=== PATIENT | female | born 1955 | race Caucasian/White ===

== ENCOUNTER 2017-11-28 11:00 | Outpatient (RCR) | payer OTHER, SELFPAY ==
[2017-11-07 09:18] VITALS: BP 133/117; PULSE 81; RESP 18; TEMP 36.4
--- NOTE | 2017-11-07 19:25 | HP.PCM_ITS ---
(1) Pressure ulcer of coccygeal region, stage 3 Status: Acute Current Visit: Yes Code(s): L89.153 - Pressure ulcer of sacral region, stage 3 (2) Pressure ulcer of left buttock, stage 2 Status: Acute Current Visit: Yes Code(s): L89.322 - Pressure ulcer of left buttock, stage 2 (3) Paraparesis of both lower limbs Status: Acute Current Visit: Yes Code(s): G82.20 - Paraplegia, unspecified (4) Multiple sclerosis Status: Chronic Current Visit: No Code(s): G35 - Multiple sclerosis History of Present Illness Date of Service: 11/07/17 Chief Complaint: Decubitus Ulcers History of Wound: Ms. Bryan is a 62-year-old with a complex past medical history who was referred to the wound center due to a chronic nonhealing decubitus ulcers. Initial presentation/Onset was said to be over a year ago and she has been managed by her home health without any significant improvement in her ulcers. She is said to be in bed pretty much 24 hours due to her paraparesis and is turned about 3 times daily. She denies chills, fever, or otherwise feeling of unwell. She was recently managed for a MRSA UTI. She has an indwelling Marcus's. Past Medical History Past Medical History: Chronic Problems Macrocytic anemia (Chronic) due to folate deficiency + fatty liver.....? hemolysis, haptoglobin is pending Hypothyroidism (Chronic) Anxiety (Chronic) Morbid obesity with BMI of 40.0-44.9, adult (Chronic) COPD (chronic obstructive pulmonary disease) (Chronic) life long non-smoker Multiple sclerosis (Chronic) Depression (Chronic) Failure to thrive in adult (Chronic) Physical deconditioning (Chronic) Spinal stenosis of lumbar region (Chronic) mild, diagnosed on MRI of the LS spine done 01/01/14 Folate deficiency anemia (Chronic) Fatty infiltration of liver (Chronic) Urine, incontinence, stress female (Chronic) Chronic retention of urine (Chronic) she has MS and also has spinal canal stenosis....has seen neurosurgery and is not a candidate for any surgical intervention. Physical debility (Chronic) she is sedentary lives alone and can no longer get herself to the BR, has lost arm strength....very deconditioned Surgical History: - - tubal ligation, elective , ventral hernia repair Allergies/Adverse Reactions: Allergies gabapentin Adverse Reaction (Verified 05/05/15 12:21) weakness in legs nifedipine [From Procardia] Adverse Reaction (Verified 05/05/15 12:21) weakness in legs pregabalin [From Lyrica] Adverse Reaction (Verified 05/05/15 12:21) weakness in legs Home Medications: Ambulatory Orders Medication Instructions Recorded Diltiazem HCl [Diltiazem 24Hr ER] 240 mg PO QHS 03/28/15 Lactobacillus Combination No.4 1 each PO DAILY 03/28/15 [Probiotic] Levothyroxine [Synthroid] 100 mcg PO DAILY 03/28/15 Meloxicam [Mobic] 7.5 mg PO BID 03/28/15 Venlafaxine HCl [Effexor] 150 mg PO BID 03/28/15 Hydrochlorothiazide [Hctz] 25 mg PO DAILY 12/05/15 Tolterodine Tartrate [Detrol LA] 2 mg PO BID 12/05/15 ALPRAZolam [Xanax] 0.5 mg PO Q6H PRN PRN 11/07/17 Clotrimazole/Betamethasone 1 applic TOPICAL DAILY PRN 11/07/17 [Lotrisone] Melatonin 5 mg PO QHS 11/07/17 Nitrofurantoin Macrocrystal 100 mg PO DAILY 11/07/17 [Macrodantin] Nystatin Powder [Mycostatin Powder] 1 applic TOPICAL BID PRN 11/07/17 Ondansetron [Zofran] 8 mg PO Q8H PRN PRN 11/07/17 Potassium Chloride [K-Dur] 20 meq PO BID 11/07/17 Sennosides/Docusate Sodium [Senna 1 - 8 each PO DAILY PRN 11/07/17 Plus Tablet] - Family History Maternal Cancer - Her mother of lung cancer and was a smoker Paternal Diabetes, - - Father had posttraumatic stress disorder related from being in the armed forces. He also suffered from alcoholism Smoking Status: Never smoker Review of Systems Constitutional: Denies: Anorexia, Malaise Eyes: Denies: Pain, Redness HEENT: Denies: Difficulty Hearing, Difficulty Swallowing Cardiovascular: Denies: Chest Pain, Chest Tightness Respiratory: Denies: Cough, Hemoptysis Gastrointestinal: Denies: Abdominal Pain, Hematemesis, Vomiting Gynecological: Denies: Vaginal bleeding - Physical Exam Vital Signs Temp Pulse Resp BP 97.5 F L 81 18 133/117 H 11/07/17 09:18 11/07/17 09:18 11/07/17 09:18 11/07/17 09:18 General: Alert, Oriented x3, Cooperative, No apparent distress HEENT: Atraumatic, Normocephalic Oral: Moist Mucosa Neck: Supple Lungs: Normal air movement Cardiovascular: Regular rate Abdomen: Soft, Obese Extremities: No cyanosis Skin: Ulcer/ Wound Wound Measurements and Assessment WC - Nurse 1 - General Ulcer Measurement Start: 11/07/17 08:50 Freq: Status: Active Protocol: Activity Type Activity Date Activity User E-Sign Co-Sign Detail Recorded Client Recorded Date Recorded By Document 11/07/17 09:18 DV [id number] 11/07/17 09:23 DV 11/07/17 09:18 Wound Center Nurse 1 [Ulcer Assessment] #2 LEFT BUTTOCK -Combined with other wound No -Current Size (cm) - Length 0.5 -Current Size (cm) - Width 1.0 -Current Size (cm) - Depth 0.1 -Total Square Cm 0.50 -Photo Taken No -Epithelialization None Present -Tunneling No -Undermining/Tunneling No -Circular Undermining No -Classification - Pressure Ulcer Stage 2 -Exudate Amt Small (1-33%) -Exudate Type Serosanguineous -Wound Margin Distinct, Outline Attached -Granulation Amt None Present (0 %) -Granulation Quality Hyper- granulation -Slough/Fibrin Yes -Necrosis Amt Medium (34-66%) -Necrotic Tissue Type Adherent Slough -Structure Exposed None/Limited to Skin Breakdown -Texture (Jovanna-wound Skin Appearance) Assessed Scarring Rash -Moisture (Jovanna-wound Skin Appearance No Abnormality ) Assessed -Color (Jovanna-wound Skin Appearance) Assessed Erythema -Temperature (Jovanna-wound Skin No Abnormality Appearance) (Pt Warm) -Ulcer Cleansing Rinsed/ Irrigated with Saline -Foul Odor after Cleansing No -Anesthetic Used 4% Lidocaine Solution #1 COCCYX -Combined with other wound No -Current Size (cm) - Length 5.4 -Current Size (cm) - Width 4.0 -Current Size (cm) - Depth 0.4 -Total Square Cm 21.60 -Photo Taken Yes -Epithelialization None Present -Tunneling No -Undermining/Tunneling No -Circular Undermining No -Classification - Thickness Full Thickness without Exposed Support Structure -Classification - Pressure Ulcer Stage 3 -Exudate Amt Large (67-100%) -Exudate Type Serosanguineous -Wound Margin Indistinct, Non -Visible -Granulation Amt None Present (0 %) -Granulation Quality N/A -Slough/Fibrin Yes -Necrosis Amt Large (67-100%) -Necrotic Tissue Type Adherent Slough -Structure Exposed Fat Layer Exposed None/Limited to Skin Breakdown -Texture (Jovanna-wound Skin Appearance) Assessed Scarring Rash -Moisture (Jovanna-wound Skin Appearance Assessed ) Maceration Weeping -Color (Jovanna-wound Skin Appearance) Assessed Erythema -Tenderness on Palpation (Jovanna-wound Yes Skin Appearance) -Ulcer Cleansing Rinsed/ Irrigated with Saline -Foul Odor after Cleansing No -Anesthetic Used 4% Lidocaine Solution WC - Nurse 2 - General Ulcer CM Notes Start: 11/07/17 08:50 Freq: Status: Active Protocol: Activity Type Activity Date Activity User E-Sign Co-Sign Detail Recorded Client Recorded Date Recorded By Document 11/07/17 09:42 DV [id number] 11/07/17 09:56 DV 11/07/17 09:42 Wound Center Nurse 2 [Procedure/Treatment] #2 LEFT BUTTOCK -Time 09:42 -Correct Patient Yes -Correct Side, Site, Position Yes -Correct Procedure Yes -Procedure Performed Yes -Type of Procedure Debridement -Clinical Debridement Subcutaneous -Post Debridement Size (cm) - Length 0.5 -Post Debridement Size (cm) - Width 0.8 -Post Debridement Size (cm) - Depth 0.1 -Total Square Cm 0.40 -Wound/Ulcer Outcome Not Healed -Ulcer Cleansing Rinsed/ Irrigated with Saline -Foul Odor after Cleansing No -Bioengineered Tissue No -Bleeding Controlled with Pressure -Treatment Response Procedure Tolerated Well #1 COCCYX -Time 09:42 -Correct Patient Yes -Correct Side, Site, Position Yes -Correct Procedure Yes -Procedure Performed Yes -Type of Procedure Debridement -Clinical Debridement Subcutaneous -Post Debridement Size (cm) - Length 3.5 -Post Debridement Size (cm) - Width 3.0 -Post Debridement Size (cm) - Depth 0.2 -Total Square Cm 10.50 -Wound/Ulcer Outcome Not Healed -Ulcer Cleansing Rinsed/ Irrigated with Saline -Foul Odor after Cleansing No -Bioengineered Tissue No -Bleeding Controlled with Pressure -Treatment Response Procedure Tolerated Well [See Physician Procedure note for Specifics] Pain Scale: 0-10 Numeric [Pain] -Is Patient Pain Free? Yes Neurological: Cranial nerves II-XII grossly intact Psych/Mental Status: Normal Affect Debridement Note Post-Debridement Measurements/Treatment WC - Nurse 2 - General Ulcer CM Notes Start: 11/07/17 08:50 Freq: Status: Active Protocol: Activity Type Activity Date Activity User E-Sign Co-Sign Detail Recorded Client Recorded Date Recorded By Document 11/07/17 09:42 DV [id number] 11/07/17 09:56 DV 11/07/17 09:42 Wound Center Nurse 2 #2 LEFT BUTTOCK -Time 09:42 -Correct Patient Yes -Correct Side, Site, Position Yes -Correct Procedure Yes -Procedure Performed Yes -Type of Procedure Debridement -Clinical Debridement Subcutaneous -Post Debridement Size (cm) - Length 0.5 -Post Debridement Size (cm) - Width 0.8 -Post Debridement Size (cm) - Depth 0.1 -Total Square Cm 0.40 -Wound/Ulcer Outcome Not Healed -Ulcer Cleansing Rinsed/ Irrigated with Saline -Foul Odor after Cleansing No -Bioengineered Tissue No -Bleeding Controlled with Pressure -Treatment Response Procedure Tolerated Well #1 COCCYX -Time 09:42 -Correct Patient Yes -Correct Side, Site, Position Yes -Correct Procedure Yes -Procedure Performed Yes -Type of Procedure Debridement -Clinical Debridement Subcutaneous -Post Debridement Size (cm) - Length 3.5 -Post Debridement Size (cm) - Width 3.0 -Post Debridement Size (cm) - Depth 0.2 -Total Square Cm 10.50 -Wound/Ulcer Outcome Not Healed -Ulcer Cleansing Rinsed/ Irrigated with Saline -Foul Odor after Cleansing No -Bioengineered Tissue No -Bleeding Controlled with Pressure -Treatment Response Procedure Tolerated Well Pain Scale: 0-10 Numeric Is Patient Pain Free? Yes Wound debrided: Coccygeal Ulcer Wound Grade/Stage: Stage III Type of Debridement: Excisional debridement Anesthesia Used: 4% Lidocaine Solution Depth: Down to and including healthy tissue, in the subcutaneous layer Percentage of wound debrided: 100 Instrument Used: 5mm curette Tissue Removed: Slough and Devitalized tissue Severity: Fat Layer Exposed Amount of bleeding with debridement: Mild Bleeding Controlled with: Pressure Patient tolerated procedure well - Additional Wound Wound debrided: Left Buttock pressure ulcer Wound Grade/Stage: Stage II Type of Debridement: Excisional debridement Anesthesia Used: 4% Lidocaine Solution Depth: Down to and including healthy tissue, in the subcutaneous layer Percentage of wound debrided: 100 Instrument Used: 5mm curette Tissue Removed: Slough and Devitalized tissue Severity: Fat Layer Exposed Amount of bleeding with debridement: Mild Bleeding Controlled with: Pressure Patient tolerated procedure: Patient tolerated procedure well Assessment/Plan Active Problems Pressure ulcer of coccygeal region, stage 3 (Acute) Pressure ulcer of left buttock, stage 2 (Acute) Paraparesis of both lower limbs (Acute) Assessment: Stage III coccygeal decubitus ulcer. Stage II left buttock pressure ulcer. Paraparesis from multiple sclerosis. Physical debility. Plan: Both ulcers debrided as documented above. Procedure was well-tolerated. Cultures of decubitus coccygeal ulcer was taken. Due to significant slough burden, will start Santyl daily. Due to the chronicity of her ulcer I believe patient will benefit from a skin substitute. Advised on low loss air mattress. Gel cushions for seating. Turn patient every 2 hours. Increase protein in diet and protein supplements. Nurse visit in 1 week and follow-up with me in 2 weeks. This note was generated with [employer] software. It may contain incorrect words, spelling, and punctuation that were not noted in checking the note before signing.
[2017-11-21 11:35] VITALS: BP 111/83; PULSE 82; RESP 18; TEMP 35.9
--- NOTE | 2017-11-21 12:59 | PCM.WC.PN ---
(1) Pressure ulcer of coccygeal region, stage 3 Status: Acute Current Visit: Yes Code(s): L89.153 - Pressure ulcer of sacral region, stage 3 (2) Pressure ulcer of left buttock, stage 2 Status: Acute Current Visit: Yes Code(s): L89.322 - Pressure ulcer of left buttock, stage 2 (3) Paraparesis of both lower limbs Status: Acute Current Visit: Yes Code(s): G82.20 - Paraplegia, unspecified (4) Multiple sclerosis Status: Chronic Current Visit: No Code(s): G35 - Multiple sclerosis Type of Wound Date of Service: 11/21/17 Chief Complaint: Decubitus Ulcers History of Wound: Ms. Bryan is a 62-year-old with a complex past medical history who was referred to the wound center due to a chronic nonhealing decubitus ulcers. Initial presentation/Onset was said to be over a year ago and she has been managed by her home health without any significant improvement in her ulcers. She is said to be in bed pretty much 24 hours due to her paraparesis and is turned about 3 times daily. She denies chills, fever, or otherwise feeling of unwell. She was recently managed for a MRSA UTI. She has an indwelling Marcus's. Progress of Wound: Improving. No new complaints at this time. Has been on antibiotics per sensitivity. She denies any complaints or intolerance. - Physical Exam Vital Signs Temp Pulse Resp BP 96.6 F L 82 18 111/83 H 11/21/17 11:35 11/21/17 11:35 11/21/17 11:35 11/21/17 11:35 General: Alert, Oriented x3, Cooperative, No apparent distress HEENT: Atraumatic, Normocephalic Oral: Moist Mucosa Neck: Supple Lungs: Normal air movement Cardiovascular: Regular rate Skin: Ulcer/ Wound Wound Measurements and Assessment WC - Nurse 1 - General Ulcer Measurement Start: 11/07/17 08:50 Freq: Status: Active Protocol: Activity Type Activity Date Activity User E-Sign Co-Sign Detail Recorded Client Recorded Date Recorded By Document 11/21/17 11:35 [id number] 11/21/17 11:54 JS 11/21/17 11:35 Wound Center Nurse 1 [Ulcer Assessment] #2 LEFT BUTTOCK -Combined with other wound No #1 COCCYX -Combined with other wound No -Current Size (cm) - Length 2.7 -Current Size (cm) - Width 2.7 -Current Size (cm) - Depth 1.3 -Total Square Cm 7.29 -Photo Taken No -Epithelialization None Present -Tunneling No -Undermining/Tunneling No -Circular Undermining No -Classification - Thickness Full Thickness without Exposed Support Structure -Classification - Pressure Ulcer Stage 3 -Exudate Amt Small (1-33%) -Exudate Type Serosanguineous -Wound Margin Distinct, Outline Attached -Granulation Amt Large (67-100%) -Granulation Quality Red -Slough/Fibrin Yes -Necrosis Amt None Present (0 %) -Necrotic Tissue Type Adherent Slough -Structure Exposed Fat Layer Exposed None/Limited to Skin Breakdown -Texture (Jovanna-wound Skin Appearance) No Abnormality -Moisture (Jovanna-wound Skin Appearance Maceration ) -Color (Jovanna-wound Skin Appearance) No Abnormality -Temperature (Jovanna-wound Skin No Abnormality Appearance) (Pt Warm) -Tenderness on Palpation (Jovanna-wound No Skin Appearance) -Ulcer Cleansing Rinsed/ Irrigated with Saline -Foul Odor after Cleansing No -Anesthetic Used 5% Lidocaine Gel WC - Nurse 2 - General Ulcer CM Notes Start: 11/07/17 08:50 Freq: Status: Active Protocol: Activity Type Activity Date Activity User E-Sign Co-Sign Detail Recorded Client Recorded Date Recorded By Document 11/21/17 12:15 DV [id number] 11/21/17 12:20 DV 11/21/17 12:15 Wound Center Nurse 2 [Procedure/Treatment] #2 LEFT BUTTOCK -Time 12:15 -Correct Patient Yes -Procedure Performed No -Post Debridement Size (cm) - Length 0 -Post Debridement Size (cm) - Width 0 -Post Debridement Size (cm) - Depth 0 -Total Square Cm 0 -Wound/Ulcer Outcome Healed- Epithelialized #1 COCCYX -Time 12:17 -Correct Patient Yes -Correct Side, Site, Position Yes -Correct Procedure Yes -Procedure Performed Yes -Type of Procedure Debridement -Clinical Debridement Subcutaneous -Post Debridement Size (cm) - Length 2.0 -Post Debridement Size (cm) - Width 2.5 -Post Debridement Size (cm) - Depth 2.0 -Total Square Cm 5.00 -Wound/Ulcer Outcome Not Healed -Ulcer Cleansing Rinsed/ Irrigated with Saline -Foul Odor after Cleansing No -Bioengineered Tissue No -Bleeding Controlled with Pressure -Treatment Response Procedure Tolerated Well [See Physician Procedure note for Specifics] Pain Scale: 0-10 Numeric [Pain] -Is Patient Pain Free? Yes Neurological: Cranial nerves II-XII grossly intact Psych/Mental Status: Normal Affect Debridement Note Post-Debridement Measurements/Treatment WC - Nurse 2 - General Ulcer CM Notes Start: 11/07/17 08:50 Freq: Status: Active Protocol: Activity Type Activity Date Activity User E-Sign Co-Sign Detail Recorded Client Recorded Date Recorded By Document 11/07/17 09:42 DV [id number] 11/07/17 09:56 DV Document 11/21/17 12:15 DV [id number] 11/21/17 12:20 DV 11/07/17 11/21/17 09:42 12:15 Wound Center Nurse 2 #2 LEFT BUTTOCK -Time 09:42 12:15 -Correct Patient Yes Yes -Correct Side, Site, Position Yes -Correct Procedure Yes -Procedure Performed Yes No -Type of Procedure Debridement -Clinical Debridement Subcutaneous -Post Debridement Size (cm) - Length 0.5 0 -Post Debridement Size (cm) - Width 0.8 0 -Post Debridement Size (cm) - Depth 0.1 0 -Total Square Cm 0.40 0 -Wound/Ulcer Outcome Not Healed Healed- Epithelialized -Ulcer Cleansing Rinsed/ Irrigated with Saline -Foul Odor after Cleansing No -Bioengineered Tissue No -Bleeding Controlled with Pressure -Treatment Response Procedure Tolerated Well #1 COCCYX -Time 09:42 12:17 -Correct Patient Yes Yes -Correct Side, Site, Position Yes Yes -Correct Procedure Yes Yes -Procedure Performed Yes Yes -Type of Procedure Debridement Debridement -Clinical Debridement Subcutaneous Subcutaneous -Post Debridement Size (cm) - Length 3.5 2.0 -Post Debridement Size (cm) - Width 3.0 2.5 -Post Debridement Size (cm) - Depth 0.2 2.0 -Total Square Cm 10.50 5.00 -Wound/Ulcer Outcome Not Healed Not Healed -Ulcer Cleansing Rinsed/ Rinsed/ Irrigated with Irrigated with Saline Saline -Foul Odor after Cleansing No No -Bioengineered Tissue No No -Bleeding Controlled with Pressure Pressure -Treatment Response Procedure Procedure Tolerated Well Tolerated Well Pain Scale: 0-10 Numeric Is Patient Pain Free? Yes Yes Wound debrided: Coccygeal Ulcer Wound Grade/Stage: Stage III Type of Debridement: Excisional debridement Anesthesia Used: 4% Lidocaine Solution Depth: Down to and including healthy tissue, in the subcutaneous layer Percentage of wound debrided: 100 Instrument Used: 5mm curette Tissue Removed: Biofilm and devitalized tissue Severity: Fat Layer Exposed Amount of bleeding with debridement: Mild Bleeding Controlled with: Pressure Patient tolerated procedure well Assessment/Plan Active Problems Pressure ulcer of coccygeal region, stage 3 (Acute) Pressure ulcer of left buttock, stage 2 (Acute) Paraparesis of both lower limbs (Acute) Assessment: Stage III coccygeal decubitus ulcer. Stage II left buttock pressure ulcer. - Healed. Paraparesis from multiple sclerosis. Physical debility. Plan: She has shown significant improvement. Wound appears much deeper however, during her last visit, she had significant slough burden and so which could have impacted depth measurement. Good granulation tissue formation. Will switch to Fibracol daily with ABD over top. Continue increased protein intake/supplements. Advised on low loss air mattress. Gel cushions for seating. Turn patient every 2 hours. Follow up in 1 week. This note was generated with [employer] dictation software. It may contain incorrect words, spelling, and punctuation that were not noted in checking the note before signing.
--- NOTE | 2017-11-21 13:06 | PN.PCM_ITS ---
(1) Pressure ulcer of coccygeal region, stage 3 Status: Acute Current Visit: Yes Code(s): L89.153 - Pressure ulcer of sacral region, stage 3 (2) Pressure ulcer of left buttock, stage 2 Status: Acute Current Visit: Yes Code(s): L89.322 - Pressure ulcer of left buttock, stage 2 (3) Paraparesis of both lower limbs Status: Acute Current Visit: Yes Code(s): G82.20 - Paraplegia, unspecified (4) Multiple sclerosis Status: Chronic Current Visit: No Code(s): G35 - Multiple sclerosis Type of Wound Date of Service: 11/21/17 Chief Complaint: Decubitus Ulcers History of Wound: Ms. Bryan is a 62-year-old with a complex past medical history who was referred to the wound center due to a chronic nonhealing decubitus ulcers. Initial presentation/Onset was said to be over a year ago and she has been managed by her home health without any significant improvement in her ulcers. She is said to be in bed pretty much 24 hours due to her paraparesis and is turned about 3 times daily. She denies chills, fever, or otherwise feeling of unwell. She was recently managed for a MRSA UTI. She has an indwelling Marcus's. Progress of Wound: Improving. No new complaints at this time. Has been on antibiotics per sensitivity. She denies any complaints or intolerance. - Physical Exam Vital Signs Temp Pulse Resp BP 96.6 F L 82 18 111/83 H 11/21/17 11:35 11/21/17 11:35 11/21/17 11:35 11/21/17 11:35 General: Alert, Oriented x3, Cooperative, No apparent distress HEENT: Atraumatic, Normocephalic Oral: Moist Mucosa Neck: Supple Lungs: Normal air movement Cardiovascular: Regular rate Skin: Ulcer/ Wound Wound Measurements and Assessment WC - Nurse 1 - General Ulcer Measurement Start: 11/07/17 08:50 Freq: Status: Active Protocol: Activity Type Activity Date Activity User E-Sign Co-Sign Detail Recorded Client Recorded Date Recorded By Document 11/21/17 11:35 [email or web address] [id number] 11/21/17 11:54 JS 11/21/17 11:35 Wound Center Nurse 1 [Ulcer Assessment] #2 LEFT BUTTOCK -Combined with other wound No #1 COCCYX -Combined with other wound No -Current Size (cm) - Length 2.7 -Current Size (cm) - Width 2.7 -Current Size (cm) - Depth 1.3 -Total Square Cm 7.29 -Photo Taken No -Epithelialization None Present -Tunneling No -Undermining/Tunneling No -Circular Undermining No -Classification - Thickness Full Thickness without Exposed Support Structure -Classification - Pressure Ulcer Stage 3 -Exudate Amt Small (1-33%) -Exudate Type Serosanguineous -Wound Margin Distinct, Outline Attached -Granulation Amt Large (67-100%) -Granulation Quality Red -Slough/Fibrin Yes -Necrosis Amt None Present (0 %) -Necrotic Tissue Type Adherent Slough -Structure Exposed Fat Layer Exposed None/Limited to Skin Breakdown -Texture (Jovanna-wound Skin Appearance) No Abnormality -Moisture (Jovanna-wound Skin Appearance Maceration ) -Color (Jovanna-wound Skin Appearance) No Abnormality -Temperature (Jovanna-wound Skin No Abnormality Appearance) (Pt Warm) -Tenderness on Palpation (Jovanna-wound No Skin Appearance) -Ulcer Cleansing Rinsed/ Irrigated with Saline -Foul Odor after Cleansing No -Anesthetic Used 5% Lidocaine Gel WC - Nurse 2 - General Ulcer CM Notes Start: 11/07/17 08:50 Freq: Status: Active Protocol: Activity Type Activity Date Activity User E-Sign Co-Sign Detail Recorded Client Recorded Date Recorded By Document 11/21/17 12:15 DV [id number] 11/21/17 12:20 DV 11/21/17 12:15 Wound Center Nurse 2 [Procedure/Treatment] #2 LEFT BUTTOCK -Time 12:15 -Correct Patient Yes -Procedure Performed No -Post Debridement Size (cm) - Length 0 -Post Debridement Size (cm) - Width 0 -Post Debridement Size (cm) - Depth 0 -Total Square Cm 0 -Wound/Ulcer Outcome Healed- Epithelialized #1 COCCYX -Time 12:17 -Correct Patient Yes -Correct Side, Site, Position Yes -Correct Procedure Yes -Procedure Performed Yes -Type of Procedure Debridement -Clinical Debridement Subcutaneous -Post Debridement Size (cm) - Length 2.0 -Post Debridement Size (cm) - Width 2.5 -Post Debridement Size (cm) - Depth 2.0 -Total Square Cm 5.00 -Wound/Ulcer Outcome Not Healed -Ulcer Cleansing Rinsed/ Irrigated with Saline -Foul Odor after Cleansing No -Bioengineered Tissue No -Bleeding Controlled with Pressure -Treatment Response Procedure Tolerated Well [See Physician Procedure note for Specifics] Pain Scale: 0-10 Numeric [Pain] -Is Patient Pain Free? Yes Neurological: Cranial nerves II-XII grossly intact Psych/Mental Status: Normal Affect Debridement Note Post-Debridement Measurements/Treatment WC - Nurse 2 - General Ulcer CM Notes Start: 11/07/17 08:50 Freq: Status: Active Protocol: Activity Type Activity Date Activity User E-Sign Co-Sign Detail Recorded Client Recorded Date Recorded By Document 11/07/17 09:42 DV [id number] 11/07/17 09:56 DV Document 11/21/17 12:15 DV [id number] 11/21/17 12:20 DV 11/07/17 11/21/17 09:42 12:15 Wound Center Nurse 2 #2 LEFT BUTTOCK -Time 09:42 12:15 -Correct Patient Yes Yes -Correct Side, Site, Position Yes -Correct Procedure Yes -Procedure Performed Yes No -Type of Procedure Debridement -Clinical Debridement Subcutaneous -Post Debridement Size (cm) - Length 0.5 0 -Post Debridement Size (cm) - Width 0.8 0 -Post Debridement Size (cm) - Depth 0.1 0 -Total Square Cm 0.40 0 -Wound/Ulcer Outcome Not Healed Healed- Epithelialized -Ulcer Cleansing Rinsed/ Irrigated with Saline -Foul Odor after Cleansing No -Bioengineered Tissue No -Bleeding Controlled with Pressure -Treatment Response Procedure Tolerated Well #1 COCCYX -Time 09:42 12:17 -Correct Patient Yes Yes -Correct Side, Site, Position Yes Yes -Correct Procedure Yes Yes -Procedure Performed Yes Yes -Type of Procedure Debridement Debridement -Clinical Debridement Subcutaneous Subcutaneous -Post Debridement Size (cm) - Length 3.5 2.0 -Post Debridement Size (cm) - Width 3.0 2.5 -Post Debridement Size (cm) - Depth 0.2 2.0 -Total Square Cm 10.50 5.00 -Wound/Ulcer Outcome Not Healed Not Healed -Ulcer Cleansing Rinsed/ Rinsed/ Irrigated with Irrigated with Saline Saline -Foul Odor after Cleansing No No -Bioengineered Tissue No No -Bleeding Controlled with Pressure Pressure -Treatment Response Procedure Procedure Tolerated Well Tolerated Well Pain Scale: 0-10 Numeric Is Patient Pain Free? Yes Yes Wound debrided: Coccygeal Ulcer Wound Grade/Stage: Stage III Type of Debridement: Excisional debridement Anesthesia Used: 4% Lidocaine Solution Depth: Down to and including healthy tissue, in the subcutaneous layer Percentage of wound debrided: 100 Instrument Used: 5mm curette Tissue Removed: Biofilm and devitalized tissue Severity: Fat Layer Exposed Amount of bleeding with debridement: Mild Bleeding Controlled with: Pressure Patient tolerated procedure well Assessment/Plan Active Problems Pressure ulcer of coccygeal region, stage 3 (Acute) Pressure ulcer of left buttock, stage 2 (Acute) Paraparesis of both lower limbs (Acute) Assessment: Stage III coccygeal decubitus ulcer. Stage II left buttock pressure ulcer. - Healed. Paraparesis from multiple sclerosis. Physical debility. Plan: She has shown significant improvement. Wound appears much deeper however , during her last visit, she had significant slough burden and so which could have impacted depth measurement. Good granulation tissue formation. Will switch to Fibracol daily with ABD over top. Continue increased protein intake/ supplements. Advised on low loss air mattress. Gel cushions for seating. Turn patient every 2 hours. Follow up in 1 week. This note was generated with [employer] dictation software. It may contain incorrect words, spelling, and punctuation that were not noted in checking the note before signing.
[2017-11-28 11:33] VITALS: BP 116/85; PULSE 78; RESP 18; TEMP 36.1
--- NOTE | 2017-11-28 17:19 | PCM.WC.PN ---
(1) Pressure ulcer of coccygeal region, stage 3 Status: Acute Current Visit: Yes Code(s): L89.153 - Pressure ulcer of sacral region, stage 3 (2) Pressure ulcer of left buttock, stage 2 Status: Acute Current Visit: Yes Code(s): L89.322 - Pressure ulcer of left buttock, stage 2 (3) Paraparesis of both lower limbs Status: Acute Current Visit: Yes Code(s): G82.20 - Paraplegia, unspecified (4) Multiple sclerosis Status: Chronic Current Visit: No Code(s): G35 - Multiple sclerosis Type of Wound Date of Service: 11/28/17 Chief Complaint: Decubitus Ulcers History of Wound: Ms. Bryan is a 62-year-old with a complex past medical history who was referred to the wound center due to a chronic nonhealing decubitus ulcers. Initial presentation/Onset was said to be over a year ago and she has been managed by her home health without any significant improvement in her ulcers. She is said to be in bed pretty much 24 hours due to her paraparesis and is turned about 3 times daily. She denies chills, fever, or otherwise feeling of unwell. She was recently managed for a MRSA UTI. She has an indwelling Marcus's. Progress of Wound: Improving. No new complaints at this time. - Physical Exam Vital Signs Temp Pulse Resp BP 97 F L 78 18 116/85 H 11/28/17 11:33 11/28/17 11:33 11/28/17 11:33 11/28/17 11:33 General: Alert, Oriented x3, Cooperative, No apparent distress HEENT: Atraumatic, Normocephalic Oral: Moist Mucosa Neck: Supple Lungs: Normal air movement Cardiovascular: Regular rate Abdomen: Soft, Non Tender Skin: Ulcer/ Wound Wound Measurements and Assessment WC - Nurse 1 - General Ulcer Measurement Start: 11/07/17 08:50 Freq: Status: Active Protocol: Activity Type Activity Date Activity User E-Sign Co-Sign Detail Recorded Client Recorded Date Recorded By Document 11/28/17 11:33 RB [id number] 11/28/17 11:51 RB 11/28/17 11:33 Wound Center Nurse 1 [Ulcer Assessment] #1 COCCYX -Combined with other wound No -Current Size (cm) - Length 3.5 -Current Size (cm) - Width 2 -Current Size (cm) - Depth 1.3 -Total Square Cm 7.0 -Photo Taken No -Tunneling No -Undermining/Tunneling No -Circular Undermining No -Classification - Pressure Ulcer Stage 3 -Exudate Amt Small (1-33%) -Exudate Type Serosanguineous -Wound Margin Thickened & Rolled Under -Granulation Amt Medium (34-66%) -Granulation Quality [place] -Slough/Fibrin Yes -Necrosis Amt Small (1-33%) -Necrotic Tissue Type Adherent Slough -Structure Exposed N/A -Texture (Jovanna-wound Skin Appearance) Assessed Excoriation -Moisture (Jovanna-wound Skin Appearance Assessed ) -Color (Jovanna-wound Skin Appearance) Assessed -Temperature (Jovanna-wound Skin No Abnormality Appearance) (Pt Warm) -Tenderness on Palpation (Jovanna-wound No Skin Appearance) -Ulcer Cleansing Rinsed/ Irrigated with Saline -Foul Odor after Cleansing No -Anesthetic Used 5% Lidocaine Gel WC - Nurse 2 - General Ulcer CM Notes Start: 11/07/17 08:50 Freq: Status: Active Protocol: Activity Type Activity Date Activity User E-Sign Co-Sign Detail Recorded Client Recorded Date Recorded By Document 11/28/17 12:41 DV [id number] 11/28/17 12:42 DV 11/28/17 12:41 Wound Center Nurse 2 [Procedure/Treatment] -Time 12:41 -Correct Patient Yes -Correct Side, Site, Position Yes -Correct Procedure Yes -Procedure Performed Yes -Type of Procedure Debridement -Clinical Debridement Subcutaneous -Post Debridement Size (cm) - Length 2.0 -Post Debridement Size (cm) - Width 2.5 -Post Debridement Size (cm) - Depth 1.2 -Total Square Cm 5.00 -Wound/Ulcer Outcome Not Healed -Ulcer Cleansing Rinsed/ Irrigated with Saline -Foul Odor after Cleansing No -Bioengineered Tissue No -Bleeding Controlled with Pressure -Treatment Response Procedure Tolerated Well [See Physician Procedure note for Specifics] Pain Scale: 0-10 Numeric [Pain] -Is Patient Pain Free? Yes Neurological: Cranial nerves II-XII grossly intact Psych/Mental Status: Normal Affect Debridement Note Post-Debridement Measurements/Treatment WC - Nurse 2 - General Ulcer CM Notes Start: 11/07/17 08:50 Freq: Status: Active Protocol: Activity Type Activity Date Activity User E-Sign Co-Sign Detail Recorded Client Recorded Date Recorded By Document 11/07/17 09:42 DV [id number] 11/07/17 09:56 DV Document 11/21/17 12:15 DV [id number] 11/21/17 12:20 DV Document 11/28/17 12:41 DV [id number] 11/28/17 12:42 DV 11/07/17 11/21/17 11/28/17 09:42 12:15 12:41 Wound Center Nurse 2 #2 LEFT BUTTOCK -Time 09:42 12:15 -Correct Patient Yes Yes -Correct Side, Site, Position Yes -Correct Procedure Yes -Procedure Performed Yes No -Type of Procedure Debridement -Clinical Debridement Subcutaneous -Post Debridement Size (cm) - Length 0.5 0 -Post Debridement Size (cm) - Width 0.8 0 -Post Debridement Size (cm) - Depth 0.1 0 -Total Square Cm 0.40 0 -Wound/Ulcer Outcome Not Healed Healed- Epithelialized -Ulcer Cleansing Rinsed/ Irrigated with Saline -Foul Odor after Cleansing No -Bioengineered Tissue No -Bleeding Controlled with Pressure -Treatment Response Procedure Tolerated Well #1 COCCYX -Time 09:42 12:17 12:41 -Correct Patient Yes Yes Yes -Correct Side, Site, Position Yes Yes Yes -Correct Procedure Yes Yes Yes -Procedure Performed Yes Yes Yes -Type of Procedure Debridement Debridement Debridement -Clinical Debridement Subcutaneous Subcutaneous Subcutaneous -Post Debridement Size (cm) - Length 3.5 2.0 2.0 -Post Debridement Size (cm) - Width 3.0 2.5 2.5 -Post Debridement Size (cm) - Depth 0.2 2.0 1.2 -Total Square Cm 10.50 5.00 5.00 -Wound/Ulcer Outcome Not Healed Not Healed Not Healed -Ulcer Cleansing Rinsed/ Rinsed/ Rinsed/ Irrigated with Irrigated with Irrigated with Saline Saline Saline -Foul Odor after Cleansing No No No -Bioengineered Tissue No No No -Bleeding Controlled with Pressure Pressure Pressure -Treatment Response Procedure Procedure Procedure Tolerated Well Tolerated Well Tolerated Well Pain Scale: 0-10 Numeric Is Patient Pain Free? Yes Yes Yes Wound debrided: Coccygeal ulcer Wound Grade/Stage: Stage III Type of Debridement: Excisional debridement Anesthesia Used: 5% Lidocaine Gel Depth: Down to and including healthy tissue, in the subcutaneous layer Percentage of wound debrided: 100 Instrument Used: 5mm curette Tissue Removed: Slough and devitalized tissue Severity: Fat Layer Exposed Amount of bleeding with debridement: Mild Bleeding Controlled with: Pressure Patient tolerated procedure well Assessment/Plan Active Problems Pressure ulcer of coccygeal region, stage 3 (Acute) Pressure ulcer of left buttock, stage 2 (Acute) Paraparesis of both lower limbs (Acute) Assessment: Stage III coccygeal decubitus ulcer. Stage II left buttock pressure ulcer. - Healed. Paraparesis from multiple sclerosis. Physical debility. Plan: Wound is becoming more superficisl with god granulation still. However area of erythema aroud the wound noted. Cocerning for stage 1 pressure ulcer. Debridement done as docuemented above, procedure was well tolerated. Continue Fibracol daily with ABD over top. Continue increased protein intake/supplements. Advised on low loss air mattress. Gel cushions for seating. Zinc oxide cream to periwound /buttock area. Turn patient every 2 hours. Follow up in 1 week. This note was generated with [employer] dictation software. It may contain incorrect words, spelling, and punctuation that were not noted in checking the note before signing.
--- NOTE | 2017-11-28 17:24 | PN.PCM_ITS ---
(1) Pressure ulcer of coccygeal region, stage 3 Status: Acute Current Visit: Yes Code(s): L89.153 - Pressure ulcer of sacral region, stage 3 (2) Pressure ulcer of left buttock, stage 2 Status: Acute Current Visit: Yes Code(s): L89.322 - Pressure ulcer of left buttock, stage 2 (3) Paraparesis of both lower limbs Status: Acute Current Visit: Yes Code(s): G82.20 - Paraplegia, unspecified (4) Multiple sclerosis Status: Chronic Current Visit: No Code(s): G35 - Multiple sclerosis Type of Wound Date of Service: 11/28/17 Chief Complaint: Decubitus Ulcers History of Wound: Ms. Bryan is a 62-year-old with a complex past medical history who was referred to the wound center due to a chronic nonhealing decubitus ulcers. Initial presentation/Onset was said to be over a year ago and she has been managed by her home health without any significant improvement in her ulcers. She is said to be in bed pretty much 24 hours due to her paraparesis and is turned about 3 times daily. She denies chills, fever, or otherwise feeling of unwell. She was recently managed for a MRSA UTI. She has an indwelling Marcus's. Progress of Wound: Improving. No new complaints at this time. - Physical Exam Vital Signs Temp Pulse Resp BP 97 F L 78 18 116/85 H 11/28/17 11:33 11/28/17 11:33 11/28/17 11:33 11/28/17 11:33 General: Alert, Oriented x3, Cooperative, No apparent distress HEENT: Atraumatic, Normocephalic Oral: Moist Mucosa Neck: Supple Lungs: Normal air movement Cardiovascular: Regular rate Abdomen: Soft, Non Tender Skin: Ulcer/ Wound Wound Measurements and Assessment WC - Nurse 1 - General Ulcer Measurement Start: 11/07/17 08:50 Freq: Status: Active Protocol: Activity Type Activity Date Activity User E-Sign Co-Sign Detail Recorded Client Recorded Date Recorded By Document 11/28/17 11:33 RB [id number] 11/28/17 11:51 RB 11/28/17 11:33 Wound Center Nurse 1 [Ulcer Assessment] #1 COCCYX -Combined with other wound No -Current Size (cm) - Length 3.5 -Current Size (cm) - Width 2 -Current Size (cm) - Depth 1.3 -Total Square Cm 7.0 -Photo Taken No -Tunneling No -Undermining/Tunneling No -Circular Undermining No -Classification - Pressure Ulcer Stage 3 -Exudate Amt Small (1-33%) -Exudate Type Serosanguineous -Wound Margin Thickened & Rolled Under -Granulation Amt Medium (34-66%) -Granulation Quality [place] -Slough/Fibrin Yes -Necrosis Amt Small (1-33%) -Necrotic Tissue Type Adherent Slough -Structure Exposed N/A -Texture (Jovanna-wound Skin Appearance) Assessed Excoriation -Moisture (Jovanna-wound Skin Appearance Assessed ) -Color (Jovanna-wound Skin Appearance) Assessed -Temperature (Jovanna-wound Skin No Abnormality Appearance) (Pt Warm) -Tenderness on Palpation (Jovanna-wound No Skin Appearance) -Ulcer Cleansing Rinsed/ Irrigated with Saline -Foul Odor after Cleansing No -Anesthetic Used 5% Lidocaine Gel WC - Nurse 2 - General Ulcer CM Notes Start: 11/07/17 08:50 Freq: Status: Active Protocol: Activity Type Activity Date Activity User E-Sign Co-Sign Detail Recorded Client Recorded Date Recorded By Document 11/28/17 12:41 DV [id number] 11/28/17 12:42 DV 11/28/17 12:41 Wound Center Nurse 2 [Procedure/Treatment] -Time 12:41 -Correct Patient Yes -Correct Side, Site, Position Yes -Correct Procedure Yes -Procedure Performed Yes -Type of Procedure Debridement -Clinical Debridement Subcutaneous -Post Debridement Size (cm) - Length 2.0 -Post Debridement Size (cm) - Width 2.5 -Post Debridement Size (cm) - Depth 1.2 -Total Square Cm 5.00 -Wound/Ulcer Outcome Not Healed -Ulcer Cleansing Rinsed/ Irrigated with Saline -Foul Odor after Cleansing No -Bioengineered Tissue No -Bleeding Controlled with Pressure -Treatment Response Procedure Tolerated Well [See Physician Procedure note for Specifics] Pain Scale: 0-10 Numeric [Pain] -Is Patient Pain Free? Yes Neurological: Cranial nerves II-XII grossly intact Psych/Mental Status: Normal Affect Debridement Note Post-Debridement Measurements/Treatment WC - Nurse 2 - General Ulcer CM Notes Start: 11/07/17 08:50 Freq: Status: Active Protocol: Activity Type Activity Date Activity User E-Sign Co-Sign Detail Recorded Client Recorded Date Recorded By Document 11/07/17 09:42 DV [id number] 11/07/17 09:56 DV Document 11/21/17 12:15 DV [id number] 11/21/17 12:20 DV Document 11/28/17 12:41 DV [id number] 11/28/17 12:42 DV 11/07/17 11/21/17 11/28/17 09:42 12:15 12:41 Wound Center Nurse 2 #2 LEFT BUTTOCK -Time 09:42 12:15 -Correct Patient Yes Yes -Correct Side, Site, Position Yes -Correct Procedure Yes -Procedure Performed Yes No -Type of Procedure Debridement -Clinical Debridement Subcutaneous -Post Debridement Size (cm) - Length 0.5 0 -Post Debridement Size (cm) - Width 0.8 0 -Post Debridement Size (cm) - Depth 0.1 0 -Total Square Cm 0.40 0 -Wound/Ulcer Outcome Not Healed Healed- Epithelialized -Ulcer Cleansing Rinsed/ Irrigated with Saline -Foul Odor after Cleansing No -Bioengineered Tissue No -Bleeding Controlled with Pressure -Treatment Response Procedure Tolerated Well #1 COCCYX -Time 09:42 12:17 12:41 -Correct Patient Yes Yes Yes -Correct Side, Site, Position Yes Yes Yes -Correct Procedure Yes Yes Yes -Procedure Performed Yes Yes Yes -Type of Procedure Debridement Debridement Debridement -Clinical Debridement Subcutaneous Subcutaneous Subcutaneous -Post Debridement Size (cm) - Length 3.5 2.0 2.0 -Post Debridement Size (cm) - Width 3.0 2.5 2.5 -Post Debridement Size (cm) - Depth 0.2 2.0 1.2 -Total Square Cm 10.50 5.00 5.00 -Wound/Ulcer Outcome Not Healed Not Healed Not Healed -Ulcer Cleansing Rinsed/ Rinsed/ Rinsed/ Irrigated with Irrigated with Irrigated with Saline Saline Saline -Foul Odor after Cleansing No No No -Bioengineered Tissue No No No -Bleeding Controlled with Pressure Pressure Pressure -Treatment Response Procedure Procedure Procedure Tolerated Well Tolerated Well Tolerated Well Pain Scale: 0-10 Numeric Is Patient Pain Free? Yes Yes Yes Wound debrided: Coccygeal ulcer Wound Grade/Stage: Stage III Type of Debridement: Excisional debridement Anesthesia Used: 5% Lidocaine Gel Depth: Down to and including healthy tissue, in the subcutaneous layer Percentage of wound debrided: 100 Instrument Used: 5mm curette Tissue Removed: Slough and devitalized tissue Severity: Fat Layer Exposed Amount of bleeding with debridement: Mild Bleeding Controlled with: Pressure Patient tolerated procedure well Assessment/Plan Active Problems Pressure ulcer of coccygeal region, stage 3 (Acute) Pressure ulcer of left buttock, stage 2 (Acute) Paraparesis of both lower limbs (Acute) Assessment: Stage III coccygeal decubitus ulcer. Stage II left buttock pressure ulcer. - Healed. Paraparesis from multiple sclerosis. Physical debility. Plan: Wound is becoming more superficisl with god granulation still. However area of erythema aroud the wound noted. Cocerning for stage 1 pressure ulcer. Debridement done as docuemented above, procedure was well tolerated. Continue Fibracol daily with ABD over top. Continue increased protein intake/ supplements. Advised on low loss air mattress. Gel cushions for seating. Zinc oxide cream to periwound /buttock area. Turn patient every 2 hours. Follow up in 1 week. This note was generated with [employer] dictation software. It may contain incorrect words, spelling, and punctuation that were not noted in checking the note before signing.
== END 2017-12-02 23:59 ==
LOC: WC 11:00
PROVIDERS: Visit Provider Internal Medicine
DX: L89.153 Pressure ulcer of sacral region, stage 3 (principal); G82.20 Paraplegia, unspecified; G35 Multiple sclerosis; L89.322 Pressure ulcer of left buttock, stage 2; Z87.440 Personal history of urinary (tract) infections; E03.9 Hypothyroidism, unspecified; J44.9 Chronic obstructive pulmonary disease, unspecified; E66.01 Morbid (severe) obesity due to excess calories; Z68.41 Body mass index [BMI] 40.0-44.9, adult; Z71.3 Dietary counseling and surveillance; M48.061 Spinal stenosis, lumbar region without neurogenic claudication; Z79.899 Other long term (current) drug therapy; F32.9 Major depressive disorder, single episode, unspecified
CPT/HCPCS: 11042; 87070; 87075; 87077; 87205; 99203; G0463

== ENCOUNTER 2018-01-02 12:30 | Outpatient (RCR) | payer OTHER, SELFPAY ==
[2017-12-03 01:07] VITALS: PULSE 78; RESP 18; TEMP 36.1
--- NOTE | 2017-12-05 13:33 | PCM.WC.PN ---
(1) Pressure ulcer of coccygeal region, stage 3 Status: Acute Current Visit: Yes Code(s): L89.153 - Pressure ulcer of sacral region, stage 3 (2) Paraparesis of both lower limbs Status: Acute Current Visit: Yes Code(s): G82.20 - Paraplegia, unspecified (3) Physical debility Status: Chronic Current Visit: Yes Code(s): R53.81 - Other malaise Comment: she is sedentary lives alone and can no longer get herself to the BR, has lost arm strength....very deconditioned Type of Wound Date of Service: 12/05/17 Chief Complaint: Decubitus Ulcers History of Wound: Ms. Bryan is a 62-year-old with a complex past medical history who was referred to the wound center due to a chronic nonhealing decubitus ulcers. Initial presentation/Onset was said to be over a year ago and she has been managed by her home health without any significant improvement in her ulcers. She is said to be in bed pretty much 24 hours due to her paraparesis and is turned about 3 times daily. She denies chills, fever, or otherwise feeling of unwell. She was recently managed for a MRSA UTI. She has an indwelling Marcus's. Progress of Wound: Stable. No new complaints at this time. - Physical Exam Vital Signs Temp Pulse Resp 97 F L 78 18 12/03/17 01:07 12/03/17 01:07 12/03/17 01:07 General: Alert, Oriented x3, Cooperative, No apparent distress HEENT: Atraumatic Oral: Moist Mucosa Neck: Supple Lungs: Normal air movement Abdomen: Non Tender Extremities: No cyanosis Skin: Ulcer/ Wound Wound Measurements and Assessment WC - Nurse 1 - General Ulcer Measurement Start: 12/05/17 13:05 Freq: Status: Active Protocol: Activity Type Activity Date Activity User E-Sign Co-Sign Detail Recorded Client Recorded Date Recorded By Document 12/05/17 13:08 [facility] [id number] 12/05/17 13:19 [facility] 12/05/17 13:08 Wound Center Nurse 1 [Ulcer Assessment] #1 COCCYX -Combined with other wound No -Current Size (cm) - Length 3.3 -Current Size (cm) - Width 1.6 -Current Size (cm) - Depth 1.4 -Total Square Cm 5.28 -Date of Last Picture (Recall this 12/05/17 field) -Photo Taken Yes -Epithelialization None Present -Tunneling No -Undermining/Tunneling No -Circular Undermining No -Exudate Amt Large (67-100%) -Exudate Type Serous -Wound Margin Distinct, Outline Attached -Granulation Amt Medium (34-66%) -Granulation Quality Red -Slough/Fibrin Yes -Necrosis Amt Medium (34-66%) -Texture (Jovanna-wound Skin Appearance) Scarring -Moisture (Jovanna-wound Skin Appearance Assessed ) Maceration -Color (Jovanna-wound Skin Appearance) Erythema -Temperature (Jovanna-wound Skin No Abnormality Appearance) (Pt Warm) -Tenderness on Palpation (Jovanna-wound No Skin Appearance) -Ulcer Cleansing Rinsed/ Irrigated with Saline -Foul Odor after Cleansing No -Anesthetic Used 4% Lidocaine Solution WC - Nurse 2 - General Ulcer CM Notes Start: 12/05/17 13:05 Freq: Status: Active Protocol: Activity Type Activity Date Activity User E-Sign Co-Sign Detail Recorded Client Recorded Date Recorded By Document 12/05/17 13:31 DV [id number] 12/05/17 13:32 DV 12/05/17 13:31 Wound Center Nurse 2 [Procedure/Treatment] -Time 13:31 -Correct Patient Yes -Correct Side, Site, Position Yes -Correct Procedure Yes -Procedure Performed Yes -Type of Procedure Debridement -Clinical Debridement Subcutaneous -Post Debridement Size (cm) - Length 2.0 -Post Debridement Size (cm) - Width 2.0 -Post Debridement Size (cm) - Depth 1.2 -Total Square Cm 4.00 -Wound/Ulcer Outcome Not Healed -Ulcer Cleansing Rinsed/ Irrigated with Saline -Foul Odor after Cleansing No -Bioengineered Tissue No -Bleeding Controlled with Pressure -Treatment Response Procedure Tolerated Well [See Physician Procedure note for Specifics] Pain Scale: 0-10 Numeric [Pain] -Is Patient Pain Free? Yes Musculoskeletal: No Muscle Wasting Neurological: Cranial nerves II-XII grossly intact Psych/Mental Status: Normal Affect Debridement Note Post-Debridement Measurements/Treatment WC - Nurse 2 - General Ulcer CM Notes Start: 12/05/17 13:05 Freq: Status: Active Protocol: Activity Type Activity Date Activity User E-Sign Co-Sign Detail Recorded Client Recorded Date Recorded By Document 12/05/17 13:31 DV [id number] 12/05/17 13:32 DV 12/05/17 13:31 Wound Center Nurse 2 #1 COCCYX -Time 13:31 -Correct Patient Yes -Correct Side, Site, Position Yes -Correct Procedure Yes -Procedure Performed Yes -Type of Procedure Debridement -Clinical Debridement Subcutaneous -Post Debridement Size (cm) - Length 2.0 -Post Debridement Size (cm) - Width 2.0 -Post Debridement Size (cm) - Depth 1.2 -Total Square Cm 4.00 -Wound/Ulcer Outcome Not Healed -Ulcer Cleansing Rinsed/ Irrigated with Saline -Foul Odor after Cleansing No -Bioengineered Tissue No -Bleeding Controlled with Pressure -Treatment Response Procedure Tolerated Well Pain Scale: 0-10 Numeric Is Patient Pain Free? Yes Wound debrided: Coccygeal ulcer Wound Grade/Stage: Stage IV Type of Debridement: Excisional debridement Anesthesia Used: 4% Lidocaine Solution Depth: Down to and including healthy tissue, in the subcutaneous layer Percentage of wound debrided: 100 Instrument Used: 7mm curette Tissue Removed: Slough and devitalized tissue Severity: Fat Layer Exposed Amount of bleeding with debridement: Mild Bleeding Controlled with: Pressure Patient tolerated procedure well Assessment/Plan Active Problems Pressure ulcer of coccygeal region, stage 3 (Acute) Paraparesis of both lower limbs (Acute) Physical debility (Chronic) she is sedentary lives alone and can no longer get herself to the BR, has lost arm strength....very deconditioned Assessment: Stage III coccygeal decubitus ulcer. Stage II left buttock pressure ulcer. - Healed. Paraparesis from multiple sclerosis. Physical debility. Plan: No significant progress in the past week. However, surrounding erythema appears to be subsiding. Debridement done as docuemented above, procedure was well tolerated. She appears to have done better on Santyl. Will switch dressing over to Santyl daily with gauze over top. Continue increased protein intake/supplements. Advised on low loss air mattress. Gel cushions for seating. Zinc oxide cream to periwound /buttock area. Turn patient every 2 hours. Follow up in 1 week. This note was generated with [employer] dictation software. It may contain incorrect words, spelling, and punctuation that were not noted in checking the note before signing.
--- NOTE | 2017-12-05 13:36 | PN.PCM_ITS ---
(1) Pressure ulcer of coccygeal region, stage 3 Status: Acute Current Visit: Yes Code(s): L89.153 - Pressure ulcer of sacral region, stage 3 (2) Paraparesis of both lower limbs Status: Acute Current Visit: Yes Code(s): G82.20 - Paraplegia, unspecified (3) Physical debility Status: Chronic Current Visit: Yes Code(s): R53.81 - Other malaise Comment : she is sedentary lives alone and can no longer get herself to the BR, has lost arm strength....very deconditioned Type of Wound Date of Service: 12/05/17 Chief Complaint: Decubitus Ulcers History of Wound: Ms. Bryan is a 62-year-old with a complex past medical history who was referred to the wound center due to a chronic nonhealing decubitus ulcers. Initial presentation/Onset was said to be over a year ago and she has been managed by her home health without any significant improvement in her ulcers. She is said to be in bed pretty much 24 hours due to her paraparesis and is turned about 3 times daily. She denies chills, fever, or otherwise feeling of unwell. She was recently managed for a MRSA UTI. She has an indwelling Marcus's. Progress of Wound: Stable. No new complaints at this time. - Physical Exam Vital Signs Temp Pulse Resp 97 F L 78 18 12/03/17 01:07 12/03/17 01:07 12/03/17 01:07 General: Alert, Oriented x3, Cooperative, No apparent distress HEENT: Atraumatic Oral: Moist Mucosa Neck: Supple Lungs: Normal air movement Abdomen: Non Tender Extremities: No cyanosis Skin: Ulcer/ Wound Wound Measurements and Assessment WC - Nurse 1 - General Ulcer Measurement Start: 12/05/17 13:05 Freq: Status: Active Protocol: Activity Type Activity Date Activity User E-Sign Co-Sign Detail Recorded Client Recorded Date Recorded By Document 12/05/17 13:08 [facility] [id number] 12/05/17 13:19 [facility] 12/05/17 13:08 Wound Center Nurse 1 [Ulcer Assessment] #1 COCCYX -Combined with other wound No -Current Size (cm) - Length 3.3 -Current Size (cm) - Width 1.6 -Current Size (cm) - Depth 1.4 -Total Square Cm 5.28 -Date of Last Picture (Recall this 12/05/17 field) -Photo Taken Yes -Epithelialization None Present -Tunneling No -Undermining/Tunneling No -Circular Undermining No -Exudate Amt Large (67-100%) -Exudate Type Serous -Wound Margin Distinct, Outline Attached -Granulation Amt Medium (34-66%) -Granulation Quality Red -Slough/Fibrin Yes -Necrosis Amt Medium (34-66%) -Texture (Jovanna-wound Skin Appearance) Scarring -Moisture (Jovanna-wound Skin Appearance Assessed ) Maceration -Color (Jovanna-wound Skin Appearance) Erythema -Temperature (Jovanna-wound Skin No Abnormality Appearance) (Pt Warm) -Tenderness on Palpation (Jovanna-wound No Skin Appearance) -Ulcer Cleansing Rinsed/ Irrigated with Saline -Foul Odor after Cleansing No -Anesthetic Used 4% Lidocaine Solution WC - Nurse 2 - General Ulcer CM Notes Start: 12/05/17 13:05 Freq: Status: Active Protocol: Activity Type Activity Date Activity User E-Sign Co-Sign Detail Recorded Client Recorded Date Recorded By Document 12/05/17 13:31 DV [id number] 12/05/17 13:32 DV 12/05/17 13:31 Wound Center Nurse 2 [Procedure/Treatment] -Time 13:31 -Correct Patient Yes -Correct Side, Site, Position Yes -Correct Procedure Yes -Procedure Performed Yes -Type of Procedure Debridement -Clinical Debridement Subcutaneous -Post Debridement Size (cm) - Length 2.0 -Post Debridement Size (cm) - Width 2.0 -Post Debridement Size (cm) - Depth 1.2 -Total Square Cm 4.00 -Wound/Ulcer Outcome Not Healed -Ulcer Cleansing Rinsed/ Irrigated with Saline -Foul Odor after Cleansing No -Bioengineered Tissue No -Bleeding Controlled with Pressure -Treatment Response Procedure Tolerated Well [See Physician Procedure note for Specifics] Pain Scale: 0-10 Numeric [Pain] -Is Patient Pain Free? Yes Musculoskeletal: No Muscle Wasting Neurological: Cranial nerves II-XII grossly intact Psych/Mental Status: Normal Affect Debridement Note Post-Debridement Measurements/Treatment WC - Nurse 2 - General Ulcer CM Notes Start: 12/05/17 13:05 Freq: Status: Active Protocol: Activity Type Activity Date Activity User E-Sign Co-Sign Detail Recorded Client Recorded Date Recorded By Document 12/05/17 13:31 DV [id number] 12/05/17 13:32 DV 12/05/17 13:31 Wound Center Nurse 2 #1 COCCYX -Time 13:31 -Correct Patient Yes -Correct Side, Site, Position Yes -Correct Procedure Yes -Procedure Performed Yes -Type of Procedure Debridement -Clinical Debridement Subcutaneous -Post Debridement Size (cm) - Length 2.0 -Post Debridement Size (cm) - Width 2.0 -Post Debridement Size (cm) - Depth 1.2 -Total Square Cm 4.00 -Wound/Ulcer Outcome Not Healed -Ulcer Cleansing Rinsed/ Irrigated with Saline -Foul Odor after Cleansing No -Bioengineered Tissue No -Bleeding Controlled with Pressure -Treatment Response Procedure Tolerated Well Pain Scale: 0-10 Numeric Is Patient Pain Free? Yes Wound debrided: Coccygeal ulcer Wound Grade/Stage: Stage IV Type of Debridement: Excisional debridement Anesthesia Used: 4% Lidocaine Solution Depth: Down to and including healthy tissue, in the subcutaneous layer Percentage of wound debrided: 100 Instrument Used: 7mm curette Tissue Removed: Slough and devitalized tissue Severity: Fat Layer Exposed Amount of bleeding with debridement: Mild Bleeding Controlled with: Pressure Patient tolerated procedure well Assessment/Plan Active Problems Pressure ulcer of coccygeal region, stage 3 (Acute) Paraparesis of both lower limbs (Acute) Physical debility (Chronic) she is sedentary lives alone and can no longer get herself to the BR, has lost arm strength....very deconditioned Assessment: Stage III coccygeal decubitus ulcer. Stage II left buttock pressure ulcer. - Healed. Paraparesis from multiple sclerosis. Physical debility. Plan: No significant progress in the past week. However, surrounding erythema appears to be subsiding. Debridement done as docuemented above, procedure was well tolerated. She appears to have done better on Santyl. Will switch dressing over to Santyl daily with gauze over top. Continue increased protein intake/supplements. Advised on low loss air mattress. Gel cushions for seating. Zinc oxide cream to periwound /buttock area. Turn patient every 2 hours. Follow up in 1 week. This note was generated with [employer] dictation software. It may contain incorrect words, spelling, and punctuation that were not noted in checking the note before signing.
[2017-12-12 12:22] VITALS: BP 114/68; PULSE 80; RESP 16; TEMP 36
--- NOTE | 2017-12-12 16:12 | PCM.WC.PN ---
(1) Pressure ulcer of coccygeal region, stage 3 Status: Acute Current Visit: Yes Code(s): L89.153 - Pressure ulcer of sacral region, stage 3 (2) Paraparesis of both lower limbs Status: Acute Current Visit: Yes Code(s): G82.20 - Paraplegia, unspecified (3) Physical debility Status: Chronic Current Visit: Yes Code(s): R53.81 - Other malaise Comment: she is sedentary lives alone and can no longer get herself to the BR, has lost arm strength....very deconditioned Type of Wound Date of Service: 12/12/17 Chief Complaint: Decubitus Ulcers History of Wound: Ms. Bryan is a 62-year-old with a complex past medical history who was referred to the wound center due to a chronic nonhealing decubitus ulcers. Initial presentation/Onset was said to be over a year ago and she has been managed by her home health without any significant improvement in her ulcers. She is said to be in bed pretty much 24 hours due to her paraparesis and is turned about 3 times daily. She denies chills, fever, or otherwise feeling of unwell. She was recently managed for a MRSA UTI. She has an indwelling Marcus's. Progress of Wound: Stable. No new complaints at this time. - Physical Exam Vital Signs Temp Pulse Resp BP 96.8 F L 80 16 114/68 12/12/17 12:22 12/12/17 12:22 12/12/17 12:22 12/12/17 12:22 General: Alert, Oriented x3, Cooperative, No apparent distress HEENT: Atraumatic, Normocephalic Oral: Moist Mucosa Neck: Supple Lungs: Normal air movement Cardiovascular: Regular rate Abdomen: Soft, Non Tender Extremities: No cyanosis Skin: Ulcer/ Wound Wound Measurements and Assessment WC - Nurse 1 - General Ulcer Measurement Start: 12/05/17 13:05 Freq: Status: Active Protocol: Activity Type Activity Date Activity User E-Sign Co-Sign Detail Recorded Client Recorded Date Recorded By Document 12/12/17 12:10 [facility] [id number] 12/12/17 12:11 [facility] 12/12/17 12:10 Wound Center Nurse 1 [Ulcer Assessment] #1 COCCYX -Combined with other wound No -Current Size (cm) - Length 2.7 -Current Size (cm) - Width 2 -Current Size (cm) - Depth 1 -Total Square Cm 5.4 -Photo Taken No -Epithelialization None Present -Tunneling No -Undermining/Tunneling No -Circular Undermining No -Exudate Amt Medium (34-66%) -Exudate Type Serosanguineous -Wound Margin Distinct, Outline Attached -Granulation Amt Medium (34-66%) -Granulation Quality Red -Slough/Fibrin Yes -Necrosis Amt Medium (34-66%) -Necrotic Tissue Type Adherent Slough -Texture (Jovanna-wound Skin Appearance) Scarring -Moisture (Jovanna-wound Skin Appearance Maceration ) -Color (Jovanna-wound Skin Appearance) Erythema Palor -Temperature (Jovanna-wound Skin No Abnormality Appearance) (Pt Warm) -Tenderness on Palpation (Jovanna-wound No Skin Appearance) -Ulcer Cleansing Wound Cleanser -Foul Odor after Cleansing No -Anesthetic Used 4% Lidocaine Solution WC - Nurse 2 - General Ulcer CM Notes Start: 12/05/17 13:05 Freq: Status: Active Protocol: Activity Type Activity Date Activity User E-Sign Co-Sign Detail Recorded Client Recorded Date Recorded By Document 12/12/17 13:16 DV [id number] 12/12/17 13:19 DV 12/12/17 13:16 Wound Center Nurse 2 [Procedure/Treatment] -Time 13:18 -Correct Patient Yes -Correct Side, Site, Position Yes -Correct Procedure Yes -Procedure Performed Yes -Type of Procedure Debridement -Clinical Debridement Subcutaneous -Post Debridement Size (cm) - Length 1.9 -Post Debridement Size (cm) - Width 1.9 -Post Debridement Size (cm) - Depth 1.2 -Total Square Cm 3.61 -Wound/Ulcer Outcome Not Healed -Ulcer Cleansing Rinsed/ Irrigated with Saline -Foul Odor after Cleansing No -Bioengineered Tissue No -Bleeding Controlled with Pressure -Treatment Response Procedure Tolerated Well [See Physician Procedure note for Specifics] Pain Scale: 0-10 Numeric [Pain] -Is Patient Pain Free? Yes Musculoskeletal: No Muscle Wasting Neurological: Cranial nerves II-XII grossly intact Psych/Mental Status: Normal Affect Debridement Note Post-Debridement Measurements/Treatment WC - Nurse 2 - General Ulcer CM Notes Start: 12/05/17 13:05 Freq: Status: Active Protocol: Activity Type Activity Date Activity User E-Sign Co-Sign Detail Recorded Client Recorded Date Recorded By Document 12/05/17 13:31 DV [id number] 12/05/17 13:32 DV Document 12/12/17 13:16 DV [id number] 12/12/17 13:19 DV 12/05/17 12/12/17 13:31 13:16 Wound Center Nurse 2 #1 COCCYX -Time 13:31 13:18 -Correct Patient Yes Yes -Correct Side, Site, Position Yes Yes -Correct Procedure Yes Yes -Procedure Performed Yes Yes -Type of Procedure Debridement Debridement -Clinical Debridement Subcutaneous Subcutaneous -Post Debridement Size (cm) - Length 2.0 1.9 -Post Debridement Size (cm) - Width 2.0 1.9 -Post Debridement Size (cm) - Depth 1.2 1.2 -Total Square Cm 4.00 3.61 -Wound/Ulcer Outcome Not Healed Not Healed -Ulcer Cleansing Rinsed/ Rinsed/ Irrigated with Irrigated with Saline Saline -Foul Odor after Cleansing No No -Bioengineered Tissue No No -Bleeding Controlled with Pressure Pressure -Treatment Response Procedure Procedure Tolerated Well Tolerated Well Pain Scale: 0-10 Numeric Is Patient Pain Free? Yes Yes Wound debrided: Coccygeal ulcer Wound Grade/Stage: Stage III Type of Debridement: Excisional debridement Anesthesia Used: 4% Lidocaine Solution Depth: Down to and including healthy tissue, in the subcutaneous layer Percentage of wound debrided: 100 Instrument Used: 5mm curette Tissue Removed: Slough and devitalized tissue Severity: Fat Layer Exposed Amount of bleeding with debridement: Mild Bleeding Controlled with: Pressure Patient tolerated procedure well Assessment/Plan Active Problems Pressure ulcer of coccygeal region, stage 3 (Acute) Paraparesis of both lower limbs (Acute) Physical debility (Chronic) she is sedentary lives alone and can no longer get herself to the BR, has lost arm strength....very deconditioned Assessment: Stage III coccygeal decubitus ulcer. Stage II left buttock pressure ulcer. - Healed. Paraparesis from multiple sclerosis. Physical debility. Plan: No new concerns. better granulation tissue noted today. Debridement done as docuemented above, procedure was well tolerated. Continue daily santyl with guaze over top. Continue increased protein intake/supplements. Advised on low loss air mattress. Gel cushions for seating. Zinc oxide cream to periwound /buttock area. Turn patient every 2 hours. Follow up in 1 week. This note was generated with [employer] dictation software. It may contain incorrect words, spelling, and punctuation that were not noted in checking the note before signing.
--- NOTE | 2017-12-12 16:15 | PN.PCM_ITS ---
(1) Pressure ulcer of coccygeal region, stage 3 Status: Acute Current Visit: Yes Code(s): L89.153 - Pressure ulcer of sacral region, stage 3 (2) Paraparesis of both lower limbs Status: Acute Current Visit: Yes Code(s): G82.20 - Paraplegia, unspecified (3) Physical debility Status: Chronic Current Visit: Yes Code(s): R53.81 - Other malaise Comment : she is sedentary lives alone and can no longer get herself to the BR, has lost arm strength....very deconditioned Type of Wound Date of Service: 12/12/17 Chief Complaint: Decubitus Ulcers History of Wound: Ms. Bryan is a 62-year-old with a complex past medical history who was referred to the wound center due to a chronic nonhealing decubitus ulcers. Initial presentation/Onset was said to be over a year ago and she has been managed by her home health without any significant improvement in her ulcers. She is said to be in bed pretty much 24 hours due to her paraparesis and is turned about 3 times daily. She denies chills, fever, or otherwise feeling of unwell. She was recently managed for a MRSA UTI. She has an indwelling Marcus's. Progress of Wound: Stable. No new complaints at this time. - Physical Exam Vital Signs Temp Pulse Resp BP 96.8 F L 80 16 114/68 12/12/17 12:22 12/12/17 12:22 12/12/17 12:22 12/12/17 12:22 General: Alert, Oriented x3, Cooperative, No apparent distress HEENT: Atraumatic, Normocephalic Oral: Moist Mucosa Neck: Supple Lungs: Normal air movement Cardiovascular: Regular rate Abdomen: Soft, Non Tender Extremities: No cyanosis Skin: Ulcer/ Wound Wound Measurements and Assessment WC - Nurse 1 - General Ulcer Measurement Start: 12/05/17 13:05 Freq: Status: Active Protocol: Activity Type Activity Date Activity User E-Sign Co-Sign Detail Recorded Client Recorded Date Recorded By Document 12/12/17 12:10 [facility] [id number] 12/12/17 12:11 [facility] 12/12/17 12:10 Wound Center Nurse 1 [Ulcer Assessment] #1 COCCYX -Combined with other wound No -Current Size (cm) - Length 2.7 -Current Size (cm) - Width 2 -Current Size (cm) - Depth 1 -Total Square Cm 5.4 -Photo Taken No -Epithelialization None Present -Tunneling No -Undermining/Tunneling No -Circular Undermining No -Exudate Amt Medium (34-66%) -Exudate Type Serosanguineous -Wound Margin Distinct, Outline Attached -Granulation Amt Medium (34-66%) -Granulation Quality Red -Slough/Fibrin Yes -Necrosis Amt Medium (34-66%) -Necrotic Tissue Type Adherent Slough -Texture (Jovanna-wound Skin Appearance) Scarring -Moisture (Jovanna-wound Skin Appearance Maceration ) -Color (Jovanna-wound Skin Appearance) Erythema Palor -Temperature (Jovanna-wound Skin No Abnormality Appearance) (Pt Warm) -Tenderness on Palpation (Jovanna-wound No Skin Appearance) -Ulcer Cleansing Wound Cleanser -Foul Odor after Cleansing No -Anesthetic Used 4% Lidocaine Solution WC - Nurse 2 - General Ulcer CM Notes Start: 12/05/17 13:05 Freq: Status: Active Protocol: Activity Type Activity Date Activity User E-Sign Co-Sign Detail Recorded Client Recorded Date Recorded By Document 12/12/17 13:16 DV [id number] 12/12/17 13:19 DV 12/12/17 13:16 Wound Center Nurse 2 [Procedure/Treatment] -Time 13:18 -Correct Patient Yes -Correct Side, Site, Position Yes -Correct Procedure Yes -Procedure Performed Yes -Type of Procedure Debridement -Clinical Debridement Subcutaneous -Post Debridement Size (cm) - Length 1.9 -Post Debridement Size (cm) - Width 1.9 -Post Debridement Size (cm) - Depth 1.2 -Total Square Cm 3.61 -Wound/Ulcer Outcome Not Healed -Ulcer Cleansing Rinsed/ Irrigated with Saline -Foul Odor after Cleansing No -Bioengineered Tissue No -Bleeding Controlled with Pressure -Treatment Response Procedure Tolerated Well [See Physician Procedure note for Specifics] Pain Scale: 0-10 Numeric [Pain] -Is Patient Pain Free? Yes Musculoskeletal: No Muscle Wasting Neurological: Cranial nerves II-XII grossly intact Psych/Mental Status: Normal Affect Debridement Note Post-Debridement Measurements/Treatment WC - Nurse 2 - General Ulcer CM Notes Start: 12/05/17 13:05 Freq: Status: Active Protocol: Activity Type Activity Date Activity User E-Sign Co-Sign Detail Recorded Client Recorded Date Recorded By Document 12/05/17 13:31 DV [id number] 12/05/17 13:32 DV Document 12/12/17 13:16 DV [id number] 12/12/17 13:19 DV 12/05/17 12/12/17 13:31 13:16 Wound Center Nurse 2 #1 COCCYX -Time 13:31 13:18 -Correct Patient Yes Yes -Correct Side, Site, Position Yes Yes -Correct Procedure Yes Yes -Procedure Performed Yes Yes -Type of Procedure Debridement Debridement -Clinical Debridement Subcutaneous Subcutaneous -Post Debridement Size (cm) - Length 2.0 1.9 -Post Debridement Size (cm) - Width 2.0 1.9 -Post Debridement Size (cm) - Depth 1.2 1.2 -Total Square Cm 4.00 3.61 -Wound/Ulcer Outcome Not Healed Not Healed -Ulcer Cleansing Rinsed/ Rinsed/ Irrigated with Irrigated with Saline Saline -Foul Odor after Cleansing No No -Bioengineered Tissue No No -Bleeding Controlled with Pressure Pressure -Treatment Response Procedure Procedure Tolerated Well Tolerated Well Pain Scale: 0-10 Numeric Is Patient Pain Free? Yes Yes Wound debrided: Coccygeal ulcer Wound Grade/Stage: Stage III Type of Debridement: Excisional debridement Anesthesia Used: 4% Lidocaine Solution Depth: Down to and including healthy tissue, in the subcutaneous layer Percentage of wound debrided: 100 Instrument Used: 5mm curette Tissue Removed: Slough and devitalized tissue Severity: Fat Layer Exposed Amount of bleeding with debridement: Mild Bleeding Controlled with: Pressure Patient tolerated procedure well Assessment/Plan Active Problems Pressure ulcer of coccygeal region, stage 3 (Acute) Paraparesis of both lower limbs (Acute) Physical debility (Chronic) she is sedentary lives alone and can no longer get herself to the BR, has lost arm strength....very deconditioned Assessment: Stage III coccygeal decubitus ulcer. Stage II left buttock pressure ulcer. - Healed. Paraparesis from multiple sclerosis. Physical debility. Plan: No new concerns. better granulation tissue noted today. Debridement done as docuemented above, procedure was well tolerated. Continue daily santyl with guaze over top. Continue increased protein intake/supplements. Advised on low loss air mattress. Gel cushions for seating. Zinc oxide cream to periwound / buttock area. Turn patient every 2 hours. Follow up in 1 week. This note was generated with [employer] dictation software. It may contain incorrect words, spelling, and punctuation that were not noted in checking the note before signing.
[2017-12-19 12:45] VITALS: BP 92/57; PULSE 64; RESP 18; TEMP 36.4
--- NOTE | 2017-12-19 14:30 | PCM.WC.PN ---
(1) Pressure ulcer of coccygeal region, stage 3 Status: Acute Current Visit: Yes Code(s): L89.153 - Pressure ulcer of sacral region, stage 3 (2) Paraparesis of both lower limbs Status: Acute Current Visit: Yes Code(s): G82.20 - Paraplegia, unspecified (3) Physical debility Status: Chronic Current Visit: Yes Code(s): R53.81 - Other malaise Comment: she is sedentary lives alone and can no longer get herself to the BR, has lost arm strength....very deconditioned Type of Wound Date of Service: 12/19/17 Chief Complaint: Decubitus Ulcers History of Wound: Ms. Bryan is a 62-year-old with a complex past medical history who was referred to the wound center due to a chronic nonhealing decubitus ulcers. Initial presentation/Onset was said to be over a year ago and she has been managed by her home health without any significant improvement in her ulcers. She is said to be in bed pretty much 24 hours due to her paraparesis and is turned about 3 times daily. She denies chills, fever, or otherwise feeling of unwell. She was recently managed for a MRSA UTI. She has an indwelling Marcus's. Progress of Wound: Stable. No new complaints at this time. - Physical Exam Vital Signs Temp Pulse Resp BP 97.5 F L 64 18 92/57 L 12/19/17 12:45 12/19/17 12:45 12/19/17 12:45 12/19/17 12:45 General: Alert, Oriented x3, Cooperative, No apparent distress HEENT: Atraumatic, Normocephalic Oral: Moist Mucosa Neck: Supple Lungs: Normal air movement Extremities: No cyanosis Skin: Ulcer/ Wound Wound Measurements and Assessment WC - Nurse 1 - General Ulcer Measurement Start: 12/05/17 13:05 Freq: Status: Active Protocol: Activity Type Activity Date Activity User E-Sign Co-Sign Detail Recorded Client Recorded Date Recorded By Document 12/19/17 12:45 RB [id number] 12/19/17 13:00 RB 12/19/17 12:45 Wound Center Nurse 1 [Ulcer Assessment] #1 COCCYX -Combined with other wound No -Current Size (cm) - Length 2.2 -Current Size (cm) - Width 2.2 -Current Size (cm) - Depth 1.7 -Total Square Cm 4.84 -Photo Taken No -Epithelialization None Present -Tunneling No -Undermining/Tunneling No -Circular Undermining No -Exudate Amt Medium (34-66%) -Exudate Type Serosanguineous -Wound Margin Distinct, Outline Attached -Granulation Amt Large (67-100%) -Granulation Quality Red -Slough/Fibrin Yes -Necrosis Amt Small (1-33%) -Necrotic Tissue Type Adherent Slough -Texture (Jovanna-wound Skin Appearance) Scarring -Moisture (Jovanna-wound Skin Appearance Maceration ) -Color (Jovanna-wound Skin Appearance) Erythema Palor -Temperature (Jovanna-wound Skin No Abnormality Appearance) (Pt Warm) -Tenderness on Palpation (Jovanna-wound No Skin Appearance) -Ulcer Cleansing Wound Cleanser -Foul Odor after Cleansing No -Anesthetic Used 4% Lidocaine Solution WC - Nurse 2 - General Ulcer CM Notes Start: 12/05/17 13:05 Freq: Status: Active Protocol: Activity Type Activity Date Activity User E-Sign Co-Sign Detail Recorded Client Recorded Date Recorded By Document 12/19/17 13:06 DL [id number] 12/19/17 13:17 DL 12/19/17 13:06 Wound Center Nurse 2 [Procedure/Treatment] -Time 01:20 -Correct Patient Yes -Correct Side, Site, Position Yes -Correct Procedure Yes -Procedure Performed Yes -Type of Procedure Debridement -Clinical Debridement Subcutaneous -Post Debridement Size (cm) - Length 1.8 -Post Debridement Size (cm) - Width 2 -Post Debridement Size (cm) - Depth 1 -Total Square Cm 3.6 -Wound/Ulcer Outcome Not Healed -Ulcer Cleansing Rinsed/ Irrigated with Saline -Foul Odor after Cleansing No -Bioengineered Tissue No -Bleeding Controlled with NA -Treatment Response Procedure Tolerated Well [See Physician Procedure note for Specifics] Pain Scale: 0-10 Numeric [Pain] -Is Patient Pain Free? Yes Musculoskeletal: No Muscle Wasting Neurological: Cranial nerves II-XII grossly intact Psych/Mental Status: Normal Affect Debridement Note Post-Debridement Measurements/Treatment WC - Nurse 2 - General Ulcer CM Notes Start: 12/05/17 13:05 Freq: Status: Active Protocol: Activity Type Activity Date Activity User E-Sign Co-Sign Detail Recorded Client Recorded Date Recorded By Document 12/05/17 13:31 DV [id number] 12/05/17 13:32 DV Document 12/12/17 13:16 DV [id number] 12/12/17 13:19 DV Document 12/19/17 13:06 DL [id number] 12/19/17 13:17 DL 12/05/17 12/12/17 12/19/17 13:31 13:16 13:06 Wound Center Nurse 2 #1 COCCYX -Time 13:31 13:18 01:20 -Correct Patient Yes Yes Yes -Correct Side, Site, Position Yes Yes Yes -Correct Procedure Yes Yes Yes -Procedure Performed Yes Yes Yes -Type of Procedure Debridement Debridement Debridement -Clinical Debridement Subcutaneous Subcutaneous Subcutaneous -Post Debridement Size (cm) - Length 2.0 1.9 1.8 -Post Debridement Size (cm) - Width 2.0 1.9 2 -Post Debridement Size (cm) - Depth 1.2 1.2 1 -Total Square Cm 4.00 3.61 3.6 -Wound/Ulcer Outcome Not Healed Not Healed Not Healed -Ulcer Cleansing Rinsed/ Rinsed/ Rinsed/ Irrigated with Irrigated with Irrigated with Saline Saline Saline -Foul Odor after Cleansing No No No -Bioengineered Tissue No No No -Bleeding Controlled with Pressure Pressure NA -Treatment Response Procedure Procedure Procedure Tolerated Well Tolerated Well Tolerated Well Pain Scale: 0-10 Numeric Is Patient Pain Free? Yes Yes Yes Wound debrided: Coccygeal ulcer Wound Grade/Stage: Stage III Type of Debridement: Excisional debridement Anesthesia Used: 4% Lidocaine Solution Depth: Down to and including healthy tissue, in the subcutaneous layer Percentage of wound debrided: 100 Instrument Used: 7mm curette Tissue Removed: Slough and devitalized tissue Severity: Fat Layer Exposed Amount of bleeding with debridement: Mild Bleeding Controlled with: Pressure Patient tolerated procedure well Assessment/Plan Active Problems Pressure ulcer of coccygeal region, stage 3 (Acute) Paraparesis of both lower limbs (Acute) Physical debility (Chronic) she is sedentary lives alone and can no longer get herself to the BR, has lost arm strength....very deconditioned Assessment: Stage III coccygeal decubitus ulcer. Stage II left buttock pressure ulcer. - Healed. Paraparesis from multiple sclerosis. Physical debility. Plan: No new concerns. Stable wound. However, appears to be some breakdown around the periwound area. Debridement done as docuemented above, procedure was well tolerated. Continue daily santyl with guaze over top. Continue increased protein intake/supplements. Advised on low loss air mattress. Gel cushions for seating. Emphasize Zinc oxide cream to periwound /buttock area. Turn/reposition patient every 2 hours. Follow up in 1 week. This note was generated with [employer] dictation software. It may contain incorrect words, spelling, and punctuation that were not noted in checking the note before signing.
--- NOTE | 2017-12-19 14:33 | PN.PCM_ITS ---
(1) Pressure ulcer of coccygeal region, stage 3 Status: Acute Current Visit: Yes Code(s): L89.153 - Pressure ulcer of sacral region, stage 3 (2) Paraparesis of both lower limbs Status: Acute Current Visit: Yes Code(s): G82.20 - Paraplegia, unspecified (3) Physical debility Status: Chronic Current Visit: Yes Code(s): R53.81 - Other malaise Comment : she is sedentary lives alone and can no longer get herself to the [facility], has lost arm strength....very deconditioned Type of Wound Date of Service: 12/19/17 Chief Complaint: Decubitus Ulcers History of Wound: Ms. Bryan is a 62-year-old with a complex past medical history who was referred to the wound center due to a chronic nonhealing decubitus ulcers. Initial presentation/Onset was said to be over a year ago and she has been managed by her home health without any significant improvement in her ulcers. She is said to be in bed pretty much 24 hours due to her paraparesis and is turned about 3 times daily. She denies chills, fever, or otherwise feeling of unwell. She was recently managed for a MRSA UTI. She has an indwelling Marcus's. Progress of Wound: Stable. No new complaints at this time. - Physical Exam Vital Signs Temp Pulse Resp BP 97.5 F L 64 18 92/57 L 12/19/17 12:45 12/19/17 12:45 12/19/17 12:45 12/19/17 12:45 General: Alert, Oriented x3, Cooperative, No apparent distress HEENT: Atraumatic, Normocephalic Oral: Moist Mucosa Neck: Supple Lungs: Normal air movement Extremities: No cyanosis Skin: Ulcer/ Wound Wound Measurements and Assessment WC - Nurse 1 - General Ulcer Measurement Start: 12/05/17 13:05 Freq: Status: Active Protocol: Activity Type Activity Date Activity User E-Sign Co-Sign Detail Recorded Client Recorded Date Recorded By Document 12/19/17 12:45 RB [id number] 12/19/17 13:00 RB 12/19/17 12:45 Wound Center Nurse 1 [Ulcer Assessment] #1 COCCYX -Combined with other wound No -Current Size (cm) - Length 2.2 -Current Size (cm) - Width 2.2 -Current Size (cm) - Depth 1.7 -Total Square Cm 4.84 -Photo Taken No -Epithelialization None Present -Tunneling No -Undermining/Tunneling No -Circular Undermining No -Exudate Amt Medium (34-66%) -Exudate Type Serosanguineous -Wound Margin Distinct, Outline Attached -Granulation Amt Large (67-100%) -Granulation Quality Red -Slough/Fibrin Yes -Necrosis Amt Small (1-33%) -Necrotic Tissue Type Adherent Slough -Texture (Jovanna-wound Skin Appearance) Scarring -Moisture (Jovanna-wound Skin Appearance Maceration ) -Color (Jovanna-wound Skin Appearance) Erythema Palor -Temperature (Jovanna-wound Skin No Abnormality Appearance) (Pt Warm) -Tenderness on Palpation (Jovanna-wound No Skin Appearance) -Ulcer Cleansing Wound Cleanser -Foul Odor after Cleansing No -Anesthetic Used 4% Lidocaine Solution WC - Nurse 2 - General Ulcer CM Notes Start: 12/05/17 13:05 Freq: Status: Active Protocol: Activity Type Activity Date Activity User E-Sign Co-Sign Detail Recorded Client Recorded Date Recorded By Document 12/19/17 13:06 DL [id number] 12/19/17 13:17 DL 12/19/17 13:06 Wound Center Nurse 2 [Procedure/Treatment] -Time 01:20 -Correct Patient Yes -Correct Side, Site, Position Yes -Correct Procedure Yes -Procedure Performed Yes -Type of Procedure Debridement -Clinical Debridement Subcutaneous -Post Debridement Size (cm) - Length 1.8 -Post Debridement Size (cm) - Width 2 -Post Debridement Size (cm) - Depth 1 -Total Square Cm 3.6 -Wound/Ulcer Outcome Not Healed -Ulcer Cleansing Rinsed/ Irrigated with Saline -Foul Odor after Cleansing No -Bioengineered Tissue No -Bleeding Controlled with NA -Treatment Response Procedure Tolerated Well [See Physician Procedure note for Specifics] Pain Scale: 0-10 Numeric [Pain] -Is Patient Pain Free? Yes Musculoskeletal: No Muscle Wasting Neurological: Cranial nerves II-XII grossly intact Psych/Mental Status: Normal Affect Debridement Note Post-Debridement Measurements/Treatment WC - Nurse 2 - General Ulcer CM Notes Start: 12/05/17 13:05 Freq: Status: Active Protocol: Activity Type Activity Date Activity User E-Sign Co-Sign Detail Recorded Client Recorded Date Recorded By Document 12/05/17 13:31 DV [id number] 12/05/17 13:32 DV Document 12/12/17 13:16 DV [id number] 12/12/17 13:19 DV Document 12/19/17 13:06 DL [id number] 12/19/17 13:17 DL 12/05/17 12/12/17 12/19/17 13:31 13:16 13:06 Wound Center Nurse 2 #1 COCCYX -Time 13:31 13:18 01:20 -Correct Patient Yes Yes Yes -Correct Side, Site, Position Yes Yes Yes -Correct Procedure Yes Yes Yes -Procedure Performed Yes Yes Yes -Type of Procedure Debridement Debridement Debridement -Clinical Debridement Subcutaneous Subcutaneous Subcutaneous -Post Debridement Size (cm) - Length 2.0 1.9 1.8 -Post Debridement Size (cm) - Width 2.0 1.9 2 -Post Debridement Size (cm) - Depth 1.2 1.2 1 -Total Square Cm 4.00 3.61 3.6 -Wound/Ulcer Outcome Not Healed Not Healed Not Healed -Ulcer Cleansing Rinsed/ Rinsed/ Rinsed/ Irrigated with Irrigated with Irrigated with Saline Saline Saline -Foul Odor after Cleansing No No No -Bioengineered Tissue No No No -Bleeding Controlled with Pressure Pressure NA -Treatment Response Procedure Procedure Procedure Tolerated Well Tolerated Well Tolerated Well Pain Scale: 0-10 Numeric Is Patient Pain Free? Yes Yes Yes Wound debrided: Coccygeal ulcer Wound Grade/Stage: Stage III Type of Debridement: Excisional debridement Anesthesia Used: 4% Lidocaine Solution Depth: Down to and including healthy tissue, in the subcutaneous layer Percentage of wound debrided: 100 Instrument Used: 7mm curette Tissue Removed: Slough and devitalized tissue Severity: Fat Layer Exposed Amount of bleeding with debridement: Mild Bleeding Controlled with: Pressure Patient tolerated procedure well Assessment/Plan Active Problems Pressure ulcer of coccygeal region, stage 3 (Acute) Paraparesis of both lower limbs (Acute) Physical debility (Chronic) she is sedentary lives alone and can no longer get herself to the [facility], has lost arm strength....very deconditioned Assessment: Stage III coccygeal decubitus ulcer. Stage II left buttock pressure ulcer. - Healed. Paraparesis from multiple sclerosis. Physical debility. Plan: No new concerns. Stable wound. However, appears to be some breakdown around the periwound area. Debridement done as docuemented above, procedure was well tolerated. Continue daily santyl with guaze over top. Continue increased protein intake/supplements. Advised on low loss air mattress. Gel cushions for seating. Emphasize Zinc oxide cream to periwound /buttock area. Turn/reposition patient every 2 hours. Follow up in 1 week. This note was generated with [employer] dictation software. It may contain incorrect words, spelling, and punctuation that were not noted in checking the note before signing.
[2017-12-26 12:50] VITALS: BP 103/60; PULSE 68; RESP 18; TEMP 36.6
--- NOTE | 2017-12-26 17:04 | PCM.WC.PN ---
(1) Pressure ulcer of coccygeal region, stage 3 Status: Acute Current Visit: Yes Code(s): L89.153 - Pressure ulcer of sacral region, stage 3 (2) Paraparesis of both lower limbs Status: Acute Current Visit: Yes Code(s): G82.20 - Paraplegia, unspecified (3) Physical debility Status: Chronic Current Visit: Yes Code(s): R53.81 - Other malaise Comment: she is sedentary lives alone and can no longer get herself to the BR, has lost arm strength....very deconditioned Type of Wound Date of Service: 12/26/17 Chief Complaint: Decubitus Ulcers History of Wound: Ms. Bryan is a 62-year-old with a complex past medical history who was referred to the wound center due to a chronic nonhealing decubitus ulcers. Initial presentation/Onset was said to be over a year ago and she has been managed by her home health without any significant improvement in her ulcers. She is said to be in bed pretty much 24 hours due to her paraparesis and is turned about 3 times daily. She denies chills, fever, or otherwise feeling of unwell. She was recently managed for a MRSA UTI. She has an indwelling Marcus's. Progress of Wound: Stable. Recent episode of UTI and so has had increased urinary incontinence and contamination of wound area. - Physical Exam Vital Signs Temp Pulse Resp BP 97.8 F 68 18 103/60 12/26/17 12:50 12/26/17 12:50 12/26/17 12:50 12/26/17 12:50 General: Alert, Oriented x3, Cooperative, No apparent distress HEENT: Atraumatic, Normocephalic Oral: Moist Mucosa Neck: Supple Lungs: Normal air movement Extremities: No cyanosis Skin: Ulcer/ Wound Wound Measurements and Assessment WC - Nurse 1 - General Ulcer Measurement Start: 12/05/17 13:05 Freq: Status: Active Protocol: Activity Type Activity Date Activity User E-Sign Co-Sign Detail Recorded Client Recorded Date Recorded By Document 12/26/17 12:50 RB [id number] 12/26/17 12:53 RB 12/26/17 12:50 Wound Center Nurse 1 [Ulcer Assessment] #1 COCCYX -Combined with other wound No -Current Size (cm) - Length 2.2 -Current Size (cm) - Width 2 -Current Size (cm) - Depth 1.1 -Total Square Cm 4.4 -Photo Taken No -Tunneling No -Undermining/Tunneling No -Circular Undermining No -Classification - Pressure Ulcer Stage 3 -Exudate Amt Small (1-33%) -Exudate Type Serosanguineous -Wound Margin Distinct, Outline Attached -Granulation Amt Medium (34-66%) -Granulation Quality [place] -Slough/Fibrin Yes -Necrosis Amt Small (1-33%) -Necrotic Tissue Type Adherent Slough -Structure Exposed N/A -Texture (Jovanna-wound Skin Appearance) Assessed -Moisture (Jovanna-wound Skin Appearance Assessed ) Maceration -Color (Jovanna-wound Skin Appearance) Assessed -Temperature (Jovanna-wound Skin No Abnormality Appearance) (Pt Warm) -Tenderness on Palpation (Jovanna-wound No Skin Appearance) -Ulcer Cleansing Rinsed/ Irrigated with Saline -Foul Odor after Cleansing No -Anesthetic Used 4% Lidocaine Solution Musculoskeletal: No Muscle Wasting Neurological: Cranial nerves II-XII grossly intact Psych/Mental Status: Normal Affect Debridement Note Post-Debridement Measurements/Treatment WC - Nurse 2 - General Ulcer CM Notes Start: 12/05/17 13:05 Freq: Status: Active Protocol: Activity Type Activity Date Activity User E-Sign Co-Sign Detail Recorded Client Recorded Date Recorded By Document 12/05/17 13:31 DV [id number] 12/05/17 13:32 DV Document 12/12/17 13:16 DV [id number] 12/12/17 13:19 DV Document 12/19/17 13:06 DL [id number] 12/19/17 13:17 DL 12/05/17 12/12/17 12/19/17 13:31 13:16 13:06 Wound Center Nurse 2 #1 COCCYX -Time 13:31 13:18 01:20 -Correct Patient Yes Yes Yes -Correct Side, Site, Position Yes Yes Yes -Correct Procedure Yes Yes Yes -Procedure Performed Yes Yes Yes -Type of Procedure Debridement Debridement Debridement -Clinical Debridement Subcutaneous Subcutaneous Subcutaneous -Post Debridement Size (cm) - Length 2.0 1.9 1.8 -Post Debridement Size (cm) - Width 2.0 1.9 2 -Post Debridement Size (cm) - Depth 1.2 1.2 1 -Total Square Cm 4.00 3.61 3.6 -Wound/Ulcer Outcome Not Healed Not Healed Not Healed -Ulcer Cleansing Rinsed/ Rinsed/ Rinsed/ Irrigated with Irrigated with Irrigated with Saline Saline Saline -Foul Odor after Cleansing No No No -Bioengineered Tissue No No No -Bleeding Controlled with Pressure Pressure NA -Treatment Response Procedure Procedure Procedure Tolerated Well Tolerated Well Tolerated Well Pain Scale: 0-10 Numeric Is Patient Pain Free? Yes Yes Yes Wound debrided: Coccygeal ulcer Wound Grade/Stage: Stage III Type of Debridement: Excisional debridement Anesthesia Used: 4% Lidocaine Solution Depth: Down to and including healthy tissue, in the subcutaneous layer Percentage of wound debrided: 100 Instrument Used: 5mm curette Tissue Removed: Slough and devitalized tissue Severity: Fat Layer Exposed Amount of bleeding with debridement: Mild Bleeding Controlled with: Pressure Patient tolerated procedure well Assessment/Plan Active Problems Pressure ulcer of coccygeal region, stage 3 (Acute) Paraparesis of both lower limbs (Acute) Physical debility (Chronic) she is sedentary lives alone and can no longer get herself to the BR, has lost arm strength....very deconditioned Assessment: Stage III coccygeal decubitus ulcer. Stage II left buttock pressure ulcer. - Healed. Paraparesis from multiple sclerosis. Physical debility. Plan: Wound is stable however breakdown of periwound area. Patient states that she has had a recent bout of urinary tract infection and subsequent incontinence which is probably attributed to the worsening skin breakdown. Debridement done as docuemented above, procedure was well tolerated. Continue daily santyl with guaze over top. The patient will be good candidate for skin substitute due to chronicity of wound. Continue increased protein intake/supplements. Advised on low loss air mattress. Gel cushions for seating. Zinc oxide cream to periwound /buttock area. Turn/reposition patient every 2 hours. Patient however states that she lives alone and has a AIDS, and only 3 times daily. Follow up in 1 week. This note was generated with [employer] dictation software. It may contain incorrect words, spelling, and punctuation that were not noted in checking the note before signing.
--- NOTE | 2017-12-26 17:07 | PN.PCM_ITS ---
(1) Pressure ulcer of coccygeal region, stage 3 Status: Acute Current Visit: Yes Code(s): L89.153 - Pressure ulcer of sacral region, stage 3 (2) Paraparesis of both lower limbs Status: Acute Current Visit: Yes Code(s): G82.20 - Paraplegia, unspecified (3) Physical debility Status: Chronic Current Visit: Yes Code(s): R53.81 - Other malaise Comment : she is sedentary lives alone and can no longer get herself to the BR, has lost arm strength....very deconditioned Type of Wound Date of Service: 12/26/17 Chief Complaint: Decubitus Ulcers History of Wound: Ms. Bryan is a 62-year-old with a complex past medical history who was referred to the wound center due to a chronic nonhealing decubitus ulcers. Initial presentation/Onset was said to be over a year ago and she has been managed by her home health without any significant improvement in her ulcers. She is said to be in bed pretty much 24 hours due to her paraparesis and is turned about 3 times daily. She denies chills, fever, or otherwise feeling of unwell. She was recently managed for a MRSA UTI. She has an indwelling Marcus's. Progress of Wound: Stable. Recent episode of UTI and so has had increased urinary incontinence and contamination of wound area. - Physical Exam Vital Signs Temp Pulse Resp BP 97.8 F 68 18 103/60 12/26/17 12:50 12/26/17 12:50 12/26/17 12:50 12/26/17 12:50 General: Alert, Oriented x3, Cooperative, No apparent distress HEENT: Atraumatic, Normocephalic Oral: Moist Mucosa Neck: Supple Lungs: Normal air movement Extremities: No cyanosis Skin: Ulcer/ Wound Wound Measurements and Assessment WC - Nurse 1 - General Ulcer Measurement Start: 12/05/17 13:05 Freq: Status: Active Protocol: Activity Type Activity Date Activity User E-Sign Co-Sign Detail Recorded Client Recorded Date Recorded By Document 12/26/17 12:50 RB [id number] 12/26/17 12:53 RB 12/26/17 12:50 Wound Center Nurse 1 [Ulcer Assessment] #1 COCCYX -Combined with other wound No -Current Size (cm) - Length 2.2 -Current Size (cm) - Width 2 -Current Size (cm) - Depth 1.1 -Total Square Cm 4.4 -Photo Taken No -Tunneling No -Undermining/Tunneling No -Circular Undermining No -Classification - Pressure Ulcer Stage 3 -Exudate Amt Small (1-33%) -Exudate Type Serosanguineous -Wound Margin Distinct, Outline Attached -Granulation Amt Medium (34-66%) -Granulation Quality [place] -Slough/Fibrin Yes -Necrosis Amt Small (1-33%) -Necrotic Tissue Type Adherent Slough -Structure Exposed N/A -Texture (Jovanna-wound Skin Appearance) Assessed -Moisture (Jovanna-wound Skin Appearance Assessed ) Maceration -Color (Jovanna-wound Skin Appearance) Assessed -Temperature (Jovanna-wound Skin No Abnormality Appearance) (Pt Warm) -Tenderness on Palpation (Jovanna-wound No Skin Appearance) -Ulcer Cleansing Rinsed/ Irrigated with Saline -Foul Odor after Cleansing No -Anesthetic Used 4% Lidocaine Solution Musculoskeletal: No Muscle Wasting Neurological: Cranial nerves II-XII grossly intact Psych/Mental Status: Normal Affect Debridement Note Post-Debridement Measurements/Treatment WC - Nurse 2 - General Ulcer CM Notes Start: 12/05/17 13:05 Freq: Status: Active Protocol: Activity Type Activity Date Activity User E-Sign Co-Sign Detail Recorded Client Recorded Date Recorded By Document 12/05/17 13:31 DV [id number] 12/05/17 13:32 DV Document 12/12/17 13:16 DV [id number] 12/12/17 13:19 DV Document 12/19/17 13:06 DL [id number] 12/19/17 13:17 DL 12/05/17 12/12/17 12/19/17 13:31 13:16 13:06 Wound Center Nurse 2 #1 COCCYX -Time 13:31 13:18 01:20 -Correct Patient Yes Yes Yes -Correct Side, Site, Position Yes Yes Yes -Correct Procedure Yes Yes Yes -Procedure Performed Yes Yes Yes -Type of Procedure Debridement Debridement Debridement -Clinical Debridement Subcutaneous Subcutaneous Subcutaneous -Post Debridement Size (cm) - Length 2.0 1.9 1.8 -Post Debridement Size (cm) - Width 2.0 1.9 2 -Post Debridement Size (cm) - Depth 1.2 1.2 1 -Total Square Cm 4.00 3.61 3.6 -Wound/Ulcer Outcome Not Healed Not Healed Not Healed -Ulcer Cleansing Rinsed/ Rinsed/ Rinsed/ Irrigated with Irrigated with Irrigated with Saline Saline Saline -Foul Odor after Cleansing No No No -Bioengineered Tissue No No No -Bleeding Controlled with Pressure Pressure NA -Treatment Response Procedure Procedure Procedure Tolerated Well Tolerated Well Tolerated Well Pain Scale: 0-10 Numeric Is Patient Pain Free? Yes Yes Yes Wound debrided: Coccygeal ulcer Wound Grade/Stage: Stage III Type of Debridement: Excisional debridement Anesthesia Used: 4% Lidocaine Solution Depth: Down to and including healthy tissue, in the subcutaneous layer Percentage of wound debrided: 100 Instrument Used: 5mm curette Tissue Removed: Slough and devitalized tissue Severity: Fat Layer Exposed Amount of bleeding with debridement: Mild Bleeding Controlled with: Pressure Patient tolerated procedure well Assessment/Plan Active Problems Pressure ulcer of coccygeal region, stage 3 (Acute) Paraparesis of both lower limbs (Acute) Physical debility (Chronic) she is sedentary lives alone and can no longer get herself to the BR, has lost arm strength....very deconditioned Assessment: Stage III coccygeal decubitus ulcer. Stage II left buttock pressure ulcer. - Healed. Paraparesis from multiple sclerosis. Physical debility. Plan: Wound is stable however breakdown of periwound area. Patient states that she has had a recent bout of urinary tract infection and subsequent incontinence which is probably attributed to the worsening skin breakdown. Debridement done as docuemented above, procedure was well tolerated. Continue daily santyl with guaze over top. The patient will be good candidate for skin substitute due to chronicity of wound. Continue increased protein intake/ supplements. Advised on low loss air mattress. Gel cushions for seating. Zinc oxide cream to periwound /buttock area. Turn/reposition patient every 2 hours. Patient however states that she lives alone and has a AIDS, and only 3 times daily. Follow up in 1 week. This note was generated with [employer] dictation software. It may contain incorrect words, spelling, and punctuation that were not noted in checking the note before signing.
[2018-01-02 13:39] VITALS: BP 163/94; PULSE 81; RESP 18; TEMP 36.6
--- NOTE | 2018-01-02 19:10 | PCM.WC.PN ---
(1) Pressure ulcer of coccygeal region, stage 3 Status: Acute Current Visit: Yes Code(s): L89.153 - Pressure ulcer of sacral region, stage 3 (2) Paraparesis of both lower limbs Status: Acute Current Visit: Yes Code(s): G82.20 - Paraplegia, unspecified (3) Physical debility Status: Chronic Current Visit: Yes Code(s): R53.81 - Other malaise Comment: she is sedentary lives alone and can no longer get herself to the BR, has lost arm strength....very deconditioned Type of Wound Date of Service: 01/02/18 Chief Complaint: Decubitus Ulcers History of Wound: Ms. Bryan is a 62-year-old with a complex past medical history who was referred to the wound center due to a chronic nonhealing decubitus ulcers. Initial presentation/Onset was said to be over a year ago and she has been managed by her home health without any significant improvement in her ulcers. She is said to be in bed pretty much 24 hours due to her paraparesis and is turned about 3 times daily. She denies chills, fever, or otherwise feeling of unwell. She was recently managed for a MRSA UTI. She has an indwelling Marcus's. Progress of Wound: Ms. Bryan presents with a new decubitus ulcer and newly noted right great toe ulcer. She states that her feet is examined by her nurse twice weekly and was noted yesterday that she had a right great toe ulcer. She denies any known precipitating factor. She feels well otherwise and denies chills, fever or any change in her bowel habit. - Physical Exam Vital Signs Temp Pulse Resp BP 98 F 81 18 163/94 H 01/02/18 13:39 01/02/18 13:39 01/02/18 13:39 01/02/18 13:39 General: Alert, Oriented x3, Cooperative, No apparent distress HEENT: Atraumatic, Normocephalic Oral: Moist Mucosa Neck: Supple Lungs: Normal air movement Skin: Ulcer/ Wound Wound Measurements and Assessment WC - Nurse 1 - General Ulcer Measurement Start: 12/05/17 13:05 Freq: Status: Active Protocol: Activity Type Activity Date Activity User E-Sign Co-Sign Detail Recorded Client Recorded Date Recorded By Document 01/02/18 13:39 [facility] [id number] 01/02/18 13:51 [facility] 01/02/18 13:39 Wound Center Nurse 1 [Ulcer Assessment] #4 R buttock -Combined with other wound No -Current Size (cm) - Length 1.9 -Current Size (cm) - Width 0.4 -Current Size (cm) - Depth 0.1 -Total Square Cm 0.76 -Photo Taken Yes -Tunneling No -Undermining/Tunneling No -Circular Undermining No -Classification - Thickness Full Thickness without Exposed Support Structure -Exudate Amt Small (1-33%) -Exudate Type Serosanguineous -Wound Margin Distinct, Outline Attached -Granulation Amt Medium (34-66%) -Granulation Quality [place] -Slough/Fibrin Yes -Necrosis Amt Small (1-33%) -Necrotic Tissue Type Adherent Slough -Structure Exposed N/A -Texture (Jovanna-wound Skin Appearance) Assessed -Moisture (Jovanna-wound Skin Appearance Assessed ) -Color (Jovanna-wound Skin Appearance) Assessed -Temperature (Jovanna-wound Skin No Abnormality Appearance) (Pt Warm) -Tenderness on Palpation (Jovanna-wound No Skin Appearance) -Ulcer Cleansing Rinsed/ Irrigated with Saline -Foul Odor after Cleansing No -Anesthetic Used 5% Lidocaine Gel #3- RT GR TOE -Combined with other wound No -Current Size (cm) - Length 1 -Current Size (cm) - Width 0.2 -Current Size (cm) - Depth 0.4 -Total Square Cm 0.2 -Date of Last Picture (Recall this 01/02/18 field) -Photo Taken Yes -Epithelialization None Present -Tunneling No -Undermining/Tunneling No -Circular Undermining No -Exudate Amt None Present (0 %) -Wound Margin Distinct, Outline Attached -Granulation Amt Large (67-100%) -Granulation Quality Red -Slough/Fibrin Yes -Necrosis Amt Small (1-33%) -Necrotic Tissue Type Adherent Slough -Texture (Jovanna-wound Skin Appearance) Callus Scarring -Moisture (Jovanna-wound Skin Appearance Dry/Scaly ) -Temperature (Jovanna-wound Skin No Abnormality Appearance) (Pt Warm) -Tenderness on Palpation (Jovanna-wound No Skin Appearance) -Ulcer Cleansing Rinsed/ Irrigated with Saline -Foul Odor after Cleansing No -Anesthetic Used 5% Lidocaine Gel #1 COCCYX -Combined with other wound No -Current Size (cm) - Length 2.8 -Current Size (cm) - Width 1.3 -Current Size (cm) - Depth 0.9 -Total Square Cm 3.64 -Photo Taken No -Tunneling No -Undermining/Tunneling No -Circular Undermining No -Classification - Thickness Full Thickness without Exposed Support Structure -Exudate Amt Small (1-33%) -Exudate Type Serosanguineous -Wound Margin Distinct, Outline Attached -Granulation Amt Medium (34-66%) -Granulation Quality Red -Slough/Fibrin Yes -Necrosis Amt Small (1-33%) -Necrotic Tissue Type Adherent Slough -Structure Exposed N/A -Texture (Jovanna-wound Skin Appearance) Assessed -Moisture (Jovanna-wound Skin Appearance Assessed ) Maceration -Color (Jovanna-wound Skin Appearance) Assessed -Temperature (Jovanna-wound Skin No Abnormality Appearance) (Pt Warm) -Tenderness on Palpation (Jovanna-wound No Skin Appearance) -Ulcer Cleansing Rinsed/ Irrigated with Saline -Foul Odor after Cleansing No -Anesthetic Used 5% Lidocaine Gel WC - Nurse 2 - General Ulcer CM Notes Start: 12/05/17 13:05 Freq: Status: Active Protocol: Activity Type Activity Date Activity User E-Sign Co-Sign Detail Recorded Client Recorded Date Recorded By Document 01/02/18 14:10 DV [id number] 01/02/18 14:22 DV 01/02/18 14:10 Wound Center Nurse 2 [Procedure/Treatment] #4 R buttock -Time 14:18 -Correct Patient Yes -Correct Side, Site, Position Yes -Correct Procedure Yes -Procedure Performed Yes -Type of Procedure Debridement -Clinical Debridement Subcutaneous -Post Debridement Size (cm) - Length 1.8 -Post Debridement Size (cm) - Width 0.4 -Post Debridement Size (cm) - Depth 0.1 -Total Square Cm 0.72 -Wound/Ulcer Outcome Not Healed -Ulcer Cleansing Rinsed/ Irrigated with Saline -Foul Odor after Cleansing No -Bioengineered Tissue No -Bleeding Controlled with Pressure -Treatment Response Procedure Tolerated Well #3- RT GR TOE -Time 14:20 -Correct Patient Yes -Correct Side, Site, Position Yes -Correct Procedure Yes -Procedure Performed Yes -Type of Procedure Debridement -Clinical Debridement Subcutaneous -Post Debridement Size (cm) - Length 2.0 -Post Debridement Size (cm) - Width 1.0 -Post Debridement Size (cm) - Depth 0.3 -Total Square Cm 2.00 -Wound/Ulcer Outcome Not Healed -Ulcer Cleansing Rinsed/ Irrigated with Saline -Foul Odor after Cleansing No -Bioengineered Tissue No -Bleeding Controlled with Pressure -Treatment Response Procedure Tolerated Well #1 COCCYX -Time 14:21 -Correct Patient Yes -Correct Side, Site, Position Yes -Correct Procedure Yes -Procedure Performed Yes -Type of Procedure Debridement -Clinical Debridement Subcutaneous -Post Debridement Size (cm) - Length 1.9 -Post Debridement Size (cm) - Width 1.4 -Post Debridement Size (cm) - Depth 0.9 -Total Square Cm 2.66 -Wound/Ulcer Outcome Not Healed -Ulcer Cleansing Rinsed/ Irrigated with Saline -Foul Odor after Cleansing No -Bioengineered Tissue No -Bleeding Controlled with Pressure -Treatment Response Procedure Tolerated Well [See Physician Procedure note for Specifics] Pain Scale: 0-10 Numeric [Pain] -Is Patient Pain Free? Yes Neurological: Cranial nerves II-XII grossly intact Psych/Mental Status: Normal Affect Debridement Note Post-Debridement Measurements/Treatment WC - Nurse 2 - General Ulcer CM Notes Start: 12/05/17 13:05 Freq: Status: Active Protocol: Activity Type Activity Date Activity User E-Sign Co-Sign Detail Recorded Client Recorded Date Recorded By Document 12/05/17 13:31 DV [id number] 12/05/17 13:32 DV Document 12/12/17 13:16 DV [id number] 12/12/17 13:19 DV Document 12/19/17 13:06 DL [id number] 12/19/17 13:17 DL Document 01/02/18 14:10 DV [id number] 01/02/18 14:22 DV 12/05/17 12/12/17 12/19/17 13:31 13:16 13:06 Wound Center Nurse 2 #4 R buttock -Time -Correct Patient -Correct Side, Site, Position -Correct Procedure -Procedure Performed -Type of Procedure -Clinical Debridement -Post Debridement Size (cm) - Length -Post Debridement Size (cm) - Width -Post Debridement Size (cm) - Depth -Total Square Cm -Wound/Ulcer Outcome -Ulcer Cleansing -Foul Odor after Cleansing -Bioengineered Tissue -Bleeding Controlled with -Treatment Response #3- RT GR TOE -Time -Correct Patient -Correct Side, Site, Position -Correct Procedure -Procedure Performed -Type of Procedure -Clinical Debridement -Post Debridement Size (cm) - Length -Post Debridement Size (cm) - Width -Post Debridement Size (cm) - Depth -Total Square Cm -Wound/Ulcer Outcome -Ulcer Cleansing -Foul Odor after Cleansing -Bioengineered Tissue -Bleeding Controlled with -Treatment Response #1 COCCYX -Time 13:31 13:18 01:20 -Correct Patient Yes Yes Yes -Correct Side, Site, Position Yes Yes Yes -Correct Procedure Yes Yes Yes -Procedure Performed Yes Yes Yes -Type of Procedure Debridement Debridement Debridement -Clinical Debridement Subcutaneous Subcutaneous Subcutaneous -Post Debridement Size (cm) - Length 2.0 1.9 1.8 -Post Debridement Size (cm) - Width 2.0 1.9 2 -Post Debridement Size (cm) - Depth 1.2 1.2 1 -Total Square Cm 4.00 3.61 3.6 -Wound/Ulcer Outcome Not Healed Not Healed Not Healed -Ulcer Cleansing Rinsed/ Rinsed/ Rinsed/ Irrigated with Irrigated with Irrigated with Saline Saline Saline -Foul Odor after Cleansing No No No -Bioengineered Tissue No No No -Bleeding Controlled with Pressure Pressure NA -Treatment Response Procedure Procedure Procedure Tolerated Well Tolerated Well Tolerated Well Pain Scale: 0-10 Numeric Is Patient Pain Free? Yes Yes Yes 01/02/18 14:10 Wound Center Nurse 2 #4 R buttock -Time 14:18 -Correct Patient Yes -Correct Side, Site, Position Yes -Correct Procedure Yes -Procedure Performed Yes -Type of Procedure Debridement -Clinical Debridement Subcutaneous -Post Debridement Size (cm) - Length 1.8 -Post Debridement Size (cm) - Width 0.4 -Post Debridement Size (cm) - Depth 0.1 -Total Square Cm 0.72 -Wound/Ulcer Outcome Not Healed -Ulcer Cleansing Rinsed/ Irrigated with Saline -Foul Odor after Cleansing No -Bioengineered Tissue No -Bleeding Controlled with Pressure -Treatment Response Procedure Tolerated Well #3- RT GR TOE -Time 14:20 -Correct Patient Yes -Correct Side, Site, Position Yes -Correct Procedure Yes -Procedure Performed Yes -Type of Procedure Debridement -Clinical Debridement Subcutaneous -Post Debridement Size (cm) - Length 2.0 -Post Debridement Size (cm) - Width 1.0 -Post Debridement Size (cm) - Depth 0.3 -Total Square Cm 2.00 -Wound/Ulcer Outcome Not Healed -Ulcer Cleansing Rinsed/ Irrigated with Saline -Foul Odor after Cleansing No -Bioengineered Tissue No -Bleeding Controlled with Pressure -Treatment Response Procedure Tolerated Well #1 COCCYX -Time 14:21 -Correct Patient Yes -Correct Side, Site, Position Yes -Correct Procedure Yes -Procedure Performed Yes -Type of Procedure Debridement -Clinical Debridement Subcutaneous -Post Debridement Size (cm) - Length 1.9 -Post Debridement Size (cm) - Width 1.4 -Post Debridement Size (cm) - Depth 0.9 -Total Square Cm 2.66 -Wound/Ulcer Outcome Not Healed -Ulcer Cleansing Rinsed/ Irrigated with Saline -Foul Odor after Cleansing No -Bioengineered Tissue No -Bleeding Controlled with Pressure -Treatment Response Procedure Tolerated Well Pain Scale: 0-10 Numeric Is Patient Pain Free? Yes Wound debrided: Coccygeal ulcer Wound Grade/Stage: Stage III Type of Debridement: Excisional debridement Anesthesia Used: 4% Lidocaine Solution Depth: Down to and including healthy tissue, in the subcutaneous layer Percentage of wound debrided: 100 Instrument Used: 5mm curette Tissue Removed: Biofilm and devitalized tissue Severity: Fat Layer Exposed Amount of bleeding with debridement: Mild Bleeding Controlled with: Pressure Patient tolerated procedure well - Additional Wound Wound debrided: Right Buttock Wound Grade/Stage: Stage II Type of Debridement: Excisional debridement Anesthesia Used: 4% Lidocaine Solution Depth: Down to and including healthy tissue, in the subcutaneous layer Percentage of wound debrided: 100 Instrument Used: 5mm curette Tissue Removed: Biofilm and devitalized tissue Severity: Limited To Skin Breakdown Amount of bleeding with debridement: Mild Bleeding Controlled with: Pressure Patient tolerated procedure: Patient tolerated procedure well - Additional Wound Wound debrided: Right great toe Wound Grade/Stage: Stage III Type of Debridement: Excisional debridement Anesthesia Used: 4% Lidocaine Solution Depth: Down to and including healthy tissue, in the subcutaneous layer Percentage of wound debrided: 100 Instrument Used: 5mm curette Tissue Removed: Slough and devitalized tissue Severity: Fat Layer Exposed Amount of bleeding with debridement: Moderate Bleeding Controlled with: Pressure, Gel Foam Patient tolerated procedure: Patient tolerated procedure well Assessment/Plan Active Problems Pressure ulcer of coccygeal region, stage 3 (Acute) Paraparesis of both lower limbs (Acute) Physical debility (Chronic) she is sedentary lives alone and can no longer get herself to the BR, has lost arm strength....very deconditioned Assessment: Stage III coccygeal decubitus ulcer. Stage II left buttock pressure ulcer. - Healed. Paraparesis from multiple sclerosis. Physical debility. Plan: Ms. Bryan presents with new wound most concerning of which is her right bobby toe. Duration/ precipitating factor of which is largely unknown however was noted yesterday by her nurse. She states that she was seen by her manager cardiology recently and no ulceration was noted at that time. Wound appears somewhat flunctuant with some drainage noted. Debridement of all ulcers done as documented above, procedure was well tolerated. Cultures taken form the right great toe. Xray also ordered. Apply aquacel silver to the right great toe and right buttock ulcers. Continue santyl to the coccygeal ulcer. The patient will be good candidate for skin substitute due to chronicity of wound. Continue increased protein intake/supplements. Advised on low loss air mattress. Gel cushions for seating. Zinc oxide cream to periwound /buttock area. Turn/reposition patient every 2 hours. Patient however states that she lives alone and has a AIDS, and only 3 times daily. Follow up in 1 week. This note was generated with [employer] software. It may contain incorrect words, spelling, and punctuation that were not noted in checking the note before signing.
--- NOTE | 2018-01-02 19:19 | PN.PCM_ITS ---
(1) Pressure ulcer of coccygeal region, stage 3 Status: Acute Current Visit: Yes Code(s): L89.153 - Pressure ulcer of sacral region, stage 3 (2) Paraparesis of both lower limbs Status: Acute Current Visit: Yes Code(s): G82.20 - Paraplegia, unspecified (3) Physical debility Status: Chronic Current Visit: Yes Code(s): R53.81 - Other malaise Comment : she is sedentary lives alone and can no longer get herself to the BR, has lost arm strength....very deconditioned Type of Wound Date of Service: 01/02/18 Chief Complaint: Decubitus Ulcers History of Wound: Ms. Bryan is a 62-year-old with a complex past medical history who was referred to the wound center due to a chronic nonhealing decubitus ulcers. Initial presentation/Onset was said to be over a year ago and she has been managed by her home health without any significant improvement in her ulcers. She is said to be in bed pretty much 24 hours due to her paraparesis and is turned about 3 times daily. She denies chills, fever, or otherwise feeling of unwell. She was recently managed for a MRSA UTI. She has an indwelling Marcus's. Progress of Wound: Ms. Bryan presents with a new decubitus ulcer and newly noted right great toe ulcer. She states that her feet is examined by her nurse twice weekly and was noted yesterday that she had a right great toe ulcer. She denies any known precipitating factor. She feels well otherwise and denies chills, fever or any change in her bowel habit. - Physical Exam Vital Signs Temp Pulse Resp BP 98 F 81 18 163/94 H 01/02/18 13:39 01/02/18 13:39 01/02/18 13:39 01/02/18 13:39 General: Alert, Oriented x3, Cooperative, No apparent distress HEENT: Atraumatic, Normocephalic Oral: Moist Mucosa Neck: Supple Lungs: Normal air movement Skin: Ulcer/ Wound Wound Measurements and Assessment WC - Nurse 1 - General Ulcer Measurement Start: 12/05/17 13:05 Freq: Status: Active Protocol: Activity Type Activity Date Activity User E-Sign Co-Sign Detail Recorded Client Recorded Date Recorded By Document 01/02/18 13:39 [facility] [id number] 01/02/18 13:51 [facility] 01/02/18 13:39 Wound Center Nurse 1 [Ulcer Assessment] #4 R buttock -Combined with other wound No -Current Size (cm) - Length 1.9 -Current Size (cm) - Width 0.4 -Current Size (cm) - Depth 0.1 -Total Square Cm 0.76 -Photo Taken Yes -Tunneling No -Undermining/Tunneling No -Circular Undermining No -Classification - Thickness Full Thickness without Exposed Support Structure -Exudate Amt Small (1-33%) -Exudate Type Serosanguineous -Wound Margin Distinct, Outline Attached -Granulation Amt Medium (34-66%) -Granulation Quality [place] -Slough/Fibrin Yes -Necrosis Amt Small (1-33%) -Necrotic Tissue Type Adherent Slough -Structure Exposed N/A -Texture (Jovanna-wound Skin Appearance) Assessed -Moisture (Jovanna-wound Skin Appearance Assessed ) -Color (Jovanna-wound Skin Appearance) Assessed -Temperature (Jovanna-wound Skin No Abnormality Appearance) (Pt Warm) -Tenderness on Palpation (Jovanna-wound No Skin Appearance) -Ulcer Cleansing Rinsed/ Irrigated with Saline -Foul Odor after Cleansing No -Anesthetic Used 5% Lidocaine Gel #3- RT GR TOE -Combined with other wound No -Current Size (cm) - Length 1 -Current Size (cm) - Width 0.2 -Current Size (cm) - Depth 0.4 -Total Square Cm 0.2 -Date of Last Picture (Recall this 01/02/18 field) -Photo Taken Yes -Epithelialization None Present -Tunneling No -Undermining/Tunneling No -Circular Undermining No -Exudate Amt None Present (0 %) -Wound Margin Distinct, Outline Attached -Granulation Amt Large (67-100%) -Granulation Quality Red -Slough/Fibrin Yes -Necrosis Amt Small (1-33%) -Necrotic Tissue Type Adherent Slough -Texture (Jovanna-wound Skin Appearance) Callus Scarring -Moisture (Jovanna-wound Skin Appearance Dry/Scaly ) -Temperature (Jovanna-wound Skin No Abnormality Appearance) (Pt Warm) -Tenderness on Palpation (Jovanna-wound No Skin Appearance) -Ulcer Cleansing Rinsed/ Irrigated with Saline -Foul Odor after Cleansing No -Anesthetic Used 5% Lidocaine Gel #1 COCCYX -Combined with other wound No -Current Size (cm) - Length 2.8 -Current Size (cm) - Width 1.3 -Current Size (cm) - Depth 0.9 -Total Square Cm 3.64 -Photo Taken No -Tunneling No -Undermining/Tunneling No -Circular Undermining No -Classification - Thickness Full Thickness without Exposed Support Structure -Exudate Amt Small (1-33%) -Exudate Type Serosanguineous -Wound Margin Distinct, Outline Attached -Granulation Amt Medium (34-66%) -Granulation Quality Red -Slough/Fibrin Yes -Necrosis Amt Small (1-33%) -Necrotic Tissue Type Adherent Slough -Structure Exposed N/A -Texture (Jovanna-wound Skin Appearance) Assessed -Moisture (Jovanna-wound Skin Appearance Assessed ) Maceration -Color (Jovanna-wound Skin Appearance) Assessed -Temperature (Jovanna-wound Skin No Abnormality Appearance) (Pt Warm) -Tenderness on Palpation (Jovanna-wound No Skin Appearance) -Ulcer Cleansing Rinsed/ Irrigated with Saline -Foul Odor after Cleansing No -Anesthetic Used 5% Lidocaine Gel WC - Nurse 2 - General Ulcer CM Notes Start: 12/05/17 13:05 Freq: Status: Active Protocol: Activity Type Activity Date Activity User E-Sign Co-Sign Detail Recorded Client Recorded Date Recorded By Document 01/02/18 14:10 DV [id number] 01/02/18 14:22 DV 01/02/18 14:10 Wound Center Nurse 2 [Procedure/Treatment] #4 R buttock -Time 14:18 -Correct Patient Yes -Correct Side, Site, Position Yes -Correct Procedure Yes -Procedure Performed Yes -Type of Procedure Debridement -Clinical Debridement Subcutaneous -Post Debridement Size (cm) - Length 1.8 -Post Debridement Size (cm) - Width 0.4 -Post Debridement Size (cm) - Depth 0.1 -Total Square Cm 0.72 -Wound/Ulcer Outcome Not Healed -Ulcer Cleansing Rinsed/ Irrigated with Saline -Foul Odor after Cleansing No -Bioengineered Tissue No -Bleeding Controlled with Pressure -Treatment Response Procedure Tolerated Well #3- RT GR TOE -Time 14:20 -Correct Patient Yes -Correct Side, Site, Position Yes -Correct Procedure Yes -Procedure Performed Yes -Type of Procedure Debridement -Clinical Debridement Subcutaneous -Post Debridement Size (cm) - Length 2.0 -Post Debridement Size (cm) - Width 1.0 -Post Debridement Size (cm) - Depth 0.3 -Total Square Cm 2.00 -Wound/Ulcer Outcome Not Healed -Ulcer Cleansing Rinsed/ Irrigated with Saline -Foul Odor after Cleansing No -Bioengineered Tissue No -Bleeding Controlled with Pressure -Treatment Response Procedure Tolerated Well #1 COCCYX -Time 14:21 -Correct Patient Yes -Correct Side, Site, Position Yes -Correct Procedure Yes -Procedure Performed Yes -Type of Procedure Debridement -Clinical Debridement Subcutaneous -Post Debridement Size (cm) - Length 1.9 -Post Debridement Size (cm) - Width 1.4 -Post Debridement Size (cm) - Depth 0.9 -Total Square Cm 2.66 -Wound/Ulcer Outcome Not Healed -Ulcer Cleansing Rinsed/ Irrigated with Saline -Foul Odor after Cleansing No -Bioengineered Tissue No -Bleeding Controlled with Pressure -Treatment Response Procedure Tolerated Well [See Physician Procedure note for Specifics] Pain Scale: 0-10 Numeric [Pain] -Is Patient Pain Free? Yes Neurological: Cranial nerves II-XII grossly intact Psych/Mental Status: Normal Affect Debridement Note Post-Debridement Measurements/Treatment WC - Nurse 2 - General Ulcer CM Notes Start: 12/05/17 13:05 Freq: Status: Active Protocol: Activity Type Activity Date Activity User E-Sign Co-Sign Detail Recorded Client Recorded Date Recorded By Document 12/05/17 13:31 DV [id number] 12/05/17 13:32 DV Document 12/12/17 13:16 DV [id number] 12/12/17 13:19 DV Document 12/19/17 13:06 DL [id number] 12/19/17 13:17 DL Document 01/02/18 14:10 DV [id number] 01/02/18 14:22 DV 12/05/17 12/12/17 12/19/17 13:31 13:16 13:06 Wound Center Nurse 2 #4 R buttock -Time -Correct Patient -Correct Side, Site, Position -Correct Procedure -Procedure Performed -Type of Procedure -Clinical Debridement -Post Debridement Size (cm) - Length -Post Debridement Size (cm) - Width -Post Debridement Size (cm) - Depth -Total Square Cm -Wound/Ulcer Outcome -Ulcer Cleansing -Foul Odor after Cleansing -Bioengineered Tissue -Bleeding Controlled with -Treatment Response #3- RT GR TOE -Time -Correct Patient -Correct Side, Site, Position -Correct Procedure -Procedure Performed -Type of Procedure -Clinical Debridement -Post Debridement Size (cm) - Length -Post Debridement Size (cm) - Width -Post Debridement Size (cm) - Depth -Total Square Cm -Wound/Ulcer Outcome -Ulcer Cleansing -Foul Odor after Cleansing -Bioengineered Tissue -Bleeding Controlled with -Treatment Response #1 COCCYX -Time 13:31 13:18 01:20 -Correct Patient Yes Yes Yes -Correct Side, Site, Position Yes Yes Yes -Correct Procedure Yes Yes Yes -Procedure Performed Yes Yes Yes -Type of Procedure Debridement Debridement Debridement -Clinical Debridement Subcutaneous Subcutaneous Subcutaneous -Post Debridement Size (cm) - Length 2.0 1.9 1.8 -Post Debridement Size (cm) - Width 2.0 1.9 2 -Post Debridement Size (cm) - Depth 1.2 1.2 1 -Total Square Cm 4.00 3.61 3.6 -Wound/Ulcer Outcome Not Healed Not Healed Not Healed -Ulcer Cleansing Rinsed/ Rinsed/ Rinsed/ Irrigated with Irrigated with Irrigated with Saline Saline Saline -Foul Odor after Cleansing No No No -Bioengineered Tissue No No No -Bleeding Controlled with Pressure Pressure NA -Treatment Response Procedure Procedure Procedure Tolerated Well Tolerated Well Tolerated Well Pain Scale: 0-10 Numeric Is Patient Pain Free? Yes Yes Yes 01/02/18 14:10 Wound Center Nurse 2 #4 R buttock -Time 14:18 -Correct Patient Yes -Correct Side, Site, Position Yes -Correct Procedure Yes -Procedure Performed Yes -Type of Procedure Debridement -Clinical Debridement Subcutaneous -Post Debridement Size (cm) - Length 1.8 -Post Debridement Size (cm) - Width 0.4 -Post Debridement Size (cm) - Depth 0.1 -Total Square Cm 0.72 -Wound/Ulcer Outcome Not Healed -Ulcer Cleansing Rinsed/ Irrigated with Saline -Foul Odor after Cleansing No -Bioengineered Tissue No -Bleeding Controlled with Pressure -Treatment Response Procedure Tolerated Well #3- RT GR TOE -Time 14:20 -Correct Patient Yes -Correct Side, Site, Position Yes -Correct Procedure Yes -Procedure Performed Yes -Type of Procedure Debridement -Clinical Debridement Subcutaneous -Post Debridement Size (cm) - Length 2.0 -Post Debridement Size (cm) - Width 1.0 -Post Debridement Size (cm) - Depth 0.3 -Total Square Cm 2.00 -Wound/Ulcer Outcome Not Healed -Ulcer Cleansing Rinsed/ Irrigated with Saline -Foul Odor after Cleansing No -Bioengineered Tissue No -Bleeding Controlled with Pressure -Treatment Response Procedure Tolerated Well #1 COCCYX -Time 14:21 -Correct Patient Yes -Correct Side, Site, Position Yes -Correct Procedure Yes -Procedure Performed Yes -Type of Procedure Debridement -Clinical Debridement Subcutaneous -Post Debridement Size (cm) - Length 1.9 -Post Debridement Size (cm) - Width 1.4 -Post Debridement Size (cm) - Depth 0.9 -Total Square Cm 2.66 -Wound/Ulcer Outcome Not Healed -Ulcer Cleansing Rinsed/ Irrigated with Saline -Foul Odor after Cleansing No -Bioengineered Tissue No -Bleeding Controlled with Pressure -Treatment Response Procedure Tolerated Well Pain Scale: 0-10 Numeric Is Patient Pain Free? Yes Wound debrided: Coccygeal ulcer Wound Grade/Stage: Stage III Type of Debridement: Excisional debridement Anesthesia Used: 4% Lidocaine Solution Depth: Down to and including healthy tissue, in the subcutaneous layer Percentage of wound debrided: 100 Instrument Used: 5mm curette Tissue Removed: Biofilm and devitalized tissue Severity: Fat Layer Exposed Amount of bleeding with debridement: Mild Bleeding Controlled with: Pressure Patient tolerated procedure well - Additional Wound Wound debrided: Right Buttock Wound Grade/Stage: Stage II Type of Debridement: Excisional debridement Anesthesia Used: 4% Lidocaine Solution Depth: Down to and including healthy tissue, in the subcutaneous layer Percentage of wound debrided: 100 Instrument Used: 5mm curette Tissue Removed: Biofilm and devitalized tissue Severity: Limited To Skin Breakdown Amount of bleeding with debridement: Mild Bleeding Controlled with: Pressure Patient tolerated procedure: Patient tolerated procedure well - Additional Wound Wound debrided: Right great toe Wound Grade/Stage: Stage III Type of Debridement: Excisional debridement Anesthesia Used: 4% Lidocaine Solution Depth: Down to and including healthy tissue, in the subcutaneous layer Percentage of wound debrided: 100 Instrument Used: 5mm curette Tissue Removed: Slough and devitalized tissue Severity: Fat Layer Exposed Amount of bleeding with debridement: Moderate Bleeding Controlled with: Pressure, Gel Foam Patient tolerated procedure: Patient tolerated procedure well Assessment/Plan Active Problems Pressure ulcer of coccygeal region, stage 3 (Acute) Paraparesis of both lower limbs (Acute) Physical debility (Chronic) she is sedentary lives alone and can no longer get herself to the BR, has lost arm strength....very deconditioned Assessment: Stage III coccygeal decubitus ulcer. Stage II left buttock pressure ulcer. - Healed. Paraparesis from multiple sclerosis. Physical debility. Plan: Ms. Bryan presents with new wound most concerning of which is her right bobby toe. Duration/ precipitating factor of which is largely unknown however was noted yesterday by her nurse. She states that she was seen by her project development engineer recently and no ulceration was noted at that time. Wound appears somewhat flunctuant with some drainage noted. Debridement of all ulcers done as documented above, procedure was well tolerated. Cultures taken form the right great toe. Xray also ordered. Apply aquacel silver to the right great toe and right buttock ulcers. Continue santyl to the coccygeal ulcer. The patient will be good candidate for skin substitute due to chronicity of wound. Continue increased protein intake/supplements. Advised on low loss air mattress. Gel cushions for seating. Zinc oxide cream to periwound /buttock area. Turn/reposition patient every 2 hours. Patient however states that she lives alone and has a AIDS, and only 3 times daily. Follow up in 1 week. This note was generated with [employer] software. It may contain incorrect words, spelling, and punctuation that were not noted in checking the note before signing.
== END 2018-01-02 23:59 ==
LOC: WC 12:30
PROVIDERS: Visit Provider Internal Medicine
DX: L89.153 Pressure ulcer of sacral region, stage 3 (principal); G82.20 Paraplegia, unspecified; R53.81 Other malaise; G35 Multiple sclerosis; Z87.440 Personal history of urinary (tract) infections; Z86.14 Personal history of Methicillin resistant Staphylococcus aureus infection; L89.302 Pressure ulcer of unspecified buttock, stage 2; Z60.2 Problems related to living alone
CPT/HCPCS: 11042; 17250; 87070; 87075; 87077; 87186; 87205

== ENCOUNTER 2018-01-22 18:33 | Emergency (ER) | payer OTHER, SELFPAY ==
[2018-01-22 18:35] VITALS: BP 133/97; PULSE 87; RESP 16; TEMP 36.8; O2SAT 96; BMI 37.1
[2018-01-22 19:18] LABS: Absolute Lymphocyte Count 2.67 X10^3/ul (0.83-4.51); Basophil# 0.03 X10^3/uL; Basophil% 0.3 % (0-1); Eosinophil# 0.15 X10^3/uL; Eosinophils% 1.6 % (0-5); Hemoglobin 12.4 g/dl (12.0-15.0); Lymphocyte # 2.67 X10^3/ul (4.0); Lymphocyte % 28.8 % (19-41); Mean Corp Hgb Conc 32.6 g/gl (32-36); Mean Corpuscular Hgb 29.3 pg (27.0-32.0); Mean Corpuscular Volume 89.8 fL (81-99); Mean Platelet Vol. 8.6 fl (6.2-12.0); Monocyte# 0.39 X10^3/uL; Monocyte% 4.2 % (0-10); Neutrophil % 64.7 % (47-70); Platelet Count 264 K/mm3 (150-450); RBC Distribution Width CV 14.2 % (11.6-14.6); RBC Distribution Width SD 46.1 fl (35.1-43.9); Red Blood Count 4.23 M/mm3 (4.2-5.4); White Blood Count 9.3 K/mm3 (4.4-11.0)
[2018-01-22 19:20] LABS: POSITIVE COUNT NO; POSITIVE DIFFERENTIAL NO; POSITIVE MORPHOLOGY NO
[2018-01-22 19:29] LABS: Anion Gap 7 (5-15); BUN 6 mg/dL (7-18); BUN/Creat Ratio 8.1 RATIO (10-20); Calcium,Total 8.9 mg/dL (8.5-10.1); Chloride 96 mmol/L (98-107); Creatinine, Serum 0.74 mg/dL (0.55-1.02); EST Glomerular Filtration Rate 84 mL/min (>60); Est Glom Filt Rate - Afr Amer 101 mL/min (>60); Estimated Creatinine Clearance 73.79 ml/min; Glucose 339 mg/dL (74-106); Potassium 3.8 mmol/L (3.5-5.1); Sodium Level 132 mmol/L (136-145)
[2018-01-22 20:43] VITALS: PULSE 78; RESP 14; O2SAT 97
[2018-01-22 20:43] LABS: Bacteria 0 SEEN /hpf (None Seen); Mucous, Urine 0 SEEN /hpf (<or=2+)
[2018-01-22 20:49] LABS: Color, Urine Yellow (Yellow); Urine Clarity Sl Cldy (Clear)
[2018-01-22 20:50] LABS: Glucose, Dipstick 1000 mg/dl (Normal); Ketone-Dipstick Negative (Negative); Leukocyte Esterase-Dipstick 25 /ul (Negative); Nitrite-Dipstick Negative (Negative); Occult Blood-Urine 25 /ul (Negative); Protein-Dipstick Negative (Negative); Urine Bilirubin Dipstick Negative (Negative); Urine Urobilinogen Normal (Normal)
[2018-01-22 20:54] LABS: Red Blood Cells-Urine 0-5 SEEN /hpf (0-5); Squamous Epithelial Cells - UA 0-5 SEEN /hpf (5-10); White Blood Cells 0-5 SEEN /hpf (0-5)
--- NOTE | 2018-01-22 21:19 | ED.DCSUM_ITS ---
- ER Visit Summary Date of Service: 01/22/18 Chief Complaint: Patient's only complaint is suprapubic pressure and malfunctioning Marcus. Patient's visiting nurse called in and stated that she was recently diagnosed with diabetes and was surprised that she was discharged from the emergency room without diabetic supplies. She was prescribed Metformin. There is also concerned because of elevated white count and apparent urinary tract infection. Patient only complaint is suprapubic pressure because she believes her Marcus is not functioning well. History of Present Illness: The patient is a 62 F who has history of COPD, pulmonary embolus, hypothyroidism and MS and reason for indwelling Marcus was sent to the ER because of aforementioned concerns by visiting nurse. As mentioned patient has no concerns other than the pubic pressure. She is not a good informant. Physical Examination: Vital signs are unremarkable. She is not tachypnic. There is no ketotic odor to her breath. HEENT exam reveals no acute process. Heart is regular without murmur, gallop or rub. S1 and S2 are normal. Lungs are clear to auscultation with good movement of air bilaterally. Abdomen soft nontender with no palpable semester down bruit. Bladder is not distended by percussion or by ultrasound. She does have a sacral decubitus. There is mild edema the lower extremities. She has weakness secondary to her MS. Test Results: White count is normal. Electro panels marked for glucose of 339 with a normal CO2 and anion gap. UA is unremarkable. Emergency Department Course and Treatment: In light of the concerns by visiting nurse metabolic infectious workup was undertaken. Her workup is remarkable for an elevated blood sugar. It is not inappropriate to start her on Metformin. It is not uncommon not to write for diabetic supplies since she is on pills and needs to follow-up with her primary care physician for these types of devices. Treatment Plan: Discharge to home. Needs to fill prescription she was given at outside facility. Disposition: Discharged to home Impression: 1. New onset diabetes 2. Sacral decubitus 3. History of MS 4. History of COPD 5. History hypothyroidism This note was generated with [employer] dictation software. It may contain incorrect words, spelling, and punctuation that were not noted in review of the chart prior to signing ED Disposition - Plan for ED Patient: Disposition: Home or Assisted Living Chief Complaint: Marcus C/O Instructions: ED Diabetes General Info Referrals: [facility] Doctor,Out of [Primary Care Provider] - 3-5 Days if not improving
[2018-01-22 21:36] VITALS: BP 145/92; PULSE 91; RESP 17; O2SAT 98
[2018-01-22 22:00] VITALS: BP 130/83; PULSE 91; RESP 17; O2SAT 97
--- NOTE | 2018-01-22 22:25 | ED.RN ---
THIS RN WENT IN TO D/C PT. PT SMELLED OF BM. THIS RN AND DEL RN PERFORMED KRISTEL CARE, PT CLEANED WITH WIPES AND ADULT BRIEF CHANGED. PT REPORTS TO THIS RN THAT SHE HAS HOME HEALTH DURING THE DAY, AND NO ONE TO HELP HER AT NIGHT TIME. THIS RN [id number] PT THAT IF SHE CONTINUES TO LAY IN BED WITHOUT ASSISTANCE THAT HER WOUND WILL GET WORSE. PT REPORTS THAT SHE KNOWS THE CONSEQUENCES OF HER ACTIONS. THIS RN ALSO CHANGED PT SACRAL WOUND WITH ABD AND PAPER TAPE. PT KRISTEL AREA, REDDENED AND EXCORIATED. PT GIVEN NEW SHEETS AND BLANKETS. PT VERBALIZES THAT SHE REFUSES TO GO BACK TO A ASSISTED BECAUSE SHE HATED IT.
--- NOTE | 2018-01-22 22:45 | ED.RN ---
THIS RN CONTACTED [facility] TO CONTACT [facility] [employer] REGUARDING PT WELL BEING. THEY ARE TO CALL BACK TO THE HOSPITAL. WILL CONTINUE TO MONITOR. PT DISCHARGED.
--- NOTE | 2018-01-22 23:10 | ED.RN ---
THIS RN SPOKE WITH JERRY TH ONE CALL FROM [facility].
== END 2018-01-22 22:46 | disposition home or self-care (01) ==
PROVIDERS: Emergency Provider Emergency Medicine
DX: E11.9 Type 2 diabetes mellitus without complications (principal); L89.153 Pressure ulcer of sacral region, stage 3; G35 Multiple sclerosis; J44.9 Chronic obstructive pulmonary disease, unspecified; E03.9 Hypothyroidism, unspecified; E66.9 Obesity, unspecified; Z68.37 Body mass index [BMI] 37.0-37.9, adult; Z79.84 Long term (current) use of oral hypoglycemic drugs; Z79.899 Other long term (current) drug therapy
CPT/HCPCS: 80048; 81001; 85025; 99285; A4216

== ENCOUNTER 2018-01-31 12:30 | Outpatient (RCR) | payer OTHER, SELFPAY ==
[2018-01-03 00:56] VITALS: BP 163/94; PULSE 81; RESP 18; TEMP 36.6
--- NOTE | 2018-01-16 18:34 | PCM.WC.PN ---
(1) Chronic ulcer of right great toe with fat layer exposed Status: Acute Current Visit: Yes Code(s): L97.512 - Non-pressure chronic ulcer of other part of right foot with fat layer exposed (2) Pressure ulcer of coccygeal region, stage 3 Status: Acute Current Visit: Yes Code(s): L89.153 - Pressure ulcer of sacral region, stage 3 (3) Paraparesis of both lower limbs Status: Acute Current Visit: No Code(s): G82.20 - Paraplegia, unspecified (4) Decubitus skin ulcer Status: Acute Current Visit: Yes Code(s): L89.90 - Pressure ulcer of unspecified site, unspecified stage Type of Wound Date of Service: 01/16/18 Chief Complaint: Decubitus Ulcers History of Wound: Ms. Bryan is a 62-year-old with a complex past medical history who was referred to the wound center due to a chronic nonhealing decubitus ulcers. Initial presentation/Onset was said to be over a year ago and she has been managed by her home health without any significant improvement in her ulcers. She is said to be in bed pretty much 24 hours due to her paraparesis and is turned about 3 times daily. She denies chills, fever, or otherwise feeling of unwell. She was recently managed for a MRSA UTI. She has an indwelling Marcus's. Progress of Wound: No new complaints at this time. Still yet to get the x-ray of her right foot and to follow-up with podiatry. She was started on Bactrim at her last visit however per patient this was discontinued by her nurse practitioner due to drug drug interaction. She is currently not on any medications. Cultures from right great toe grew MRSA. - Physical Exam Vital Signs Temp Pulse Resp BP 98 F 81 18 163/94 H 01/03/18 00:56 01/03/18 00:56 01/03/18 00:56 01/03/18 00:56 General: Alert, Oriented x3, Cooperative, No apparent distress HEENT: Atraumatic Oral: Moist Mucosa Neck: Supple Lungs: Normal air movement Extremities: No cyanosis Skin: Ulcer/ Wound Wound Measurements and Assessment WC - Nurse 1 - General Ulcer Measurement Start: 01/16/18 12:15 Freq: Status: Active Protocol: Activity Type Activity Date Activity User E-Sign Co-Sign Detail Recorded Client Recorded Date Recorded By Document 01/16/18 12:15 DL [id number] 01/16/18 12:30 DL 01/16/18 12:15 Wound Center Nurse 1 [Ulcer Assessment] #3- RT GR TOE -Current Size (cm) - Length 0.5 -Current Size (cm) - Width 0.3 -Current Size (cm) - Depth 0.1 -Total Square Cm 0.15 -Photo Taken No -Exudate Amt Small (1-33%) -Exudate Type Yellow/Green -Wound Margin Distinct, Outline Attached -Granulation Amt Small (1-33%) -Granulation Quality Red -Necrosis Amt Small (1-33%) -Necrotic Tissue Type Adherent Slough -Structure Exposed N/A -Texture (Julio-wound Skin Appearance) Scarring -Moisture (Julio-wound Skin Appearance Dry/Scaly ) -Color (Julio-wound Skin Appearance) No Abnormality -Temperature (Julio-wound Skin No Abnormality Appearance) (Pt Warm) -Ulcer Cleansing Wound Cleanser -Foul Odor after Cleansing No -Anesthetic Used 4% Lidocaine Solution #1 COCCYX -Current Size (cm) - Length 2.2 -Current Size (cm) - Width 1.6 -Current Size (cm) - Depth 1.7 -Total Square Cm 3.52 -Photo Taken No -Exudate Amt Medium (34-66%) -Exudate Type Serosanguineous -Wound Margin Distinct, Outline Attached -Granulation Amt Medium (34-66%) -Granulation Quality Red -Necrosis Amt Medium (34-66%) -Necrotic Tissue Type Adherent Slough -Structure Exposed N/A -Texture (Julio-wound Skin Appearance) Rash -Moisture (Julio-wound Skin Appearance No Abnormality ) -Color (Julio-wound Skin Appearance) Erythema -Temperature (Julio-wound Skin No Abnormality Appearance) (Pt Warm) -Ulcer Cleansing Wound Cleanser -Foul Odor after Cleansing No -Anesthetic Used 4% Lidocaine Solution WC - Nurse 2 - General Ulcer CM Notes Start: 01/16/18 12:15 Freq: Status: Active Protocol: Activity Type Activity Date Activity User E-Sign Co-Sign Detail Recorded Client Recorded Date Recorded By Document 01/16/18 13:17 DV [id number] 01/16/18 13:34 DV 01/16/18 13:17 Wound Center Nurse 2 [Procedure/Treatment] #4 R buttock -Post Debridement Size (cm) - Length 0 -Post Debridement Size (cm) - Width 0 -Post Debridement Size (cm) - Depth 0 -Total Square Cm 0 -Ulcer Cleansing Rinsed/ Irrigated with Saline -Foul Odor after Cleansing No -Bioengineered Tissue No #3- RT GR TOE -Time 13:29 -Correct Patient Yes -Correct Side, Site, Position Yes -Correct Procedure Yes -Procedure Performed Yes -Type of Procedure Debridement -Clinical Debridement Subcutaneous -Post Debridement Size (cm) - Length 1.0 -Post Debridement Size (cm) - Width 0.4 -Post Debridement Size (cm) - Depth 0.4 -Total Square Cm 0.40 -Wound/Ulcer Outcome Not Healed -Ulcer Cleansing Rinsed/ Irrigated with Saline -Foul Odor after Cleansing No -Bioengineered Tissue No -Bleeding Controlled with Pressure -Treatment Response Procedure Tolerated Well #1 COCCYX -Time 13:31 -Correct Patient Yes -Correct Side, Site, Position Yes -Correct Procedure Yes -Procedure Performed Yes -Type of Procedure Debridement -Clinical Debridement Subcutaneous -Post Debridement Size (cm) - Length 1.5 -Post Debridement Size (cm) - Width 1.2 -Post Debridement Size (cm) - Depth 0.9 -Total Square Cm 1.80 -Wound/Ulcer Outcome Not Healed -Ulcer Cleansing Rinsed/ Irrigated with Saline -Foul Odor after Cleansing No -Bioengineered Tissue No -Bleeding Controlled with Pressure -Treatment Response Procedure Tolerated Well [See Physician Procedure note for Specifics] Pain Scale: 0-10 Numeric [Pain] -Is Patient Pain Free? Yes Musculoskeletal: No Muscle Wasting Neurological: Cranial nerves II-XII grossly intact Psych/Mental Status: Normal Affect Debridement Note Post-Debridement Measurements/Treatment WC - Nurse 2 - General Ulcer CM Notes Start: 01/16/18 12:15 Freq: Status: Active Protocol: Activity Type Activity Date Activity User E-Sign Co-Sign Detail Recorded Client Recorded Date Recorded By Document 01/16/18 13:17 DV [id number] 01/16/18 13:34 DV 01/16/18 13:17 Wound Center Nurse 2 #4 R buttock -Post Debridement Size (cm) - Length 0 -Post Debridement Size (cm) - Width 0 -Post Debridement Size (cm) - Depth 0 -Total Square Cm 0 -Ulcer Cleansing Rinsed/ Irrigated with Saline -Foul Odor after Cleansing No -Bioengineered Tissue No #3- RT GR TOE -Time 13:29 -Correct Patient Yes -Correct Side, Site, Position Yes -Correct Procedure Yes -Procedure Performed Yes -Type of Procedure Debridement -Clinical Debridement Subcutaneous -Post Debridement Size (cm) - Length 1.0 -Post Debridement Size (cm) - Width 0.4 -Post Debridement Size (cm) - Depth 0.4 -Total Square Cm 0.40 -Wound/Ulcer Outcome Not Healed -Ulcer Cleansing Rinsed/ Irrigated with Saline -Foul Odor after Cleansing No -Bioengineered Tissue No -Bleeding Controlled with Pressure -Treatment Response Procedure Tolerated Well #1 COCCYX -Time 13:31 -Correct Patient Yes -Correct Side, Site, Position Yes -Correct Procedure Yes -Procedure Performed Yes -Type of Procedure Debridement -Clinical Debridement Subcutaneous -Post Debridement Size (cm) - Length 1.5 -Post Debridement Size (cm) - Width 1.2 -Post Debridement Size (cm) - Depth 0.9 -Total Square Cm 1.80 -Wound/Ulcer Outcome Not Healed -Ulcer Cleansing Rinsed/ Irrigated with Saline -Foul Odor after Cleansing No -Bioengineered Tissue No -Bleeding Controlled with Pressure -Treatment Response Procedure Tolerated Well Pain Scale: 0-10 Numeric Is Patient Pain Free? Yes Wound debrided: Right great toe Wound Grade/Stage: Stage II Type of Debridement: Excisional debridement Anesthesia Used: 4% Lidocaine Solution Depth: Down to and including healthy tissue, in the subcutaneous layer, - - Probes to bone Percentage of wound debrided: 100 Instrument Used: 3mm curette Tissue Removed: Slough and devitalized tissue Severity: Fat Layer Exposed Amount of bleeding with debridement: Mild Bleeding Controlled with: Pressure Patient tolerated procedure well - Additional Wound Wound debrided: Coccygeal ulcer Wound Grade/Stage: Stage III Type of Debridement: Excisional debridement Anesthesia Used: 4% Lidocaine Solution Depth: Down to and including healthy tissue, in the subcutaneous layer Percentage of wound debrided: 100 Instrument Used: 5mm curette Tissue Removed: Slough and devitalized tissue Severity: Fat Layer Exposed Amount of bleeding with debridement: Mild Bleeding Controlled with: Pressure Patient tolerated procedure: Patient tolerated procedure well Assessment/Plan Active Problems Pressure ulcer of coccygeal region, stage 3 (Acute) Chronic ulcer of right great toe with fat layer exposed (Acute) Decubitus skin ulcer (Acute) Assessment: Stage III coccygeal decubitus ulcer. Right great toe ulcer. Stage II left buttock pressure ulcer. - Healed. Paraparesis from multiple sclerosis. Physical debility. Plan: Sacral wound is stable however significant julio wound erythema/stage I pressure ulcer. Right great toe ulcer appears to be improving but still probes to bone. Patient is yet to get her x-rays or see her transcription manager. She is also currently not on any antibiotic. Debridement of both ulcers done as documented above. Procedure was well-tolerated. Continue Promogran to decubitus ulcer and Aquacel silver to right great toe ulcer. Patient will definitely benefit from a skin substitute due to the chronicity especially of her coccygeal ulcer. She was encouraged to get an x-ray of her right great toe due to concerns for osteomyelitis as ulcer probes to bone. Alternatively start doxycycline 100 mg twice daily due to cultures which grew MRSA. Continue increased protein intake/supplements. Advised on low loss air mattress. Gel cushions for seating. Zinc oxide cream to periwound /buttock area. Turn/reposition patient every 2 hours. Patient however states that she lives alone and has a aids only 3 times daily. Follow up in 1 week. This note was generated with [employer] dictation software. It may contain incorrect words, spelling, and punctuation that were not noted in checking the note before signing.
--- NOTE | 2018-01-16 18:43 | PN.PCM_ITS ---
(1) Chronic ulcer of right great toe with fat layer exposed Status: Acute Current Visit: Yes Code(s): L97.512 - Non-pressure chronic ulcer of other part of right foot with fat layer exposed (2) Pressure ulcer of coccygeal region, stage 3 Status: Acute Current Visit: Yes Code(s): L89.153 - Pressure ulcer of sacral region, stage 3 (3) Paraparesis of both lower limbs Status: Acute Current Visit: No Code(s): G82.20 - Paraplegia, unspecified (4) Decubitus skin ulcer Status: Acute Current Visit: Yes Code(s): L89.90 - Pressure ulcer of unspecified site, unspecified stage Type of Wound Date of Service: 01/16/18 Chief Complaint: Decubitus Ulcers History of Wound: Ms. Bryan is a 62-year-old with a complex past medical history who was referred to the wound center due to a chronic nonhealing decubitus ulcers. Initial presentation/Onset was said to be over a year ago and she has been managed by her home health without any significant improvement in her ulcers. She is said to be in bed pretty much 24 hours due to her paraparesis and is turned about 3 times daily. She denies chills, fever, or otherwise feeling of unwell. She was recently managed for a MRSA UTI. She has an indwelling Marcus's. Progress of Wound: No new complaints at this time. Still yet to get the x-ray of her right foot and to follow-up with podiatry. She was started on Bactrim at her last visit however per patient this was discontinued by her nurse practitioner due to drug drug interaction. She is currently not on any medications. Cultures from right great toe grew MRSA. - Physical Exam Vital Signs Temp Pulse Resp BP 98 F 81 18 163/94 H 01/03/18 00:56 01/03/18 00:56 01/03/18 00:56 01/03/18 00:56 General: Alert, Oriented x3, Cooperative, No apparent distress HEENT: Atraumatic Oral: Moist Mucosa Neck: Supple Lungs: Normal air movement Extremities: No cyanosis Skin: Ulcer/ Wound Wound Measurements and Assessment WC - Nurse 1 - General Ulcer Measurement Start: 01/16/18 12:15 Freq: Status: Active Protocol: Activity Type Activity Date Activity User E-Sign Co-Sign Detail Recorded Client Recorded Date Recorded By Document 01/16/18 12:15 DL [id number] 01/16/18 12:30 DL 01/16/18 12:15 Wound Center Nurse 1 [Ulcer Assessment] #3- RT GR TOE -Current Size (cm) - Length 0.5 -Current Size (cm) - Width 0.3 -Current Size (cm) - Depth 0.1 -Total Square Cm 0.15 -Photo Taken No -Exudate Amt Small (1-33%) -Exudate Type Yellow/Green -Wound Margin Distinct, Outline Attached -Granulation Amt Small (1-33%) -Granulation Quality Red -Necrosis Amt Small (1-33%) -Necrotic Tissue Type Adherent Slough -Structure Exposed N/A -Texture (Julio-wound Skin Appearance) Scarring -Moisture (Julio-wound Skin Appearance Dry/Scaly ) -Color (Julio-wound Skin Appearance) No Abnormality -Temperature (Julio-wound Skin No Abnormality Appearance) (Pt Warm) -Ulcer Cleansing Wound Cleanser -Foul Odor after Cleansing No -Anesthetic Used 4% Lidocaine Solution #1 COCCYX -Current Size (cm) - Length 2.2 -Current Size (cm) - Width 1.6 -Current Size (cm) - Depth 1.7 -Total Square Cm 3.52 -Photo Taken No -Exudate Amt Medium (34-66%) -Exudate Type Serosanguineous -Wound Margin Distinct, Outline Attached -Granulation Amt Medium (34-66%) -Granulation Quality Red -Necrosis Amt Medium (34-66%) -Necrotic Tissue Type Adherent Slough -Structure Exposed N/A -Texture (Julio-wound Skin Appearance) Rash -Moisture (Julio-wound Skin Appearance No Abnormality ) -Color (Julio-wound Skin Appearance) Erythema -Temperature (Julio-wound Skin No Abnormality Appearance) (Pt Warm) -Ulcer Cleansing Wound Cleanser -Foul Odor after Cleansing No -Anesthetic Used 4% Lidocaine Solution WC - Nurse 2 - General Ulcer CM Notes Start: 01/16/18 12:15 Freq: Status: Active Protocol: Activity Type Activity Date Activity User E-Sign Co-Sign Detail Recorded Client Recorded Date Recorded By Document 01/16/18 13:17 DV [id number] 01/16/18 13:34 DV 01/16/18 13:17 Wound Center Nurse 2 [Procedure/Treatment] #4 R buttock -Post Debridement Size (cm) - Length 0 -Post Debridement Size (cm) - Width 0 -Post Debridement Size (cm) - Depth 0 -Total Square Cm 0 -Ulcer Cleansing Rinsed/ Irrigated with Saline -Foul Odor after Cleansing No -Bioengineered Tissue No #3- RT GR TOE -Time 13:29 -Correct Patient Yes -Correct Side, Site, Position Yes -Correct Procedure Yes -Procedure Performed Yes -Type of Procedure Debridement -Clinical Debridement Subcutaneous -Post Debridement Size (cm) - Length 1.0 -Post Debridement Size (cm) - Width 0.4 -Post Debridement Size (cm) - Depth 0.4 -Total Square Cm 0.40 -Wound/Ulcer Outcome Not Healed -Ulcer Cleansing Rinsed/ Irrigated with Saline -Foul Odor after Cleansing No -Bioengineered Tissue No -Bleeding Controlled with Pressure -Treatment Response Procedure Tolerated Well #1 COCCYX -Time 13:31 -Correct Patient Yes -Correct Side, Site, Position Yes -Correct Procedure Yes -Procedure Performed Yes -Type of Procedure Debridement -Clinical Debridement Subcutaneous -Post Debridement Size (cm) - Length 1.5 -Post Debridement Size (cm) - Width 1.2 -Post Debridement Size (cm) - Depth 0.9 -Total Square Cm 1.80 -Wound/Ulcer Outcome Not Healed -Ulcer Cleansing Rinsed/ Irrigated with Saline -Foul Odor after Cleansing No -Bioengineered Tissue No -Bleeding Controlled with Pressure -Treatment Response Procedure Tolerated Well [See Physician Procedure note for Specifics] Pain Scale: 0-10 Numeric [Pain] -Is Patient Pain Free? Yes Musculoskeletal: No Muscle Wasting Neurological: Cranial nerves II-XII grossly intact Psych/Mental Status: Normal Affect Debridement Note Post-Debridement Measurements/Treatment WC - Nurse 2 - General Ulcer CM Notes Start: 01/16/18 12:15 Freq: Status: Active Protocol: Activity Type Activity Date Activity User E-Sign Co-Sign Detail Recorded Client Recorded Date Recorded By Document 01/16/18 13:17 DV [id number] 01/16/18 13:34 DV 01/16/18 13:17 Wound Center Nurse 2 #4 R buttock -Post Debridement Size (cm) - Length 0 -Post Debridement Size (cm) - Width 0 -Post Debridement Size (cm) - Depth 0 -Total Square Cm 0 -Ulcer Cleansing Rinsed/ Irrigated with Saline -Foul Odor after Cleansing No -Bioengineered Tissue No #3- RT GR TOE -Time 13:29 -Correct Patient Yes -Correct Side, Site, Position Yes -Correct Procedure Yes -Procedure Performed Yes -Type of Procedure Debridement -Clinical Debridement Subcutaneous -Post Debridement Size (cm) - Length 1.0 -Post Debridement Size (cm) - Width 0.4 -Post Debridement Size (cm) - Depth 0.4 -Total Square Cm 0.40 -Wound/Ulcer Outcome Not Healed -Ulcer Cleansing Rinsed/ Irrigated with Saline -Foul Odor after Cleansing No -Bioengineered Tissue No -Bleeding Controlled with Pressure -Treatment Response Procedure Tolerated Well #1 COCCYX -Time 13:31 -Correct Patient Yes -Correct Side, Site, Position Yes -Correct Procedure Yes -Procedure Performed Yes -Type of Procedure Debridement -Clinical Debridement Subcutaneous -Post Debridement Size (cm) - Length 1.5 -Post Debridement Size (cm) - Width 1.2 -Post Debridement Size (cm) - Depth 0.9 -Total Square Cm 1.80 -Wound/Ulcer Outcome Not Healed -Ulcer Cleansing Rinsed/ Irrigated with Saline -Foul Odor after Cleansing No -Bioengineered Tissue No -Bleeding Controlled with Pressure -Treatment Response Procedure Tolerated Well Pain Scale: 0-10 Numeric Is Patient Pain Free? Yes Wound debrided: Right great toe Wound Grade/Stage: Stage II Type of Debridement: Excisional debridement Anesthesia Used: 4% Lidocaine Solution Depth: Down to and including healthy tissue, in the subcutaneous layer, - - Probes to bone Percentage of wound debrided: 100 Instrument Used: 3mm curette Tissue Removed: Slough and devitalized tissue Severity: Fat Layer Exposed Amount of bleeding with debridement: Mild Bleeding Controlled with: Pressure Patient tolerated procedure well - Additional Wound Wound debrided: Coccygeal ulcer Wound Grade/Stage: Stage III Type of Debridement: Excisional debridement Anesthesia Used: 4% Lidocaine Solution Depth: Down to and including healthy tissue, in the subcutaneous layer Percentage of wound debrided: 100 Instrument Used: 5mm curette Tissue Removed: Slough and devitalized tissue Severity: Fat Layer Exposed Amount of bleeding with debridement: Mild Bleeding Controlled with: Pressure Patient tolerated procedure: Patient tolerated procedure well Assessment/Plan Active Problems Pressure ulcer of coccygeal region, stage 3 (Acute) Chronic ulcer of right great toe with fat layer exposed (Acute) Decubitus skin ulcer (Acute) Assessment: Stage III coccygeal decubitus ulcer. Right great toe ulcer. Stage II left buttock pressure ulcer. - Healed. Paraparesis from multiple sclerosis. Physical debility. Plan: Sacral wound is stable however significant julio wound erythema/stage I pressure ulcer. Right great toe ulcer appears to be improving but still probes to bone. Patient is yet to get her x-rays or see her billet sawyer. She is also currently not on any antibiotic. Debridement of both ulcers done as documented above. Procedure was well-tolerated. Continue Promogran to decubitus ulcer and Aquacel silver to right great toe ulcer. Patient will definitely benefit from a skin substitute due to the chronicity especially of her coccygeal ulcer. She was encouraged to get an x-ray of her right great toe due to concerns for osteomyelitis as ulcer probes to bone. Alternatively start doxycycline 100 mg twice daily due to cultures which grew MRSA. Continue increased protein intake/ supplements. Advised on low loss air mattress. Gel cushions for seating. Zinc oxide cream to periwound /buttock area. Turn/reposition patient every 2 hours. Patient however states that she lives alone and has a aids only 3 times daily. Follow up in 1 week. This note was generated with [employer] dictation software. It may contain incorrect words, spelling, and punctuation that were not noted in checking the note before signing.
[2018-01-31 12:39] VITALS: BP 112/75; PULSE 79; RESP 16; TEMP 36.6
--- NOTE | 2018-01-31 18:57 | HP.PCM_ITS ---
(1) Pressure ulcer of coccygeal region, stage 3 Status: Chronic Current Visit: Yes Code(s): L89.153 - Pressure ulcer of sacral region, stage 3 (2) Paraparesis of both lower limbs Status: Chronic Current Visit: Yes Code(s): G82.20 - Paraplegia, unspecified (3) Chronic ulcer of right great toe with fat layer exposed Status: Chronic Current Visit: Yes Code(s): L97.512 - Non-pressure chronic ulcer of other part of right foot with fat layer exposed (4) Morbid obesity with BMI of 40.0-44.9, adult Status: Chronic Current Visit: Yes Code(s): E66.01 - Morbid (severe) obesity due to excess calories; Z68.41 - Body mass index (BMI) 40.0-44.9, adult (5) Multiple sclerosis Status: Chronic Current Visit: Yes Code(s): G35 - Multiple sclerosis (6) Physical debility Status: Chronic Current Visit: Yes Code(s): R53.81 - Other malaise Comment : she is sedentary lives alone and can no longer get herself to the BR, has lost arm strength....very deconditioned (7) Diabetes mellitus type 2, uncontrolled Status: Acute Current Visit: Yes Qualifiers: Diabetes mellitus mcfp insulin use: without middle or intermediate school principal use Diabetes mellitus complication status: with unspecified complications Qualified Code(s) : E11.8 - Type 2 diabetes mellitus with unspecified complications; E11.65 - Type 2 diabetes mellitus with hyperglycemia Code(s): E11.65 - Type 2 diabetes mellitus with hyperglycemia History of Present Illness Date of Service: 01/31/18 Chief Complaint: Decubitus Ulcers History of Wound: Ms. Bryan is a 62-year-old with a complex past medical history who was referred to the wound center due to a chronic nonhealing decubitus ulcers. Initial presentation/Onset was said to be over a year ago and she has been managed by her home health without any significant improvement in her ulcers. She is said to be in bed pretty much 24 hours due to her paraparesis and is turned about 3 times daily. She denies chills, fever, or otherwise feeling of unwell. She was recently managed for a MRSA UTI. She has an indwelling Marcus catheter but has frequent leakage and there is concern for a fistula that is causing the leakage. Her Home Health is concerned that she should not be living at home anymore due to her not being able to turn herself more frequently and her incontinence issues. Dorota has also been diagnosed with diabetes since her last visit and is still working on getting a glucometer and testing supplies as well as medication. Her PCP is Dr. Torres in [place]. I am seeing her for a courtesy visit in place of Dr. Moore. Past Medical History Past Medical History: Chronic Problems Pressure ulcer of coccygeal region, stage 3 (Chronic) Paraparesis of both lower limbs (Chronic) Chronic ulcer of right great toe with fat layer exposed (Chronic) Macrocytic anemia (Chronic) due to folate deficiency + fatty liver.....? hemolysis, haptoglobin is pending Hypothyroidism (Chronic) Anxiety (Chronic) Morbid obesity with BMI of 40.0-44.9, adult (Chronic) COPD (chronic obstructive pulmonary disease) (Chronic) life long non-smoker Multiple sclerosis (Chronic) Depression (Chronic) Failure to thrive in adult (Chronic) Physical deconditioning (Chronic) Spinal stenosis of lumbar region (Chronic) mild, diagnosed on MRI of the LS spine done 01/01/14 Folate deficiency anemia (Chronic) Fatty infiltration of liver (Chronic) Urine, incontinence, stress female (Chronic) Chronic retention of urine (Chronic) she has MS and also has spinal canal stenosis....has seen neurosurgery and is not a candidate for any surgical intervention. Physical debility (Chronic) she is sedentary lives alone and can no longer get herself to the BR, has lost arm strength....very deconditioned Surgical History: - - tubal ligation, elective , ventral hernia repair Allergies/Adverse Reactions: Allergies gabapentin Adverse Reaction (Verified 01/22/18 18:38) weakness in legs nifedipine [From Procardia] Adverse Reaction (Verified 01/22/18 18:38) weakness in legs pregabalin [From Lyrica] Adverse Reaction (Verified 01/22/18 18:38) weakness in legs Home Medications: Ambulatory Orders Medication Instructions Recorded ALPRAZolam PO TID 01/22/18 Cardizem PO DAILY 01/22/18 Hctz PO DAILY 01/22/18 Lactobacillus Acidophilus 1 each PO DAILY 01/22/18 [Acidophilus] Macrodantin 1 tab PO MOWEFR 01/22/18 Meloxicam PO BID 01/22/18 Pain Pump (Pt's Own) QWEEK 01/22/18 Potassium 1 tab PO BID 01/22/18 Sennosides/Docusate Sodium [Senna 1 tab PO 4X/DAY 01/22/18 Plus Tablet] Synthroid PO DAILY 01/22/18 Venlafaxine HCl 1.5 tab PO BID 01/22/18 Vitamin D 2 tab PO DAILY 01/22/18 - Family History Maternal Cancer - Her mother of lung cancer and was a smoker Paternal Diabetes, - - Father had posttraumatic stress disorder related from being in the armed forces. He also suffered from alcoholism Lives: Alone Smoking Status: Never smoker Tobacco Use: Non-smoker Alcohol: None Drugs: None Review of Systems Constitutional: Denies: Chills, Fever, Weight Change Eyes: Denies: Pain, Vision Change HEENT: Denies: Difficulty Hearing, Difficulty Swallowing, Sinus Congestion Cardiovascular: Denies: Chest Pain, Palpitations Respiratory: Denies: Cough, Shortness of Breath Gastrointestinal: Denies: Diarrhea, Nausea, Vomiting Genitourinary: Reports: Incontinence Musculoskeletal: Reports: Back Pain, Muscle pain Skin: Reports: Wounds Neurological: Reports: Focal weakness, Numbness, Tingling Hematologic/ Lymphatic: Denies: Easy Bruising, Easy Bleeding - Physical Exam Vital Signs Temp Pulse Resp BP 97.8 F 79 16 112/75 01/31/18 12:39 01/31/18 12:39 01/31/18 12:39 01/31/18 12:39 General: Alert, Oriented x3, Cooperative, No apparent distress HEENT: Atraumatic, Normocephalic Oral: Moist Mucosa Lungs: Clear to auscultation Cardiovascular: Regular rate, Regular Rhythm Abdomen: Soft, Non Tender, Obese Extremities: Edema Skin: Ulcer/ Wound Wound Measurements and Assessment WC - Nurse 1 - General Ulcer Measurement Start: 01/16/18 12:15 Freq: Status: Active Protocol: Activity Type Activity Date Activity User E-Sign Co-Sign Detail Recorded Client Recorded Date Recorded By Document 01/31/18 12:39 [id number] 01/31/18 12:50 01/31/18 12:39 Wound Center Nurse 1 [Ulcer Assessment] #3- RT GR TOE -Combined with other wound No -Current Size (cm) - Length 0.1 -Current Size (cm) - Width 0.1 -Current Size (cm) - Depth 0.1 -Total Square Cm 0.01 #1 COCCYX -Combined with other wound No -Current Size (cm) - Length 2.1 -Current Size (cm) - Width 0.5 -Current Size (cm) - Depth 1.4 -Total Square Cm 1.05 -Photo Taken No -Epithelialization None Present -Exudate Amt Small (1-33%) -Exudate Type Serosanguineous -Wound Margin Distinct, Outline Attached -Granulation Quality Red -Necrosis Amt None Present (0 %) -Structure Exposed None/Limited to Skin Breakdown -Texture (Julio-wound Skin Appearance) Assessed Scarring -Moisture (Julio-wound Skin Appearance Assessed ) Maceration -Color (Julio-wound Skin Appearance) Assessed Erythema -Temperature (Julio-wound Skin No Abnormality Appearance) (Pt Warm) -Tenderness on Palpation (Julio-wound No Skin Appearance) -Ulcer Cleansing Wound Cleanser -Foul Odor after Cleansing No -Anesthetic Used 4% Lidocaine Solution WC - Nurse 2 - General Ulcer CM Notes Start: 01/16/18 12:15 Freq: Status: Active Protocol: Activity Type Activity Date Activity User E-Sign Co-Sign Detail Recorded Client Recorded Date Recorded By Document 01/31/18 13:23 [id number] 01/31/18 13:48 01/31/18 13:23 Wound Center Nurse 2 [Procedure/Treatment] #3- RT GR TOE -Time 13:41 -Correct Patient Yes -Correct Side, Site, Position Yes -Correct Procedure Yes -Procedure Performed Yes -Type of Procedure Debridement -Clinical Debridement Subcutaneous -Post Debridement Size (cm) - Length 0.4 -Post Debridement Size (cm) - Width 0.2 -Post Debridement Size (cm) - Depth 0.1 -Total Square Cm 0.08 -Wound/Ulcer Outcome Not Healed -Ulcer Cleansing Rinsed/ Irrigated with Saline -Foul Odor after Cleansing No -Bioengineered Tissue No -Topical Lidocaine (%) 4 -Bleeding Controlled with Pressure -Treatment Response Procedure Tolerated Well #1 COCCYX -Time 13:43 -Correct Patient Yes -Correct Side, Site, Position Yes -Correct Procedure Yes -Procedure Performed Yes -Type of Procedure Debridement -Clinical Debridement Subcutaneous -Post Debridement Size (cm) - Length 2.3 -Post Debridement Size (cm) - Width 1.8 -Post Debridement Size (cm) - Depth 0.7 -Total Square Cm 4.14 -Wound/Ulcer Outcome Not Healed -Ulcer Cleansing Rinsed/ Irrigated with Saline -Foul Odor after Cleansing No -Bioengineered Tissue No -Topical Lidocaine (%) 4 -Bleeding Controlled with Pressure -Treatment Response Procedure Tolerated Well [See Physician Procedure note for Specifics] Pain Scale: 0-10 Numeric [Pain] -Is Patient Pain Free? Yes Psych/Mental Status: Normal Affect, Appropriate Debridement Note Post-Debridement Measurements/Treatment WC - Nurse 2 - General Ulcer CM Notes Start: 01/16/18 12:15 Freq: Status: Active Protocol: Activity Type Activity Date Activity User E-Sign Co-Sign Detail Recorded Client Recorded Date Recorded By Document 01/16/18 13:17 DV [id number] 01/16/18 13:34 DV Document 01/31/18 13:23 TM [id number] 01/31/18 13:48 TM 01/16/18 01/31/18 13:17 13:23 Wound Center Nurse 2 #4 R buttock -Post Debridement Size (cm) - Length 0 -Post Debridement Size (cm) - Width 0 -Post Debridement Size (cm) - Depth 0 -Total Square Cm 0 -Ulcer Cleansing Rinsed/ Irrigated with Saline -Foul Odor after Cleansing No -Bioengineered Tissue No #3- RT GR TOE -Time 13:29 13:41 -Correct Patient Yes Yes -Correct Side, Site, Position Yes Yes -Correct Procedure Yes Yes -Procedure Performed Yes Yes -Type of Procedure Debridement Debridement -Clinical Debridement Subcutaneous Subcutaneous -Post Debridement Size (cm) - Length 1.0 0.4 -Post Debridement Size (cm) - Width 0.4 0.2 -Post Debridement Size (cm) - Depth 0.4 0.1 -Total Square Cm 0.40 0.08 -Wound/Ulcer Outcome Not Healed Not Healed -Ulcer Cleansing Rinsed/ Rinsed/ Irrigated with Irrigated with Saline Saline -Foul Odor after Cleansing No No -Bioengineered Tissue No No -Topical Lidocaine (%) 4 -Bleeding Controlled with Pressure Pressure -Treatment Response Procedure Procedure Tolerated Well Tolerated Well #1 COCCYX -Time 13:31 13:43 -Correct Patient Yes Yes -Correct Side, Site, Position Yes Yes -Correct Procedure Yes Yes -Procedure Performed Yes Yes -Type of Procedure Debridement Debridement -Clinical Debridement Subcutaneous Subcutaneous -Post Debridement Size (cm) - Length 1.5 2.3 -Post Debridement Size (cm) - Width 1.2 1.8 -Post Debridement Size (cm) - Depth 0.9 0.7 -Total Square Cm 1.80 4.14 -Wound/Ulcer Outcome Not Healed Not Healed -Ulcer Cleansing Rinsed/ Rinsed/ Irrigated with Irrigated with Saline Saline -Foul Odor after Cleansing No No -Bioengineered Tissue No No -Topical Lidocaine (%) 4 -Bleeding Controlled with Pressure Pressure -Treatment Response Procedure Procedure Tolerated Well Tolerated Well Pain Scale: 0-10 Numeric Is Patient Pain Free? Yes Yes Wound debrided: right great toe Laterality: Right Type of Debridement: Excisional debridement Anesthesia Used: 4% Lidocaine Solution Depth: Down to and including healthy tissue, in the subcutaneous layer Percentage of wound debrided: 100 Instrument Used: 5mm curette Tissue Removed: yellow slough, devitalized tissue and toenail Severity: Fat Layer Exposed Amount of bleeding with debridement: Mild Bleeding Controlled with: Compression and gauze Patient tolerated procedure well - Additional Wound Wound debrided: coccyx Laterality: Not Applicable Wound Grade/Stage: stage III Type of Debridement: Excisional debridement Anesthesia Used: 4% Lidocaine Solution Depth: Down to and including healthy tissue, in the subcutaneous layer Percentage of wound debrided: 100 Instrument Used: 5mm curette Tissue Removed: yellow slough, devitalized tissue Severity: Fat Layer Exposed Amount of bleeding with debridement: Mild Bleeding Controlled with: Compression and gauze Patient tolerated procedure: Patient tolerated procedure well Assessment/Plan Active Problems Pressure ulcer of coccygeal region, stage 3 (Chronic) Paraparesis of both lower limbs (Chronic) Chronic ulcer of right great toe with fat layer exposed (Chronic) Decubitus skin ulcer (Acute) Diabetes mellitus type 2, uncontrolled (Acute) Morbid obesity with BMI of 40.0-44.9, adult (Chronic) Multiple sclerosis (Chronic) Physical debility (Chronic) she is sedentary lives alone and can no longer get herself to the BR, has lost arm strength....very deconditioned Assessment: Stage III coccygeal decubitus ulcer. Right great toe ulcer. Stage II left buttock pressure ulcer. - Healed. Paraparesis from multiple sclerosis. Physical debility. Plan: Sacral wound is stable however significant julio wound erythema/stage I pressure ulcercontinues. Right great toe ulcer appears to be improving. Nail trimmed today and ingrown toenail trimmed back as well. She still has not completed xrays or seen podiatry due to transportation issues. She has several doses of doxycycline left to complete. Debridement of both ulcers done as documented above. Procedure was well-tolerated. Continue Promogran to decubitus ulcer and Aquacel silver to right great toe ulcer. Patient will definitely benefit from a skin substitute due to the chronicity especially of her coccygeal ulcer. She was encouraged to get an x-ray of her right great toe due to concerns for osteomyelitis as ulcer probes to bone. Patient requested to decrease frequency of visits to every other week and we discussed change of care to palliative care plan and she has elected to do so. Continue increased protein intake/supplements. Advised on low loss air mattress. Gel cushions for seating. Zinc oxide cream to periwound /buttock area. Turn/reposition patient every 2 hours. Patient however states that she lives alone and has a aids only 3 times daily. Encouraged glucose monitoring and treatment for her DM with A1C goal of less than 7%. Follow up in [address] Moore. Call to be seen sooner with any changes in odor, drainage or pain or condition of wound. This note was generated with [employer] dictation software. It may contain incorrect words, spelling, and punctuation that were not noted in checking the note before signing.
== END 2018-02-01 23:59 ==
LOC: WC 12:30
PROVIDERS: Visit Provider Internal Medicine
DX: E11.622 Type 2 diabetes mellitus with other skin ulcer (principal); L89.153 Pressure ulcer of sacral region, stage 3; G82.20 Paraplegia, unspecified; L97.512 Non-pressure chronic ulcer of other part of right foot with fat layer exposed; Z86.14 Personal history of Methicillin resistant Staphylococcus aureus infection; G35 Multiple sclerosis; E66.01 Morbid (severe) obesity due to excess calories; Z68.41 Body mass index [BMI] 40.0-44.9, adult; Z71.3 Dietary counseling and surveillance; E11.65 Type 2 diabetes mellitus with hyperglycemia; E11.621 Type 2 diabetes mellitus with foot ulcer; J44.9 Chronic obstructive pulmonary disease, unspecified
CPT/HCPCS: 11042; 11720

== ENCOUNTER 2018-02-26 12:30 | Outpatient (RCR) | payer OTHER, SELFPAY ==
[2018-02-02 00:48] VITALS: BP 112/75; PULSE 79; RESP 16; TEMP 36.6
[2018-02-12 11:17] VITALS: BP 131/76; PULSE 85; RESP 18; TEMP 36.2
--- NOTE | 2018-02-12 13:16 | PN.PCM_ITS ---
(1) Decubitus skin ulcer Status: Acute Current Visit: No Code(s): L89.90 - Pressure ulcer of unspecified site, unspecified stage (2) Diabetes mellitus type 2, uncontrolled Status: Acute Current Visit: No Qualifiers: Code(s): E11.65 - Type 2 diabetes mellitus with hyperglycemia (3) Chronic ulcer of right great toe with fat layer exposed Status: Chronic Current Visit: No Code(s): L97.512 - Non-pressure chronic ulcer of other part of right foot with fat layer exposed (4) Paraparesis of both lower limbs Status: Chronic Current Visit: No Code(s): G82.20 - Paraplegia, unspecified (5) Pressure ulcer of coccygeal region, stage 3 Status: Chronic Current Visit: No Code(s): L89.153 - Pressure ulcer of sacral region, stage 3 Type of Wound Date of Service: 02/12/18 Chief Complaint: Decubitus Ulcers History of Wound: Ms. Bryan is a 62-year-old with a complex past medical history who was referred to the wound center due to a chronic nonhealing decubitus ulcers. Initial presentation/Onset was said to be over a year ago and she has been managed by her home health without any significant improvement in her ulcers. She is said to be in bed pretty much 24 hours due to her paraparesis and is turned about 3 times daily. She denies chills, fever, or otherwise feeling of unwell. She was recently managed for a MRSA UTI. She has an indwelling Marcus catheter but has frequent leakage and there is concern for a fistula that is causing the leakage. Her Home Health is concerned that she should not be living at home anymore due to her not being able to turn herself more frequently and her incontinence issues. Dorota has also been diagnosed with diabetes since her last visit and is still working on getting a glucometer and testing supplies as well as medication. Her PCP is Dr. Torres in [place]. I am seeing her for a courtesy visit in place of Dr. Moore. Progress of Wound: Improving. - Physical Exam Vital Signs Temp Pulse Resp BP 97.1 F L 85 18 131/76 H 02/12/18 11:17 02/12/18 11:17 02/12/18 11:17 02/12/18 11:17 General: Alert, Oriented x3, Cooperative, No apparent distress HEENT: Atraumatic Oral: Moist Mucosa Neck: Supple Lungs: Normal air movement Abdomen: Non Tender Extremities: No cyanosis Skin: Ulcer/ Wound Wound Measurements and Assessment WC - Nurse 1 - General Ulcer Measurement Start: 02/12/18 11:16 Freq: Status: Active Protocol: Activity Type Activity Date Activity User E-Sign Co-Sign Detail Recorded Client Recorded Date Recorded By Document 02/12/18 11:17 DL [id number] 02/12/18 11:23 DL 02/12/18 11:17 Wound Center Nurse 1 [Ulcer Assessment] #1 COCCYX -Current Size (cm) - Length 1.8 -Current Size (cm) - Width 1.8 -Current Size (cm) - Depth 0.4 -Total Square Cm 3.24 -Photo Taken No -Exudate Amt Medium (34-66%) -Exudate Type Serosanguineous -Wound Margin Distinct, Outline Attached -Granulation Amt Large (67-100%) -Granulation Quality Red -Necrosis Amt Small (1-33%) -Necrotic Tissue Type Adherent Slough -Structure Exposed N/A -Texture (Jovanna-wound Skin Appearance) No Abnormality Scarring -Moisture (Jovanna-wound Skin Appearance Dry/Scaly ) -Color (Jovanna-wound Skin Appearance) No Abnormality -Temperature (Jovanna-wound Skin No Abnormality Appearance) (Pt Warm) -Ulcer Cleansing Wound Cleanser -Foul Odor after Cleansing No -Anesthetic Used 4% Lidocaine Solution Musculoskeletal: No Muscle Wasting Neurological: Cranial nerves II-XII grossly intact Psych/Mental Status: Normal Affect Debridement Note Wound debrided: Coccygeal ulcer Wound Grade/Stage: Stage III Type of Debridement: Excisional debridement Anesthesia Used: 4% Lidocaine Solution Depth: Down to and including healthy tissue, in the subcutaneous layer Instrument Used: 5mm curette Tissue Removed: Slough and devitalized tissue Severity: Fat Layer Exposed Amount of bleeding with debridement: Mild Bleeding Controlled with: Pressure Patient tolerated procedure well Assessment/Plan Assessment: Stage III coccygeal decubitus ulcer. Right great toe ulcer. Stage II left buttock pressure ulcer. - Healed. Paraparesis from multiple sclerosis. Physical debility. Plan: Decubitus ulcer is stable. Right great toe ulcer appears have healed. She still has not completed xrays or seen podiatry due to transportation issues.Debridement done as documented above. Procedure was well-tolerated. Continue Promogran to decubitus ulcer with optifoam over top. Continue adpatic with guaze to right great toe. Patient will definitely benefit from a skin substitute due to the chronicity especially of her coccygeal ulcer. Continue increased protein intake/supplements. Advised on low loss air mattress. Gel cushions for seating. Zinc oxide cream to periwound /buttock area. Turn/ reposition patient every 2 hours. Patient however states that she lives alone and has a aids only 3 times daily. Follow up in 2 weeks per patient request. This note was generated with [employer] dictation software. It may contain incorrect words, spelling, and punctuation that were not noted in checking the note before signing.
[2018-02-26 12:43] VITALS: BP 84/60; PULSE 59; RESP 18; TEMP 35
--- NOTE | 2018-02-26 19:30 | PCM.WC.PN ---
(1) Decubitus skin ulcer Status: Acute Current Visit: No Code(s): L89.90 - Pressure ulcer of unspecified site, unspecified stage (2) Diabetes mellitus type 2, uncontrolled Status: Acute Current Visit: No Qualifiers: Code(s): E11.65 - Type 2 diabetes mellitus with hyperglycemia (3) Chronic ulcer of right great toe with fat layer exposed Status: Chronic Current Visit: No Code(s): L97.512 - Non-pressure chronic ulcer of other part of right foot with fat layer exposed (4) Paraparesis of both lower limbs Status: Chronic Current Visit: No Code(s): G82.20 - Paraplegia, unspecified (5) Pressure ulcer of coccygeal region, stage 3 Status: Chronic Current Visit: No Code(s): L89.153 - Pressure ulcer of sacral region, stage 3 Type of Wound Date of Service: 02/26/18 Chief Complaint: Decubitus Ulcers History of Wound: Ms. Bryan is a 62-year-old with a complex past medical history who was referred to the wound center due to a chronic nonhealing decubitus ulcers. Initial presentation/Onset was said to be over a year ago and she has been managed by her home health without any significant improvement in her ulcers. She is said to be in bed pretty much 24 hours due to her paraparesis and is turned about 3 times daily. She denies chills, fever, or otherwise feeling of unwell. She was recently managed for a MRSA UTI. She has an indwelling Marcus catheter but has frequent leakage and there is concern for a fistula that is causing the leakage. Her Home Health is concerned that she should not be living at home anymore due to her not being able to turn herself more frequently and her incontinence issues. Dorota has also been diagnosed with diabetes since her last visit and is still working on getting a glucometer and testing supplies as well as medication. Her PCP is Dr. Torres in [place]. I am seeing her for a courtesy visit in place of Dr. Moore. Progress of Wound: Stable. ? Greenish discharge noted by wound care nurse at home. - Physical Exam Vital Signs Temp Pulse Resp BP 95.0 F L 59 L 18 84/60 L 02/26/18 12:43 02/26/18 12:43 02/26/18 12:43 02/26/18 12:43 General: Alert, Oriented x3, Cooperative, No apparent distress HEENT: Atraumatic Oral: Moist Mucosa Neck: Supple Lungs: Normal air movement Extremities: No cyanosis Skin: Ulcer/ Wound Wound Measurements and Assessment - Nurse 1 - General Ulcer Measurement Start: 02/12/18 11:16 Freq: Status: Active Protocol: Activity Type Activity Date Activity User E-Sign Co-Sign Detail Recorded Client Recorded Date Recorded By Document 02/26/18 12:43 CO [id number] 02/26/18 12:59 CO 02/26/18 12:43 Wound Center Nurse 1 [Ulcer Assessment] #1 COCCYX -Combined with other wound No -Current Size (cm) - Length 2 -Current Size (cm) - Width 1.5 -Current Size (cm) - Depth 1.2 -Total Square Cm 3.0 -Date of Last Picture (Recall this 02/26/18 field) -Photo Taken Yes -Epithelialization None Present -Tunneling No -Undermining/Tunneling No -Circular Undermining No -Exudate Amt Small (1-33%) -Exudate Type Serosanguineous -Wound Margin Thickened & Rolled Under -Granulation Amt Medium (34-66%) -Granulation Quality Pale [place] -Slough/Fibrin Yes -Necrosis Amt Small (1-33%) -Necrotic Tissue Type Adherent Slough -Texture (Jovanna-wound Skin Appearance) Assessed -Moisture (Jovanna-wound Skin Appearance Assessed ) Maceration -Color (Jovanna-wound Skin Appearance) Assessed Erythema -Temperature (Jovanna-wound Skin No Abnormality Appearance) (Pt Warm) -Tenderness on Palpation (Jovanna-wound Yes Skin Appearance) -Ulcer Cleansing Rinsed/ Irrigated with Saline -Foul Odor after Cleansing No -Anesthetic Used 4% Lidocaine Solution WC - Nurse 2 - General Ulcer CM Notes Start: 02/12/18 11:16 Freq: Status: Active Protocol: Activity Type Activity Date Activity User E-Sign Co-Sign Detail Recorded Client Recorded Date Recorded By Document 02/26/18 13:25 [id number] 02/26/18 13:26 02/26/18 13:25 Wound Center Nurse 2 [Procedure/Treatment] -Time 13:25 -Correct Patient Yes -Correct Side, Site, Position Yes -Correct Procedure Yes -Procedure Performed Yes -Type of Procedure Debridement -Clinical Debridement Subcutaneous -Post Debridement Size (cm) - Length 2.0 -Post Debridement Size (cm) - Width 1.5 -Post Debridement Size (cm) - Depth 1.0 -Total Square Cm 3.00 -Wound/Ulcer Outcome Not Healed -Ulcer Cleansing Rinsed/ Irrigated with Saline -Foul Odor after Cleansing No -Bioengineered Tissue No -Bleeding Controlled with Pressure -Treatment Response Procedure Tolerated Well [See Physician Procedure note for Specifics] Pain Scale: 0-10 Numeric [Pain] -Is Patient Pain Free? Yes Psych/Mental Status: Normal Affect Debridement Note Post-Debridement Measurements/Treatment WC - Nurse 2 - General Ulcer CM Notes Start: 02/12/18 11:16 Freq: Status: Active Protocol: Activity Type Activity Date Activity User E-Sign Co-Sign Detail Recorded Client Recorded Date Recorded By Document 02/12/18 13:14 JS [id number] 02/12/18 13:15 JS Document 02/26/18 13:25 CS [id number] 02/26/18 13:26 CS 02/12/18 02/26/18 13:14 13:25 Wound Center Nurse 2 #1 COCCYX -Time 13:14 13:25 -Correct Patient Yes Yes -Correct Side, Site, Position Yes Yes -Correct Procedure Yes Yes -Procedure Performed Yes Yes -Type of Procedure Debridement Debridement -Clinical Debridement Subcutaneous Subcutaneous -Post Debridement Size (cm) - Length 1.5 2.0 -Post Debridement Size (cm) - Width 1.6 1.5 -Post Debridement Size (cm) - Depth 1.0 1.0 -Total Square Cm 2.40 3.00 -Wound/Ulcer Outcome Not Healed Not Healed -Ulcer Cleansing Rinsed/ Rinsed/ Irrigated with Irrigated with Saline Saline -Foul Odor after Cleansing No No -Bioengineered Tissue No No -Bleeding Controlled with NA Pressure -Treatment Response Procedure Procedure Tolerated Well Tolerated Well Pain Scale: 0-10 Numeric Is Patient Pain Free? Yes Yes Wound debrided: Coccygeal ulcer Wound Grade/Stage: Stage III Type of Debridement: Excisional debridement Anesthesia Used: 4% Lidocaine Solution Depth: Down to and including healthy tissue, in the subcutaneous layer Percentage of wound debrided: 100 Instrument Used: 5mm curette Tissue Removed: Slough and devitalized tissue Severity: Fat Layer Exposed Amount of bleeding with debridement: Mild Bleeding Controlled with: Pressure Patient tolerated procedure well Assessment/Plan Assessment: Stage III coccygeal decubitus ulcer. Right great toe ulcer. Stage II left buttock pressure ulcer. - Healed. Paraparesis from multiple sclerosis. Physical debility. Plan: Decubitus ulcer is stable. Right stays healed. Debridement done as documented above. Procedure was well-tolerated. Cultures taken due to concern for discharge. Continue Promogran to decubitus ulcer with optifoam over top. Continue adpatic with guaze to right great toe. Patient will definitely benefit from a skin substitute due to the chronicity especially of her coccygeal ulcer. Continue increased protein intake/supplements. Advised on low loss air mattress. Gel cushions for seating. Zinc oxide cream to periwound /buttock area. Turn/reposition patient every 2 hours. Patient however states that she lives alone and has a aids only 3 times daily. Follow up in 2 weeks per patient request. This note was generated with [employer] dictation software. It may contain incorrect words, spelling, and punctuation that were not noted in checking the note before signing.
--- NOTE | 2018-02-26 19:33 | PN.PCM_ITS ---
(1) Decubitus skin ulcer Status: Acute Current Visit: No Code(s): L89.90 - Pressure ulcer of unspecified site, unspecified stage (2) Diabetes mellitus type 2, uncontrolled Status: Acute Current Visit: No Qualifiers: Code(s): E11.65 - Type 2 diabetes mellitus with hyperglycemia (3) Chronic ulcer of right great toe with fat layer exposed Status: Chronic Current Visit: No Code(s): L97.512 - Non-pressure chronic ulcer of other part of right foot with fat layer exposed (4) Paraparesis of both lower limbs Status: Chronic Current Visit: No Code(s): G82.20 - Paraplegia, unspecified (5) Pressure ulcer of coccygeal region, stage 3 Status: Chronic Current Visit: No Code(s): L89.153 - Pressure ulcer of sacral region, stage 3 Type of Wound Date of Service: 02/26/18 Chief Complaint: Decubitus Ulcers History of Wound: Ms. Bryan is a 62-year-old with a complex past medical history who was referred to the wound center due to a chronic nonhealing decubitus ulcers. Initial presentation/Onset was said to be over a year ago and she has been managed by her home health without any significant improvement in her ulcers. She is said to be in bed pretty much 24 hours due to her paraparesis and is turned about 3 times daily. She denies chills, fever, or otherwise feeling of unwell. She was recently managed for a MRSA UTI. She has an indwelling Marcus catheter but has frequent leakage and there is concern for a fistula that is causing the leakage. Her Home Health is concerned that she should not be living at home anymore due to her not being able to turn herself more frequently and her incontinence issues. Dorota has also been diagnosed with diabetes since her last visit and is still working on getting a glucometer and testing supplies as well as medication. Her PCP is Dr. Torres in [place]. I am seeing her for a courtesy visit in place of Dr. Moore. Progress of Wound: Stable. ? Greenish discharge noted by wound care nurse at home. - Physical Exam Vital Signs Temp Pulse Resp BP 95.0 F L 59 L 18 84/60 L 02/26/18 12:43 02/26/18 12:43 02/26/18 12:43 02/26/18 12:43 General: Alert, Oriented x3, Cooperative, No apparent distress HEENT: Atraumatic Oral: Moist Mucosa Neck: Supple Lungs: Normal air movement Extremities: No cyanosis Skin: Ulcer/ Wound Wound Measurements and Assessment - Nurse 1 - General Ulcer Measurement Start: 02/12/18 11:16 Freq: Status: Active Protocol: Activity Type Activity Date Activity User E-Sign Co-Sign Detail Recorded Client Recorded Date Recorded By Document 02/26/18 12:43 MD [id number] 02/26/18 12:59 MD 02/26/18 12:43 Wound Center Nurse 1 [Ulcer Assessment] #1 COCCYX -Combined with other wound No -Current Size (cm) - Length 2 -Current Size (cm) - Width 1.5 -Current Size (cm) - Depth 1.2 -Total Square Cm 3.0 -Date of Last Picture (Recall this 02/26/18 field) -Photo Taken Yes -Epithelialization None Present -Tunneling No -Undermining/Tunneling No -Circular Undermining No -Exudate Amt Small (1-33%) -Exudate Type Serosanguineous -Wound Margin Thickened & Rolled Under -Granulation Amt Medium (34-66%) -Granulation Quality Pale [place] -Slough/Fibrin Yes -Necrosis Amt Small (1-33%) -Necrotic Tissue Type Adherent Slough -Texture (Jovanna-wound Skin Appearance) Assessed -Moisture (Jovanna-wound Skin Appearance Assessed ) Maceration -Color (Jovanna-wound Skin Appearance) Assessed Erythema -Temperature (Jovanna-wound Skin No Abnormality Appearance) (Pt Warm) -Tenderness on Palpation (Jovanna-wound Yes Skin Appearance) -Ulcer Cleansing Rinsed/ Irrigated with Saline -Foul Odor after Cleansing No -Anesthetic Used 4% Lidocaine Solution WC - Nurse 2 - General Ulcer CM Notes Start: 02/12/18 11:16 Freq: Status: Active Protocol: Activity Type Activity Date Activity User E-Sign Co-Sign Detail Recorded Client Recorded Date Recorded By Document 02/26/18 13:25 [id number] 02/26/18 13:26 02/26/18 13:25 Wound Center Nurse 2 [Procedure/Treatment] -Time 13:25 -Correct Patient Yes -Correct Side, Site, Position Yes -Correct Procedure Yes -Procedure Performed Yes -Type of Procedure Debridement -Clinical Debridement Subcutaneous -Post Debridement Size (cm) - Length 2.0 -Post Debridement Size (cm) - Width 1.5 -Post Debridement Size (cm) - Depth 1.0 -Total Square Cm 3.00 -Wound/Ulcer Outcome Not Healed -Ulcer Cleansing Rinsed/ Irrigated with Saline -Foul Odor after Cleansing No -Bioengineered Tissue No -Bleeding Controlled with Pressure -Treatment Response Procedure Tolerated Well [See Physician Procedure note for Specifics] Pain Scale: 0-10 Numeric [Pain] -Is Patient Pain Free? Yes Psych/Mental Status: Normal Affect Debridement Note Post-Debridement Measurements/Treatment WC - Nurse 2 - General Ulcer CM Notes Start: 02/12/18 11:16 Freq: Status: Active Protocol: Activity Type Activity Date Activity User E-Sign Co-Sign Detail Recorded Client Recorded Date Recorded By Document 02/12/18 13:14 JS [id number] 02/12/18 13:15 JS Document 02/26/18 13:25 CS [id number] 02/26/18 13:26 CS 02/12/18 02/26/18 13:14 13:25 Wound Center Nurse 2 #1 COCCYX -Time 13:14 13:25 -Correct Patient Yes Yes -Correct Side, Site, Position Yes Yes -Correct Procedure Yes Yes -Procedure Performed Yes Yes -Type of Procedure Debridement Debridement -Clinical Debridement Subcutaneous Subcutaneous -Post Debridement Size (cm) - Length 1.5 2.0 -Post Debridement Size (cm) - Width 1.6 1.5 -Post Debridement Size (cm) - Depth 1.0 1.0 -Total Square Cm 2.40 3.00 -Wound/Ulcer Outcome Not Healed Not Healed -Ulcer Cleansing Rinsed/ Rinsed/ Irrigated with Irrigated with Saline Saline -Foul Odor after Cleansing No No -Bioengineered Tissue No No -Bleeding Controlled with NA Pressure -Treatment Response Procedure Procedure Tolerated Well Tolerated Well Pain Scale: 0-10 Numeric Is Patient Pain Free? Yes Yes Wound debrided: Coccygeal ulcer Wound Grade/Stage: Stage III Type of Debridement: Excisional debridement Anesthesia Used: 4% Lidocaine Solution Depth: Down to and including healthy tissue, in the subcutaneous layer Percentage of wound debrided: 100 Instrument Used: 5mm curette Tissue Removed: Slough and devitalized tissue Severity: Fat Layer Exposed Amount of bleeding with debridement: Mild Bleeding Controlled with: Pressure Patient tolerated procedure well Assessment/Plan Assessment: Stage III coccygeal decubitus ulcer. Right great toe ulcer. Stage II left buttock pressure ulcer. - Healed. Paraparesis from multiple sclerosis. Physical debility. Plan: Decubitus ulcer is stable. Right stays healed. Debridement done as documented above. Procedure was well-tolerated. Cultures taken due to concern for discharge. Continue Promogran to decubitus ulcer with optifoam over top. Continue adpatic with guaze to right great toe. Patient will definitely benefit from a skin substitute due to the chronicity especially of her coccygeal ulcer. Continue increased protein intake/supplements. Advised on low loss air mattress. Gel cushions for seating. Zinc oxide cream to periwound /buttock area. Turn/reposition patient every 2 hours. Patient however states that she lives alone and has a aids only 3 times daily. Follow up in 2 weeks per patient request. This note was generated with [employer] dictation software. It may contain incorrect words, spelling, and punctuation that were not noted in checking the note before signing.
== END 2018-03-04 23:59 ==
LOC: WC 12:30
PROVIDERS: Visit Provider Internal Medicine
DX: E11.622 Type 2 diabetes mellitus with other skin ulcer (principal); E11.65 Type 2 diabetes mellitus with hyperglycemia; E11.621 Type 2 diabetes mellitus with foot ulcer; L89.153 Pressure ulcer of sacral region, stage 3; L97.512 Non-pressure chronic ulcer of other part of right foot with fat layer exposed; G82.20 Paraplegia, unspecified; L89.322 Pressure ulcer of left buttock, stage 2; G35 Multiple sclerosis; Z86.14 Personal history of Methicillin resistant Staphylococcus aureus infection; Z87.440 Personal history of urinary (tract) infections
CPT/HCPCS: 11042; 87070; 87075; 87077; 87186; 87205

== ENCOUNTER 2018-03-20 12:00 | Outpatient (RCR) | payer OTHER, SELFPAY ==
[2018-03-05 00:48] VITALS: BP 84/60; PULSE 59; RESP 18; TEMP 35
[2018-03-13 13:11] VITALS: BP 78/54; PULSE 61; RESP 16; TEMP 35.4
--- NOTE | 2018-03-13 13:34 | PN.PCM_ITS ---
(1) Decubitus skin ulcer Status: Acute Current Visit: Yes Code(s): L89.90 - Pressure ulcer of unspecified site, unspecified stage (2) Pressure ulcer of left buttock, stage 2 Status: Acute Current Visit: Yes Code(s): L89.322 - Pressure ulcer of left buttock, stage 2 (3) Paraparesis of both lower limbs Status: Chronic Current Visit: Yes Code(s): G82.20 - Paraplegia, unspecified (4) Pressure ulcer of coccygeal region, stage 3 Status: Chronic Current Visit: Yes Code(s): L89.153 - Pressure ulcer of sacral region, stage 3 (5) Diabetes mellitus type 2, uncontrolled Status: Acute Current Visit: No Code(s): E11.65 - Type 2 diabetes mellitus with hyperglycemia Type of Wound Date of Service: 03/13/18 Chief Complaint: Decubitus Ulcers History of Wound: Ms. Bryan is a 62-year-old with a complex past medical history who was referred to the wound center due to a chronic nonhealing decubitus ulcers. Initial presentation/Onset was said to be over a year ago and she has been managed by her home health without any significant improvement in her ulcers. She is said to be in bed pretty much 24 hours due to her paraparesis and is turned about 3 times daily. She denies chills, fever, or otherwise feeling of unwell. She was recently managed for a MRSA UTI. She has an indwelling Marcus catheter but has frequent leakage and there is concern for a fistula that is causing the leakage. Her Home Health is concerned that she should not be living at home anymore due to her not being able to turn herself more frequently and her incontinence issues. Dorota has also been diagnosed with diabetes since her last visit and is still working on getting a glucometer and testing supplies as well as medication. Her PCP is Dr. Torres in [place]. I am seeing her for a courtesy visit in place of Dr. Moore. Progress of Wound: Apparent worsening of decubitus ulcer. She lives alone and now has limited care and so is not repositioned often. Area is also said to be in contact with urine due to faulty Marcus's. She otherwise denies chills or fever. - Physical Exam Vital Signs Temp Pulse Resp BP 95.7 F L 61 16 78/54 L 03/13/18 13:11 03/13/18 13:11 03/13/18 13:11 03/13/18 13:11 General: Alert, Cooperative, No apparent distress HEENT: Atraumatic Oral: Moist Mucosa Neck: Supple Extremities: No cyanosis Skin: Ulcer/ Wound Wound Measurements and Assessment WC - Nurse 1 - General Ulcer Measurement Start: 03/13/18 13:11 Freq: Status: Active Protocol: Activity Type Activity Date Activity User E-Sign Co-Sign Detail Recorded Client Recorded Date Recorded By Document 03/13/18 13:11 MW [id number] 03/13/18 13:14 MW 03/13/18 13:11 Wound Center Nurse 1 [Ulcer Assessment] #1 COCCYX -Combined with other wound No -Current Size (cm) - Length 3.7 -Current Size (cm) - Width 6.3 -Current Size (cm) - Depth 1.7 -Total Square Cm 23.31 -Date of Last Picture (Recall this 03/13/18 field) -Photo Taken Yes -Epithelialization None Present -Tunneling No -Undermining/Tunneling No -Circular Undermining No -Exudate Amt Medium (34-66%) -Exudate Type Sanguineous -Wound Margin Distinct, Outline Attached -Granulation Amt None Present (0 %) -Granulation Quality N/A -Slough/Fibrin Yes -Necrosis Amt Large (67-100%) -Necrotic Tissue Type Adherent Slough -Structure Exposed None/Limited to Skin Breakdown -Texture (Jovanna-wound Skin Appearance) Assessed Fri[place] -Moisture (Jovanna-wound Skin Appearance Assessed ) Weeping -Color (Jovanna-wound Skin Appearance) Assessed Rubor -Temperature (Jovanna-wound Skin No Abnormality Appearance) (Pt Warm) -Tenderness on Palpation (Jovanna-wound No Skin Appearance) -Ulcer Cleansing Wound Cleanser -Foul Odor after Cleansing No -Anesthetic Used 4% Lidocaine Solution [Edema Assessment] -Lower Limb Edema Present No WC - Nurse 2 - General Ulcer CM Notes Start: 03/13/18 13:11 Freq: Status: Active Protocol: Activity Type Activity Date Activity User E-Sign Co-Sign Detail Recorded Client Recorded Date Recorded By Document 03/13/18 13:16 MW [id number] 03/13/18 13:25 MW 03/13/18 13:16 Wound Center Nurse 2 [Procedure/Treatment] #1 COCCYX -Time 13:16 -Correct Patient Yes -Correct Side, Site, Position Yes -Correct Procedure Yes -Procedure Performed Yes -Type of Procedure Debridement -Clinical Debridement Subcutaneous -Post Debridement Size (cm) - Length 7.0 -Post Debridement Size (cm) - Width 8.0 -Post Debridement Size (cm) - Depth 1.8 -Total Square Cm 56.00 -Wound/Ulcer Outcome Not Healed -Ulcer Cleansing Rinsed/ Irrigated with Saline -Foul Odor after Cleansing No -Bioengineered Tissue No -Bleeding Controlled with Pressure -Treatment Response Procedure Tolerated Well [See Physician Procedure note for Specifics] Pain Scale: 0-10 Numeric [Pain] -Is Patient Pain Free? Yes Neurological: Cranial nerves II-XII grossly intact Psych/Mental Status: Normal Affect Debridement Note Post-Debridement Measurements/Treatment WC - Nurse 2 - General Ulcer CM Notes Start: 03/13/18 13:11 Freq: Status: Active Protocol: Activity Type Activity Date Activity User E-Sign Co-Sign Detail Recorded Client Recorded Date Recorded By Document 03/13/18 13:16 MW [id number] 03/13/18 13:25 MW 03/13/18 13:16 Wound Center Nurse 2 #1 COCCYX -Time 13:16 -Correct Patient Yes -Correct Side, Site, Position Yes -Correct Procedure Yes -Procedure Performed Yes -Type of Procedure Debridement -Clinical Debridement Subcutaneous -Post Debridement Size (cm) - Length 7.0 -Post Debridement Size (cm) - Width 8.0 -Post Debridement Size (cm) - Depth 1.8 -Total Square Cm 56.00 -Wound/Ulcer Outcome Not Healed -Ulcer Cleansing Rinsed/ Irrigated with Saline -Foul Odor after Cleansing No -Bioengineered Tissue No -Bleeding Controlled with Pressure -Treatment Response Procedure Tolerated Well Pain Scale: 0-10 Numeric Is Patient Pain Free? Yes Wound debrided: Coccygeal/left buttock Wound Grade/Stage: Stage III Type of Debridement: Excisional debridement Anesthesia Used: 4% Lidocaine Solution Depth: Down to and including healthy tissue, in the subcutaneous layer Percentage of wound debrided: 100 Instrument Used: 5mm curette Tissue Removed: Slough and devitalized tissue Severity: Fat Layer Exposed Amount of bleeding with debridement: Mild Bleeding Controlled with: Pressure Patient tolerated procedure well Assessment/Plan Active Problems Pressure ulcer of coccygeal region, stage 3 (Chronic) Pressure ulcer of left buttock, stage 2 (Acute) Paraparesis of both lower limbs (Chronic) Decubitus skin ulcer (Acute) Assessment: Stage III coccygeal decubitus ulcer. Right great toe ulcer. Stage II left buttock pressure ulcer. - Healed. Paraparesis from multiple sclerosis. Physical debility. Plan: As stated above, there has been worsening of her decubitus ulcer. She has limited care at home and so is not repositioned often. She also has faulty Marcus's catheter and is in her urine quite often. She is not open to going to a long term at this time. Debridement done as documented above. Procedure was well-tolerated. Due to increased wound circumference, will switch to Fibracol with Adaptic and ABD over top. Change daily. She was strongly advised that a nursing facility will be in her best interest however she wants to try management at home. Reposition often. Continue increased protein intake /supplements. Advised on low loss air mattress. Gel cushions for seating. Zinc oxide cream to periwound /buttock area. Turn/reposition patient every 2 hours. Follow up in 1 week. This note was generated with [employer] dictation software. It may contain incorrect words, spelling, and punctuation that were not noted in checking the note before signing.
== END 2018-04-04 23:59 ==
LOC: WC 12:00
PROVIDERS: Visit Provider Internal Medicine
DX: E11.622 Type 2 diabetes mellitus with other skin ulcer (principal); G82.20 Paraplegia, unspecified; L89.153 Pressure ulcer of sacral region, stage 3; E11.65 Type 2 diabetes mellitus with hyperglycemia; L89.322 Pressure ulcer of left buttock, stage 2; G35 Multiple sclerosis
CPT/HCPCS: 11042; 11045; J2405

== ENCOUNTER 2018-03-20 16:25 | Inpatient (IN) | payer OTHER, MEDICAID, SELFPAY ==
[2018-03-20 16:27] VITALS: BP 107/76; PULSE 62; RESP 17; TEMP 36.7; O2SAT 95; BMI 36.3
--- NOTE | 2018-03-20 17:42 | CM.ED ---
Social Work Assessment Referral Date: 03/20/18 Date of Assessment: 03/20/18 Reason for Consult: SNF Placement Informant: Dr. Nelson Personal Status: Pt is A&Ox4 and presents with pleasant affect as evidenced by smiling and willingness to participate in assessment. Pt reports to live alone in a one-story home. Spouse 6 years ago. DME consists of a wheelchair, shower chair and hospital bed. Pt believes she has additional DME, but states she cannot remember it all. She has aides that come in 3x/day and assist with turns although pt needs turned more frequently. She also has skilled home care services through [facility]. Pt unsure if she has PASSPORT services, but would anticipate that she does with the amount of aide services in the home. Pt reports to require assistance with ADL's, and aides in the home provide sponge baths. MMO is pt's primary insurance, and she believes that she has Medicaid, but does not have her cards with her to confirm. Confirms financial stability and is able to meet needs. Identifies her sister as her primary support and states that she has 3 step children from her marriage, but that they are all very busy. PCP is Dr. Torres, and she also sees Dr. Moore at the [facility]. Her preferred pharmacy is [facility] in [facility]. Discuss with pt that SNF has been explored at the [facility] and inquire where she is in terms of accepting this as a disposition at discharge. Pt states that she is agreeable if she can select where. Inform the pt that she can select where however limitations may be placed on those selections based upon bed availability and insurance contracts. Understanding expressed and pt states she would like TCU. Explain that SW did leave a vm for them but presently the admission coordinator is not in and a bed cannot be confirmed until she is. Inform that the pt will need to select an alternative option or two and she expressed understanding after discussion. Does elect to not go to [facility] as she has in the past. Inform that SW on assigned unit will check in the morning and assist with discharge planning needs. Substance Abuse Hx: Pt denies substance abuse history. Mental Health Hx: Pt reports history of depression and anxiety. Denies currently being in counseling or treatment. Declines counseling services at this time. Pt is currently on Alprazolam as prescribed through her PCP. Resources: JFS: Medicaid (not confirmed) HHC: [facility] - skilled services; [facility] - aides Transportation: Reports to use [facility]: [facility] Interventions: Assessment completed to identify needs. Pt confirmed agreement with SNF placement. Left vm with TCU for referral. SW on assigned unit to confirm bed availability. Provided pt with list of in network facilities and their ratings to review in the event that TCU cannot accept. Placed call to [facility] to confirm if pt has PASSPORT services. Unable to leave vm and SW on assigned unit to check in the morning [[phone]]. Plan: SNF placement pending accepting facility and pre-cert. Naheed Goldstein, BACK FILLER OPERATOR, CONTROL OPERATOR
[2018-03-20] MEDS: HYDROmorphone 1 MG/ML Syringe IV (17:48)
[2018-03-20 18:06] LABS: Anion Gap 11 (5-15); BUN 13 mg/dL (7-18); BUN/Creat Ratio 20.9 RATIO (10-20); Calcium,Total 8.7 mg/dL (8.5-10.1); Chloride 97 mmol/L (98-107); Creatinine, Serum 0.62 mg/dL (0.55-1.02); EST Glomerular Filtration Rate 103 mL/min (>60); Est Glom Filt Rate - Afr Amer 125 mL/min (>60); Estimated Creatinine Clearance 86.94 ml/min; Glucose 164 mg/dL (74-106); Potassium 3.7 mmol/L (3.5-5.1); Sodium Level 137 mmol/L (136-145)
[2018-03-20 18:07] LABS: Absolute Lymphocyte Count 4.04 X10^3/ul (0.83-4.51); Absolute Neutrophil Count 6.1 X10^3/uL (2.0-7.7); Basophil# 0.04 X10^3/uL; Basophil% 0.4 % (0-1); Eosinophil# 0.23 X10^3/uL; Eosinophils% 2.1 % (0-5); Hemoglobin 11.7 g/dl (12.0-15.0); Lymphocyte # 4.04 X10^3/ul (4.0); Lymphocyte % 36.8 % (19-41); Mean Corp Hgb Conc 31.6 g/gl (32-36); Mean Corpuscular Hgb 28.9 pg (27.0-32.0); Mean Corpuscular Volume 91.4 fL (81-99); Mean Platelet Vol. 8.7 fl (6.2-12.0); Monocyte# 0.62 X10^3/uL; Monocyte% 5.6 % (0-10); Neutrophil # 6.05 X10^3/uL (2.7-7.7); Platelet Count 318 K/mm3 (150-450); RBC Distribution Width CV 14.4 % (11.6-14.6); RBC Distribution Width SD 48.3 fl (35.1-43.9); Red Blood Count 4.05 M/mm3 (4.2-5.4)
[2018-03-20 18:14] LABS: POSITIVE COUNT NO; POSITIVE DIFFERENTIAL NO; POSITIVE MORPHOLOGY NO
--- NOTE | 2018-03-20 18:24 | ED.DCSUM_ITS ---
- ER Visit Summary Date of Service: 03/20/18 Chief Complaint: Decubitus ulcer History of Present Illness: The patient is a [address] Torres in [place]. Patient has a history of MS that is left her paraplegic. She reports that she has had a decubitus ulcer for approximately 6 weeks. She has been going to the wound clinic and was last seen last week. States that she lives at home and home health comes out 3 times a day are there for 1-1-1/2 hours. On the weekends they only come out twice. She is not able to turn herself on they are not there. Patient reports that she missed her appointment of the wound clinic today because she was unable to get ambulance transportation there. She reports that following the right and she has pain to her ulcer that is 10 out of 10 severity. Is a sharp, aching pain. Is worsened by laying on it. Currently it is unrelieved by her Dilaudid pump. Review of systems: General: No fever, chills, cold sweats. Cardiovascular: No chest pain, palpitations. Respiratory: No cough, shortness of breath, dyspnea on exertion. Gastrointestinal: No abdominal pain, nausea, vomiting, diarrhea, melena, or hematochezia. Genitourinary: No dysuria, frequency, hematuria. Skin: No rash. Neuro: No headache, numbness, weakness. Physical Examination: Vitals: Stable. Afebrile. General: Well-nourished and well-developed. Head: Normocephalic atraumatic. Neck: Supple, no lymphadenopathy. No JVD. Nontender. Cardiovascular: Regular rate and rhythm. No murmurs. Respiratory: No respiratory distress. Clear to auscultation bilaterally. Abdominal: Soft, nontender, nondistended, normal bowel sounds. No guarding, rebound, or peritoneal signs. Back: Nontender. Extremities: Nontender, no edema. Skin: 7 x 5 cm ulcer to the decubitus area with 1 cm of tunneling. There is purulent looking discharge.. Neurologic: Alert and oriented ?3. Psych: Normal affect. Test Results: CBC is marked for a hemoglobin of 11.7. Chem-7 is more for chloride 97 glucose 164. Emergency Department Course and Treatment: Patient clearly is not able to care for herself at home. She was seen by case management here and they started the process of placement. Treatment Plan: Patient will be admitted to the hospital for further evaluation and treatment. Disposition: Admitted in stable condition. Impression: 1. Decubitus ulcer. 2. Multiple sclerosis with paraplegia. This note was generated with [employer] dictation software. It may contain incorrect words, spelling, and punctuation that were not noted in review of the chart prior to signing ED Disposition - Plan for ED Patient: Chief Complaint: Wound Referrals: [facility] Doctor,Out of [Primary Care Provider] -
[2018-03-20 18:25] VITALS: BMI 34.6
[2018-03-20 18:33] VITALS: BP 122/74; PULSE 62; RESP 11; O2SAT 92
--- NOTE | 2018-03-20 18:54 | PCM.HP.STD ---
Problem List (1) Decubitus ulcer Status: Acute (2) Decubitus skin ulcer Status: Acute Qualifiers: Pressure injury location: sacral region Pressure injury stage: unstageable Qualified Code(s): L89.150 - Pressure ulcer of sacral region, unstageable (3) Pressure ulcer of left buttock, stage 2 Status: Acute (4) Paraparesis of both lower limbs Status: Chronic (5) Pressure ulcer of coccygeal region, stage 3 Status: Chronic (6) Abnormal liver function Status: Acute (7) Diabetes mellitus type 2, uncontrolled Status: Acute (8) Pulmonary embolism Status: Acute Qualifiers: Chronicity: acute (9) Recurrent UTI (urinary tract infection) Status: Acute Comment: recurrent due to chronic urine retention, culture is positive for Raoutella planticola (10) Anxiety Status: Chronic (11) COPD (chronic obstructive pulmonary disease) Status: Chronic Comment: life long non-smoker (12) Chronic retention of urine Status: Chronic Comment: she has MS and also has spinal canal stenosis....has seen neurosurgery and is not a candidate for any surgical intervention. (13) Chronic ulcer of right great toe with fat layer exposed Status: Chronic (14) Depression Status: Chronic (15) Failure to thrive in adult Status: Chronic (16) Fatty infiltration of liver Status: Chronic (17) Folate deficiency anemia Status: Chronic (18) Hypothyroidism Status: Chronic (19) Macrocytic anemia Status: Chronic Comment: due to folate deficiency + fatty liver.....? hemolysis, haptoglobin is pending (20) Morbid obesity with BMI of 40.0-44.9, adult Status: Chronic (21) Multiple sclerosis Status: Chronic (22) Physical debility Status: Chronic Comment: she is sedentary lives alone and can no longer get herself to the BR, has lost arm strength....very deconditioned (23) Physical deconditioning Status: Chronic (24) Spinal stenosis of lumbar region Status: Chronic Comment: mild, diagnosed on MRI of the LS spine done 01/01/14 (25) Urine, incontinence, stress female Status: Chronic History of Present Illness Date of Admission: 03/20/18 Chief Complaint: Back ulcer The patient is a 63 year old F with history of MS complicated with paraplegia, urinary incontinence with indwelling Marcus catheter, nonambulatory has sacral decubitus ulcer for about 6 weeks. Patient used to attend wound clinic every week for last 6 week but is slowly progressive worsening and she missed her last week wound clinic appointment due to transportation issue. She has home health care 3 times a day on weekdays and twice daily on weekends. She is taking Cipro for about 7-10 days for UTI. She denies fever, chills, chest pain, shortness of breath, headache. [] Past Medical History Past Medical History (Chronic Problems): Chronic Problems Pressure ulcer of coccygeal region, stage 3 (Chronic) Paraparesis of both lower limbs (Chronic) Chronic ulcer of right great toe with fat layer exposed (Chronic) Macrocytic anemia (Chronic) due to folate deficiency + fatty liver.....? hemolysis, haptoglobin is pending Hypothyroidism (Chronic) Anxiety (Chronic) Morbid obesity with BMI of 40.0-44.9, adult (Chronic) COPD (chronic obstructive pulmonary disease) (Chronic) life long non-smoker Multiple sclerosis (Chronic) Depression (Chronic) Failure to thrive in adult (Chronic) Physical deconditioning (Chronic) Spinal stenosis of lumbar region (Chronic) mild, diagnosed on MRI of the LS spine done 01/01/14 Folate deficiency anemia (Chronic) Fatty infiltration of liver (Chronic) Urine, incontinence, stress female (Chronic) Chronic retention of urine (Chronic) she has MS and also has spinal canal stenosis....has seen neurosurgery and is not a candidate for any surgical intervention. Physical debility (Chronic) she is sedentary lives alone and can no longer get herself to the BR, has lost arm strength....very deconditioned Allergies cyclobenzaprine [From Flexeril] Allergy (Verified 03/20/18 16:34) Other gabapentin Adverse Reaction (Verified 03/20/18 16:34) weakness in legs nifedipine [From Procardia] Adverse Reaction (Verified 03/20/18 16:34) weakness in legs pregabalin [From Lyrica] Adverse Reaction (Verified 03/20/18 16:34) weakness in legs Home Medications: Ambulatory Orders Medication Instructions Recorded Lactobacillus Acidophilus 1 capsule PO DAILY 01/22/18 [Acidophilus] ALPRAZolam [Xanax] 0.5 mg PO Q6H PRN PRN 03/20/18 Diltiazem CD [Cardizem CD] 240 mg PO DAILY 03/20/18 Hydrochlorothiazide [Hctz] 25 mg PO DAILY 03/20/18 Levothyroxine Sodium [Synthroid] 100 mcg PO DAILY 03/20/18 Melatonin 5 mg PO QHS 03/20/18 Meloxicam [Meloxicam] 7.5 mg PO BID 03/20/18 Metformin HCl [Glucophage] 500 mg PO BID 03/20/18 Nitrofurantoin Macrocrystal 100 mg PO MOWEFR 03/20/18 [Nitrofurantoin] Nystatin Powder [Mycostatin Powder] 1 applic TOPICAL BID 03/20/18 Ondansetron [Zofran] 8 mg PO TID PRN PRN 03/20/18 Pain Pump (Pt's Own) 0 mg SC UD 03/20/18 Potassium Chloride [Klor-Con M20] 20 meq PO BID 03/20/18 Sennosides/Docusate Sodium [Senna 1 - 8 tab PO DAILY 03/20/18 Plus Tablet] Tizanidine HCl [Tizanidine HCl] 2 mg PO 4X/DAY PRN PRN 03/20/18 Tolterodine Tartrate [Detrol] 2 mg PO BID 03/20/18 Venlafaxine HCl [Effexor] 150 mg PO BID 03/20/18 proMETHazine tablet [Phenergan 12.5 mg PO Q4H PRN PRN 03/20/18 tablet] Surgical History: - - tubal ligation, elective , ventral hernia repair Smoking Status: Never smoker - *Family History Maternal History Items: Cancer - Her mother of lung cancer and was a smoker Paternal History Items: Diabetes, - - Father had posttraumatic stress disorder related from being in the armed forces. He also suffered from alcoholism Review of Systems Constitutional: Denies: Chills, Fever, Weight Change HEENT: Denies: Head Aches, Sinus Congestion, Sinus Drainage Cardiovascular: Denies: Chest Pain, Palpitations Respiratory: Denies: Cough, Shortness of breath at rest, Sputum production Gastrointestinal: Denies: Abdominal Pain, Nausea, Vomiting Genitourinary: Reports: Incontinence, - - Neurogenic bladder incontinence secondary to MS with indwelling Marcus catheter. Musculoskeletal: Reports: Joint Pain, Joint stiffness. Denies: Joint Tenderness Skin: Denies: Rash, Wounds Neurological: Reports: Balance problems, - - Bedridden secondary to paraplegia. Denies: Focal weakness Psychiatric: Reports: Anxiety. Denies: Depression, Homicidal Ideations, Suicidal Ideations Hematologic/ Lymphatic: Denies: Easy Bruising, Easy Bleeding VTE Information - Inpt Only VTE Present on Admission: No VTE Mechan Device Prophylaxis: None VTE Pharm Prophylaxis ordered?: Yes Patient Problems: Active and Suspected Problems Pressure ulcer of left buttock, stage 2 (Acute) Decubitus skin ulcer (Acute) Decubitus ulcer (Acute) - Physical Exam General: Alert, Oriented x3, Cooperative HEENT: Atraumatic, PERRLA, EOMI, Normocephalic Oral: Dry Mucosa Neck: Supple, No JVD, Negative Carotid Bruits Lungs: Clear to auscultation, No rhonchi, No wheeze, No rales, Diminished Cardiovascular: Regular rate, Regular Rhythm, Normal S1, Normal S2, No murmurs Abdomen: Bowel Sounds Present, Soft, Non Tender, Non-Distended Extremities: No edema, Capillary Refill Less than 3 Seconds Skin: Ulcer/ Wound - Large decubitus ulcer over sacral decubital region about 5 cm x 7 cm with 1 cm depth, overhanging skin with necrotic surface covered with slough. There is purple to dark blue patch of skin over 6 to 9 o'clock position with positive necrotic patch of skin., Rash Present - Erythematous intertriginous dermatitis secondary to yeast infection Musculoskeletal: No Tenderness to Palpation of Joints or Extremities Neurological: Cranial nerves II-XII grossly intact Psych/Mental Status: Normal Affect, Appropriate Vital Signs Temp Pulse Resp BP Pulse Ox 98.0 F 62 11 L 122/74 H 92 03/20/18 16:27 03/20/18 18:33 03/20/18 18:33 03/20/18 18:33 03/20/18 18:33 Assessment/Plan All Active Problems Pressure ulcer of left buttock, stage 2 (Acute) Decubitus skin ulcer (Acute) Diabetes mellitus type 2, uncontrolled (Acute) Decubitus ulcer (Acute) Recurrent UTI (urinary tract infection) (Acute) Pulmonary embolism (Acute) Abnormal liver function (Acute) The patient is a 63 year old F with history of MS complicated with paraplegia, urinary incontinence with indwelling Marcus catheter, nonambulatory has sacral decubitus ulcer for about 6 weeks. Patient used to attend wound clinic every week for last 6 week but is slowly progressive worsening and she missed her last week wound clinic appointment due to transportation issue. She has home health care 3 times a day on weekdays and twice daily on weekends. She is taking Cipro for about 7-10 days for UTI. She denies fever, chills, chest pain, shortness of breath, headache. 1. Large necrotic decubitus ulcer over sacrococcygeal region, chronic in nature: Patient is being admitted on [facility] floor. Patient needs extensive evaluation of wound by wound nurse, plastic surgeon and infectious disease who are being consulted. Currently patient does not look like septic and had taken Cipro for about 7-10 days, therefore does not need antibiotic now but will need prior to debridement. Deep wound culture sent by ER. Albumin, prealbumin MRSA wound, ESR and CRP ordered. 2. History of recurrent UTI with indwelling catheter: Urine seems clear on the Marcus tube. Patient had completed antibiotic as mentioned above. UA with reflex urine culture ordered. 3. MS with paraplegia, chronic urine incontinence status post indwelling Marcus catheter: 4. Diabetes mellitus type 2: Accu-Chek before meals and at bedtime and cover with NovoLog sliding scale. A1c tomorrow a.m. 4. Other multiple comorbidities include hypothyroidism, COPD, lifelong non-smoker, depression, history of pulmonary embolism in the past, lumbar spinal stenosis, physical deconditioning and debility: Multiple comorbidities complicates the present care and expect difficult and delay recovery. This was discussed with the patient. All medication reconciliation done including [id number], muscle relaxant, continuation of Dilaudid EMBALMER APPRENTICE pump and other medications. DVT prophylaxis: On Lovenox 40 subcu daily. 1. Code Visit Inpatient E&M: 66540 Init Hosp L3
--- NOTE | 2018-03-20 20:06 | NURSING ---
Call to lab, they have extra sample from ED they can use for MRSA swab
[2018-03-20 20:13] VITALS: BP 126/61; PULSE 62; RESP 16; TEMP 36.6; O2SAT 96
[2018-03-20 20:14] VITALS: BMI 35.4
[2018-03-20 20:38] LABS: Erythrocyte Sedimentation Rate 83 mm/hr (0-30)
--- NOTE | 2018-03-20 20:56 | NURSING ---
Patient reports catheter inserted by home health 03/14/18, Pain pump dressing changed 03/19/18 by [facility]
[2018-03-20 22:12] LABS: M R Staph aureus DNA By PCR Negative (Negative); Probe Check PASS; Staph aureus DNA By PCR NEGATIVE (Negative)
[2018-03-20] MEDS: ALPRAZolam 0.5 MG Tablet PO (22:28)
[2018-03-20] MEDS: MELATONIN 10 MG TABLET 5 MG PO (22:28)
[2018-03-20] MEDS: Famotidine 20 MG Tablet PO (22:29)
[2018-03-20] MEDS: Insulin Lispro 100 UNIT/ML INSULN.PEN SQ (22:29)
[2018-03-20] MEDS: Enoxaparin 40 MG/0.4 ML Syringe SC (22:29)
[2018-03-20] MEDS: Meloxicam 7.5 MG Tablet PO (22:29)
[2018-03-20] MEDS: Nystatin Powder 15gm Bottle 1 APPLIC TOPICAL (22:29)
[2018-03-20] MEDS: 0.9% Normal Saline 1,000 ML 75 ML IV (22:30)
[2018-03-20 22:45] LABS: Bedside Glucose 179 mg/dL (70-110)
--- NOTE | 2018-03-20 23:44 | NURSING ---
Call to sewer maintenance supervisor to notify that MD wants transfer to ICU
[2018-03-21] VITALS (10 sets, daily range): BP systolic 98–141; BP diastolic 60–90; PULSE 67–84; RESP 16–18; TEMP 36.4–36.6; O2SAT 93–100; BMI 35.3; BMI 34.6
[2018-03-21] MEDS: Levothyroxine 100 MCG Tablet PO (06:16)
[2018-03-21] MEDS: oxyCODONE 5 MG Tablet PO ×2 (06:21→23:54)
[2018-03-21] MEDS: tiZANidine HCl 2 MG Tablet PO ×2 (06:21→23:54)
[2018-03-21] MEDS: ALPRAZolam 0.5 MG Tablet PO (06:22)
[2018-03-21 06:23] LABS: Absolute Lymphocyte Count 4.37 X10^3/ul (0.83-4.51); Absolute Neutrophil Count 5.7 X10^3/uL (2.0-7.7); Basophil# 0.03 X10^3/uL; Basophil% 0.3 % (0-1); Eosinophil# 0.29 X10^3/uL; Eosinophils% 2.6 % (0-5); Hematocrit 35.3 % (37-47); Hemoglobin 11.1 g/dl (12.0-15.0); Lymphocyte # 4.37 X10^3/ul (4.0); Lymphocyte % 39.8 % (19-41); Mean Corp Hgb Conc 31.4 g/gl (32-36); Mean Corpuscular Hgb 28.9 pg (27.0-32.0); Mean Corpuscular Volume 91.9 fL (81-99); Mean Platelet Vol. 8.9 fl (6.2-12.0); Monocyte# 0.61 X10^3/uL; Monocyte% 5.6 % (0-10); Neutrophil # 5.67 X10^3/uL (2.7-7.7); Neutrophil % 51.5 % (47-70); Platelet Count 331 K/mm3 (150-450); RBC Distribution Width CV 14.3 % (11.6-14.6); RBC Distribution Width SD 47.1 fl (35.1-43.9); Red Blood Count 3.84 M/mm3 (4.2-5.4)
[2018-03-21 06:29] LABS: POSITIVE COUNT NO; POSITIVE DIFFERENTIAL NO; POSITIVE MORPHOLOGY NO
[2018-03-21 06:45] LABS: Bedside Glucose 137 mg/dL (70-110)
[2018-03-21 06:49] LABS: ALB/GLOB Ratio 0.5 RATIO (0.9-2.4); AST(SGOT) 28 U/L (15-37); Alanine Aminotransfer ALT/SGPT 22 U/L (13-56); Albumin, Serum 2.8 g/dL (3.2-5.0); Alkaline Phosphatase 64 U/L (45-117); Anion Gap 7 (5-15); BUN 9 mg/dL (7-18); BUN/Creat Ratio 15.7 RATIO (10-20); Calcium,Total 8.5 mg/dL (8.5-10.1); Chloride 101 mmol/L (98-107); Creatinine, Serum 0.57 mg/dL (0.55-1.02); EST Glomerular Filtration Rate 113 mL/min (>60); Est Glom Filt Rate - Afr Amer 137 mL/min (>60); Estimated Creatinine Clearance 94.57 ml/min; Globulin 5.1 g/dL (2.2-4.2); Glucose 147 mg/dL (74-106); Protein, Total 7.9 g/dL (6.4-8.2); Sodium Level 138 mmol/L (136-145); T4 Free Direct 1.36 ng/dL (0.76-1.46); Thyroid Stim Hormone (TSH) 3.16 uIU/mL (0.358-3.74)
--- NOTE | 2018-03-21 07:27 | PCM.PN.HOSP ---
Patient Problems: Active and Suspected Problems Pressure ulcer of left buttock, stage 2 (Acute) Decubitus skin ulcer (Acute) Decubitus ulcer (Acute) Subjective: Patient was seen and examined. Denies any fever or chills. Going for I&D and wound debridement today by Dr. Lynch. Admits that her pain is severe in the sacral region, 03/14 Objective: Physical Exam General: Alert, Oriented x3, Cooperative HEENT: Atraumatic, PERRLA, EOMI, Normocephalic Oral: Dry Mucosa Neck: Supple, No JVD, Negative Carotid Bruits Lungs: Clear to auscultation, No rhonchi, No wheeze, No rales, Diminished Cardiovascular: Regular rate, Regular Rhythm, Normal S1, Normal S2, No murmurs Abdomen: Bowel Sounds Present, Soft, Non Tender, Non-Distended Extremities: No edema, Capillary Refill Less than 3 Seconds Skin: Ulcer/ Wound - Large decubitus ulcer over sacral decubital region about 5 cm x 7 cm with 1 cm depth, overhanging skin with necrotic surface covered with slough. There is purple to dark blue patch of skin over 6 to 9 o'clock position with positive necrotic patch of skin., Rash Present - Erythematous intertriginous dermatitis secondary to yeast infection Musculoskeletal: No Tenderness to Palpation of Joints or Extremities Neurological: Cranial nerves II-XII grossly intact Psych/Mental Status: Normal Affect, Appropriate Vitals/I&O's: Vital Signs Temp Pulse Resp BP Pulse Ox 97.9 F 67 16 98/60 94 03/21/18 02:00 03/21/18 02:00 03/21/18 02:00 03/21/18 02:00 03/21/18 02:00 Oxygen Delivery Method Room Air Weight: 99.7 kg Body Mass Index (BMI) 35.4 Intake and Output for Last 24 Hours 03/19/18 03/20/18 03/21/18 23:59 23:59 23:59 Intake Total 1176 / 1176 Output Total 2450 / 2450 Balance -1274 / -1274 Laboratory Results 03/20/18 22:24: POC Glucose 179 H 03/21/18 05:10: WBC 11.0, RBC 3.84 L, Hgb 11.1 L, Hct 35.3 L, MCV 91.9, MCH 28.9, MCHC 31.4 L, RDW 14.3, RDW Differential 47.1 H, Plt Count 331, MPV 8.9, Immature Gran % (Auto) 0.200, Neut % (Auto) 51.5, Lymph % (Auto) 39.8, Ross % (Auto) 5.6, Eos % (Auto) 2.6, Baso % (Auto) 0.3, Absolute Neuts (auto) 5.7, Absolute Lymphs (auto) 4.37, Total Counted Not Reportable 03/21/18 05:10: Sodium 138, Potassium 4.0, Chloride 101, Carbon Dioxide 30.0, Anion Gap 7, BUN 9, Creatinine 0.57, Estim Creat Clear Calc 94.57, Est GFR (MDRD) Af Amer 137, Est GFR (MDRD) Non-Af 113, BUN/Creatinine Ratio 15.7, Glucose 147 H, Calcium 8.5, Total Bilirubin 0.30, AST 28, ALT 22, Alkaline Phosphatase 64, Total Protein 7.9, Albumin 2.8 L, Globulin 5.1 H, Albumin/Globulin Ratio 0.5 L, TSH 3.16, Free T4 1.36 03/21/18 05:10: Hemoglobin A1c Pending 03/21/18 06:18: POC Glucose 137 H Current Medications Acetaminophen (Tylenol) 650 mg PO Q6H PRN PRN PRN Reason: Mild Pain (scale 0-3)/T>100.7 Al Hydroxide/Mg Hydroxide (Mylanta Ii) 30 ml PO Q6H PRN PRN PRN Reason: Gastric burning Alprazolam (Xanax) 0.5 mg PO Q6H PRN PRN PRN Reason: ANXIETY Last Admin: 03/21/18 06:22 Dose: 0.5 mg Bisacodyl (Dulcolax) 10 mg RECTAL DAILY PRN PRN PRN Reason: Constipation Dextrose (D50w Syringe) 0 gm IV X1 PRN; Protocol PRN Reason: Hypoglycemia Diltiazem HCl (Cardizem Cd) 240 mg PO DAILY [facility] Docusate Sodium (Colace) 200 mg PO BID PRN PRN PRN Reason: Constipation Enoxaparin Sodium (Lovenox) 40 mg SC DAILY@1000 ERIC Last Admin: 03/20/18 22:29 Dose: 40 mg Famotidine (Pepcid) 20 mg PO BID [facility] Last Admin: 03/20/18 22:29 Dose: 20 mg Glucagon () 1 mg IM .X1 PRN PRN Reason: Hypoglycemia Sodium Chloride () 1,000 mls @ 75 mls/hr IV .[id number] [facility] Stop: 03/21/18 08:50 Last Admin: 03/20/18 22:30 Dose: 75 mls/hr Insulin Human Lispro (Humalog Kwikpen (Bkc)) 0 unit SQ ACHS [facility] PRN Reason: Protocol Last Admin: 03/21/18 06:22 Dose: Not Given Lactobacillus Acidophilus (Acidophilus) 1 tablet PO DAILY [facility] Levothyroxine Sodium (Synthroid) 100 mcg PO DAILY@0600 [facility] Last Admin: 03/21/18 06:16 Dose: 100 mcg Magnesium Hydroxide (Milk Of Magnesia) 30 ml PO DAILY PRN PRN PRN Reason: Constipation Melatonin (Melatonin) 5 mg PO QHS [facility] Last Admin: 03/20/18 22:28 Dose: 5 mg Meloxicam (Mobic) 7.5 mg PO DAILY [facility] Last Admin: 03/20/18 22:29 Dose: 7.5 mg Non-Formulary Medication (Pain Pump (Pt's Own) [Pain Pump (Pt's Own)]) 0 mg SC UD [facility] Nutritional Formula (Lactose Free) (Glucerna Shake) 120 ml PO 4X/DAY [facility] Nystatin (Mycostatin Powder) 1 applic TOPICAL BID [facility] PRN Reason: Protocol Last Admin: 03/20/18 22:29 Dose: 1 applicatio Ondansetron HCl (Zofran) 4 mg IV Q8H PRN PRN PRN Reason: Nausea Ondansetron HCl (Zofran) 8 mg PO TID PRN PRN PRN Reason: NAUSEA Oxycodone HCl (Oxyir) 5 mg PO Q4H PRN PRN PRN Reason: Moderate Pain (pain scale 4-5) Last Admin: 03/21/18 06:21 Dose: 5 mg Polyethylene Glycol (Miralax) 17 gm PO DAILY [facility] Potassium Chloride (K-Dur) 20 meq PO BID [facility] Last Admin: 03/20/18 22:28 Dose: 20 meq Promethazine HCl (Phenergan Tablet) 12.5 mg PO Q4H PRN PRN PRN Reason: NAUSEA Sodium Chloride () 5 - 30 ml IV UD PRN PRN Reason: SALINE FLUSH Tizanidine HCl (Zanaflex) 2 mg PO Q8H PRN PRN PRN Reason: MUSCLE SPASMS Last Admin: 03/21/18 06:21 Dose: 2 mg Tolterodine Tartrate (Detrol La) 4 mg PO DAILY [facility] Venlafaxine HCl (Effexor) 150 mg PO BID [facility] Last Admin: 03/20/18 22:29 Dose: 150 mg Medical Necessity - Tobacco Use Smoking Status: Never smoker Assessment/Plan All Active Problems Pressure ulcer of left buttock, stage 2 (Acute) Decubitus skin ulcer (Acute) Diabetes mellitus type 2, uncontrolled (Acute) Decubitus ulcer (Acute) Recurrent UTI (urinary tract infection) (Acute) Pulmonary embolism (Acute) Abnormal liver function (Acute) 63 year old F with history of MS complicated with paraplegia, urinary incontinence s/p indwelling Marcus catheter, nonambulatory, history of sacral decubitus ulcer, following with the wound clinic until last week comes in with worsening decubitus, going for wound debridement by plastic surgeon. 1. Acute on chronic necrotic sacral-coccygeal region decubitus ulcer, being followed by the wound care team, plastic surgeon, infectious disease, going for wound debridement this a.m. ID consulted, patient on Zosyn 2. Possible infected decubitus ulcer, wound cultures growing gram-positive cocci, which seen on speciation, added on Zosyn by ID, will continue to follow on microbiology. 3. History of recurrent UTI, s/p indwelling catheter, stable, no indication for UTI 4. MS with paraplegia, chronic urine incontinence status post indwelling Marcus catheter 5. Type 2 Diabetes mellitus, sugars are fairly controlled, HbA1c is 7.4, off metformin, on insulin sliding scale with Accu-Cheks 6. Hypothyroidism/COPD/depression/history of pulmonary embolism/lumbar spinal stenosis -all complicating care of patient 7. DVT prophylaxis - Lovenox SC. Code Visit Inpatient E&M: 35432 Subs Hosp L2
[2018-03-21 07:50] LABS: Hemoglobin A1c 7.4 % (4.2-6.3)
[2018-03-21] MEDS: dilTIAZem CD 240 MG Capsule PO (09:30)
[2018-03-21] MEDS: Famotidine 20 MG Tablet PO ×2 (09:30→23:55)
--- NOTE | 2018-03-21 10:01 | NURSING ---
wound photo: sacrum
[2018-03-21] MEDS: Nystatin Powder 15gm Bottle 1 APPLIC TOPICAL ×2 (10:58→23:51)
--- NOTE | 2018-03-21 12:15 | PCM.CONS.GEN ---
Reason for Consult Date of Consultation: 03/21/18 Reason for Consultation: Infected necrotic sacral pressure sore. REFERRING PHYSICIAN: Dr. Ramírez. CONSULTATNT: Dr. Lynch. History of Present Illness: The patient is a 63 year old F with history of MS complicated with paraplegia, was admiited because of a worsening sacral pressure sore over the last several days. She has had the pressure sore for about 2 months. [facility] but missed her last appointment. She denies fever. She states she has intermittent incontinence with urine and stool. She has an indwelling chavarria but states she still leaks around it at times. I was asked to evaluate this patient for surgical options for treatment. Past Medical History Past Medical History (Chronic Problems): Chronic Problems Incontinence of feces (Chronic) Incontinence of urine in female (Chronic) Osteomyelitis of sacrum (Chronic) Pressure ulcer of sacral region, stage 4 (Chronic) Pressure ulcer of coccygeal region, stage 3 (Chronic) Paraparesis of both lower limbs (Chronic) Chronic ulcer of right great toe with fat layer exposed (Chronic) Macrocytic anemia (Chronic) due to folate deficiency + fatty liver.....? hemolysis, haptoglobin is pending Hypothyroidism (Chronic) Anxiety (Chronic) Morbid obesity with BMI of 40.0-44.9, adult (Chronic) COPD (chronic obstructive pulmonary disease) (Chronic) life long non-smoker Multiple sclerosis (Chronic) Depression (Chronic) Failure to thrive in adult (Chronic) Physical deconditioning (Chronic) Spinal stenosis of lumbar region (Chronic) mild, diagnosed on MRI of the LS spine done 01/01/14 Folate deficiency anemia (Chronic) Fatty infiltration of liver (Chronic) Urine, incontinence, stress female (Chronic) Chronic retention of urine (Chronic) she has MS and also has spinal canal stenosis....has seen neurosurgery and is not a candidate for any surgical intervention. Physical debility (Chronic) she is sedentary lives alone and can no longer get herself to the BR, has lost arm strength....very deconditioned Allergies cyclobenzaprine [From Flexeril] Allergy (Verified 03/20/18 16:34) Other gabapentin Adverse Reaction (Verified 03/20/18 16:34) weakness in legs nifedipine [From Procardia] Adverse Reaction (Verified 03/20/18 16:34) weakness in legs pregabalin [From Lyrica] Adverse Reaction (Verified 03/20/18 16:34) weakness in legs Current Medications Acetaminophen (Tylenol) 650 mg PO Q6H PRN PRN PRN Reason: Mild Pain (scale 0-3)/T>100.7 Al Hydroxide/Mg Hydroxide (Mylanta Ii) 30 ml PO Q6H PRN PRN PRN Reason: Gastric burning Alprazolam (Xanax) 0.5 mg PO Q6H PRN PRN PRN Reason: ANXIETY Last Admin: 03/21/18 06:22 Dose: 0.5 mg Bisacodyl (Dulcolax) 10 mg RECTAL DAILY PRN PRN PRN Reason: Constipation Dextrose (D50w Syringe) 0 gm IV X1 PRN; Protocol PRN Reason: Hypoglycemia Diltiazem HCl (Cardizem Cd) 240 mg PO DAILY [facility] Last Admin: 03/21/18 09:30 Dose: 240 mg Docusate Sodium (Colace) 200 mg PO BID PRN PRN PRN Reason: Constipation Enoxaparin Sodium (Lovenox) 40 mg SC DAILY@1000 [facility] Last Admin: 03/21/18 09:28 Dose: Not Given Famotidine (Pepcid) 20 mg PO BID [facility] Last Admin: 03/21/18 09:30 Dose: 20 mg Glucagon () 1 mg IM .X1 PRN PRN Reason: Hypoglycemia Insulin Human Lispro (Humalog Kwikpen (Bkc)) 0 unit SQ ACHS [facility] PRN Reason: Protocol Last Admin: 03/21/18 06:22 Dose: Not Given Lactobacillus Acidophilus (Acidophilus) 1 tablet PO DAILY [facility] Last Admin: 03/21/18 09:33 Dose: Not Given Levothyroxine Sodium (Synthroid) 100 mcg PO DAILY@0600 [facility] Last Admin: 03/21/18 06:16 Dose: 100 mcg Magnesium Hydroxide (Milk Of Magnesia) 30 ml PO DAILY PRN PRN PRN Reason: Constipation Melatonin (Melatonin) 5 mg PO QHS [facility] Last Admin: 03/20/18 22:28 Dose: 5 mg Meloxicam (Mobic) 7.5 mg PO DAILY [facility] Last Admin: 03/21/18 09:28 Dose: Not Given Non-Formulary Medication (Pain Pump (Pt's Own) [Pain Pump (Pt's Own)]) 0 mg SC UD [facility] Nutritional Formula (Lactose Free) (Glucerna Shake) 120 ml PO 4X/DAY [facility] Last Admin: 03/21/18 09:27 Dose: Not Given Nystatin (Mycostatin Powder) 1 applic TOPICAL BID [facility] PRN Reason: Protocol Last Admin: 03/21/18 10:58 Dose: 1 applicatio Ondansetron HCl (Zofran) 4 mg IV Q8H PRN PRN PRN Reason: Nausea Ondansetron HCl (Zofran) 8 mg PO TID PRN PRN PRN Reason: NAUSEA Oxycodone HCl (Oxyir) 5 mg PO Q4H PRN PRN PRN Reason: Moderate Pain (pain scale 4-5) Last Admin: 03/21/18 06:21 Dose: 5 mg Polyethylene Glycol (Miralax) 17 gm PO DAILY [facility] Last Admin: 03/21/18 09:28 Dose: Not Given Potassium Chloride (K-Dur) 20 meq PO BID [facility] Last Admin: 03/21/18 09:28 Dose: Not Given Promethazine HCl (Phenergan Tablet) 12.5 mg PO Q4H PRN PRN PRN Reason: NAUSEA Sodium Chloride () 5 - 30 ml IV UD PRN PRN Reason: SALINE FLUSH Tizanidine HCl (Zanaflex) 2 mg PO Q8H PRN PRN PRN Reason: MUSCLE SPASMS Last Admin: 03/21/18 06:21 Dose: 2 mg Tolterodine Tartrate (Detrol La) 4 mg PO DAILY [facility] Last Admin: 03/21/18 09:33 Dose: Not Given Venlafaxine HCl (Effexor) 150 mg PO BID [facility] Last Admin: 03/21/18 09:27 Dose: Not Given Home Medications: Ambulatory Orders Medication Instructions Recorded Lactobacillus Acidophilus 1 capsule PO DAILY 01/22/18 [Acidophilus] ALPRAZolam [Xanax] 0.5 mg PO Q6H PRN PRN 03/20/18 Diltiazem CD [Cardizem CD] 240 mg PO DAILY 03/20/18 Hydrochlorothiazide [Hctz] 25 mg PO DAILY 03/20/18 Levothyroxine Sodium [Synthroid] 100 mcg PO DAILY 03/20/18 Melatonin 5 mg PO QHS 03/20/18 Meloxicam [Meloxicam] 7.5 mg PO BID 03/20/18 Metformin HCl [Glucophage] 500 mg PO BID 03/20/18 Nitrofurantoin Macrocrystal 100 mg PO MOWEFR 03/20/18 [Nitrofurantoin] Nystatin Powder [Mycostatin Powder] 1 applic TOPICAL BID 03/20/18 Ondansetron [Zofran] 8 mg PO TID PRN PRN 03/20/18 Pain Pump (Pt's Own) 0 mg SC UD 03/20/18 Potassium Chloride [Klor-Con M20] 20 meq PO BID 03/20/18 Sennosides/Docusate Sodium [Senna 1 - 8 tab PO DAILY 03/20/18 Plus Tablet] Tizanidine HCl [Tizanidine HCl] 2 mg PO 4X/DAY PRN PRN 03/20/18 Tolterodine Tartrate [Detrol] 2 mg PO BID 03/20/18 Venlafaxine HCl [Effexor] 150 mg PO BID 03/20/18 proMETHazine tablet [Phenergan 12.5 mg PO Q4H PRN PRN 03/20/18 tablet] Surgical History: - - tubal ligation, elective , ventral hernia repair Smoking Status: Never smoker - *Family History Maternal History Items: Cancer - Her mother of lung cancer and was a smoker Paternal History Items: Diabetes, - - Father had posttraumatic stress disorder related from being in the armed forces. He also suffered from alcoholism Review of Systems Comment: Constitutional: Denies: Chills, Fever, Weight Change. HEENT: Denies: Head Aches, Sinus Congestion, Sinus Drainage. Cardiovascular: Denies: Chest Pain, Palpitations. Respiratory: Denies: Cough, Shortness of breath at rest, Sputum production. Gastrointestinal: Denies: Abdominal Pain, Nausea, Vomiting. Genitourinary: Reports: Incontinence, - - Neurogenic bladder incontinence secondary to MS with indwelling Chavarria catheter. Musculoskeletal: Reports: Joint Pain, Joint stiffness. Denies: Joint Tenderness. Skin: Denies: Rash, Wounds. Neurological: Reports: Balance problems, - - Bedridden secondary to paraplegia. Denies: Focal weakness. Psychiatric: Reports: Anxiety. Denies: Depression, Homicidal Ideations, Suicidal Ideations. Hematologic/ Lymphatic: Denies: Easy Bruising, Easy Bleeding Patient Problems: Active and Suspected Problems Decubitus ulcer (Acute) - Physical Exam General: Alert, Oriented x3, Cooperative HEENT: PERRLA, EOMI, Throat is clear. Oral: Dry Mucosa Neck: Supple, Nontender. No cervical adenopathy. Lungs: Clear to auscultation, Diminished Cardiovascular: Regular rate, Regular Rhythm. Abdomen: Soft, Non-Distended Extremities: No edema, Has paraplegia. Skin: Ulcer/ Wound - Left sacral pressure sore. No purulent drainage. Some fluctuance noted. Measures 5 x 7 x 1 cm. There is necrotic tissue present with eschar. No odor. No drainage. Musculoskeletal: No Tenderness to Palpation of Joints or Extremities Neurological: Cranial nerves II-XII grossly intact Psych/Mental Status: Normal Affect, Appropriate Vital Signs Vital Signs Temp Pulse Resp BP Pulse Ox 97.8 F 69 16 110/62 95 03/21/18 09:30 03/21/18 09:30 03/21/18 09:30 03/21/18 09:30 03/21/18 09:30 Oxygen Delivery Method Room Air Weight: 219 lb 12.814 oz Body Mass Index (BMI) 35.4 Intake and Output for Last 24 Hours 03/19/18 03/20/18 03/21/18 23:59 23:59 23:59 Intake Total 1176 / 1176 Output Total 2450 / 2450 Balance -1274 / -1274 Laboratory Tests Past 24 Hrs 03/21/18 03/21/18 03/21/18 05:10 05:10 05:10 WBC 11.0 RBC 3.84 L Hgb 11.1 L Hct 35.3 L MCV 91.9 MCH 28.9 MCHC 31.4 L RDW 14.3 RDW Differential 47.1 H Plt Count 331 MPV 8.9 Immature Gran % (Auto) 0.200 Neut % (Auto) 51.5 Lymph % (Auto) 39.8 [place] % (Auto) 5.6 Eos % (Auto) 2.6 Baso % (Auto) 0.3 Absolute Neuts (auto) 5.7 Absolute Lymphs (auto) 4.37 Total Counted Not Reportable Sodium 138 Potassium 4.0 Chloride 101 Carbon Dioxide 30.0 Anion Gap 7 BUN 9 Creatinine 0.57 Estim Creat Clear Calc 94.57 Est GFR (MDRD) Af Amer 137 Est GFR (MDRD) Non-Af 113 BUN/Creatinine Ratio 15.7 Glucose 147 H Hemoglobin A1c 7.4 H Calcium 8.5 Total Bilirubin 0.30 AST 28 ALT 22 Alkaline Phosphatase 64 Total Protein 7.9 Albumin 2.8 L Globulin 5.1 H Albumin/Globulin Ratio 0.5 L TSH 3.16 Free T4 1.36 POC Glucose 03/21/18 03/20/18 06:18 22:24 POC Glucose 137 H 179 H Assessment/Plan All Active Problems Skin necrosis (Acute) Necrotizing soft tissue infection (Acute) Pressure ulcer of left buttock, stage 2 (Acute) Decubitus skin ulcer (Acute) Diabetes mellitus type 2, uncontrolled (Acute) Decubitus ulcer (Acute) Recurrent UTI (urinary tract infection) (Acute) Pulmonary embolism (Acute) Abnormal liver function (Acute) 1. Infected necrotic sacral pressure sore, Unstageable at present but suspect a Stage IV. 2. Osteomyelitis. 3. MS. 4. Paraplegia. 5. Diabetes mellitus. 6. Urinary incontinence. 7. Stool incontinence. Will start IV antibiotics with Vancomycin and Zosyn. Patient needs a specialty bed such as a low air loss or an air fluidized bed. Patient needs urgent operative intervention today. She is diabetic and has a worsening pressure sore with necrotic infection. She is at risk for a necrotizing process. The pressure sore is unstageable at the moment but suspect a Stage IV after the excision. I anticipate extension down to the bone at which point, a partial ostectomy for osteomyelitis would be done. Will obtain a CT Pelvis preop to look at the extent of the infection and to evaluate for osteomyelitis. After the excision today, will proceed with wound care with the VAC. Anticipate increased metabolic demands from the infection and from the ulcer. Will check a Prealbumin and encourage nutritional supplementation with protein to help the healing process. Due to its proximity to the anal opening, there is increased risk for stool contamination in the future. She states she has intermittent stool incontinence. In order to maximize healing, will need to divert the stool with a diverting colostomy. Even though she has an indwelling chavarria catheter, she states she leaks around the catheter. This urinary incontinence also increases risk for wound compromise and healing compromise. Will need to be evaluated for a possible suprapubic catheter placement. Patient was informed of the risks and complications of the procedure including alternatives to surgery. These were discussed with the patient personally. Patient voices understanding and wishes to proceed current plan of urgent operative intervention today because of the risk of a necrotizing diabetic infection involving her sacral pressure sore. Code Visit Inpatient E&M: 22579 Init Hosp L3 - ICD-10 - L89.150, I96. M46.28, G35, G82.20, R15.9, R32
--- NOTE | 2018-03-21 12:35 | PCM.HP.ID ---
Problem List (1) Decubitus ulcer Status: Acute Reason for Consult: infected ulcer Consulted by: Dr. Lynch History of Present Illness: The patient is a 63 year old F with MS, paraparesis of BLE, and chronic chavarria who presented for planned surgical debridement of pelvic decubitus ulcers. Seen at wound care for past 6 weeks, initially improved, now worsened area and drainage after missing appt. No fever or chills. Completing course of cipro as an outpt for uti, feeling fine now. No n/v/d. Going to OR today. Full ROS Performed and neg except as noted above. - Medical History Past Medical History (Chronic Problems): Chronic Problems Pressure ulcer of coccygeal region, stage 3 (Chronic) Paraparesis of both lower limbs (Chronic) Chronic ulcer of right great toe with fat layer exposed (Chronic) Macrocytic anemia (Chronic) due to folate deficiency + fatty liver.....? hemolysis, haptoglobin is pending Hypothyroidism (Chronic) Anxiety (Chronic) Morbid obesity with BMI of 40.0-44.9, adult (Chronic) COPD (chronic obstructive pulmonary disease) (Chronic) life long non-smoker Multiple sclerosis (Chronic) Depression (Chronic) Failure to thrive in adult (Chronic) Physical deconditioning (Chronic) Spinal stenosis of lumbar region (Chronic) mild, diagnosed on MRI of the LS spine done 01/01/14 Folate deficiency anemia (Chronic) Fatty infiltration of liver (Chronic) Urine, incontinence, stress female (Chronic) Chronic retention of urine (Chronic) she has MS and also has spinal canal stenosis....has seen neurosurgery and is not a candidate for any surgical intervention. Physical debility (Chronic) she is sedentary lives alone and can no longer get herself to the BR, has lost arm strength....very deconditioned Allergies/Adverse Reactions: Allergies cyclobenzaprine [From Flexeril] Allergy (Verified 03/20/18 16:34) Other gabapentin Adverse Reaction (Verified 03/20/18 16:34) weakness in legs nifedipine [From Procardia] Adverse Reaction (Verified 03/20/18 16:34) weakness in legs pregabalin [From Lyrica] Adverse Reaction (Verified 03/20/18 16:34) weakness in legs Home Medications: Ambulatory Orders Medication Instructions Recorded Lactobacillus Acidophilus 1 capsule PO DAILY 01/22/18 [Acidophilus] ALPRAZolam [Xanax] 0.5 mg PO Q6H PRN PRN 03/20/18 Diltiazem CD [Cardizem CD] 240 mg PO DAILY 03/20/18 Hydrochlorothiazide [Hctz] 25 mg PO DAILY 03/20/18 Levothyroxine Sodium [Synthroid] 100 mcg PO DAILY 03/20/18 Melatonin 5 mg PO QHS 03/20/18 Meloxicam [Meloxicam] 7.5 mg PO BID 03/20/18 Metformin HCl [Glucophage] 500 mg PO BID 03/20/18 Nitrofurantoin Macrocrystal 100 mg PO MOWEFR 03/20/18 [Nitrofurantoin] Nystatin Powder [Mycostatin Powder] 1 applic TOPICAL BID 03/20/18 Ondansetron [Zofran] 8 mg PO TID PRN PRN 03/20/18 Pain Pump (Pt's Own) 0 mg SC UD 03/20/18 Potassium Chloride [Klor-Con M20] 20 meq PO BID 03/20/18 Sennosides/Docusate Sodium [Senna 1 - 8 tab PO DAILY 03/20/18 Plus Tablet] Tizanidine HCl [Tizanidine HCl] 2 mg PO 4X/DAY PRN PRN 03/20/18 Tolterodine Tartrate [Detrol] 2 mg PO BID 03/20/18 Venlafaxine HCl [Effexor] 150 mg PO BID 03/20/18 proMETHazine tablet [Phenergan 12.5 mg PO Q4H PRN PRN 03/20/18 tablet] - Social History Tobacco Use: non-smoker Vital Signs Temp Pulse Resp BP Pulse Ox 97.8 F 69 16 110/62 95 03/21/18 09:30 03/21/18 09:30 03/21/18 09:30 03/21/18 09:30 03/21/18 09:30 Oxygen Delivery Method Room Air Weight: 99.337 kg Body Mass Index (BMI) 35.3 Laboratory Tests Past 24 Hrs 03/21/18 03/21/18 03/21/18 05:10 05:10 05:10 WBC 11.0 RBC 3.84 L Hgb 11.1 L Hct 35.3 L MCV 91.9 MCH 28.9 MCHC 31.4 L RDW 14.3 RDW Differential 47.1 H Plt Count 331 MPV 8.9 Immature Gran % (Auto) 0.200 Neut % (Auto) 51.5 Lymph % (Auto) 39.8 [place] % (Auto) 5.6 Eos % (Auto) 2.6 Baso % (Auto) 0.3 Absolute Neuts (auto) 5.7 Absolute Lymphs (auto) 4.37 Total Counted Not Reportable Sodium 138 Potassium 4.0 Chloride 101 Carbon Dioxide 30.0 Anion Gap 7 BUN 9 Creatinine 0.57 Estim Creat Clear Calc 94.57 Est GFR (MDRD) Af Amer 137 Est GFR (MDRD) Non-Af 113 BUN/Creatinine Ratio 15.7 Glucose 147 H Hemoglobin A1c 7.4 H Calcium 8.5 Total Bilirubin 0.30 AST 28 ALT 22 Alkaline Phosphatase 64 Total Protein 7.9 Albumin 2.8 L Globulin 5.1 H Albumin/Globulin Ratio 0.5 L TSH 3.16 Free T4 1.36 - Other Studies Radiology: [] reviewed Other Studies: [] Route of nutrition/ use of supplements: [] Nutritional Intake: [] IV Site: [] Chavarria Catheter: [] - Physical Exam General: Alert, Oriented x3, Cooperative, No apparent distress HEENT: Atraumatic, PERRLA, EOMI Neck: Supple, No Nodes Lungs: Clear to auscultation, Normal air movement Cardiovascular: Regular rate, Regular Rhythm Abdomen: Soft, Non Tender, Non-Distended Extremities: No edema Skin: Ulcer/ Wound - bandaged IV Site: Peripheral, without redness Musculoskeletal: No Tenderness to Palpation of Joints or Extremities Neurological: Cranial nerves II-XII grossly intact - Assessment/Plan Antibiotics: [] Assessment/Plan: [] Active and Suspected Problems Pressure ulcer of left buttock, stage 2 (Acute) Decubitus skin ulcer (Acute) Decubitus ulcer (Acute) Suspected infected ulcer - going to OR today with Dr. Lynch. Prior wound cx with k.pneumo, burkholderia, e.faecalis, corynebacterium, and anaerobes. Wound cx now with GPC, staph pcr neg. Recommend starting zosyn perioperatively to cover prior growth. Will follow, thank you.
[2018-03-21 12:46] LABS: Bedside Glucose 137 mg/dL (70-110)
--- NOTE | 2018-03-21 13:14 | CASEMGMT ---
Addendum entered by Angie Rey 03/21/18 14:56: LINDA received call from Cara stating that pt has been accepted into TCU and she will submit for pre-cert on Saturday. Original Note: Social Work Note SW placed a call to referral line to confirm referral for pt. SW waiting to hear if TCU is able to accept pt. Pt ids scheduled for surgery with Dr. Lynch today at 3:00pm. If pt is accepted in to TCU pre-cert will need to be obtained and will most likely be started on Saturday. Plan: TCU pending acceptance Angie Rey HIGH PRESSURE BOILER OPERATOR, CARDIAC/VASCULAR SONOGRAPHER
[2018-03-21 13:38] LABS: AST(SGOT) 31 U/L (15-37); Alanine Aminotransfer ALT/SGPT 21 U/L (13-56); Albumin, Serum 2.9 g/dL (3.2-5.0); Alkaline Phosphatase 63 U/L (45-117); Bilirubin, Direct 0.11 mg/dL (0.00-0.30); Globulin 4.8 g/dL (2.2-4.2); Protein, Total 7.7 g/dL (6.4-8.2)
--- NOTE | 2018-03-21 14:30 | NURSING ---
report called to Therese in [facility]. pt transported by CITLALY Sims. IV Vancomycin and Zosyn sent with pt.
[2018-03-21] MEDS: Vancomycin IV 1,000 MG/200 ML BAG 200 MG IV (15:00)
--- NOTE | 2018-03-21 15:32 | PCA ---
PT OFF FLOOR
--- NOTE | 2018-03-21 15:40 | CHAPLAIN ---
Type of Pastoral Visit ___ Initial Visit ___ Follow-up Visit ___ On-call Visit ___ General Patient Visit ___ Spiritual Assessment ___ Family Conference ___ Bereavement ___ Rapid Response ___ Code Blue _x__ Other (describe below) Pastoral Care Referral From ___ Patient ___ Family ___ Nurse ___ Physician ___ Aircraft Tool Maker ___ Store Management Trainee ___ Other (describe below) Sacrament/Intervention ___ Active listening ___ Anointing ___ Restoration ___ Bereavement ___ Communion ___ Melba exploration ___ ___ Life review ___ Prayer ___ Reconciliation ___ Sacrament of Sick ___ Supportive presence ___ Wedding ___ Other (describe below) Pastoral Comments patient is not in the room and bed is gone; left calling card
[2018-03-21] MEDS: Piperacil/Tazobactam 3.375 GM/50 ML ML IV ×2 (15:57→23:52)
--- NOTE | 2018-03-21 16:45 | PCM.IMDPSTOP ---
Immediate Post-Op Note Date of Procedure: 03/21/18 Primary Surgeon/Physician: Raul Lynch net developer with wcf: None Pre-Operative Diagnosis: 1. Infected necrotic sacral pressure sore, Unstageable at present but suspect Stage IV. 2. Osteomyelitis. 3. MS. 4. Paraplegia. Post-Operative Diagnosis: 1. Infected necrotizing sacral pressure sore, Stage IV, with some nonviable muscle. 2. Osteomyelitis. 3. MS. 4. Paraplegia. Surgery/Procedure Performed:: 1. Excision infected necrotizing sacral pressure sore, Stage IV, with some nonviable muscle. 2. Partial ostectomy for osteomyelitis. Description of Surgical Findings:: The patient is a 63 year old F with history of MS complicated with paraplegia, was admitted because of a worsening sacral pressure sore over the last several days. She has had the pressure sore for about 2 months. She has been going to [facility] but missed her last appointment. She denies fever. She states she has intermittent incontinence with urine and stool. She has an indwelling chavarria but states she still leaks around it at times. I was asked to evaluate this patient for surgical options for treatment. I was concerned about a possible necrotizing infection and combined with her diabetes mellitus, the patient needed to go to surgery urgently today to get control of the infection. Today the patient underwent excision infected necrotizing sacral pressure sore, Stage IV, with some nonviable muscle and partial ostectomy for osteomyelitis. Size of defect sacral area - 11 x 8 x 4 cm. Estimated Blood Loss: 100 ml. Specimen's removed: 1. Infected necrotizing sacral pressure sore soft tissue to Pathology and Microbiology. 2. Infected necrotizing sacral pressure sore bone to Pathology and Microbiology. Drains: None. Type of Anesthesia:: General - Admit VTE Documentation VTE Present on Admission: No VTE Mechan Device Prophylaxis: SCD's VTE Pharm Prophylaxis ordered?: Yes
--- NOTE | 2018-03-21 17:10 | PCA ---
PT OFF FLOOR
[2018-03-21 17:45] LABS: Bedside Glucose 161 mg/dL (70-110)
--- NOTE | 2018-03-21 22:40 | PCM.OPRPT ---
Report of Operation Date of Procedure: 03/21/18 Pre-Operative Diagnosis: 1. Infected necrotic sacral pressure sore, Unstageable at present but suspect Stage IV. 2. Osteomyelitis. 3. MS. 4. Paraplegia. Post-Operative Diagnosis: 1. Infected necrotizing sacral pressure sore, Stage IV, with some nonviable muscle. 2. Osteomyelitis. 3. MS. 4. Paraplegia. Surgery/Procedure Performed:: 1. Excision infected necrotizing sacral pressure sore, Stage IV, with some nonviable muscle. 2. Partial ostectomy for osteomyelitis. Description of Surgical Findings:: The patient is a 63 year old F with history of MS complicated with paraplegia, was admitted because of a worsening sacral pressure sore over the last several days. She has had the pressure sore for about 2 months. She has been [facility] but missed her last appointment. She denies fever. She states she has intermittent incontinence with urine and stool. She has an indwelling chavarria but states she still leaks around it at times. I was asked to evaluate this patient for surgical options for treatment. I was concerned about a possible necrotizing infection and combined with her diabetes mellitus, the patient needed to go to surgery urgently today to get control of the infection. Patient was informed of the risks and complications of the procedure including alternatives to surgery. These were discussed with the patient personally. Patient voices understanding and wishes to proceed. Size of defect sacral area - 11 x 8 x 4 cm. learning support specialist: None Type of Anesthesia:: General Specimen's removed: 1. Infected necrotizing sacral pressure sore soft tissue to Pathology and Microbiology. 2. Infected necrotizing sacral pressure sore bone to Pathology and Microbiology. Drains: None. Estimated Blood Loss (mL): 100 ml. Description of Procedure: Patient was taken to the OR in supine position and was placed under general anesthesia. She was then placed in the prone position. Her sacral and gluteal areas were prepped and draped in the usual fashion. SCD's were placed for DVT prophylaxis. Perioperative antibiotics were given intravenously. Using xylocaine with epinephrine, the sacral pressure sore was infiltrated. After waiting 5 minutes for the anesthetic to take effect, I excised the sacral pressure sore with a scalpel down through the subcutaneous tissue and muscle. A lot of fat necrosis was present. Small amounts of pus was seen. There was some nonviable muscle that was also excised. There was nonviable tissue adherent to the bone which was excised. With the extension of the pressure sore down to the bone, a partial ostectomy was then done using an osteotome and a mallet in a tangential fashion. Rongeurs were also used. A rasp was used to smooth out the bony edges. Half the soft tissue and half the bone will be sent to Pathology for analysis to rule out carcinoma and to evaluate for osteomyelitis. Half the soft tissue and half the bone will be sent to Microbiology for culture. A positive culture may necessitate antibiotic modification. The wound was irrigated with saline. Hemostasis was obtained with electrocautery. I also needed some bone wax for the bony edges. The size of the sacral defect after the excision was 11 x 8 x 4 cm. The wound is close to the anal opening. Stool contamination may be an issue postop especially with her history of incontinence both of urine and stool in which case a diverting colostomy will be needed. She has an indwelling chavarria and still leaks around the catheter. She may need a suprapubic catheter. The wound was then dressed with Mepitel nonadherent dressing followed by Betadine and Kerlix followed by dry Kerlix and ABD pads for a compression dressing. Patient tolerated the procedure well and was sent to PACU in satisfactory condition. She will be sent upstairs for continued postop care. The VAC will be placed tomorrow. Grafts/Implants Used: None. - Complications None. - Admit VTE Documentation VTE Present on Admission: No VTE Mechan Device Prophylaxis: SCD's VTE Pharm Prophylaxis ordered?: Yes Code Visit Surgery Charges CPT - 12847 ICD-10 - L89.154, I96, M79.89, M46.28, G35, G82.20, R15.9, R32
[2018-03-21] MEDS: MELATONIN 10 MG TABLET 5 MG PO (23:52)
[2018-03-21] MEDS: Glucerna Shake 120 ML LIQUID PO (23:53)
[2018-03-22 01:26] LABS: Bedside Glucose 122 mg/dL (70-110)
[2018-03-22 03:39] VITALS: BP 103/63; PULSE 75; RESP 14; TEMP 36.7; O2SAT 98
[2018-03-22] MEDS: 0.9% NaCl Peripheral Flush Adult/Peds IV (03:50)
[2018-03-22] MEDS: Ondansetron 4 MG/2 ML Vial IV (03:50)
[2018-03-22] MEDS: Levothyroxine 100 MCG Tablet PO (06:38)
[2018-03-22] MEDS: Piperacil/Tazobactam 3.375 GM/50 ML ML IV ×3 (06:38→22:31)
[2018-03-22 07:15] LABS: Hematocrit 34.2 % (37-47); Hemoglobin 10.7 g/dl (12.0-15.0); Mean Corp Hgb Conc 31.3 g/gl (32-36); Mean Corpuscular Volume 92.7 fL (81-99); Mean Platelet Vol. 8.8 fl (6.2-12.0); Platelet Count 348 K/mm3 (150-450); RBC Distribution Width CV 14.5 % (11.6-14.6); RBC Distribution Width SD 47.4 fl (35.1-43.9); Red Blood Count 3.69 M/mm3 (4.2-5.4); Scan Indicated on CBC? Y/N NO
[2018-03-22 07:44] LABS: Anion Gap 10 (5-15); BUN 6 mg/dL (7-18); BUN/Creat Ratio 10.1 RATIO (10-20); Chloride 105 mmol/L (98-107); EST Glomerular Filtration Rate 108 mL/min (>60); Est Glom Filt Rate - Afr Amer 131 mL/min (>60); Estimated Creatinine Clearance 89.84 ml/min; Glucose 133 mg/dL (74-106); Potassium 3.8 mmol/L (3.5-5.1); Prealbumin 9.8 mg/dL (20.0-40.0); Sodium Level 142 mmol/L (136-145)
[2018-03-22 08:00] LABS: Hemoglobin A1c 7.7 % (4.2-6.3)
[2018-03-22 08:46] LABS: Bedside Glucose 139 mg/dL (70-110)
--- NOTE | 2018-03-22 09:42 | PCM.PN.HOSP ---
Patient Problems: Active and Suspected Problems Pressure ulcer of left buttock, stage 2 (Acute) Decubitus skin ulcer (Acute) Decubitus ulcer (Acute) Subjective: Seen and examined. Patient had infected necrotizing sacral pressure ulcer stage IV with some nonviable muscle and high suspicion of osteomyelitis. Excision of infected necrotizing sacral pressure sore stage IV with some nonviable muscle and partial ostectomy was performed on 03/21/2018 No overnight fever. Vitals/I&O's: Vital Signs Temp Pulse Resp BP Pulse Ox 98.1 F 75 14 103/63 98 03/22/18 03:39 03/22/18 03:39 03/22/18 03:39 03/22/18 03:39 03/22/18 03:39 Oxygen Flow Rate (L/min) 2 Oxygen Delivery Method Room Air Weight: 219 lb Body Mass Index (BMI) 35.3 Finger Stick Blood Glucose 161 Intake and Output for Last 24 Hours 03/20/18 03/21/18 03/22/18 23:59 23:59 23:59 Intake Total 2176 / 2176 1322 / 1322 Output Total 3800 / 3800 1300 / 1300 Balance -1624 / -1624 General: Alert, Oriented x3, Cooperative HEENT: Atraumatic, PERRLA, EOMI, Normocephalic Neck: Supple, No JVD, Negative Carotid Bruits Lungs: Clear to auscultation, No rhonchi, No wheeze, No rales, Diminished Cardiovascular: Regular rate, Regular Rhythm, Normal S1, Normal S2, No murmurs Abdomen: Bowel Sounds Present, Soft, Non Tender Extremities: Capillary Refill Less than 3 Seconds Skin: Ulcer/ Wound - Sacral decubitus ulcer status post debridement and excision of nonviable muscle tissue and partial hysterectomy Musculoskeletal: Arthritic Changes, Muscle Wasting Neurological: Cranial nerves II-XII grossly intact Psych/Mental Status: Normal Affect, Appropriate Laboratory Results 03/21/18 05:10: Total Bilirubin 0.30, Direct Bilirubin 0.11, AST 31, ALT 21, Alkaline Phosphatase 63, Total Protein 7.7, Albumin 2.9 L, Globulin 4.8 H 03/21/18 12:31: POC Glucose 137 H 03/21/18 17:43: POC Glucose 161 H 03/21/18 23:43: POC Glucose 122 H 03/22/18 06:30: Hemoglobin A1c 7.7 H 03/22/18 06:30: WBC 11.0, RBC 3.69 L, Hgb 10.7 L, Hct 34.2 L, MCV 92.7, MCH 29.0, MCHC 31.3 L, RDW 14.5, RDW Differential 47.4 H, Plt Count 348, MPV 8.8 03/22/18 06:30: Sodium 142, Potassium 3.8, Chloride 105, Carbon Dioxide 27.0, Anion Gap 10, BUN 6 L, Creatinine 0.60, Estim Creat Clear Calc 89.84, Est GFR (MDRD) Af Amer 131, Est GFR (MDRD) Non-Af 108, BUN/Creatinine Ratio 10.1, Glucose 133 H, Calcium 8.0 L, Prealbumin 9.8 L 03/22/18 06:40: POC Glucose 139 H Current Medications Acetaminophen (Tylenol) 650 mg PO Q6H PRN PRN PRN Reason: Mild Pain (scale 0-3)/T>100.7 Al Hydroxide/Mg Hydroxide (Mylanta Ii) 30 ml PO Q6H PRN PRN PRN Reason: Gastric burning Alprazolam (Xanax) 0.5 mg PO Q6H PRN PRN PRN Reason: ANXIETY Last Admin: 03/21/18 06:22 Dose: 0.5 mg Bisacodyl (Dulcolax) 10 mg RECTAL DAILY PRN PRN PRN Reason: Constipation Dextrose (D50w Syringe) 0 gm IV X1 PRN; Protocol PRN Reason: Hypoglycemia Diltiazem HCl (Cardizem Cd) 240 mg PO DAILY [facility] Last Admin: 03/21/18 09:30 Dose: 240 mg Docusate Sodium (Colace) 200 mg PO BID PRN PRN PRN Reason: Constipation Enoxaparin Sodium (Lovenox) 40 mg SC DAILY@1000 [facility] Last Admin: 03/21/18 09:28 Dose: Not Given Famotidine (Pepcid) 20 mg PO BID [facility] Last Admin: 03/21/18 23:55 Dose: 20 mg Glucagon () 1 mg IM .X1 PRN PRN Reason: Hypoglycemia Piperacillin Sod/Tazobactam Sod (Zosyn) 3.375 gm in 50 mls @ 12.5 mls/hr IV Q8 [facility] Last Admin: 03/22/18 06:38 Dose: 12.5 mls/hr Insulin Human Lispro (Humalog Kwikpen (Bkc)) 0 unit SQ ACHS [facility] PRN Reason: Protocol Last Admin: 03/22/18 06:42 Dose: Not Given Lactobacillus Acidophilus (Acidophilus) 1 tablet PO DAILY [facility] Last Admin: 03/21/18 09:33 Dose: Not Given Levothyroxine Sodium (Synthroid) 100 mcg PO DAILY@0600 [facility] Last Admin: 03/22/18 06:38 Dose: 100 mcg Magnesium Hydroxide (Milk Of Magnesia) 30 ml PO DAILY PRN PRN PRN Reason: Constipation Melatonin (Melatonin) 5 mg PO QHS [facility] Last Admin: 03/21/18 23:52 Dose: 5 mg Meloxicam (Mobic) 7.5 mg PO DAILY [facility] Last Admin: 03/21/18 09:28 Dose: Not Given Non-Formulary Medication (Pain Pump (Pt's Own) [Pain Pump (Pt's Own)]) 0 mg SC UD [facility] Last Admin: 03/21/18 18:31 Dose: Not Given Nutritional Formula (Maynor - Mccormick Flavor) [facility] Nutritional Formula (Lactose Free) (Glucerna Shake) 120 ml PO 4X/DAY [facility] Last Admin: 03/21/18 23:53 Dose: 120 ml Nystatin (Mycostatin Powder) 1 applic TOPICAL BID [facility] PRN Reason: Protocol Last Admin: 03/21/18 23:51 Dose: 1 applicatio Ondansetron HCl (Zofran) 4 mg IV Q8H PRN PRN PRN Reason: Nausea Last Admin: 03/22/18 03:50 Dose: 4 mg Ondansetron HCl (Zofran) 8 mg PO TID PRN PRN PRN Reason: NAUSEA Oxycodone HCl (Oxyir) 5 mg PO Q4H PRN PRN PRN Reason: Moderate Pain (pain scale 4-5) Last Admin: 03/21/18 23:54 Dose: 5 mg Polyethylene Glycol (Miralax) 17 gm PO DAILY [facility] Last Admin: 03/21/18 09:28 Dose: Not Given Potassium Chloride (K-Dur) 20 meq PO BID [facility] Last Admin: 03/21/18 23:52 Dose: 20 meq Promethazine HCl (Phenergan Tablet) 12.5 mg PO Q4H PRN PRN PRN Reason: NAUSEA Sodium Chloride () 5 - 30 ml IV UD PRN PRN Reason: SALINE FLUSH Last Admin: 03/22/18 03:50 Dose: 10 ml Tizanidine HCl (Zanaflex) 2 mg PO Q8H PRN PRN PRN Reason: MUSCLE SPASMS Last Admin: 03/21/18 23:54 Dose: 2 mg Tolterodine Tartrate (Detrol La) 4 mg PO DAILY [facility] Last Admin: 03/21/18 09:33 Dose: Not Given Venlafaxine HCl (Effexor) 150 mg PO BID [facility] Last Admin: 03/21/18 23:52 Dose: 150 mg Medical Necessity - Tobacco Use Smoking Status: Never smoker Assessment/Plan All Active Problems Pressure ulcer of left buttock, stage 2 (Acute) Decubitus skin ulcer (Acute) Diabetes mellitus type 2, uncontrolled (Acute) Decubitus ulcer (Acute) Recurrent UTI (urinary tract infection) (Acute) Pulmonary embolism (Acute) Abnormal liver function (Acute) The patient is a 63 year old F with history of MS complicated with paraplegia, urinary incontinence with indwelling Marcus catheter, nonambulatory has sacral decubitus ulcer for about 6 weeks. Patient used to attend wound clinic every week for last 6 week but is slowly progressive worsening and she missed her last week wound clinic appointment due to transportation issue. She has home health care 3 times a day on weekdays and twice daily on weekends. She took Cipro for about 7-10 days for UTI. She denies fever, chills, chest pain, shortness of breath, headache. 1. Large necrotic infected decubitus ulcer stage IV over sacrococcygeal region, acute on chronic in nature with high suspicion of osteomyelitis: Patient is being admitted on [facility] floor. Patient had necrotizing sacral pressure ulcer stage IV with some nonviable muscle and suspected osteomyelitis. Excision of infected necrotizing sacral pressure sore stage IV with some nonviable muscle and partial ostectomy was performed on 03/21/2018 plastic surgeon and infectious disease consults reviewed and appreciated. Wound culture from ER shows Enterococcus faecalis, vancomycin susceptible. Currently on IV Zosyn. Intraoperative tissue culture are pending 2. History of recurrent UTI with indwelling catheter: Urine seems clear on the Marcus tube. Patient had completed antibiotic as mentioned above. 3. MS with paraplegia, chronic urine incontinence status post indwelling Marcus catheter: 4. Diabetes mellitus type 2: Accu-Chek before meals and at bedtime and cover with NovoLog sliding scale. Blood glucoses are well controlled. A1c 7.4. 5. Other multiple comorbidities include hypothyroidism, COPD, lifelong non-smoker, depression, history of pulmonary embolism in the past, lumbar spinal stenosis, physical deconditioning and debility: Multiple comorbidities complicates the present care and expect difficult and delay recovery. This was discussed with the patient. All medication reconciliation done including levothyroxine, muscle relaxant, continuation of Dilaudid [employer] pump and other medications. TSH and free T4 within normal limit DVT prophylaxis: On Lovenox 40 mg subcuT daily. Diagnostic evaluation and management plan explained to the patient. Patient was anxious about the time of discharge which is not clear at this point of time because tissue culture, identification of organism, and duration of antibiotic is still to be determined. She will need SNF at the time of discharge. Code Visit Inpatient E&M: 67129 [facility] Hosp L3
[2018-03-22 10:42] VITALS: BP 116/77; PULSE 78; RESP 18; TEMP 36.7; O2SAT 95
[2018-03-22] MEDS: Nystatin Powder 15gm Bottle 1 APPLIC TOPICAL ×2 (10:52→22:30)
[2018-03-22] MEDS: Famotidine 20 MG Tablet PO ×2 (10:52→21:28)
[2018-03-22] MEDS: Enoxaparin 40 MG/0.4 ML Syringe SC (10:53)
[2018-03-22] MEDS: dilTIAZem CD 240 MG Capsule PO (10:53)
[2018-03-22] MEDS: Meloxicam 7.5 MG Tablet PO (10:53)
[2018-03-22] MEDS: Polyethylene Glycol 3350 17 GM PACKET PO (10:53)
[2018-03-22] MEDS: Tolterodine Tartrate 4 MG CAP.SA PO (10:53)
--- NOTE | 2018-03-22 10:53 | PCA ---
This alumnae secretary Placed call to [employer] to let them know what wound vac was placed on patient today. Gave reference number which was put in red alumnae secretary folder up at nurses station.
[2018-03-22] MEDS: Glucerna Shake 120 ML LIQUID PO ×4 (10:56→21:32)
[2018-03-22] MEDS: Insulin Lispro 100 UNIT/ML INSULN.PEN SQ ×2 (10:59→22:42)
[2018-03-22] MEDS: oxyCODONE 5 MG Tablet PO ×3 (11:08→21:25)
[2018-03-22 12:06] LABS: Bedside Glucose 168 mg/dL (70-110)
[2018-03-22 14:16] VITALS: BP 139/100; PULSE 87; RESP 18; TEMP 36.7; O2SAT 95
[2018-03-22 17:36] LABS: Bedside Glucose 141 mg/dL (70-110)
--- NOTE | 2018-03-22 20:25 | PCM.PN.SRG ---
Patient Problems: Active and Suspected Problems Pressure ulcer of left buttock, stage 2 (Acute) Decubitus skin ulcer (Acute) Decubitus ulcer (Acute) Subjective: Postop #1 Patient is resting comfortably. VAC was applied today. - Physical Exam General: Alert, Oriented x3 HEENT: PERRLA, EOMI Oral: Moist Mucosa Neck: Supple Abdomen: Soft, Non-Distended Skin: Ulcer/ Wound - sacral pressure sore is stable. No bleeding seen. VAC applied today. Neurological: Cranial nerves II-XII grossly intact Psych/Mental Status: Normal Affect, Appropriate Vital Signs Temp Pulse Resp BP Pulse Ox 98.1 F 87 18 139/100 H 95 03/22/18 14:16 03/22/18 14:16 03/22/18 14:16 03/22/18 14:16 03/22/18 14:16 Oxygen Flow Rate (L/min) 2 Oxygen Delivery Method Room Air Weight: 219 lb Body Mass Index (BMI) 35.3 Finger Stick Blood Glucose 161 Intake and Output for Last 24 Hours 03/20/18 03/21/18 03/22/18 23:59 23:59 23:59 Intake Total 2176 / 2176 2607.1 / 2607.1 Output Total 3800 / 3800 2400 / 2400 Balance -1624 / -1624 207.1 / 207.1 Microbiology Past 72 Hours 03/21/18 17:00 Gram Stain - Final Bone - Other Wound Culture - Preliminary No growth-Final to follow 03/21/18 17:00 Gram Stain - Final Tissue Ulcer - Sacral Wound Culture - Preliminary Gram Positive Cocci Pathology - pending. Laboratory Tests Past 24 Hrs 03/22/18 03/22/18 03/22/18 06:30 06:30 06:30 WBC 11.0 RBC 3.69 L Hgb 10.7 L Hct 34.2 L MCV 92.7 MCH 29.0 MCHC 31.3 L RDW 14.5 RDW Differential 47.4 H Plt Count 348 MPV 8.8 Sodium 142 Potassium 3.8 Chloride 105 Carbon Dioxide 27.0 Anion Gap 10 BUN 6 L Creatinine 0.60 Estim Creat Clear Calc 89.84 Est GFR (MDRD) Af Amer 131 Est GFR (MDRD) Non-Af 108 BUN/Creatinine Ratio 10.1 Glucose 133 H Hemoglobin A1c 7.7 H Calcium 8.0 L Prealbumin 9.8 L POC Glucose 03/22/18 03/22/18 03/22/18 17:17 10:59 06:40 POC Glucose 141 H 168 H 139 H 03/21/18 23:43 POC Glucose 122 H Diagnostic Data Pelvis CT 03/21/18 09:48 IMPRESSION: Small ulceration along the medial aspect of the left buttock. This abuts the region of the coccyx. No bony abnormality is seen at that site. Electronically Signed: Blas Silverio MD at 12:35 EDT Tel [phone], Service support , Medical Necessity - Tobacco Use Smoking Status: Never smoker Assessment/Plan All Active Problems Pressure ulcer of left buttock, stage 2 (Acute) Decubitus skin ulcer (Acute) Diabetes mellitus type 2, uncontrolled (Acute) Decubitus ulcer (Acute) Recurrent UTI (urinary tract infection) (Acute) Pulmonary embolism (Acute) Abnormal liver function (Acute) 1. Infected necrotizing sacral pressure sore, Stage IV. 2. Osteomyelitis. 3. MS. 4. Paraplegia. 5. Diabetes mellitus. 6. Urinary incontinence. 7. Stool incontinence. Continue Zosyn. Operative culture showed Gram positive cocci thus far. ED culture shows Enterococcus faecalis. Will add Vancomycin. With suspected ostomyelitis, will need skilled nursing IV antibiotics. VAC applied today without difficulty. To be changed three times per week at 150 mmHg continuous suction. Prealbumin was 9.8. Encourage nutritional supplementation with protein to help the healing process. Due to its proximity to the anal opening, there is increased risk for stool contamination in the future. She states she has intermittent stool incontinence. In order to maximize healing, will need to divert the stool with a diverting colostomy. Even though she has an indwelling chavarria catheter, she states she leaks around the catheter. This urinary incontinence also increases risk for wound compromise and healing compromise. Will need to be evaluated for a possible suprapubic catheter placement. Due to the complexity of her medical care, will need to go to an ECF for a short term stay at discharge.
[2018-03-22] MEDS: MELATONIN 10 MG TABLET 5 MG PO (21:27)
[2018-03-22 22:27] VITALS: BP 149/77; PULSE 86; RESP 18; TEMP 37.4; O2SAT 94
[2018-03-22] MEDS: Acetaminophen 325 MG Tablet 650 MG PO (22:39)
[2018-03-22] MEDS: tiZANidine HCl 2 MG Tablet PO (22:39)
[2018-03-22 22:40] VITALS: PULSE 86; RESP 18; O2SAT 94
[2018-03-22 23:51] LABS: Bedside Glucose 166 mg/dL (70-110)
--- NOTE | 2018-03-23 01:31 | PCM.RX.CS ---
Consult Pharmacy has been consulted to manage selected antiobiotic: Vancomycin Type of Consult: New start Suspected Infection: Sepsis Labs: Sodium 142 mmol/L (136-145) 03/22/18 06:30 Potassium 3.8 mmol/L (3.5-5.1) 03/22/18 06:30 Chloride 105 mmol/L (98-107) 03/22/18 06:30 Carbon Dioxide 27.0 mmol/L (21.0-32.0) 03/22/18 06:30 Anion Gap 10 (5-15) 03/22/18 06:30 BUN 6 mg/dL (7-18) L 03/22/18 06:30 Creatinine 0.60 mg/dL (0.55-1.02) 03/22/18 06:30 Est GFR (MDRD) Af Amer 131 mL/min (>60) 03/22/18 06:30 Est GFR (MDRD) Non-Af 108 mL/min (>60) 03/22/18 06:30 BUN/Creatinine Ratio 10.1 RATIO (10-20) 03/22/18 06:30 Glucose 133 mg/dL (74-106) H 03/22/18 06:30 Microbiology: Microbiology 03/21/18 17:00 Bone - Other Gram Stain - Final 03/21/18 17:00 Bone - Other Wound Culture - Preliminary No growth-Final to follow 03/21/18 17:00 Tissue Ulcer - Sacral Gram Stain - Final 03/21/18 17:00 Tissue Ulcer - Sacral Wound Culture - Preliminary Gram Positive Cocci Goal Trough: 15-20 mcg/mL Pharmacy Plan for Drug Dosing: Pharmacy Service will continue to monitor and adjust dosing as required. Medications Piperacillin Sod/Tazobactam Sod (Zosyn) 3.375 gm in 50 mls @ 12.5 mls/hr IV Q8 [facility] Last Admin: 03/22/18 22:31 Dose: 12.5 mls/hr Vancomycin HCl 1,750 mg/ (Sodium Chloride) 535 mls @ 250 mls/hr IV Q12H [facility] Follow-Up Labs: Trough Vancomycin Labs to be done on [date and time ordered]: 03/24 @ 0900
[2018-03-23 03:56] VITALS: BP 116/72; PULSE 86; RESP 18; TEMP 37.1; O2SAT 96
[2018-03-23 04:00] VITALS: PULSE 86; RESP 18
[2018-03-23] MEDS: oxyCODONE 5 MG Tablet PO ×3 (04:02→15:34)
[2018-03-23] MEDS: Docusate Sodium 100 MG Capsule 200 MG PO (04:03)
[2018-03-23] MEDS: Piperacil/Tazobactam 3.375 GM/50 ML ML IV ×3 (06:18→22:59)
[2018-03-23] MEDS: Levothyroxine 100 MCG Tablet PO (06:18)
[2018-03-23] MEDS: Magnesium Hydroxide 30 ML UDC PO (06:23)
[2018-03-23] MEDS: Acetaminophen 325 MG Tablet 650 MG PO (06:23)
[2018-03-23] MEDS: tiZANidine HCl 2 MG Tablet PO ×2 (06:49→21:49)
[2018-03-23] MEDS: Insulin Lispro 100 UNIT/ML INSULN.PEN SQ ×4 (06:52→21:50)
[2018-03-23 06:56] LABS: Bedside Glucose 189 mg/dL (70-110)
[2018-03-23 08:47] VITALS: BP 89/60; PULSE 62; RESP 16; TEMP 36.6; O2SAT 94
[2018-03-23] MEDS: Meloxicam 7.5 MG Tablet PO (09:20)
[2018-03-23] MEDS: Famotidine 20 MG Tablet PO ×2 (09:20→21:49)
[2018-03-23] MEDS: Enoxaparin 40 MG/0.4 ML Syringe SC (09:21)
[2018-03-23] MEDS: Polyethylene Glycol 3350 17 GM PACKET PO (09:21)
[2018-03-23] MEDS: Nystatin Powder 15gm Bottle 1 APPLIC TOPICAL ×2 (09:21→21:51)
[2018-03-23] MEDS: Tolterodine Tartrate 4 MG CAP.SA PO (09:21)
[2018-03-23] MEDS: Glucerna Shake 120 ML LIQUID PO ×3 (09:31→18:04)
[2018-03-23 09:40] VITALS: BP 101/63; PULSE 63; RESP 18; TEMP 36.6; O2SAT 95
--- NOTE | 2018-03-23 10:51 | PCM.PN.HOSP ---
Patient Problems: Active and Suspected Problems Pressure ulcer of left buttock, stage 2 (Acute) Decubitus skin ulcer (Acute) Decubitus ulcer (Acute) Subjective: Patient had wound VAC placed in. Still has pain over operative region. Dr. Lynch suggested suprapubic catheter placement as patient has leaking around Marcus catheter. Patient also feels thirsty and had low blood pressure, 89/60 at about 8:45 AM. IV fluid normal saline 500 mL bolus ordered and then 100 mL/h to complete monitor and reassess blood pressure Vitals/I&O's: Vital Signs Temp Pulse Resp BP Pulse Ox 97.8 F 63 18 101/63 95 03/23/18 09:40 03/23/18 09:40 03/23/18 09:40 03/23/18 09:40 03/23/18 09:40 Oxygen Flow Rate (L/min) 2 Oxygen Delivery Method Room Air Weight: 219 lb Body Mass Index (BMI) 35.3 Finger Stick Blood Glucose 161 Intake and Output for Last 24 Hours 03/21/18 03/22/18 03/23/18 23:59 23:59 23:59 Intake Total 2176 / 2176 2607.1 / 2607.1 1688 / 1688 Output Total 3800 / 3800 2400 / 2400 1550 / 1550 Balance -1624 / -1624 207.1 / 207.1 138 / 138 General: Alert, Oriented x3, Cooperative HEENT: Atraumatic, PERRLA, EOMI, Normocephalic Neck: Supple, No JVD, Negative Carotid Bruits Lungs: Clear to auscultation, No rhonchi, No wheeze, Diminished Cardiovascular: Regular rate, Regular Rhythm, Normal S1, Normal S2, No murmurs Abdomen: Bowel Sounds Present, Soft, Non Tender Extremities: No edema, Capillary Refill Less than 3 Seconds Skin: Ulcer/ Wound - Stage IV sacrococcygeal pressure ulcer status post excision. And wound VAC. Musculoskeletal: No Tenderness to Palpation of Joints or Extremities, Arthritic Changes, Muscle Wasting Neurological: Cranial nerves II-XII grossly intact, - - Paraplegia with neurogenic bladder secondary to MS. Has indwelling Marcus catheter. Psych/Mental Status: Normal Affect, Appropriate Microbiology Past 72 Hours 03/21/18 17:00 Tissue Ulcer - Sacral Gram Stain - Final 03/21/18 17:00 Tissue Ulcer - Sacral Wound Culture - Preliminary Enterococcus faecalis 03/21/18 17:00 Bone - Other Gram Stain - Final 03/21/18 17:00 Bone - Other Wound Culture - Preliminary No growth-Final to follow Laboratory Results 03/22/18 10:59: POC Glucose 168 H 03/22/18 17:17: POC Glucose 141 H 03/22/18 22:41: POC Glucose 166 H 03/23/18 06:51: POC Glucose 189 H Current Medications Acetaminophen (Tylenol) 650 mg PO Q6H PRN PRN PRN Reason: Mild Pain (scale 0-3)/T>100.7 Last Admin: 03/23/18 06:23 Dose: 650 mg Al Hydroxide/Mg Hydroxide (Mylanta Ii) 30 ml PO Q6H PRN PRN PRN Reason: Gastric burning Alprazolam (Xanax) 0.5 mg PO Q6H PRN PRN PRN Reason: ANXIETY Last Admin: 03/21/18 06:22 Dose: 0.5 mg Bisacodyl (Dulcolax) 10 mg RECTAL DAILY PRN PRN PRN Reason: Constipation Dextrose (D50w Syringe) 0 gm IV X1 PRN; Protocol PRN Reason: Hypoglycemia Diltiazem HCl (Cardizem Cd) 240 mg PO DAILY [facility] Last Admin: 03/23/18 09:47 Dose: Not Given Docusate Sodium (Colace) 200 mg PO BID PRN PRN PRN Reason: Constipation Last Admin: 03/23/18 04:03 Dose: 200 mg Enoxaparin Sodium (Lovenox) 40 mg SC DAILY@1000 ERIC Last Admin: 03/23/18 09:21 Dose: 40 mg Famotidine (Pepcid) 20 mg PO BID [facility] Last Admin: 03/23/18 09:20 Dose: 20 mg Glucagon () 1 mg IM .X1 PRN PRN Reason: Hypoglycemia Piperacillin Sod/Tazobactam Sod (Zosyn) 3.375 gm in 50 mls @ 12.5 mls/hr IV Q8 [facility] Last Admin: 03/23/18 06:18 Dose: 12.5 mls/hr Vancomycin IV Pharmacy to Dose (1 ea/ Sodium Chloride) 500 mls @ 250 mls/hr IV X1 PRN; Protocol PRN Reason: Rx to Dose Vancomycin HCl 1,750 mg/ (Sodium Chloride) 535 mls @ 250 mls/hr IV Q12H [facility] Last Admin: 03/23/18 09:13 Dose: 250 mls/hr Sodium Chloride () 500 mls @ 100 mls/hr IV .Q5H ONE Stop: 03/23/18 14:34 Last Admin: 03/23/18 09:46 Dose: 100 mls/hr Insulin Human Lispro (Humalog Kwikpen (Bkc)) 0 unit SQ ACHS [facility] PRN Reason: Protocol Last Admin: 03/23/18 06:52 Dose: 1 u Lactobacillus Acidophilus (Acidophilus) 1 tablet PO DAILY [facility] Last Admin: 03/23/18 09:21 Dose: 1 tablet Levothyroxine Sodium (Synthroid) 100 mcg PO DAILY@0600 [facility] Last Admin: 03/23/18 06:18 Dose: 100 mcg Magnesium Hydroxide (Milk Of Magnesia) 30 ml PO DAILY PRN PRN PRN Reason: Constipation Last Admin: 03/23/18 06:23 Dose: 30 ml Melatonin (Melatonin) 5 mg PO QHS [facility] Last Admin: 03/22/18 21:27 Dose: 5 mg Meloxicam (Mobic) 7.5 mg PO DAILY [facility] Last Admin: 03/23/18 09:20 Dose: 7.5 mg Non-Formulary Medication (Pain Pump (Pt's Own) [Pain Pump (Pt's Own)]) 0 mg SC UD [facility] Last Admin: 03/22/18 19:43 Dose: Not Given Nutritional Formula (Maynor - Latimer Flavor) 1 packet PO BIDCM [facility] Last Admin: 03/23/18 09:20 Dose: 1 packet Nutritional Formula (Lactose Free) (Glucerna Shake) 120 ml PO 4X/DAY [facility] Last Admin: 03/23/18 09:31 Dose: 120 ml Nystatin (Mycostatin Powder) 1 applic TOPICAL BID [facility] PRN Reason: Protocol Last Admin: 03/23/18 09:21 Dose: 1 applicatio Ondansetron HCl (Zofran) 4 mg IV Q8H PRN PRN PRN Reason: Nausea Last Admin: 03/22/18 03:50 Dose: 4 mg Ondansetron HCl (Zofran) 8 mg PO TID PRN PRN PRN Reason: NAUSEA Oxycodone HCl (Oxyir) 5 mg PO Q4H PRN PRN PRN Reason: Moderate Pain (pain scale 4-5) Last Admin: 03/23/18 09:45 Dose: 5 mg Polyethylene Glycol (Miralax) 17 gm PO DAILY [facility] Last Admin: 03/23/18 09:21 Dose: 17 gm Potassium Chloride (K-Dur) 20 meq PO BID [facility] Last Admin: 03/23/18 09:21 Dose: 20 meq Promethazine HCl (Phenergan Tablet) 12.5 mg PO Q4H PRN PRN PRN Reason: NAUSEA Sodium Chloride () 5 - 30 ml IV UD PRN PRN Reason: SALINE FLUSH Last Admin: 03/22/18 03:50 Dose: 10 ml Tizanidine HCl (Zanaflex) 2 mg PO Q8H PRN PRN PRN Reason: MUSCLE SPASMS Last Admin: 03/23/18 06:49 Dose: 2 mg Tolterodine Tartrate (Detrol La) 4 mg PO DAILY [facility] Last Admin: 03/23/18 09:21 Dose: 4 mg Venlafaxine HCl (Effexor) 150 mg PO BID [facility] Last Admin: 03/23/18 09:20 Dose: 150 mg Medical Necessity - Tobacco Use Smoking Status: Never smoker Assessment/Plan All Active Problems Pressure ulcer of left buttock, stage 2 (Acute) Decubitus skin ulcer (Acute) Diabetes mellitus type 2, uncontrolled (Acute) Decubitus ulcer (Acute) Recurrent UTI (urinary tract infection) (Acute) Pulmonary embolism (Acute) Abnormal liver function (Acute) The patient is a 63 year old F with history of MS complicated with paraplegia, urinary incontinence with indwelling Marcus catheter, nonambulatory has sacral decubitus ulcer for about 6 weeks. Patient used to attend wound clinic every week for last 6 week but is slowly progressive worsening and she missed her last week wound clinic appointment due to transportation issue. She has home health care 3 times a day on weekdays and twice daily on weekends. She took Cipro for about 7-10 days for UTI. She denies fever, chills, chest pain, shortness of breath, headache. 1. Large necrotic infected decubitus ulcer stage IV over sacrococcygeal region, acute on chronic in nature with high suspicion of osteomyelitis: Patient is being admitted on [facility] floor. Patient had necrotizing sacral pressure ulcer stage IV with some nonviable muscle and suspected osteomyelitis. Excision of infected necrotizing sacral pressure sore stage IV with some nonviable muscle and partial ostectomy was performed on 03/21/2018 plastic surgeon and infectious disease consults reviewed and appreciated. Wound culture from ER shows Enterococcus faecalis, vancomycin susceptible. Currently on IV Zosyn. Intraoperative preliminary tissue culture is growing Enterococcus faecalis and the wound culture. 2. Mild hypotension probably secondary to intravascular volume depletion: IV normal saline ordered. Neurogenic bladder with history of recurrent UTI with indwelling Marcus catheter: Urine seems clear on the Marcus tube. Patient had completed antibiotic as mentioned above. Urologist Dr. Szymanski has been consulted for suprapubic catheterization 3. MS with paraplegia, chronic urine incontinence status post indwelling Marcus catheter: 4. Diabetes mellitus type 2: Accu-Chek before meals and at bedtime and cover with NovoLog sliding scale. Blood glucoses are well controlled. A1c 7.4. 5. Other multiple comorbidities include hypothyroidism, COPD, lifelong non-smoker, depression, history of pulmonary embolism in the past, lumbar spinal stenosis, physical deconditioning and debility: Multiple comorbidities complicates the present care and expect difficult and delay recovery. This was discussed with the patient. All medication reconciliation done including levothyroxine, muscle relaxant, continuation of Dilaudid GREY PERCHER pump and other medications. TSH and free T4 within normal limit DVT prophylaxis: On Lovenox 40 mg subcuT daily. Diagnostic evaluation and management plan explained to the patient. Patient was anxious about the time of discharge which is not clear at this point of time because tissue culture, identification of organism, and duration of antibiotic is still to be determined. She will need SNF at the time of discharge. Code Visit Inpatient E&M: 19679 [facility] L3
[2018-03-23 11:05] LABS: Bedside Glucose 248 mg/dL (70-110)
[2018-03-23 14:54] VITALS: BP 108/70; PULSE 62; RESP 18; TEMP 36.9; O2SAT 93
[2018-03-23] MEDS: Bisacodyl 10 MG Suppository RECTAL (15:08)
--- NOTE | 2018-03-23 16:08 | NURSING ---
Addendum entered by Jayla Mcfadden 03/23/18 16:10: patient reports that physician has discussed benefit of suprapubic cath and colostomy. She reported earlier this shift that she wants the suprapubic cath and that she is still unsure about the colostomy. Further education provided at this time regarding benefits of having colostomy. Pt reports that her home health aides are long chain beamer and that on occasion she may have a BM and wait awhile before they can help her. Original Note: attempted to give patient suppository at this time due to pt report of LBM 03/05/18. However, there was so much stool- about the circumference of a softball- that patient requested to have stool manually removed. Stool removed was xlg amount of hard brown stool. pt tolerated well.
[2018-03-23 18:06] LABS: Bedside Glucose 176 mg/dL (70-110)
--- NOTE | 2018-03-23 18:51 | PCM.PN.SRG ---
Patient Problems: Active and Suspected Problems Decubitus ulcer (Acute) Subjective: Postop #2 Patient is resting comfortably. - Physical Exam General: Alert, Oriented x3 HEENT: PERRLA, EOMI Oral: Moist Mucosa Neck: Supple Abdomen: Soft, Non-Distended Skin: Ulcer/ Wound - sacral wound is stable. VAC in place. Minimal drainage in the canister. Neurological: Cranial nerves II-XII grossly intact Psych/Mental Status: Normal Affect, Appropriate Vital Signs Temp Pulse Resp BP Pulse Ox 98.4 F 62 18 108/70 93 03/23/18 14:54 03/23/18 14:54 03/23/18 14:54 03/23/18 14:54 03/23/18 14:54 Oxygen Flow Rate (L/min) 2 Oxygen Delivery Method Room Air Weight: 219 lb Body Mass Index (BMI) 35.3 Finger Stick Blood Glucose 161 Intake and Output for Last 24 Hours 03/21/18 03/22/18 03/23/18 23:59 23:59 23:59 Intake Total 2176 / 2176 2607.1 / 2607.1 4244 / 4244 Output Total 3800 / 3800 2400 / 2400 2230 / 2230 Balance -1624 / -1624 207.1 / 207.1 2013 Microbiology Past 72 Hours 03/21/18 17:00 Gram Stain - Final Tissue Ulcer - Sacral Wound Culture - Preliminary Enterococcus faecalis 03/21/18 17:00 Gram Stain - Final Bone - Other Wound Culture - Preliminary No growth-Final to follow POC Glucose 03/23/18 03/23/18 03/23/18 17:56 10:53 06:51 POC Glucose 176 H 248 H 189 H 03/22/18 22:41 POC Glucose 166 H Pathology - pending. Medical Necessity - Tobacco Use Smoking Status: Never smoker Assessment/Plan All Active Problems Pressure ulcer of left buttock, stage 2 (Acute) Decubitus skin ulcer (Acute) Diabetes mellitus type 2, uncontrolled (Acute) Decubitus ulcer (Acute) Recurrent UTI (urinary tract infection) (Acute) Pulmonary embolism (Acute) Abnormal liver function (Acute) 1. Infected necrotizing sacral pressure sore, Stage IV. 2. Osteomyelitis. 3. MS. 4. Paraplegia. 5. Diabetes mellitus. 6. Urinary incontinence. 7. Stool incontinence. Continue Zosyn and Vancomcin. Operative culture showed Enterococcus faecalis. ED culture shows Enterococcus faecalis. With suspected osteomyelitis, will need terminal superintendent IV antibiotics. VAC in place. Minimal drainage in the canister. To be changed tomorrow and three times per week at 150 mmHg continuous suction. Prealbumin was 9.8. Encourage nutritional supplementation with protein to help the healing process. Due to its proximity to the anal opening, there is increased risk for stool contamination in the future. She states she has intermittent stool incontinence. In order to maximize healing, will need to divert the stool with a diverting colostomy. Even though she has an indwelling chavarria catheter, she states she leaks around the catheter. This urinary incontinence also increases risk for wound compromise and healing compromise. Will need to be evaluated for a possible suprapubic catheter placement. Due to the complexity of her medical care, will need to go to an ECF for a short term stay at discharge.
[2018-03-23] MEDS: MELATONIN 10 MG TABLET 5 MG PO (21:48)
[2018-03-23] MEDS: ALPRAZolam 0.5 MG Tablet PO (21:53)
[2018-03-23 21:56] VITALS: BP 136/77; PULSE 76; RESP 18; TEMP 36.6; O2SAT 96
[2018-03-23 22:11] LABS: Bedside Glucose 192 mg/dL (70-110)
--- NOTE | 2018-03-24 | UL_PTH ---
PATIENT: Dorota Bryan LOC: MS3 U#:[id number] AGE/SX: 63/F ROOM: [facility]311 RE03/20/[address]: Dr. Dedra Hartley MD : [id number] BED: 1 DIS: 03/28/2018 SPEC #: [id number] RECD: 03/24/18 10:11 STATUS: MICHELLE REQ #: [id number] MAGAN: 03/24/18 00:[address]: Raul Lynch DEPT: SURGICAL PATHOLOGY RECD BY: Alexandre Espinoza ENTERED: 03/24/18 10:13 SP TYPE: ULCER OTHR DR: MD Dr. Blake Garber DO Dr. Juan Miguel Proano, MD Dr. James A Slaby, MD Dr. Prakash Chand, MD Dr. Robert Leininger, MD [facility] Doctor Tissues: A - Sacral region B - Sacrum, NOS Procedures: Decalcification bone/plaque Special Stain Group I Surgery Specimen Level III AFB Stain (control) GMS Stain (control) Comments: @ Ordering doctor for DEC edited from to @ by JANINA at 03/24/18 1556 @ Ordering doctor for SUIII edited from to @ by JANINA at 03/24/18 1555 @ Submitting doctor edited from to @ by JANINA at 03/24/18 1556 HEADER OPERATION: Excision, pressure sore, partial ostectomy, sacral PRE-OP DIAGNOSIS: Infected/necrotic sacral decubitus ulcer TISSUE SUBMITTED: A ? Soft tissue sacral decubitus ulcer, B ? Bone sacrum MICROSCOPIC DIAGNOSIS A. Soft tissue sacral decubitus ulcer: Skin with underlying tissue with extensive ulceration and associated acute inflammation and abscess formation. Special stains for acid fast bacilli and fungi are negative for organisms; matched controls are appropriate. B. Bone sacrum: Pieces of bone, negative for acute osteomyelitis and with reactive changes. See comment. SJ:talia 03/27/18 COMMENT B. The specimen shows hematopoietic marrow with trilineage hematopoiesis. Case has been reviewed in consultation with Dr. Stubbs who concurs with the above diagnosis. IDC:AM MICROSCOPIC DESCRIPTION Slides are reviewed. GROSS DESCRIPTION A - Received in fixative is one container labeled with the patient's name and designated soft tissue sacral decubitus ulcer. The specimen consists of a piece of valenzuela-white skin with underlying tissue measuring 10 x 7 cm and up to 4 cm in thickness. The skin surface shows extensive ulceration. Also present in the container is a piece of adipose tissue measuring 5 x 4.5 x 2 cm. No mass lesion is identified. Overlock Collar Setter sections are submitted in two cassettes. B - Received in fixative is one container labeled with the patient's name and designated bone sacrum. The specimen consists of multiple fragments of bone that in aggregate measure 3 x 2.5 x 0.3 cm. The entire specimen is submitted in one cassette after decalcification. / SJ:rg 03/24/18 TC:2 [facility]: [id number] x2, [id number], [id number] x2
[2018-03-24 01:56] VITALS: BP 122/76; PULSE 73; RESP 16; TEMP 36.5; O2SAT 93
[2018-03-24] MEDS: Piperacil/Tazobactam 3.375 GM/50 ML ML IV ×3 (06:01→22:36)
[2018-03-24] MEDS: Levothyroxine 100 MCG Tablet PO (06:01)
[2018-03-24] MEDS: Insulin Lispro 100 UNIT/ML INSULN.PEN SQ ×3 (07:27→16:56)
[2018-03-24 07:31] LABS: Bedside Glucose 183 mg/dL (70-110)
--- NOTE | 2018-03-24 07:36 | PCM.CONS.U ---
Problem List (1) Incontinence of urine in female Status: Chronic Reason for Consult Date of Consultation: 03/24/18 Reason for Consultation: 63-year-old female with incontinence and decubitus ulcer History of Present Illness: The patient is a 63 year old female with a history of MS who has a nonhealing to cook decubitus ulcer, she has had a catheter in the last 6 months and required a 20 [place] catheter consult has been put in for possible suprapubic catheter to divert the urine. Past Medical History Past Medical History (Chronic Problems): Chronic Problems Incontinence of feces (Chronic) Incontinence of urine in female (Chronic) Osteomyelitis of sacrum (Chronic) Pressure ulcer of sacral region, stage 4 (Chronic) Pressure ulcer of coccygeal region, stage 3 (Chronic) Paraparesis of both lower limbs (Chronic) Chronic ulcer of right great toe with fat layer exposed (Chronic) Macrocytic anemia (Chronic) due to folate deficiency + fatty liver.....? hemolysis, haptoglobin is pending Hypothyroidism (Chronic) Anxiety (Chronic) Morbid obesity with BMI of 40.0-44.9, adult (Chronic) COPD (chronic obstructive pulmonary disease) (Chronic) life long non-smoker Multiple sclerosis (Chronic) Depression (Chronic) Failure to thrive in adult (Chronic) Physical deconditioning (Chronic) Spinal stenosis of lumbar region (Chronic) mild, diagnosed on MRI of the LS spine done 01/01/14 Folate deficiency anemia (Chronic) Fatty infiltration of liver (Chronic) Urine, incontinence, stress female (Chronic) Chronic retention of urine (Chronic) she has MS and also has spinal canal stenosis....has seen neurosurgery and is not a candidate for any surgical intervention. Physical debility (Chronic) she is sedentary lives alone and can no longer get herself to the BR, has lost arm strength....very deconditioned Allergies cyclobenzaprine [From Flexeril] Allergy (Verified 03/20/18 16:34) Other gabapentin Adverse Reaction (Verified 03/20/18 16:34) weakness in legs nifedipine [From Procardia] Adverse Reaction (Verified 03/20/18 16:34) weakness in legs pregabalin [From Lyrica] Adverse Reaction (Verified 03/20/18 16:34) weakness in legs Home Medications: Ambulatory Orders Medication Instructions Recorded Lactobacillus Acidophilus 1 capsule PO DAILY 01/22/18 [Acidophilus] ALPRAZolam [Xanax] 0.5 mg PO Q6H PRN PRN 03/20/18 Diltiazem CD [Cardizem CD] 240 mg PO DAILY 03/20/18 Hydrochlorothiazide [Hctz] 25 mg PO DAILY 03/20/18 Levothyroxine Sodium [Synthroid] 100 mcg PO DAILY 03/20/18 Melatonin 5 mg PO QHS 03/20/18 Meloxicam [Meloxicam] 7.5 mg PO BID 03/20/18 Metformin HCl [Glucophage] 500 mg PO BID 03/20/18 Nitrofurantoin Macrocrystal 100 mg PO MOWEFR 03/20/18 [Nitrofurantoin] Nystatin Powder [Mycostatin Powder] 1 applic TOPICAL BID 03/20/18 Ondansetron [Zofran] 8 mg PO TID PRN PRN 03/20/18 Pain Pump (Pt's Own) 0 mg SC UD 03/20/18 Potassium Chloride [Klor-Con M20] 20 meq PO BID 03/20/18 Sennosides/Docusate Sodium [Senna 1 - 8 tab PO DAILY 03/20/18 Plus Tablet] Tizanidine HCl [Tizanidine HCl] 2 mg PO 4X/DAY PRN PRN 03/20/18 Tolterodine Tartrate [Detrol] 2 mg PO BID 03/20/18 Venlafaxine HCl [Effexor] 150 mg PO BID 03/20/18 proMETHazine tablet [Phenergan 12.5 mg PO Q4H PRN PRN 03/20/18 tablet] Surgical History: noncontributory, - - tubal ligation, elective , ventral hernia repair Psychiatric History: No pertinent psych hx BUSINESS SUPPORT ASSOCIATE History: No pertinent BUSINESS SUPPORT ASSOCIATE history Smoking Status: Never smoker - *Family History Maternal History Items: Cancer - Her mother of lung cancer and was a smoker Paternal History Items: Diabetes, - - Father had posttraumatic stress disorder related from being in the armed forces. He also suffered from alcoholism Review of Systems Constitutional: Denies: Chills, Fever, Weight Change HEENT: Denies: Head Aches, Sinus Congestion, Sinus Drainage Cardiovascular: Denies: Chest Pain, Palpitations Respiratory: Denies: Cough, Shortness of breath at rest, Sputum production Gastrointestinal: Denies: Abdominal Pain, Nausea, Vomiting Genitourinary: Reports: Incontinence. Denies: Dysuria Musculoskeletal: Denies: Joint Pain, Joint Tenderness Skin: Denies: Rash, Wounds Neurological: Denies: Numbness, Tingling, Focal weakness Psychiatric: Denies: Anxiety, Depression, Homicidal Ideations, Suicidal Ideations Hematologic/ Lymphatic: Denies: Easy Bruising, Easy Bleeding Physical Exam - Physical Exam Vital Signs Temp 97.7 F L 03/24/18 01:56 Pulse 73 03/24/18 01:56 Resp 16 03/24/18 01:56 BP 122/76 H 03/24/18 01:56 Pulse Ox 93 03/24/18 01:56 Intake & Output 03/22/18 03/23/18 03/24/18 23:59 23:59 23:59 Intake Total 2607.1 / 2607.1 5342 / 5342 1420 / 1420 Output Total 2400 / 2400 2630 / 2630 2475 / 2475 Balance 207.1 / 207.1 2712 / 2712 -1055 / -1055 Intake: Oral 1880 / 1880 2660 / 2660 1300 / 1300 IV fluid/meds 727.1 / 727.1 2682 / 2682 120 / 120 Output: Urine 2400 / 2400 2630 / 2630 2475 / 2475 General: Alert, Oriented x3 HEENT: Atraumatic Oral: Moist Mucosa Neck: Supple Lungs: Normal air movement Cardiovascular: Regular rate Abdomen: Soft, Obese Rectal: Exam deferred Microbiology Past 72 Hours 03/21/18 17:00 Gram Stain - Final Tissue Ulcer - Sacral Wound Culture - Preliminary Enterococcus faecalis 03/21/18 17:00 Gram Stain - Final Bone - Other Wound Culture - Preliminary No growth-Final to follow Assessment/Plan All Active Problems Skin necrosis (Acute) Necrotizing soft tissue infection (Acute) Pressure ulcer of left buttock, stage 2 (Acute) Decubitus skin ulcer (Acute) Diabetes mellitus type 2, uncontrolled (Acute) Decubitus ulcer (Acute) Recurrent UTI (urinary tract infection) (Acute) Pulmonary embolism (Acute) Abnormal liver function (Acute) 63-year-old female with multiple medical problems she has a decubitus ulcer is nonhealing she is can undergo a colostomy diverting this coming Saturday if it is okay with my schedule possible to place a suprapubic catheter the same time of this procedure on Saturday.
[2018-03-24 08:00] VITALS: BP 149/88; PULSE 84; RESP 18; TEMP 36.9; O2SAT 96
[2018-03-24] MEDS: Enoxaparin 40 MG/0.4 ML Syringe SC (08:22)
[2018-03-24] MEDS: Nystatin Powder 15gm Bottle 1 APPLIC TOPICAL ×2 (08:22→22:37)
[2018-03-24] MEDS: Polyethylene Glycol 3350 17 GM PACKET PO (08:22)
[2018-03-24] MEDS: dilTIAZem CD 240 MG Capsule PO (08:23)
[2018-03-24] MEDS: Tolterodine Tartrate 4 MG CAP.SA PO (08:23)
[2018-03-24] MEDS: Famotidine 20 MG Tablet PO ×2 (08:23→22:37)
--- NOTE | 2018-03-24 08:58 | PCM.CONS.GEN ---
Problem List (1) Pressure ulcer of sacral region, stage 4 Status: Chronic (2) Multiple sclerosis Status: Chronic Reason for Consult Date of Consultation: 03/24/18 History of Present Illness: The patient is a 63 year old F who had a recent debridement of sacral ulcer by plastic surgery. I was consulted for a diverting colostomy. The patient is severely debilitated by MS. She has no use of her legs. She has a chronic indwelling Marcus catheter and wears depends for fecal management. She is not complaining of any abdominal pain at this time. She does have a history of umbilical hernia repair with mesh. She has had no other abdominal surgeries. Past Medical History Past Medical History (Chronic Problems): Chronic Problems Incontinence of feces (Chronic) Incontinence of urine in female (Chronic) Osteomyelitis of sacrum (Chronic) Pressure ulcer of sacral region, stage 4 (Chronic) Pressure ulcer of coccygeal region, stage 3 (Chronic) Paraparesis of both lower limbs (Chronic) Chronic ulcer of right great toe with fat layer exposed (Chronic) Macrocytic anemia (Chronic) due to folate deficiency + fatty liver.....? hemolysis, haptoglobin is pending Hypothyroidism (Chronic) Anxiety (Chronic) Morbid obesity with BMI of 40.0-44.9, adult (Chronic) COPD (chronic obstructive pulmonary disease) (Chronic) life long non-smoker Multiple sclerosis (Chronic) Depression (Chronic) Failure to thrive in adult (Chronic) Physical deconditioning (Chronic) Spinal stenosis of lumbar region (Chronic) mild, diagnosed on MRI of the LS spine done 01/01/14 Folate deficiency anemia (Chronic) Fatty infiltration of liver (Chronic) Urine, incontinence, stress female (Chronic) Chronic retention of urine (Chronic) she has MS and also has spinal canal stenosis....has seen neurosurgery and is not a candidate for any surgical intervention. Physical debility (Chronic) she is sedentary lives alone and can no longer get herself to the BR, has lost arm strength....very deconditioned Allergies cyclobenzaprine [From Flexeril] Allergy (Verified 03/20/18 16:34) Other gabapentin Adverse Reaction (Verified 03/20/18 16:34) weakness in legs nifedipine [From Procardia] Adverse Reaction (Verified 03/20/18 16:34) weakness in legs pregabalin [From Lyrica] Adverse Reaction (Verified 03/20/18 16:34) weakness in legs Home Medications: Ambulatory Orders Medication Instructions Recorded Lactobacillus Acidophilus 1 capsule PO DAILY 01/22/18 [Acidophilus] ALPRAZolam [Xanax] 0.5 mg PO Q6H PRN PRN 03/20/18 Diltiazem CD [Cardizem CD] 240 mg PO DAILY 03/20/18 Hydrochlorothiazide [Hctz] 25 mg PO DAILY 03/20/18 Levothyroxine Sodium [Synthroid] 100 mcg PO DAILY 03/20/18 Melatonin 5 mg PO QHS 03/20/18 Meloxicam [Meloxicam] 7.5 mg PO BID 03/20/18 Metformin HCl [Glucophage] 500 mg PO BID 03/20/18 Nitrofurantoin Macrocrystal 100 mg PO MOWEFR 03/20/18 [Nitrofurantoin] Nystatin Powder [Mycostatin Powder] 1 applic TOPICAL BID 03/20/18 Ondansetron [Zofran] 8 mg PO TID PRN PRN 03/20/18 Pain Pump (Pt's Own) 0 mg SC UD 03/20/18 Potassium Chloride [Klor-Con M20] 20 meq PO BID 03/20/18 Sennosides/Docusate Sodium [Senna 1 - 8 tab PO DAILY 03/20/18 Plus Tablet] Tizanidine HCl [Tizanidine HCl] 2 mg PO 4X/DAY PRN PRN 03/20/18 Tolterodine Tartrate [Detrol] 2 mg PO BID 03/20/18 Venlafaxine HCl [Effexor] 150 mg PO BID 03/20/18 proMETHazine tablet [Phenergan 12.5 mg PO Q4H PRN PRN 03/20/18 tablet] Surgical History: - - tubal ligation, elective , ventral hernia repair Psychiatric History: No pertinent psych hx 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 He also suffered from alcoholism Review of Systems Constitutional: Denies: Anorexia, Chills, Fever HEENT: Denies: Difficulty Swallowing Cardiovascular: Denies: Chest Pain Respiratory: Denies: Shortness of Breath Gastrointestinal: Reports: Constipation. Denies: Abdominal Pain, Nausea, Vomiting Genitourinary: Reports: Incontinence Musculoskeletal: Reports: - - Severe MS with inability to use lower extremities Patient Problems: Active and Suspected Problems Decubitus ulcer (Acute) - Physical Exam General: Alert, Oriented x3, Cooperative, No apparent distress HEENT: Atraumatic Lungs: Normal air movement Cardiovascular: Regular rate, Regular Rhythm Abdomen: Soft, Non Tender, Non-Distended, - - She does have a pain pump in the left lower quadrant Musculoskeletal: No Muscle Wasting Neurological: Cranial nerves II-XII grossly intact Psych/Mental Status: Normal Affect Vital Signs Temp Pulse Resp BP Pulse Ox 98.5 F 84 18 149/88 H 96 03/24/18 08:00 03/24/18 08:00 03/24/18 08:00 03/24/18 08:00 03/24/18 08:00 Oxygen Flow Rate (L/min) 2 Oxygen Delivery Method Room Air Weight: 219 lb Body Mass Index (BMI) 35.3 Finger Stick Blood Glucose 161 Intake and Output for Last 24 Hours 03/22/18 03/23/18 03/24/18 23:59 23:59 23:59 Intake Total 2607.1 / 2607.1 5342 / 5342 1420 / 1420 Output Total 2400 / 2400 2630 / 2630 2475 / 2475 Balance 207.1 / 207.1 2712 / 2712 -1055 / -1055 Microbiology Past 72 Hours 03/21/18 17:00 Gram Stain - Final Tissue Ulcer - Sacral Wound Culture - Preliminary Enterococcus faecalis 03/21/18 17:00 Gram Stain - Final Bone - Other Wound Culture - Preliminary No growth-Final to follow Laboratory Tests Past 24 Hrs 03/24/18 08:40 Vancomycin Trough Pending POC Glucose 03/24/18 03/23/18 03/23/18 07:25 21:49 17:56 POC Glucose 183 H 192 H 176 H 03/23/18 10:53 POC Glucose 248 H Assessment/Plan All Active Problems Skin necrosis (Acute) Necrotizing soft tissue infection (Acute) Pressure ulcer of left buttock, stage 2 (Acute) Decubitus skin ulcer (Acute) Diabetes mellitus type 2, uncontrolled (Acute) Decubitus ulcer (Acute) Recurrent UTI (urinary tract infection) (Acute) Pulmonary embolism (Acute) Abnormal liver function (Acute) 63-year-old female sacral ulcer and debility from MS 1. I explained the procedure of diverting colostomy. I told her that I would likely create an end colostomy for her is she would likely not be reversing it. I explained that this would likely actually improve her quality of life as she would be able to take care of her own fecal matter and this would decrease the risk of infected sacral ulcers in the future. The patient would also like to discuss suprapubic catheter placement with urology. 2. I discussed the procedure in detail. I would be attempting a laparoscopic sigmoid end colostomy. I discussed the risks including but not limited to bleeding, infection, perforation of the bowel, injury to surrounding bowel, leak of the staple line. I also discussed the possibility of having to convert to an open procedure. The patient is understanding and would like to proceed with end colostomy. 3. I will need to have the patient's pain pump relocated as it is right over the site where I would put the colostomy. 4. I will have the wound nurse Douglas the colostomy site tomorrow and plan for mag citrate today and tomorrow and a fleets enema Saturday morning and surgery Saturday afternoon in concordance with Dr. Szymanski who will place a suprapubic catheter the same time. 5. The patient to have a large fecal burden when they tried to give her a suppository yesterday. I will start a gentle bowel prep today and tomorrow. Rafael Starr MD Pager: [facility] [address] [place] [address] [address] [place] [address] Office:
[2018-03-24 09:23] LABS: Vancomycin, Trough Level 22.7 ug/mL (5.0-15.0)
[2018-03-24] MEDS: Meloxicam 7.5 MG Tablet PO (09:35)
[2018-03-24] MEDS: tiZANidine HCl 2 MG Tablet PO ×2 (09:35→22:36)
--- NOTE | 2018-03-24 11:01 | CASEMGMT ---
Addendum entered by Agnie Rey 03/24/18 11:29: Correction: Pt has [facility] for Palliative Services. LINDA placed a call to [facility] and spoke with Jackelyn who states pt doesn't currently have Passport Services and has not been assessed. Original Note: Addendum entered by Angie Rey 03/24/18 11:23: [facility] number [phone] Original Note: Addendum entered by Angie Rey 03/24/18 11:06: BRITTANY Raya updated this worker that Ashleigh at [facility] would like an update on pt. BRITTANY Raya states that she updated Ashleigh about pt's surgery scheduled on Saturday. LINDA placed a call to [facility] and left a message for Ashleigh and updated her that pt is agreeable to TCU at discharge with a possible discharge this week pending insurance approval and being medically cleared. LINDA provided Ashleigh with direct number for this SW. Original Note: Social Work Note Pt is scheduled to get diverting colostomy and suprapubic catheter on Saturday. LINDA updated Luisa in TCU of this. Plan: TCU pending pre-cert Angie Rey RN PARALEGAL, WING COVERER
--- NOTE | 2018-03-24 11:19 | PCM.PN.HOSP ---
Patient Problems: Active and Suspected Problems Decubitus ulcer (Acute) Subjective: Very concerned about her Dilaudid to being in the needle with the surgery and if they have the appropriate resources to supply those for surgery. Vitals/I&O's: Vital Signs Temp Pulse Resp BP Pulse Ox 36.9 C 84 18 149/88 H 96 03/24/18 08:00 03/24/18 08:00 03/24/18 08:00 03/24/18 08:00 03/24/18 08:00 Oxygen Flow Rate (L/min) 2 Oxygen Delivery Method Room Air Weight: 99.337 kg Body Mass Index (BMI) 35.3 Finger Stick Blood Glucose 161 Intake and Output for Last 24 Hours 03/22/18 03/23/18 03/24/18 23:59 23:59 23:59 Intake Total 2607.1 / 2607.1 5342 / 5342 1420 / 1420 Output Total 2400 / 2400 2630 / 2630 2475 / 2475 Balance 207.1 / 207.1 2712 / 2712 -1055 / -1055 General: Alert, No apparent distress HEENT: Atraumatic Oral: Moist Mucosa, No Gingival or Mucosal Lesions/ Ulcerations Neck: No Nodes, Thyroid Normal Size and Texture Lungs: Clear to auscultation, Normal air movement, No rhonchi, No wheeze Cardiovascular: Regular rate, Regular Rhythm, Normal S1, Normal S2, No murmurs Abdomen: Bowel Sounds Present, Soft, Non Tender, Non-Distended, No Hepato-splenomegaly, Obese Skin: - - The Dilaudid subcutaneous injection site is clean and intact Microbiology Past 72 Hours 03/21/18 17:00 Tissue Ulcer - Sacral Gram Stain - Final 03/21/18 17:00 Tissue Ulcer - Sacral Wound Culture - Preliminary Enterococcus faecalis Gram positive radha 03/21/18 17:00 Tissue Ulcer - Sacral Anaerobic Culture - Preliminary Checking for anaerobes, further studies to follow. 03/21/18 17:00 Bone - Other Gram Stain - Final 03/21/18 17:00 Bone - Other Wound Culture - Final No growth aerobically. 03/21/18 17:00 Bone - Other Anaerobic Culture - Preliminary No growth in 48 hours. Laboratory Results 03/23/18 17:56: POC Glucose 176 H 03/23/18 21:49: POC Glucose 192 H 03/24/18 07:25: POC Glucose 183 H 03/24/18 08:40: Vancomycin Trough 22.7 H Current Medications Acetaminophen (Tylenol) 650 mg PO Q6H PRN PRN PRN Reason: Mild Pain (scale 0-3)/T>100.7 Last Admin: 03/23/18 06:23 Dose: 650 mg Al Hydroxide/Mg Hydroxide (Mylanta Ii) 30 ml PO Q6H PRN PRN PRN Reason: Gastric burning Alprazolam (Xanax) 0.5 mg PO Q6H PRN PRN PRN Reason: ANXIETY Last Admin: 03/23/18 21:53 Dose: 0.5 mg Bisacodyl (Dulcolax) 10 mg RECTAL DAILY PRN PRN PRN Reason: Constipation Last Admin: 03/23/18 15:08 Dose: 10 mg Dextrose (D50w Syringe) 0 gm IV X1 PRN; Protocol PRN Reason: Hypoglycemia Diltiazem HCl (Cardizem Cd) 240 mg PO DAILY [facility] Last Admin: 03/24/18 08:23 Dose: 240 mg Docusate Sodium (Colace) 200 mg PO BID PRN PRN PRN Reason: Constipation Last Admin: 03/23/18 04:03 Dose: 200 mg Enoxaparin Sodium (Lovenox) 40 mg SC DAILY@1000 [facility] Last Admin: 03/24/18 08:22 Dose: 40 mg Famotidine (Pepcid) 20 mg PO BID [facility] Last Admin: 03/24/18 08:23 Dose: 20 mg Glucagon () 1 mg IM .X1 PRN PRN Reason: Hypoglycemia Piperacillin Sod/Tazobactam Sod (Zosyn) 3.375 gm in 50 mls @ 12.5 mls/hr IV Q8 [facility] Last Admin: 03/24/18 06:01 Dose: 12.5 mls/hr Insulin Human Lispro (Humalog Kwikpen (Bkc)) 0 unit SQ ACHS [facility] PRN Reason: Protocol Last Admin: 03/24/18 07:27 Dose: 1 u Lactobacillus Acidophilus (Acidophilus) 1 tablet PO DAILY [facility] Last Admin: 03/24/18 08:22 Dose: 1 tablet Levothyroxine Sodium (Synthroid) 100 mcg PO DAILY@0600 [facility] Last Admin: 03/24/18 06:01 Dose: 100 mcg Magnesium Citrate (Citrate Of Magnesia) 300 ml PO X1 ONE Stop: 03/25/18 13:01 Magnesium Hydroxide (Milk Of Magnesia) 30 ml PO DAILY PRN PRN PRN Reason: Constipation Last Admin: 03/23/18 06:23 Dose: 30 ml Melatonin (Melatonin) 5 mg PO QHS [facility] Last Admin: 03/23/18 21:48 Dose: 5 mg Meloxicam (Mobic) 7.5 mg PO DAILY [facility] Last Admin: 03/24/18 09:35 Dose: 7.5 mg Non-Formulary Medication (Pain Pump (Pt's Own) [Pain Pump (Pt's Own)]) 0 mg SC UD [facility] Last Admin: 03/23/18 14:51 Dose: Not Given Nutritional Formula (Maynor - Burt Flavor) [facility] Last Admin: 03/24/18 08:22 Dose: 1 packet Nutritional Formula (Lactose Free) (Glucerna Shake) 120 ml PO 4X/DAY [facility] Last Admin: 03/24/18 08:28 Dose: Not Given Nystatin (Mycostatin Powder) 1 applic TOPICAL BID [facility] PRN Reason: Protocol Last Admin: 03/24/18 08:22 Dose: 1 applicatio Ondansetron HCl (Zofran) 4 mg IV Q8H PRN PRN PRN Reason: Nausea Last Admin: 03/22/18 03:50 Dose: 4 mg Ondansetron HCl (Zofran) 8 mg PO TID PRN PRN PRN Reason: NAUSEA Oxycodone HCl (Oxyir) 5 mg PO Q4H PRN PRN PRN Reason: Moderate Pain (pain scale 4-5) Last Admin: 03/23/18 15:34 Dose: 5 mg Polyethylene Glycol (Miralax) 17 gm PO DAILY [facility] Last Admin: 03/24/18 08:22 Dose: 17 gm Potassium Chloride (K-Dur) 20 meq PO BID [facility] Last Admin: 03/24/18 08:23 Dose: 20 meq Promethazine HCl (Phenergan Tablet) 12.5 mg PO Q4H PRN PRN PRN Reason: NAUSEA Sodium Biphosphate/Sodium Phosphate (Fleet Enema) 1 bottle RECTAL X1 ONE Stop: 03/26/18 08:57 Sodium Chloride () 5 - 30 ml IV UD PRN PRN Reason: SALINE FLUSH Last Admin: 03/22/18 03:50 Dose: 10 ml Tizanidine HCl (Zanaflex) 2 mg PO Q8H PRN PRN PRN Reason: MUSCLE SPASMS Last Admin: 03/24/18 09:35 Dose: 2 mg Tolterodine Tartrate (Detrol La) 4 mg PO DAILY [facility] Last Admin: 03/24/18 08:23 Dose: 4 mg Venlafaxine HCl (Effexor) 150 mg PO BID [facility] Last Admin: 03/24/18 08:22 Dose: 150 mg Medical Necessity - Tobacco Use Smoking Status: Never smoker Assessment/Plan All Active Problems Skin necrosis (Acute) Necrotizing soft tissue infection (Acute) Pressure ulcer of left buttock, stage 2 (Acute) Decubitus skin ulcer (Acute) Diabetes mellitus type 2, uncontrolled (Acute) Decubitus ulcer (Acute) Recurrent UTI (urinary tract infection) (Acute) Pulmonary embolism (Acute) Abnormal liver function (Acute) 1. Infected stage IV decubitus ulcer Status post debridement on the Culture positive for enterococcus as well as gram-positive radha On Zosyn Plan is for diverting colostomy and suprapubic catheter on the 2. Leaking Marcus catheter Plan is for suprapubic catheter placement on the 3. Chronic pain Patient very concerned about her Dilaudid and how she will get a refill on her Dilaudid bag for her pump She states that she gets Dilaudid continuously and then as needed, but does not know any of the dosings She states that she is on Dilaudid for chronic pain and the chronic pain is due to her MS. Patient informed that chronic pain is not a typical reaction with multiple sclerosis Patient informed me that she on this pump when she was enrolled in hospice but apparently graduated for hospice and is currently receiving it for palliative needs Patient's palliative service is through [facility]. I did review the patient's OARRS and she has been receiving 10 mg/ml ampules #10 weekly through [facility] I did call that hospice agency and was on the phone with his nurse practitioner, Ashleigh. Unfortunately she had a bad connection and I was not able to discuss with her in detail. I called back and left my number for either Ashleigh or breath to call me back to further discuss the patient's case I did tell the patient that I was very concerned that she is on this Dilaudid and that is her primary concern with me just walking in the door despite that not being the reason that she is admitted. I told the patient that I was very concerned trigger the patient is to go to a [facility] facility that the hospitalist service would have to be the one to prescribe her this Dilaudid and the concern is with the potency of the medication of potential for overdose and additionally, which I did not find to her in great detail, was the legitimacy of her continuing to need the Dilaudid. 4. Multiple sclerosis and paraplegia Complicating care 5. Diabetes mellitus type 2 fair control on SSI resume metformin 6. DVT proph: LMWH Greater than 45 minutes of which time was discussed the patient about her pain medications and the indications for her pain medications. Additionally time was spent touch base with patient's hospice/palliative care agency. Code Visit Inpatient E&M: 14452 Subs Hosp L3
[2018-03-24] MEDS: Magnesium Citrate 300 ML 150 ML PO (11:22)
--- NOTE | 2018-03-24 11:30 | PN_ITS ---
Patient Problems: Active and Suspected Problems Decubitus ulcer (Acute) Subjective: Very concerned about her Dilaudid to being in the needle with the surgery and if they have the appropriate resources to supply those for surgery. Vitals/I&O's: Vital Signs Temp Pulse Resp BP Pulse Ox 36.9 C 84 18 149/88 H 96 03/24/18 08:00 03/24/18 08:00 03/24/18 08:00 03/24/18 08:00 03/24/18 08:00 Oxygen Flow Rate (L/min) 2 Oxygen Delivery Method Room Air Weight: 99.337 kg Body Mass Index (BMI) 35.3 Finger Stick Blood Glucose 161 Intake and Output for Last 24 Hours 03/22/18 03/23/18 03/24/18 23:59 23:59 23:59 Intake Total 2607.1 / 2607.1 5342 / 5342 1420 / 1420 Output Total 2400 / 2400 2630 / 2630 2475 / 2475 Balance 207.1 / 207.1 2712 / 2712 -1055 / -1055 General: Alert, No apparent distress HEENT: Atraumatic Oral: Moist Mucosa, No Gingival or Mucosal Lesions/ Ulcerations Neck: No Nodes, Thyroid Normal Size and Texture Lungs: Clear to auscultation, Normal air movement, No rhonchi, No wheeze Cardiovascular: Regular rate, Regular Rhythm, Normal S1, Normal S2, No murmurs Abdomen: Bowel Sounds Present, Soft, Non Tender, Non-Distended, No Hepato- splenomegaly, Obese Skin: - - The Dilaudid subcutaneous injection site is clean and intact Microbiology Past 72 Hours 03/21/18 17:00 Tissue Ulcer - Sacral Gram Stain - Final 03/21/18 17:00 Tissue Ulcer - Sacral Wound Culture - Preliminary Enterococcus faecalis Gram positive radha 03/21/18 17:00 Tissue Ulcer - Sacral Anaerobic Culture - Preliminary Checking for anaerobes, further studies to follow. 03/21/18 17:00 Bone - Other Gram Stain - Final 03/21/18 17:00 Bone - Other Wound Culture - Final No growth aerobically. 03/21/18 17:00 Bone - Other Anaerobic Culture - Preliminary No growth in 48 hours. Laboratory Results 03/23/18 17:56: POC Glucose 176 H 03/23/18 21:49: POC Glucose 192 H 03/24/18 07:25: POC Glucose 183 H 03/24/18 08:40: Vancomycin Trough 22.7 H Current Medications Acetaminophen (Tylenol) 650 mg PO Q6H PRN PRN PRN Reason: Mild Pain (scale 0-3)/T>100.7 Last Admin: 03/23/18 06:23 Dose: 650 mg Al Hydroxide/Mg Hydroxide (Mylanta Ii) 30 ml PO Q6H PRN PRN PRN Reason: Gastric burning Alprazolam (Xanax) 0.5 mg PO Q6H PRN PRN PRN Reason: ANXIETY Last Admin: 03/23/18 21:53 Dose: 0.5 mg Bisacodyl (Dulcolax) 10 mg RECTAL DAILY PRN PRN PRN Reason: Constipation Last Admin: 03/23/18 15:08 Dose: 10 mg Dextrose (D50w Syringe) 0 gm IV X1 PRN; Protocol PRN Reason: Hypoglycemia Diltiazem HCl (Cardizem Cd) 240 mg PO DAILY [facility] Last Admin: 03/24/18 08:23 Dose: 240 mg Docusate Sodium (Colace) 200 mg PO BID PRN PRN PRN Reason: Constipation Last Admin: 03/23/18 04:03 Dose: 200 mg Enoxaparin Sodium (Lovenox) 40 mg SC DAILY@1000 [facility] Last Admin: 03/24/18 08:22 Dose: 40 mg Famotidine (Pepcid) 20 mg PO BID [facility] Last Admin: 03/24/18 08:23 Dose: 20 mg Glucagon () 1 mg IM .X1 PRN PRN Reason: Hypoglycemia Piperacillin Sod/Tazobactam Sod (Zosyn) 3.375 gm in 50 mls @ 12.5 mls/hr IV Q8 [facility] Last Admin: 03/24/18 06:01 Dose: 12.5 mls/hr Insulin Human Lispro (Humalog Kwikpen (Bkc)) 0 unit SQ ACHS [facility] PRN Reason: Protocol Last Admin: 03/24/18 07:27 Dose: 1 u Lactobacillus Acidophilus (Acidophilus) 1 tablet PO DAILY [facility] Last Admin: 03/24/18 08:22 Dose: 1 tablet Levothyroxine Sodium (Synthroid) 100 mcg PO DAILY@0600 [facility] Last Admin: 03/24/18 06:01 Dose: 100 mcg Magnesium Citrate (Citrate Of Magnesia) 300 ml PO X1 ONE Stop: 03/25/18 13:01 Magnesium Hydroxide (Milk Of Magnesia) 30 ml PO DAILY PRN PRN PRN Reason: Constipation Last Admin: 03/23/18 06:23 Dose: 30 ml Melatonin (Melatonin) 5 mg PO QHS [facility] Last Admin: 03/23/18 21:48 Dose: 5 mg Meloxicam (Mobic) 7.5 mg PO DAILY [facility] Last Admin: 03/24/18 09:35 Dose: 7.5 mg Non-Formulary Medication (Pain Pump (Pt's Own) [Pain Pump (Pt's Own)]) 0 mg SC UD [facility] Last Admin: 03/23/18 14:51 Dose: Not Given Nutritional Formula (Maynor - Sanders Flavor) [facility] Last Admin: 03/24/18 08:22 Dose: 1 packet Nutritional Formula (Lactose Free) (Glucerna Shake) 120 ml PO 4X/DAY [facility] Last Admin: 03/24/18 08:28 Dose: Not Given Nystatin (Mycostatin Powder) 1 applic TOPICAL BID [facility] PRN Reason: Protocol Last Admin: 03/24/18 08:22 Dose: 1 applicatio Ondansetron HCl (Zofran) 4 mg IV Q8H PRN PRN PRN Reason: Nausea Last Admin: 03/22/18 03:50 Dose: 4 mg Ondansetron HCl (Zofran) 8 mg PO TID PRN PRN PRN Reason: NAUSEA Oxycodone HCl (Oxyir) 5 mg PO Q4H PRN PRN PRN Reason: Moderate Pain (pain scale 4-5) Last Admin: 03/23/18 15:34 Dose: 5 mg Polyethylene Glycol (Miralax) 17 gm PO DAILY [facility] Last Admin: 03/24/18 08:22 Dose: 17 gm Potassium Chloride (K-Dur) 20 meq PO BID [facility] Last Admin: 03/24/18 08:23 Dose: 20 meq Promethazine HCl (Phenergan Tablet) 12.5 mg PO Q4H PRN PRN PRN Reason: NAUSEA Sodium Biphosphate/Sodium Phosphate (Fleet Enema) 1 bottle RECTAL X1 ONE Stop: 03/26/18 08:57 Sodium Chloride () 5 - 30 ml IV UD PRN PRN Reason: SALINE FLUSH Last Admin: 03/22/18 03:50 Dose: 10 ml Tizanidine HCl (Zanaflex) 2 mg PO Q8H PRN PRN PRN Reason: MUSCLE SPASMS Last Admin: 03/24/18 09:35 Dose: 2 mg Tolterodine Tartrate (Detrol La) 4 mg PO DAILY [facility] Last Admin: 03/24/18 08:23 Dose: 4 mg Venlafaxine HCl (Effexor) 150 mg PO BID [facility] Last Admin: 03/24/18 08:22 Dose: 150 mg Medical Necessity - Tobacco Use Smoking Status: Never smoker Assessment/Plan All Active Problems Skin necrosis (Acute) Necrotizing soft tissue infection (Acute) Pressure ulcer of left buttock, stage 2 (Acute) Decubitus skin ulcer (Acute) Diabetes mellitus type 2, uncontrolled (Acute) Decubitus ulcer (Acute) Recurrent UTI (urinary tract infection) (Acute) Pulmonary embolism (Acute) Abnormal liver function (Acute) 1. Infected stage IV decubitus ulcer * Status post debridement on the * Culture positive for enterococcus as well as gram-positive radha * On Zosyn * Plan is for diverting colostomy and suprapubic catheter on the 2. Leaking Marcus catheter * Plan is for suprapubic catheter placement on the 3. Chronic pain * Patient very concerned about her Dilaudid and how she will get a refill on her Dilaudid bag for her pump * She states that she gets Dilaudid continuously and then as needed, but does not know any of the dosings * She states that she is on Dilaudid for chronic pain and the chronic pain is due to her MS. * Patient informed that chronic pain is not a typical reaction with multiple sclerosis * Patient informed me that she on this pump when she was enrolled in hospice but apparently graduated for hospice and is currently receiving it for palliative needs * Patient's palliative service is through [facility]. * I did review the patient's OARRS and she has been receiving 10 mg/ml ampules # 10 weekly through [facility] * I did call that hospice agency and was on the phone with his nurse practitioner, Ashleigh. Unfortunately she had a bad connection and I was not able to discuss with her in detail. I called back and left my number for either Ashleigh or breath to call me back to further discuss the patient's case * I did tell the patient that I was very concerned that she is on this Dilaudid and that is her primary concern with me just walking in the door despite that not being the reason that she is admitted. I told the patient that I was very concerned trigger the patient is to go to a long term facility that the hospitalist service would have to be the one to prescribe her this Dilaudid and the concern is with the potency of the medication of potential for overdose and additionally, which I did not find to her in great detail, was the legitimacy of her continuing to need the Dilaudid. 4. Multiple sclerosis and paraplegia * Complicating care 5. Diabetes mellitus type 2 * fair control * on SSI * resume metformin 6. DVT proph: LMWH Greater than 45 minutes of which time was discussed the patient about her pain medications and the indications for her pain medications. Additionally time was spent touch base with patient's hospice/palliative care agency. Code Visit Inpatient E&M: 92577 Subs Hosp L3
--- NOTE | 2018-03-24 11:35 | PCM.PN.ID ---
Patient Problems: Active and Suspected Problems Decubitus ulcer (Acute) Subjective: Feeling ok, no fever, no n/v/d. - Physical Exam General: Alert, Cooperative, No apparent distress Lungs: Clear to auscultation, Normal air movement Cardiovascular: Regular rate, Regular Rhythm Abdomen: Soft, Non Tender, Non-Distended Skin: Ulcer/ Wound - bandaged Vital Signs Temp Pulse Resp BP Pulse Ox 98.5 F 84 18 149/88 H 96 03/24/18 08:00 03/24/18 08:00 03/24/18 08:00 03/24/18 08:00 03/24/18 08:00 Oxygen Flow Rate (L/min) 2 Oxygen Delivery Method Room Air Weight: 99.337 kg Body Mass Index (BMI) 35.3 Finger Stick Blood Glucose 161 Intake and Output for Last 24 Hours 03/22/18 03/23/18 03/24/18 23:59 23:59 23:59 Intake Total 2607.1 / 2607.1 5342 / 5342 1420 / 1420 Output Total 2400 / 2400 2630 / 2630 2475 / 2475 Balance 207.1 / 207.1 2712 / 2712 -1055 / -1055 Microbiology Past 72 Hours 03/21/18 17:00 Gram Stain - Final Tissue Ulcer - Sacral Wound Culture - Preliminary Enterococcus faecalis Gram positive radha Anaerobic Culture - Preliminary Checking for anaerobes, further studies to follow. 03/21/18 17:00 Gram Stain - Final Bone - Other Wound Culture - Final No growth aerobically. Anaerobic Culture - Preliminary No growth in 48 hours. Laboratory Tests Past 24 Hrs 03/24/18 08:40 Vancomycin Trough 22.7 H POC Glucose 03/24/18 03/23/18 03/23/18 07:25 21:49 17:56 POC Glucose 183 H 192 H 176 H Medical Necessity - Tobacco Use Smoking Status: Never smoker Route of nutrition/ use of supplements: [] Nutritional Intake: [] IV Site: [] Marcus Catheter: [] - Assessment/Plan Antibiotics: [] Assessment/Plan: [] Active and Suspected Problems Pressure ulcer of left buttock, stage 2 (Acute) Decubitus skin ulcer (Acute) Decubitus ulcer (Acute) Suspected infected ulcer - s/p OR for debridement 03/[address] Lynch. Prior wound cx with k.pneumo, burkholderia, e.faecalis, corynebacterium, and anaerobes. Wound cx now with e.faecalis. Cont zosyn, will stop vanc. Diverting ostomy and suprapubic planned. Will need picc for long course of iv abx. Will follow
[2018-03-24 11:45] LABS: Bedside Glucose 205 mg/dL (70-110)
--- NOTE | 2018-03-24 13:36 | CASEMGMT ---
Addendum entered by Angie Rey 03/24/18 14:22: SW in to update pt on acceptance into TCU. Pt is alert and orientated x3. Pt states that she receives aide services through [facility]. Pt states that she pays around $1500 a month to [facility] to receive her aide service and skilled services. Pt was receptive to hearing she got accepted into TCU. SW explained pre-cert process. Pt states understanding. SW answered pt's questions about TCU and informed pt that she can resume her current services once she discharges from TCU and that the SW on TCU will assist pt with discharge planning as well. Pt states understanding. Pt denied additional needs or concerns at this time. Original Note: Addendum entered by Angie Rey 03/24/18 13:58: SW attempted to update pt on acceptance into TCU but Anna SOTO, Wound Nurse currently in with pt. SW will update pt at a later time when available. Original Note: Social Work Note LINDA received message from Luisa in TCU stating that pre-cert has been obtained. Luisa states that she will send pt's insurance company a message stating that pt is scheduled to have surgery Saturday. Plan: TCU when medically cleared Angie Rey MEDICAL SUPPORT ASSISTANT, CAPACITY PLANNER
[2018-03-24] MEDS: Glucerna Shake 120 ML LIQUID PO ×2 (13:44→17:03)
[2018-03-24 13:45] VITALS: BP 117/78; PULSE 85; RESP 18; TEMP 36.6; O2SAT 93
--- NOTE | 2018-03-24 14:02 | NURSING ---
wound photo: sacrum
--- NOTE | 2018-03-24 14:37 | CASEMGMT ---
Social Work Note LINDA placed a call to Ashleigh RN at [facility]. Ashleigh informed this worker that pt doesn't have much support at home. Ashleigh states that pt has PASSPORT Services through [facility] in [place]. Ashleigh states that she has concerns with pt returning home at discharge and thinks that pt will eventually begin a downward slope again. Ashleigh states that pt was hesitate to come to hospital to even get care for wound. Ashleigh states that pt has had a bad experience before at [facility] and is hesitate to go to SNF. Ashleigh states that pt has complex health issues and she has concerns about pt being able to return home at discharge. LINDA explained to Ashleigh that pt will be followed by SW on TCU and the SW on TCU can provide discharge planning to pt once she is on TCU. Ashleigh states understanding and thanked this SW. LINDA placed a call to [facility] in [place] and was transferred to pt's JELANI Haas. LINDA updated Samina on admittance into hospital and plan for surgery on Saturday and plan for TCU after surgery. Samina states understanding. Angie Rey PAINT LINE SUPERVISOR, BAR BACK
--- NOTE | 2018-03-24 14:47 | CHAPLAIN ---
Type of Pastoral Visit _x__ Initial Visit ___ Follow-up Visit ___ On-call Visit ___ General Patient Visit ___ Spiritual Assessment ___ Family Conference ___ Bereavement ___ Rapid Response ___ Code Blue ___ Other (describe below) Pastoral Care Referral From _x__ Patient ___ Family ___ Nurse ___ Physician ___ Director Plans ___ Bar And Filler Assembler ___ Other (describe below) Sacrament/Intervention _x__ Active listening ___ Anointing ___ Religion _x__ Bereavement ___ Communion _x__ Melba exploration ___ _x__ Life review _x__ Prayer ___ Reconciliation ___ Sacrament of Sick _x__ Supportive presence ___ Wedding ___ Other (describe below) Pastoral Comments patient has long story of her life and its sorrows; pt has had MS and is bed bound; pt lost her to cancer 6 years ago; pt has a sister in area that made her get rid of her pets; pt is lonely and looks forward to having hired aides come to care for her each day; pt had a mandaen connection but has lapsed in participation over years, although pt was agreeable to allow drum cleaner to contact her mandaen to notify them of her admission; pt was tearful at times; pt is also concerned about her finances and where she might end up going for therapy; asked pt to think on what may be positive in her life and to find sources of personal peace; pt encouraged to return to habits of prayer and inspirational reading; prayer welcomed; call was made to [facility]
[2018-03-24 17:15] LABS: Bedside Glucose 175 mg/dL (70-110)
[2018-03-24 19:50] VITALS: BP 132/72; PULSE 71; RESP 18; TEMP 36.8; O2SAT 95
[2018-03-24] MEDS: ALPRAZolam 0.5 MG Tablet PO (22:36)
[2018-03-24] MEDS: MELATONIN 10 MG TABLET 5 MG PO (22:37)
[2018-03-24 22:51] LABS: Bedside Glucose 143 mg/dL (70-110)
--- NOTE | 2018-03-24 23:10 | PCM.PN.SRG ---
Patient Problems: Active and Suspected Problems Decubitus ulcer (Acute) Subjective: Postop #3 Patient is resting comfortably. - Physical Exam General: Alert, Oriented x3 HEENT: PERRLA, EOMI Oral: Moist Mucosa Neck: Supple Abdomen: Soft, Non-Distended Skin: Ulcer/ Wound - sacral wound is stable. No bleeding seen. No further evidence of infection. VAC was changed today without difficulty. Neurological: Cranial nerves II-XII grossly intact Psych/Mental Status: Normal Affect, Appropriate Vital Signs Temp Pulse Resp BP Pulse Ox 98.2 F 71 18 132/72 H 95 03/24/18 19:50 03/24/18 19:50 03/24/18 19:50 03/24/18 19:50 03/24/18 19:50 Oxygen Flow Rate (L/min) 2 Oxygen Delivery Method Room Air Weight: 219 lb Body Mass Index (BMI) 35.3 Finger Stick Blood Glucose 161 Intake and Output for Last 24 Hours 03/22/18 03/23/18 03/24/18 23:59 23:59 23:59 Intake Total 2607.1 / 2607.1 5342 / 5342 2801 / 2801 Output Total 2400 / 2400 2630 / 2630 2625 / 2625 Balance 207.1 / 207.1 2712 / 2712 176 / 176 Microbiology Past 72 Hours 03/21/18 17:00 Gram Stain - Final Tissue Ulcer - Sacral Wound Culture - Preliminary Enterococcus faecalis Gram positive radha Anaerobic Culture - Preliminary Checking for anaerobes, further studies to follow. 03/21/18 17:00 Gram Stain - Final Bone - Other Wound Culture - Final No growth aerobically. Anaerobic Culture - Preliminary No growth in 48 hours. Pathology - pending Laboratory Tests Past 24 Hrs 03/24/18 08:40 Vancomycin Trough 22.7 H POC Glucose 03/24/18 03/24/18 03/24/18 22:40 16:55 11:20 POC Glucose 143 H 175 H 205 H 03/24/18 07:25 POC Glucose 183 H Medical Necessity - Tobacco Use Smoking Status: Never smoker Assessment/Plan All Active Problems Skin necrosis (Acute) Necrotizing soft tissue infection (Acute) Pressure ulcer of left buttock, stage 2 (Acute) Decubitus skin ulcer (Acute) Diabetes mellitus type 2, uncontrolled (Acute) Decubitus ulcer (Acute) Recurrent UTI (urinary tract infection) (Acute) Pulmonary embolism (Acute) Abnormal liver function (Acute) 1. Infected necrotic sacral pressure sore, Unstageable at present but suspect a Stage IV. 2. Osteomyelitis. 3. MS. 4. Paraplegia. 5. Diabetes mellitus. 6. Urinary incontinence. 7. Stool incontinence. Continue Zosyn. Operative culture showed Enterococcus faecalis. ED culture shows Enterococcus faecalis. With suspected osteomyelitis, will need senior care IV antibiotics. The Vancomycin has been stopped. VAC changed today. No bleeding seen. No further evidence of infection. To be changed three times per week at 150 mmHg continuous suction. Prealbumin was 9.8. Encourage nutritional supplementation with protein to help the healing process. Due to its proximity to the anal opening, there is increased risk for stool contamination in the future. She states she has intermittent stool incontinence. In order to maximize healing, will need to divert the stool with a diverting colostomy. Even though she has an indwelling chavarria catheter, she states she leaks around the catheter. This urinary incontinence also increases risk for wound compromise and healing compromise. Will need to be evaluated for a possible suprapubic catheter placement. General Surgery and Urology are planning to proceed with surgery later this week. She is getting a bowel prep. Due to the complexity of her medical care, will need to go to an ECF for a short term stay at discharge.
[2018-03-25 02:20] VITALS: BP 115/65; PULSE 64; RESP 18; TEMP 36.4; O2SAT 97
[2018-03-25 06:32] LABS: Absolute Lymphocyte Count 4.67 X10^3/ul (0.83-4.51); Absolute Neutrophil Count 6.4 X10^3/uL (2.0-7.7); Basophil# 0.05 X10^3/uL; Basophil% 0.4 % (0-1); Eosinophil# 0.34 X10^3/uL; Eosinophils% 2.8 % (0-5); Hematocrit 34.8 % (37-47); Hemoglobin 10.9 g/dl (12.0-15.0); Lymphocyte # 4.67 X10^3/ul (4.0); Lymphocyte % 37.9 % (19-41); Mean Corp Hgb Conc 31.3 g/gl (32-36); Mean Corpuscular Hgb 28.8 pg (27.0-32.0); Mean Corpuscular Volume 92.1 fL (81-99); Mean Platelet Vol. 8.5 fl (6.2-12.0); Monocyte% 6.5 % (0-10); Neutrophil # 6.42 X10^3/uL (2.7-7.7); Platelet Count 356 K/mm3 (150-450); RBC Distribution Width CV 14.3 % (11.6-14.6); RBC Distribution Width SD 46.1 fl (35.1-43.9); Red Blood Count 3.78 M/mm3 (4.2-5.4); White Blood Count 12.3 K/mm3 (4.4-11.0)
[2018-03-25] MEDS: Levothyroxine 100 MCG Tablet PO (06:35)
[2018-03-25] MEDS: Piperacil/Tazobactam 3.375 GM/50 ML ML IV ×3 (06:35→23:01)
[2018-03-25] MEDS: Insulin Lispro 100 UNIT/ML INSULN.PEN SQ ×2 (06:35→11:35)
[2018-03-25 06:36] LABS: POSITIVE COUNT NO; POSITIVE DIFFERENTIAL NO; POSITIVE MORPHOLOGY NO
[2018-03-25 06:41] LABS: Bedside Glucose 166 mg/dL (70-110)
[2018-03-25 06:50] LABS: Anion Gap 9 (5-15); BUN 18 mg/dL (7-18); BUN/Creat Ratio 26.6 RATIO (10-20); Calcium,Total 8.6 mg/dL (8.5-10.1); Chloride 104 mmol/L (98-107); Creatinine, Serum 0.68 mg/dL (0.55-1.02); EST Glomerular Filtration Rate 93 mL/min (>60); Est Glom Filt Rate - Afr Amer 113 mL/min (>60); Estimated Creatinine Clearance 79.27 ml/min; Glucose 158 mg/dL (74-106); Potassium 3.9 mmol/L (3.5-5.1); Sodium Level 141 mmol/L (136-145)
--- NOTE | 2018-03-25 07:23 | PCM.PN.SRG ---
Patient Problems: Active and Suspected Problems Decubitus ulcer (Acute) Subjective: Patient had no issues overnight - Physical Exam General: Alert, Oriented x3, Cooperative Lungs: Normal air movement Cardiovascular: Regular rate, Regular Rhythm Abdomen: Soft, Non Tender, Non-Distended Vital Signs Temp Pulse Resp BP Pulse Ox 97.6 F L 64 18 115/65 97 03/25/18 02:20 03/25/18 02:20 03/25/18 02:20 03/25/18 02:20 03/25/18 02:20 Oxygen Flow Rate (L/min) 2 Oxygen Delivery Method Room Air Weight: 219 lb Body Mass Index (BMI) 35.3 Finger Stick Blood Glucose 161 Intake and Output for Last 24 Hours 03/23/18 03/24/18 03/25/18 23:59 23:59 23:59 Intake Total 5342 / 5342 2801 / 2801 591 / 591 Output Total 2630 / 2630 2625 / 2625 1625 / 1625 Balance 2712 / 2712 176 / 176 -1034 / -1034 Microbiology Past 72 Hours 03/21/18 17:00 Gram Stain - Final Tissue Ulcer - Sacral Wound Culture - Preliminary Enterococcus faecalis Gram positive radha Anaerobic Culture - Preliminary Checking for anaerobes, further studies to follow. 03/21/18 17:00 Gram Stain - Final Bone - Other Wound Culture - Final No growth aerobically. Anaerobic Culture - Preliminary No growth in 48 hours. Laboratory Tests Past 24 Hrs 03/24/18 03/25/18 03/25/18 08:40 06:20 06:20 WBC 12.3 H RBC 3.78 L Hgb 10.9 L Hct 34.8 L MCV 92.1 MCH 28.8 MCHC 31.3 L RDW 14.3 RDW Differential 46.1 H Plt Count 356 MPV 8.5 Immature Gran % (Auto) 0.400 Neut % (Auto) 52.0 Lymph % (Auto) 37.9 [place] % (Auto) 6.5 Eos % (Auto) 2.8 Baso % (Auto) 0.4 Absolute Neuts (auto) 6.4 Absolute Lymphs (auto) 4.67 H Total Counted Not Reportable Sodium 141 Potassium 3.9 Chloride 104 Carbon Dioxide 28.0 Anion Gap 9 BUN 18 Creatinine 0.68 Estim Creat Clear Calc 79.27 Est GFR (MDRD) Af Amer 113 Est GFR (MDRD) Non-Af 93 BUN/Creatinine Ratio 26.6 H Glucose 158 H Calcium 8.6 Vancomycin Trough 22.7 H POC Glucose 03/25/18 03/24/18 03/24/18 06:34 22:40 16:55 POC Glucose 166 H 143 H 175 H 03/24/18 03/24/18 11:20 07:25 POC Glucose 205 H 183 H Medical Necessity - Tobacco Use Smoking Status: Never smoker Assessment/Plan All Active Problems Skin necrosis (Acute) Necrotizing soft tissue infection (Acute) Pressure ulcer of left buttock, stage 2 (Acute) Decubitus skin ulcer (Acute) Diabetes mellitus type 2, uncontrolled (Acute) Decubitus ulcer (Acute) Recurrent UTI (urinary tract infection) (Acute) Pulmonary embolism (Acute) Abnormal liver function (Acute) 63-year-old female with sacral ulcer 1. The patient had a half bottle of mag citrate yesterday and has not had a bowel movement per I will give her a bottle of mag citrate this morning and a dose of MiraLAX at noon and another bottle of mag citrate this afternoon as well as a fleets enema in the morning. 2. Clear liquid diet today and n.p.o. after midnight. 3. I have held her Lovenox. 4. I discussed end colostomy with the patient once more today. The patient will also be having a suprapubic catheter by Dr. Szymanski at the same time. All the patient's questions were answered and the patient understands the procedure. Plan for surgery tomorrow afternoon. 5. The wound RN will be coming by to néstor her abdomen for an optimal colostomy site but the patient's pain pump needs to be removed from the left lower quadrant. Rafael Starr MD Pager: [facility] [address] [place] [address], [address] [place] [address] Office:
[2018-03-25 08:27] VITALS: BP 122/83; PULSE 72; RESP 18; TEMP 37.2; O2SAT 96
--- NOTE | 2018-03-25 08:30 | NURSING ---
In to discuss colostomy education with patient. booklet given and will take ostomy appliance in to show patient later today per pt request. patient has a pain pump to the left lower abdomen at this time. patient states is a subq needle that is changed weekly by home health. pt states that her home health nurse is Rachel Ash from [facility] #[phone]. called and left message to see if they were ok with us removing tomorrow am and then to see if they would be in to restart that after surgery. will have to wait to néstor abdomen for stoma site after the pain pump needle is removed since it is located in the left lower abdomen. plan is for end colostomy per Dr Starr on 03/26/18. will continue ostomy teaching with patient.
[2018-03-25] MEDS: Magnesium Citrate 300 ML PO ×2 (08:34→16:18)
--- NOTE | 2018-03-25 09:00 | PN_ITS ---
Patient Problems: Active and Suspected Problems Decubitus ulcer (Acute) Subjective: Patient was seen and examined. Pain is controlled, going to the OR tomorrow for suprapubic catheter as well as diverting colostomy. Denies any fever or chills. Objective: General: Alert, No apparent distress HEENT: Atraumatic Oral: Moist Mucosa, No Gingival or Mucosal Lesions/ Ulcerations Neck: No Nodes, Thyroid Normal Size and Texture Lungs: Clear to auscultation, Normal air movement, No rhonchi, No wheeze Cardiovascular: Regular rate, Regular Rhythm, Normal S1, Normal S2, No murmurs Abdomen: Bowel Sounds Present, Soft, Non Tender, Non-Distended, No Hepato- splenomegaly, Obese Skin: - - The Dilaudid subcutaneous injection site is clean and intact Vitals/I&O's: Vital Signs Temp Pulse Resp BP Pulse Ox 99.0 F 72 18 122/83 H 96 03/25/18 08:27 03/25/18 08:27 03/25/18 08:27 03/25/18 08:27 03/25/18 08:27 Oxygen Flow Rate (L/min) 2 Oxygen Delivery Method Room Air Weight: 99.337 kg Body Mass Index (BMI) 35.3 Finger Stick Blood Glucose 161 Intake and Output for Last 24 Hours 03/23/18 03/24/18 03/25/18 23:59 23:59 23:59 Intake Total 5342 / 5342 2801 / 2801 591 / 591 Output Total 2630 / 2630 2625 / 2625 1625 / 1625 Balance 2712 / 2712 176 / 176 -1034 / -1034 Microbiology Past 72 Hours 03/21/18 17:00 Tissue Ulcer - Sacral Gram Stain - Final 03/21/18 17:00 Tissue Ulcer - Sacral Wound Culture - Final Enterococcus faecalis Corynebacterium striatum 03/21/18 17:00 Tissue Ulcer - Sacral Anaerobic Culture - Preliminary Checking for anaerobes, further studies to follow. 03/21/18 17:00 Bone - Other Gram Stain - Final 03/21/18 17:00 Bone - Other Wound Culture - Final No growth aerobically. 03/21/18 17:00 Bone - Other Anaerobic Culture - Preliminary No growth in 48 hours. Laboratory Results 03/24/18 08:40: Vancomycin Trough 22.7 H 03/24/18 11:20: POC Glucose 205 H 03/24/18 16:55: POC Glucose 175 H 03/24/18 22:40: POC Glucose 143 H 03/25/18 06:20: WBC 12.3 H, RBC 3.78 L, Hgb 10.9 L, Hct 34.8 L, MCV 92.1, MCH 28.8, MCHC 31.3 L, RDW 14.3, RDW Differential 46.1 H, Plt Count 356, MPV 8.5, Immature Gran % (Auto) 0.400, Neut % (Auto) 52.0, Lymph % (Auto) 37.9, [place] % ( Auto) 6.5, Eos % (Auto) 2.8, Baso % (Auto) 0.4, Absolute Neuts (auto) 6.4, Absolute Lymphs (auto) 4.67 H, Total Counted Not Reportable 03/25/18 06:20: Sodium 141, Potassium 3.9, Chloride 104, Carbon Dioxide 28.0, Anion Gap 9, BUN 18, Creatinine 0.68, Estim Creat Clear Calc 79.27, Est GFR ( MDRD) Af Amer 113, Est GFR (MDRD) Non-Af 93, BUN/Creatinine Ratio 26.6 H, Glucose 158 H, Calcium 8.6 03/25/18 06:34: POC Glucose 166 H Current Medications Acetaminophen (Tylenol) 650 mg PO Q6H PRN PRN PRN Reason: Mild Pain (scale 0-3)/T>100.7 Last Admin: 03/23/18 06:23 Dose: 650 mg Al Hydroxide/Mg Hydroxide (Mylanta Ii) 30 ml PO Q6H PRN PRN PRN Reason: Gastric burning Alprazolam (Xanax) 0.5 mg PO Q6H PRN PRN PRN Reason: ANXIETY Last Admin: 03/24/18 22:36 Dose: 0.5 mg Bisacodyl (Dulcolax) 10 mg RECTAL DAILY PRN PRN PRN Reason: Constipation Last Admin: 03/23/18 15:08 Dose: 10 mg Dextrose (D50w Syringe) 0 gm IV X1 PRN; Protocol PRN Reason: Hypoglycemia Diltiazem HCl (Cardizem Cd) 240 mg PO DAILY ERIC Last Admin: 03/24/18 08:23 Dose: 240 mg Docusate Sodium (Colace) 200 mg PO BID PRN PRN PRN Reason: Constipation Last Admin: 03/23/18 04:03 Dose: 200 mg Enoxaparin Sodium (Lovenox) 40 mg SC DAILY@1000 [facility] Last Admin: 03/24/18 08:22 Dose: 40 mg Famotidine (Pepcid) 20 mg PO BID [facility] Last Admin: 03/24/18 22:37 Dose: 20 mg Glucagon () 1 mg IM .X1 PRN PRN Reason: Hypoglycemia Piperacillin Sod/Tazobactam Sod (Zosyn) 3.375 gm in 50 mls @ 12.5 mls/hr IV Q8 [facility] Last Admin: 03/25/18 06:35 Dose: 12.5 mls/hr Insulin Human Lispro (Humalog Kwikpen (Bkc)) 0 unit SQ ACHS [facility] PRN Reason: Protocol Last Admin: 03/25/18 06:35 Dose: 1 u Lactobacillus Acidophilus (Acidophilus) 1 tablet PO DAILY [facility] Last Admin: 03/24/18 08:22 Dose: 1 tablet Levothyroxine Sodium (Synthroid) 100 mcg PO DAILY@0600 [facility] Last Admin: 03/25/18 06:35 Dose: 100 mcg Magnesium Citrate (Citrate Of Magnesia) 300 ml PO X1 ONE Stop: 03/25/18 16:01 Magnesium Hydroxide (Milk Of Magnesia) 30 ml PO DAILY PRN PRN PRN Reason: Constipation Last Admin: 03/23/18 06:23 Dose: 30 ml Melatonin (Melatonin) 5 mg PO QHS [facility] Last Admin: 03/24/18 22:37 Dose: 5 mg Meloxicam (Mobic) 7.5 mg PO DAILY [facility] Last Admin: 03/24/18 09:35 Dose: 7.5 mg Metformin HCl (Glucophage) 500 mg PO BIDCM [facility] Last Admin: 03/24/18 16:57 Dose: 500 mg Non-Formulary Medication (Pain Pump (Pt's Own) [Pain Pump (Pt's Own)]) 0 mg SC UD [facility] Last Admin: 03/24/18 16:53 Dose: Not Given Nutritional Formula ([place] - [place] Flavor) 1 packet PO BIDCM [facility] Last Admin: 03/24/18 16:56 Dose: 1 packet Nutritional Formula (Lactose Free) (Glucerna Shake) 120 ml PO 4X/DAY [facility] Last Admin: 03/24/18 22:36 Dose: Not Given Nystatin (Mycostatin Powder) 1 applic TOPICAL BID ERIC PRN Reason: Protocol Last Admin: 03/24/18 22:37 Dose: 1 applicatio Ondansetron HCl (Zofran) 4 mg IV Q8H PRN PRN PRN Reason: Nausea Last Admin: 03/22/18 03:50 Dose: 4 mg Ondansetron HCl (Zofran) 8 mg PO TID PRN PRN PRN Reason: NAUSEA Oxycodone HCl (Oxyir) 5 mg PO Q4H PRN PRN PRN Reason: Moderate Pain (pain scale 4-5) Last Admin: 03/23/18 15:34 Dose: 5 mg Polyethylene Glycol (Miralax) 17 gm PO DAILY [facility] Last Admin: 03/24/18 08:22 Dose: 17 gm Polyethylene Glycol (Miralax) 34 gm PO X1 ONE Stop: 03/25/18 12:01 Potassium Chloride (K-Dur) 20 meq PO BID [facility] Last Admin: 03/24/18 22:36 Dose: 20 meq Promethazine HCl (Phenergan Tablet) 12.5 mg PO Q4H PRN PRN PRN Reason: NAUSEA Sodium Biphosphate/Sodium Phosphate (Fleet Enema) 1 bottle RECTAL X1 ONE Stop: 03/26/18 08:57 Sodium Chloride () 5 - 30 ml IV UD PRN PRN Reason: SALINE FLUSH Last Admin: 03/22/18 03:50 Dose: 10 ml Tizanidine HCl (Zanaflex) 2 mg PO Q8H PRN PRN PRN Reason: MUSCLE SPASMS Last Admin: 03/24/18 22:36 Dose: 2 mg Tolterodine Tartrate (Detrol La) 4 mg PO DAILY [facility] Last Admin: 03/24/18 08:23 Dose: 4 mg Venlafaxine HCl (Effexor) 150 mg PO BID [facility] Last Admin: 03/24/18 22:36 Dose: 150 mg Medical Necessity - Tobacco Use Smoking Status: Never smoker Assessment/Plan All Active Problems Skin necrosis (Acute) Necrotizing soft tissue infection (Acute) Pressure ulcer of left buttock, stage 2 (Acute) Decubitus skin ulcer (Acute) Diabetes mellitus type 2, uncontrolled (Acute) Decubitus ulcer (Acute) Recurrent UTI (urinary tract infection) (Acute) Pulmonary embolism (Acute) Abnormal liver function (Acute) 63 year old F with history of MS complicated with paraplegia, urinary incontinence s/p indwelling Chavarria catheter, nonambulatory, history of sacral decubitus ulcer, following with the wound clinic until last week comes in with worsening decubitus, going for wound debridement by plastic surgeon. 1. Acute on chronic necrotic sacral-coccygeal decubitus ulcer, s/p wound debridement on 03/21/18, cultures are growing enterococcus and Corynebacterium managed on Zosyn, ID following, patient is going for diabetic colostomy and suprapubic 2. Leaky chavarria catheter, history of recurrent UTI, s/p indwelling catheter, going for suprapubic catheter tomorrow 4. MS with paraplegia, chronic urine incontinence status post indwelling Chavarria catheter 5. Type 2 Diabetes mellitus, BS are fairly controlled, HbA1c is 7.4, off metformin, on insulin sliding scale with Accu-Cheks 6. Hypothyroidism/COPD/depression/history of pulmonary embolism/lumbar spinal stenosis/chronic pain -all complicating care of patient 7. DVT prophylaxis - Lovenox SC. Code Visit Inpatient E&M: 36112 Subs Hosp L2
[2018-03-25] MEDS: dilTIAZem CD 240 MG Capsule PO (09:18)
[2018-03-25] MEDS: Tolterodine Tartrate 4 MG CAP.SA PO (09:18)
[2018-03-25] MEDS: Polyethylene Glycol 3350 17 GM PACKET PO (09:21)
[2018-03-25] MEDS: Meloxicam 7.5 MG Tablet PO (09:21)
[2018-03-25] MEDS: Famotidine 20 MG Tablet PO ×2 (09:22→23:11)
[2018-03-25] MEDS: Nystatin Powder 15gm Bottle 1 APPLIC TOPICAL ×2 (09:22→23:11)
[2018-03-25] MEDS: Glucerna Shake 120 ML LIQUID PO (09:30)
--- NOTE | 2018-03-25 10:27 | PCM.PN.ID ---
Patient Problems: Active and Suspected Problems Decubitus ulcer (Acute) Subjective: Feeling better, no fever, no n/v. OR tomorrow. - Physical Exam General: Alert, Cooperative Lungs: Clear to auscultation, Normal air movement Cardiovascular: Regular rate, Regular Rhythm Abdomen: Soft, Non Tender, Non-Distended Skin: Ulcer/ Wound - bandaged Vital Signs Temp Pulse Resp BP Pulse Ox 99.0 F 72 18 122/83 H 96 03/25/18 08:27 03/25/18 08:27 03/25/18 08:27 03/25/18 08:27 03/25/18 08:27 Oxygen Flow Rate (L/min) 2 Oxygen Delivery Method Room Air Weight: 99.337 kg Body Mass Index (BMI) 35.3 Finger Stick Blood Glucose 161 Intake and Output for Last 24 Hours 03/23/18 03/24/18 03/25/18 23:59 23:59 23:59 Intake Total 5342 / 5342 2801 / 2801 591 / 591 Output Total 2630 / 2630 2625 / 2625 1625 / 1625 Balance 2712 / 2712 176 / 176 -1034 / -1034 Microbiology Past 72 Hours 03/21/18 17:00 Gram Stain - Final Tissue Ulcer - Sacral Wound Culture - Final Enterococcus faecalis Corynebacterium striatum Anaerobic Culture - Preliminary Checking for anaerobes, further studies to follow. 03/21/18 17:00 Gram Stain - Final Bone - Other Wound Culture - Final No growth aerobically. Anaerobic Culture - Preliminary No growth in 48 hours. Laboratory Tests Past 24 Hrs 03/25/18 03/25/18 06:20 06:20 WBC 12.3 H RBC 3.78 L Hgb 10.9 L Hct 34.8 L MCV 92.1 MCH 28.8 MCHC 31.3 L RDW 14.3 RDW Differential 46.1 H Plt Count 356 MPV 8.5 Immature Gran % (Auto) 0.400 Neut % (Auto) 52.0 Lymph % (Auto) 37.9 [place] % (Auto) 6.5 Eos % (Auto) 2.8 Baso % (Auto) 0.4 Absolute Neuts (auto) 6.4 Absolute Lymphs (auto) 4.67 H Total Counted Not Reportable Sodium 141 Potassium 3.9 Chloride 104 Carbon Dioxide 28.0 Anion Gap 9 BUN 18 Creatinine 0.68 Estim Creat Clear Calc 79.27 Est GFR (MDRD) Af Amer 113 Est GFR (MDRD) Non-Af 93 BUN/Creatinine Ratio 26.6 H Glucose 158 H Calcium 8.6 POC Glucose 03/25/18 03/24/18 03/24/18 06:34 22:40 16:55 POC Glucose 166 H 143 H 175 H 03/24/18 11:20 POC Glucose 205 H Medical Necessity - Tobacco Use Smoking Status: Never smoker Route of nutrition/ use of supplements: [] Nutritional Intake: [] IV Site: [] Marcus Catheter: [] - Assessment/Plan Antibiotics: [] Assessment/Plan: [] Active and Suspected Problems Pressure ulcer of left buttock, stage 2 (Acute) Decubitus skin ulcer (Acute) Decubitus ulcer (Acute) Suspected infected ulcer - s/p OR for debridement 03/[address] Lynch. Prior wound cx with k.pneumo, burkholderia, e.faecalis, corynebacterium, and anaerobes. Wound cx now with e.faecalis and corynebacterium. Cont zosyn. Diverting ostomy and suprapubic planned. Will need picc for long course of iv abx, will order. Will follow
--- NOTE | 2018-03-25 11:10 | NURSING ---
director auto called, aware of order for PICC line. Will call back with estimated time of RN arrival.
[2018-03-25] MEDS: Polyethylene Glycol 3350 17 GM PACKET 34 GM PO (11:34)
[2018-03-25 11:45] LABS: Bedside Glucose 162 mg/dL (70-110)
--- NOTE | 2018-03-25 11:59 | CASEMGMT ---
Social Work Note Pt is scheduled for surgery tomorrow 03/26/2018. SW placed a call to TCU and updated Luisa of this. Pre-cert will need to be submitted again after pt's surgery. Plan: TCU pending pre-cert Angie Rey MSW, PIERCING ARTIST
--- NOTE | 2018-03-25 13:54 | NURSING ---
Had called and talked with home health nurse about patient's pain pump. nurse states that they do not come into the hospital to plant operator/shift supervisor or discontinue the pain pump. states they only do that when the patient is at home. plan will be to discontinue to the pain pump prior to marking the stoma site tomorrow before surgery. BRITTANY Carrasco aware.
[2018-03-25 14:16] VITALS: BP 147/88; PULSE 83; RESP 18; TEMP 37.3; O2SAT 97
[2018-03-25] MEDS: 0.9% NaCl Peripheral Flush Adult/Peds IV (14:29)
[2018-03-25] MEDS: ALPRAZolam 0.5 MG Tablet PO (15:25)
[2018-03-25] MEDS: tiZANidine HCl 2 MG Tablet PO (15:25)
[2018-03-25] MEDS: oxyCODONE 5 MG Tablet PO (16:17)
[2018-03-25 16:20] LABS: Bedside Glucose 139 mg/dL (70-110)
[2018-03-25 22:55] VITALS: BP 110/72; PULSE 76; RESP 18; TEMP 36.9; O2SAT 98
[2018-03-25] MEDS: MELATONIN 10 MG TABLET 5 MG PO (23:10)
[2018-03-26] VITALS (9 sets, daily range): BP systolic 102–160; BP diastolic 66–99; PULSE 77–86; RESP 16–18; TEMP 36.4–37.7; O2SAT 93–99; BMI 35.3; BMI 34.6
[2018-03-26 00:30] LABS: Bedside Glucose 132 mg/dL (70-110)
[2018-03-26 05:58] LABS: International Normalized Ratio 1.2; Prothrombin Time (Protime)PT. 15.2 SECONDS (11.7-14.9)
[2018-03-26 05:59] LABS: Partial Thromboplast Time 34.4 Seconds (24.1-36.2)
[2018-03-26 06:11] LABS: Absolute Neutrophil Count 9.4 X10^3/uL (2.0-7.7); Basophil# 0.05 X10^3/uL; Basophil% 0.3 % (0-1); Eosinophil# 0.34 X10^3/uL; Eosinophils% 2.1 % (0-5); Hematocrit 34.3 % (37-47); Hemoglobin 10.6 g/dl (12.0-15.0); Lymphocyte % 31.8 % (19-41); Mean Corp Hgb Conc 30.9 g/gl (32-36); Mean Corpuscular Hgb 28.4 pg (27.0-32.0); Mean Platelet Vol. 8.6 fl (6.2-12.0); Monocyte% 6.8 % (0-10); Neutrophil # 9.44 X10^3/uL (2.7-7.7); Neutrophil % 58.8 % (47-70); Platelet Count 367 K/mm3 (150-450); RBC Distribution Width CV 14.8 % (11.6-14.6); RBC Distribution Width SD 49.3 fl (35.1-43.9); Red Blood Count 3.73 M/mm3 (4.2-5.4); White Blood Count 16.1 K/mm3 (4.4-11.0)
[2018-03-26 06:15] LABS: Differential Indicated SCAN CRITERIA MET; POSITIVE COUNT NO; POSITIVE DIFFERENTIAL YES; POSITIVE MORPHOLOGY NO
[2018-03-26 06:37] LABS: Differential Comment SCANNED
[2018-03-26] MEDS: 0.9% NaCl Peripheral Flush Adult/Peds IV (06:43)
[2018-03-26] MEDS: Piperacil/Tazobactam 3.375 GM/50 ML ML IV ×3 (06:43→23:11)
[2018-03-26] MEDS: Insulin Lispro 100 UNIT/ML INSULN.PEN SQ ×3 (06:51→18:58)
[2018-03-26 06:56] LABS: Bedside Glucose 150 mg/dL (70-110)
--- NOTE | 2018-03-26 08:29 | NURSING ---
Patient's subq pain pump was discontinued from the left lower abdomen. pt is scheduled for an end colostomy and suprapubic catheter today with Dr Starr and Dr Szymanski. the left lower abdomen was marked for the stoma site. this nurse is aware that the surgeon may need to place the stoma in a different area. began some ostomy teaching, but the majority of the teaching will be post op. Pt states she is now more comfortable and less anxious about the colostomy surgery. pt denies further questions at this time. the wound VAC dressing had been removed early this am after patient had a large amount of stool. pt currently has a fecal management system in place. ostomy appliance at bedside to be sent to the OR with the patient. BRITTANY Lyles aware. discussed pt with Dr Starr this am as well.
--- NOTE | 2018-03-26 09:52 | PCM.PN.SRG ---
Patient Problems: Active and Suspected Problems Decubitus ulcer (Acute) Subjective: Patient has been having bowel movements and is having a fecal management system in place for the stool. - Physical Exam General: Alert, Oriented x3, Cooperative Neck: Supple Lungs: Normal air movement Cardiovascular: Regular rate, Regular Rhythm Abdomen: Soft, Non Tender, Non-Distended Vital Signs Temp Pulse Resp BP Pulse Ox 98.5 F 77 18 102/66 95 03/26/18 04:10 03/26/18 04:10 03/26/18 04:10 03/26/18 04:10 03/26/18 04:10 Oxygen Flow Rate (L/min) 2 Oxygen Delivery Method Room Air Weight: 219 lb Body Mass Index (BMI) 35.3 Finger Stick Blood Glucose 161 Intake and Output for Last 24 Hours 03/24/18 03/25/18 03/26/18 23:59 23:59 23:59 Intake Total 2801 / 2801 2905 / 2905 860 / 860 Output Total 2625 / 2625 3025 / 3025 425 / 425 Balance 176 / 176 -120 / -120 435 / 435 Microbiology Past 72 Hours 03/21/18 17:00 Gram Stain - Final Bone - Other Wound Culture - Final No growth aerobically. Anaerobic Culture - Final No growth in 5 days. 03/21/18 17:00 Gram Stain - Final Tissue Ulcer - Sacral Wound Culture - Final Enterococcus faecalis Corynebacterium striatum Anaerobic Culture - Preliminary Checking for anaerobes, further studies to follow. Laboratory Tests Past 24 Hrs 03/26/18 03/26/18 04:45 04:45 WBC 16.1 H RBC 3.73 L Hgb 10.6 L Hct 34.3 L MCV 92.0 MCH 28.4 MCHC 30.9 L RDW 14.8 H RDW Differential 49.3 H Plt Count 367 MPV 8.6 Immature Gran % (Auto) 0.200 Neut % (Auto) 58.8 Lymph % (Auto) 31.8 [place] % (Auto) 6.8 Eos % (Auto) 2.1 Baso % (Auto) 0.3 Absolute Neuts (auto) 9.4 H Absolute Lymphs (auto) 5.10 H Total Counted Not Reportable Differential Comment SCANNED PT 15.2 H INR 1.2 APTT 34.4 POC Glucose 03/26/18 03/25/18 03/25/18 06:49 23:06 16:12 POC Glucose 150 H 132 H 139 H 03/25/18 11:33 POC Glucose 162 H Medical Necessity - Tobacco Use Smoking Status: Never smoker Assessment/Plan All Active Problems Skin necrosis (Acute) Necrotizing soft tissue infection (Acute) Pressure ulcer of left buttock, stage 2 (Acute) Decubitus skin ulcer (Acute) Diabetes mellitus type 2, uncontrolled (Acute) Decubitus ulcer (Acute) Recurrent UTI (urinary tract infection) (Acute) Pulmonary embolism (Acute) Abnormal liver function (Acute) 63-year-old female sacral ulcer 1. The patient is having an elevated white count today but I attribute that to her sacral ulcer. I believe that the diverting colostomy needs to be done despite this as this will reduce the contamination in her wound. 2. I discussed surgery once more with the patient and the plan is for laparoscopic end colostomy. She will be marked today by the ostomy nurse. I discussed the risks of the surgery again with her and the fact that she is also having a suprapubic catheter placed. Rafael Starr MD Pager: [facility] [address] [place] [address], [address] [place] [address] Office:
[2018-03-26] MEDS: ALPRAZolam 0.5 MG Tablet PO (10:14)
[2018-03-26] MEDS: oxyCODONE 5 MG Tablet PO (10:14)
[2018-03-26] MEDS: Acetaminophen 325 MG Tablet 650 MG PO (10:14)
[2018-03-26] MEDS: Famotidine 20 MG Tablet PO ×2 (10:14→23:32)
[2018-03-26] MEDS: Meloxicam 7.5 MG Tablet PO (10:14)
[2018-03-26] MEDS: dilTIAZem CD 240 MG Capsule PO (10:15)
[2018-03-26] MEDS: Tolterodine Tartrate 4 MG CAP.SA PO (10:15)
[2018-03-26] MEDS: Ondansetron 8 MG Tablet PO (10:18)
[2018-03-26] MEDS: Fleet Enema 1 ML RECTAL (11:15)
[2018-03-26 11:51] LABS: Bedside Glucose 172 mg/dL (70-110)
--- NOTE | 2018-03-26 11:55 | PCM.PN.ID ---
Patient Problems: Active and Suspected Problems Decubitus ulcer (Acute) Subjective: Tearful, nervous about surgery and recovery process. No fever, having some pain in wound. - Physical Exam General: Alert, Cooperative Lungs: Clear to auscultation, Normal air movement Cardiovascular: Regular rate, Regular Rhythm Abdomen: Soft, Non Tender, Non-Distended Skin: No rashes Vital Signs Temp Pulse Resp BP Pulse Ox 98.5 F 86 18 147/79 H 95 03/26/18 10:02 03/26/18 10:02 03/26/18 10:02 03/26/18 10:02 03/26/18 10:02 Oxygen Flow Rate (L/min) 2 Oxygen Delivery Method Room Air Weight: 99.337 kg Body Mass Index (BMI) 35.3 Finger Stick Blood Glucose 161 Intake and Output for Last 24 Hours 03/24/18 03/25/18 03/26/18 23:59 23:59 23:59 Intake Total 2801 / 2801 2905 / 2905 860 / 860 Output Total 2625 / 2625 3025 / 3025 425 / 425 Balance 176 / 176 -120 / -120 435 / 435 Microbiology Past 72 Hours 03/21/18 17:00 Gram Stain - Final Tissue Ulcer - Sacral Wound Culture - Final Enterococcus faecalis Corynebacterium striatum Anaerobic Culture - Preliminary Checking for anaerobes, further studies to follow. 03/21/18 17:00 Gram Stain - Final Bone - Other Wound Culture - Final No growth aerobically. Anaerobic Culture - Final No growth in 5 days. Laboratory Tests Past 24 Hrs 03/26/18 03/26/18 04:45 04:45 WBC 16.1 H RBC 3.73 L Hgb 10.6 L Hct 34.3 L MCV 92.0 MCH 28.4 MCHC 30.9 L RDW 14.8 H RDW Differential 49.3 H Plt Count 367 MPV 8.6 Immature Gran % (Auto) 0.200 Neut % (Auto) 58.8 Lymph % (Auto) 31.8 [place] % (Auto) 6.8 Eos % (Auto) 2.1 Baso % (Auto) 0.3 Absolute Neuts (auto) 9.4 H Absolute Lymphs (auto) 5.10 H Total Counted Not Reportable Differential Comment SCANNED PT 15.2 H INR 1.2 APTT 34.4 POC Glucose 0803/26/18 03/25/18 11:31 06:49 23:06 POC Glucose 172 H 150 H 132 H 03/25/18 16:12 POC Glucose 139 H Medical Necessity - Tobacco Use Smoking Status: Never smoker Route of nutrition/ use of supplements: [] Nutritional Intake: [] IV Site: [] Marcus Catheter: [] - Assessment/Plan Antibiotics: [] Assessment/Plan: [] Active and Suspected Problems Pressure ulcer of left buttock, stage 2 (Acute) Decubitus skin ulcer (Acute) Decubitus ulcer (Acute) Suspected infected ulcer - s/p OR for debridement 03/[address] Lynch. Prior wound cx with k.pneumo, burkholderia, e.faecalis, corynebacterium, and anaerobes. Wound cx now with e.faecalis and corynebacterium. Cont zosyn. Diverting ostomy and suprapubic planned for today. Picc placed. Will follow
[2018-03-26] MEDS: Lubricating Jelly 60 GM Tube 30 GM TOPICAL (13:25)
--- NOTE | 2018-03-26 15:19 | PCM.PN.HOSP ---
Patient Problems: Active and Suspected Problems Decubitus ulcer (Acute) Subjective: Patient was seen and examined. She is concerned about multiple things. Concern about pain control, concern about post surgery disposition and even discharged after TCU. Denies any fever or chills or dizziness or chest pain Objective: General: Alert, No apparent distress HEENT: Atraumatic Oral: Moist Mucosa, No Gingival or Mucosal Lesions/ Ulcerations Neck: No Nodes, Thyroid Normal Size and Texture Lungs: Clear to auscultation, Normal air movement, No rhonchi, No wheeze Cardiovascular: Regular rate, Regular Rhythm, Normal S1, Normal S2, No murmurs Abdomen: Bowel Sounds Present, Soft, Non Tender, Non-Distended, No Hepato-splenomegaly, Obese Skin: - - The Dilaudid subcutaneous injection site is clean and intact Vitals/I&O's: Vital Signs Temp Pulse Resp BP Pulse Ox 98.5 F 86 18 147/79 H 95 03/26/18 10:02 03/26/18 10:02 03/26/18 10:02 03/26/18 10:02 03/26/18 10:02 Oxygen Flow Rate (L/min) 2 Oxygen Delivery Method Room Air Weight: 99.337 kg Body Mass Index (BMI) 35.3 Finger Stick Blood Glucose 161 Intake and Output for Last 24 Hours 03/24/18 03/25/18 03/26/18 23:59 23:59 23:59 Intake Total 2801 / 2801 2905 / 2905 860 / 860 Output Total 2625 / 2625 3025 / 3025 725 / 725 Balance 176 / 176 -120 / -120 135 / 135 Microbiology Past 72 Hours 03/21/18 17:00 Tissue Ulcer - Sacral Gram Stain - Final 03/21/18 17:00 Tissue Ulcer - Sacral Wound Culture - Final Enterococcus faecalis Corynebacterium striatum 03/21/18 17:00 Tissue Ulcer - Sacral Anaerobic Culture - Preliminary Checking for anaerobes, further studies to follow. 03/21/18 17:00 Bone - Other Gram Stain - Final 03/21/18 17:00 Bone - Other Wound Culture - Final No growth aerobically. 03/21/18 17:00 Bone - Other Anaerobic Culture - Final No growth in 5 days. Laboratory Results 03/25/18 16:12: POC Glucose 139 H 03/25/18 23:06: POC Glucose 132 H 03/26/18 04:45: WBC 16.1 H, RBC 3.73 L, Hgb 10.6 L, Hct 34.3 L, MCV 92.0, MCH 28.4, MCHC 30.9 L, RDW 14.8 H, RDW Differential 49.3 H, Plt Count 367, MPV 8.6, Immature Gran % (Auto) 0.200, Neut % (Auto) 58.8, Lymph % (Auto) 31.8, Marshall % (Auto) 6.8, Eos % (Auto) 2.1, Baso % (Auto) 0.3, Absolute Neuts (auto) 9.4 H, Absolute Lymphs (auto) 5.10 H, Total Counted Not Reportable, Differential Comment SCANNED 03/26/18 04:45: PT 15.2 H, INR 1.2, APTT 34.4 03/26/18 06:49: POC Glucose 150 H 03/26/18 11:31: POC Glucose 172 H Current Medications Acetaminophen (Tylenol) 650 mg PO Q6H PRN PRN PRN Reason: Mild Pain (scale 0-3)/T>100.7 Last Admin: 03/26/18 10:14 Dose: 650 mg Al Hydroxide/Mg Hydroxide (Mylanta Ii) 30 ml PO Q6H PRN PRN PRN Reason: Gastric burning Alprazolam (Xanax) 0.5 mg PO Q6H PRN PRN PRN Reason: ANXIETY Last Admin: 03/26/18 10:14 Dose: 0.5 mg Bisacodyl (Dulcolax) 10 mg RECTAL DAILY PRN PRN PRN Reason: Constipation Last Admin: 03/23/18 15:08 Dose: 10 mg Dextrose (D50w Syringe) 0 gm IV X1 PRN; Protocol PRN Reason: Hypoglycemia Diltiazem HCl (Cardizem Cd) 240 mg PO DAILY ERIC Last Admin: 03/26/18 10:15 Dose: 240 mg Docusate Sodium (Colace) 200 mg PO BID PRN PRN PRN Reason: Constipation Last Admin: 03/23/18 04:03 Dose: 200 mg Enoxaparin Sodium (Lovenox) 40 mg SC DAILY@1000 ERIC Last Admin: 03/25/18 09:21 Dose: Not Given Famotidine (Pepcid) 20 mg PO BID [facility] Last Admin: 03/26/18 10:14 Dose: 20 mg Glucagon () 1 mg IM .X1 PRN PRN Reason: Hypoglycemia Hydromorphone HCl (Dilaudid Inj) 0.5 mg IV Q4H PRN PRN PRN Reason: SEVERE PAIN (6-10/10) Piperacillin Sod/Tazobactam Sod (Zosyn) 3.375 gm in 50 mls @ 12.5 mls/hr IV Q8 [facility] Last Admin: 03/26/18 06:43 Dose: 12.5 mls/hr Insulin Human Lispro (Humalog Kwikpen (Bkc)) 0 unit SQ ACHS [facility] PRN Reason: Protocol Last Admin: 03/26/18 11:36 Dose: 1 u Lactobacillus Acidophilus (Acidophilus) 1 tablet PO DAILY [facility] Last Admin: 03/26/18 10:07 Dose: Not Given Levothyroxine Sodium (Synthroid) 100 mcg PO DAILY@0600 [facility] Last Admin: 03/26/18 06:43 Dose: Not Given Magnesium Hydroxide (Milk Of Magnesia) 30 ml PO DAILY PRN PRN PRN Reason: Constipation Last Admin: 03/23/18 06:23 Dose: 30 ml Melatonin (Melatonin) 5 mg PO QHS [facility] Last Admin: 03/25/18 23:10 Dose: 5 mg Meloxicam (Mobic) 7.5 mg PO DAILY [facility] Last Admin: 03/26/18 10:14 Dose: 7.5 mg Metformin HCl (Glucophage) 500 mg PO BIDCM [facility] Last Admin: 03/26/18 10:15 Dose: 500 mg Non-Formulary Medication (Pain Pump (Pt's Own) [Pain Pump (Pt's Own)]) 0 mg SC UD [facility] Last Admin: 03/25/18 19:07 Dose: Not Given Nutritional Formula (Maynor - [place] Flavor) 1 packet PO BIDCM [facility] Last Admin: 03/26/18 10:07 Dose: Not Given Nutritional Formula (Lactose Free) (Glucerna Shake) 120 ml PO 4X/DAY [facility] Last Admin: 03/26/18 11:24 Dose: Not Given Nystatin (Mycostatin Powder) 1 applic TOPICAL BID [facility] PRN Reason: Protocol Last Admin: 03/26/18 10:21 Dose: Not Given Ondansetron HCl (Zofran) 4 mg IV Q8H PRN PRN PRN Reason: Nausea Last Admin: 03/22/18 03:50 Dose: 4 mg Ondansetron HCl (Zofran) 8 mg PO TID PRN PRN PRN Reason: NAUSEA Last Admin: 03/26/18 10:18 Dose: 8 mg Oxycodone HCl (Oxyir) 5 mg PO Q4H PRN PRN PRN Reason: Moderate Pain (pain scale 4-5) Last Admin: 03/26/18 10:14 Dose: 5 mg Polyethylene Glycol (Miralax) 17 gm PO DAILY [facility] Last Admin: 03/26/18 10:08 Dose: Not Given Potassium Chloride (K-Dur) 20 meq PO BID [facility] Last Admin: 03/26/18 10:08 Dose: Not Given Promethazine HCl (Phenergan Tablet) 12.5 mg PO Q4H PRN PRN PRN Reason: NAUSEA Sodium Chloride () 5 - 30 ml IV UD PRN PRN Reason: SALINE FLUSH Last Admin: 03/26/18 06:43 Dose: 10 ml Tizanidine HCl (Zanaflex) 2 mg PO Q8H PRN PRN PRN Reason: MUSCLE SPASMS Last Admin: 03/25/18 15:25 Dose: 2 mg Tolterodine Tartrate (Detrol La) 4 mg PO DAILY [facility] Last Admin: 03/26/18 10:15 Dose: 4 mg Venlafaxine HCl (Effexor) 150 mg PO BID [facility] Last Admin: 03/26/18 10:14 Dose: 150 mg Medical Necessity - Tobacco Use Smoking Status: Never smoker Assessment/Plan All Active Problems Skin necrosis (Acute) Necrotizing soft tissue infection (Acute) Pressure ulcer of left buttock, stage 2 (Acute) Decubitus skin ulcer (Acute) Diabetes mellitus type 2, uncontrolled (Acute) Decubitus ulcer (Acute) Recurrent UTI (urinary tract infection) (Acute) Pulmonary embolism (Acute) Abnormal liver function (Acute) 63 year old F with history of MS complicated with paraplegia, urinary incontinence s/p indwelling Chavarria catheter, nonambulatory, history of sacral decubitus ulcer, following with the wound clinic until last week comes in with worsening decubitus, going for wound debridement by plastic surgeon. 1. Acute on chronic necrotic sacral-coccygeal decubitus ulcer, s/p wound debridement on 03/21/18, cultures are growing enterococcus and Corynebacterium managed on Zosyn, ID following, slight increase in WBC, likely reactive Surgery this afternoon for diverting colostomy and suprapubic catheter Will switch to IV Dilaudid 0.5 mg q4h for now the patient has no longer Dilaudid pump. 2. Leaky chavarria catheter, history of recurrent UTI, s/p indwelling catheter, going for suprapubic catheter today 3. MS with paraplegia, chronic urine incontinence status post indwelling Chavarria catheter 4. Type 2 Diabetes mellitus, BS are fairly controlled, HbA1c is 7.4, off metformin, on insulin sliding scale with Accu-Cheks 5. Hypothyroidism/COPD/depression/history of pulmonary embolism/lumbar spinal stenosis/chronic pain -all complicating care of patient 6. DVT prophylaxis - Lovenox SC. Code Visit Inpatient E&M: 75651 Subs Hosp L2
[2018-03-26] MEDS: Bupiv/Epi 0.5% Mpf 30 ML Vial (16:50)
--- NOTE | 2018-03-26 17:10 | PCM.OPRPT ---
Problem List (1) Pressure ulcer of sacral region, stage 4 Status: Chronic (2) Multiple sclerosis Status: Chronic Report of Operation Date of Procedure: 03/26/18 Pre-Operative Diagnosis: 1. Sacral ulcer with osteomyelitis and need for diverting colostomy Post-Operative Diagnosis: Same Surgery/Procedure Performed:: Laparoscopic sigmoid colostomy creation Type of Anesthesia:: General Specimen's removed: None Description of Procedure: The patient was brought back to the operating room and general anesthesia was induced. After intubation the patient's FMS tube was removed and the patient was disimpacted. Next the abdomen was prepped and draped in usual sterile fashion and the patient's proposed stoma site was marked in the left lower quadrant from previous surgery. Next a 5 mm port was used to gain access in the right upper quadrant using the Visiport method. The abdomen was then insufflated to 15 mmHg. The abdomen was inspected for any injuries upon entry and there were none. Next in the right lower quadrant a 12 mm port was placed under direct visualization and a 5 mm port was placed under direct visualization as well. Next the patient was placed into steep Trendelenburg position and the sigmoid colon was located and traced down to the pelvis. An appropriate segment of the distal sigmoid colon was selected and a window was made in the mesentery with [place] forceps. Next several loads of 45 mm stapler were used to come across the sigmoid colon. Some of the mesentery was taken down with the Enseal to allow mobilization to the abdominal wall. Once there was good mobilization to the abdominal wall and the colon appeared healthy the abdomen was desufflated and a segment of skin where the stoma marking was applied was elevated and taken off with the electrocautery. Using Army-Landa's the fat was dissected down to the anterior fashion a cruciate incision was made in the anterior fascia. The muscle was split and the posterior fascia was incised with electrocautery. The tract was dilated with 2 fingers and then the sigmoid colon was brought through the colostomy site. The sigmoid colon was tacked to the fascia with 4 3-0 nylon sutures. Next the abdomen was reinsufflated and the stoma was inspected and the sigmoid colon was in good position with no twisting or compromise. Next the right lower quadrant fascia was closed with a Spencer Sosa needle and an 0 Vicryl suture. Next the ports were removed under direct visualization. All of the incision sites were then injected with lidocaine and closed with interrupted 4-0 Monocryl sutures and Steri-Strips. Bandages were applied. Next the sigmoid colon was incised with electrocautery and the edges of the sigmoid colon were brought down and sutured to the skin circumferentially with interrupted 3-0 Vicryl sutures. The stoma was inspected digitally and there was good patency to the stoma. The stoma was pink and beefy at the end of the case. The colostomy appliance was then applied. The patient was then rolled and the sacral dressing was changed while she was still under general anesthesia. Next he was awakened and taken to PACU in stable condition. He tolerated the procedure well. - Admit VTE Documentation VTE Mechan Device Prophylaxis: SCD's
--- NOTE | 2018-03-26 18:23 | NURSING ---
VERIFIED THAT [employer] GAVE PT SISTER A WHITE [employer]ERSONAL [employer] BAG THAT CONTAINED PT CADD PUMP WITH MEDICATION/TUBING FOR SISTER TO TAKE HOME. PT STATES THAT HER SISTER HANDLES ALL OF THAT
--- NOTE | 2018-03-26 18:30 | NURSING ---
Patient's sister took pt's pain pump home per patient request.
[2018-03-26 19:16] LABS: Bedside Glucose 161 mg/dL (70-110)
[2018-03-26] MEDS: MELATONIN 10 MG TABLET 5 MG PO (23:32)
[2018-03-26] MEDS: HYDROmorphone 0.5 MG/0.5 ML SYRINGE 1 MG IV (23:40)
[2018-03-27] LABS: Bedside Glucose 100 mg/dL (70-110)
[2018-03-27 01:00] VITALS: BP 118/60; PULSE 91; RESP 16; TEMP 36.6; O2SAT 93
[2018-03-27 04:37] VITALS: BP 123/98; PULSE 92; RESP 18; TEMP 37.1; O2SAT 93; BMI 34.6
[2018-03-27] MEDS: HYDROmorphone 0.5 MG/0.5 ML SYRINGE 1 MG IV (04:37)
[2018-03-27] MEDS: 0.9% NaCl Peripheral Flush Adult/Peds IV ×3 (06:06→23:08)
[2018-03-27] MEDS: Piperacil/Tazobactam 3.375 GM/50 ML ML IV (06:07)
[2018-03-27] MEDS: Insulin Lispro 100 UNIT/ML INSULN.PEN SQ (06:18)
[2018-03-27 06:19] LABS: Absolute Lymphocyte Count 2.77 X10^3/ul (0.83-4.51); Absolute Neutrophil Count 9.6 X10^3/uL (2.0-7.7); Basophil# 0.02 X10^3/uL; Basophil% 0.1 % (0-1); Eosinophil# 0.09 X10^3/uL; Eosinophils% 0.7 % (0-5); Hematocrit 32.5 % (37-47); Hemoglobin 10.3 g/dl (12.0-15.0); Lymphocyte # 2.77 X10^3/ul (4.0); Lymphocyte % 20.4 % (19-41); Mean Corp Hgb Conc 31.7 g/gl (32-36); Mean Corpuscular Hgb 29.1 pg (27.0-32.0); Mean Corpuscular Volume 91.8 fL (81-99); Mean Platelet Vol. 7.8 fl (6.2-12.0); Monocyte% 7.4 % (0-10); Neutrophil # 9.63 X10^3/uL (2.7-7.7); Platelet Count 331 K/mm3 (150-450); Red Blood Count 3.54 M/mm3 (4.2-5.4); White Blood Count 13.6 K/mm3 (4.4-11.0)
[2018-03-27 06:20] LABS: POSITIVE COUNT NO; POSITIVE DIFFERENTIAL NO; POSITIVE MORPHOLOGY NO
[2018-03-27 06:32] LABS: Anion Gap 8 (5-15); BUN 8 mg/dL (7-18); BUN/Creat Ratio 14.8 RATIO (10-20); Calcium,Total 8.2 mg/dL (8.5-10.1); Chloride 107 mmol/L (98-107); Creatinine, Serum 0.54 mg/dL (0.55-1.02); EST Glomerular Filtration Rate 121 mL/min (>60); Est Glom Filt Rate - Afr Amer 147 mL/min (>60); Estimated Creatinine Clearance 99.82 ml/min; Glucose 170 mg/dL (74-106); Potassium 3.7 mmol/L (3.5-5.1); Sodium Level 143 mmol/L (136-145)
[2018-03-27 06:36] LABS: Bedside Glucose 164 mg/dL (70-110)
[2018-03-27] MEDS: HYDROmorphone 1 MG/ML Syringe IV ×8 (06:41→23:08)
--- NOTE | 2018-03-27 07:20 | PCM.PN.HOSP ---
Patient Problems: Active and Suspected Problems Decubitus ulcer (Acute) Objective: Physical exam: General: Alert, No apparent distress HEENT: Atraumatic Oral: Moist Mucosa, No Gingival or Mucosal Lesions/ Ulcerations Neck: No Nodes, Thyroid Normal Size and Texture Lungs: Clear to auscultation, Normal air movement, No rhonchi, No wheeze Cardiovascular: Regular rate, Regular Rhythm, Normal S1, Normal S2, No murmurs Abdomen: Bowel Sounds Present, Soft, Non Tender, Non-Distended, No Hepato-splenomegaly, Obese Skin: Vitals/I&O's: Vital Signs Temp Pulse Resp BP Pulse Ox 98.8 F 92 18 123/98 H 93 03/27/18 04:37 03/27/18 04:37 03/27/18 04:37 03/27/18 04:37 03/27/18 04:37 Oxygen Flow Rate (L/min) 2 Oxygen Delivery Method Room Air Weight: 99.337 kg Body Mass Index (BMI) 35.3 Finger Stick Blood Glucose 161 Intake and Output for Last 24 Hours 03/25/18 03/26/18 03/27/18 23:59 23:59 23:59 Intake Total 2905 / 2905 3140 / 3140 464 / 464 Output Total 3025 / 3025 1325 / 1325 750 / 750 Balance -120 / -120 1815 / 1815 -286 / -286 Microbiology Past 72 Hours 03/21/18 17:00 Tissue Ulcer - Sacral Gram Stain - Final 03/21/18 17:00 Tissue Ulcer - Sacral Wound Culture - Final Enterococcus faecalis Corynebacterium striatum 03/21/18 17:00 Tissue Ulcer - Sacral Anaerobic Culture - Preliminary Bacteroides fragilis 03/21/18 17:00 Bone - Other Gram Stain - Final 03/21/18 17:00 Bone - Other Wound Culture - Final No growth aerobically. 03/21/18 17:00 Bone - Other Anaerobic Culture - Final No growth in 5 days. Laboratory Results 03/26/18 11:31: POC Glucose 172 H 03/26/18 18:57: POC Glucose 161 H 03/26/18 23:25: POC Glucose 100 03/27/18 06:10: WBC 13.6 H, RBC 3.54 L, Hgb 10.3 L, Hct 32.5 L, MCV 91.8, MCH 29.1, MCHC 31.7 L, RDW 15.0 H, RDW Differential 49.0 H, Plt Count 331, MPV 7.8, Immature Gran % (Auto) 0.400, Neut % (Auto) 71.0 H, Lymph % (Auto) 20.4, Coke % (Auto) 7.4, Eos % (Auto) 0.7, Baso % (Auto) 0.1, Absolute Neuts (auto) 9.6 H, Absolute Lymphs (auto) 2.77, Total Counted Not Reportable 03/27/18 06:10: Sodium 143, Potassium 3.7, Chloride 107, Carbon Dioxide 28.0, Anion Gap 8, BUN 8, Creatinine 0.54 L, Estim Creat Clear Calc 99.82, Est GFR (MDRD) Af Amer 147, Est GFR (MDRD) Non-Af 121, BUN/Creatinine Ratio 14.8, Glucose 170 H, Calcium 8.2 L 03/27/18 06:17: POC Glucose 164 H Current Medications Acetaminophen (Tylenol) 650 mg PO Q6H PRN PRN PRN Reason: Mild Pain (scale 0-3)/T>100.7 Last Admin: 03/26/18 10:14 Dose: 650 mg Al Hydroxide/Mg Hydroxide (Mylanta Ii) 30 ml PO Q6H PRN PRN PRN Reason: Gastric burning Alprazolam (Xanax) 0.5 mg PO Q6H PRN PRN PRN Reason: ANXIETY Last Admin: 03/26/18 10:14 Dose: 0.5 mg Bisacodyl (Dulcolax) 10 mg RECTAL DAILY PRN PRN PRN Reason: Constipation Last Admin: 03/23/18 15:08 Dose: 10 mg Dextrose (D50w Syringe) 0 gm IV X1 PRN; Protocol PRN Reason: Hypoglycemia Diltiazem HCl (Cardizem Cd) 240 mg PO DAILY [facility] Last Admin: 03/26/18 10:15 Dose: 240 mg Docusate Sodium (Colace) 200 mg PO BID PRN PRN PRN Reason: Constipation Last Admin: 03/23/18 04:03 Dose: 200 mg Enoxaparin Sodium (Lovenox) 40 mg SC DAILY@1000 ERIC Last Admin: 03/25/18 09:21 Dose: Not Given Famotidine (Pepcid) 20 mg PO BID [facility] Last Admin: 03/26/18 23:32 Dose: 20 mg Glucagon () 1 mg IM .X1 PRN PRN Reason: Hypoglycemia Hydromorphone HCl (Dilaudid Inj) 1 mg IV Q3H PRN PRN PRN Reason: SEVERE PAIN (6-10/10) Piperacillin Sod/Tazobactam Sod (Zosyn) 3.375 gm in 50 mls @ 12.5 mls/hr IV Q8 [facility] Last Admin: 03/27/18 06:07 Dose: 12.5 mls/hr Sodium Chloride () 1,000 mls @ 75 mls/hr IV .[id number] [facility] Stop: 03/27/18 08:14 Last Admin: 03/27/18 02:04 Dose: Not Given Insulin Human Lispro (Humalog Kwikpen (Bkc)) 0 unit SQ ACHS [facility] PRN Reason: Protocol Last Admin: 03/27/18 06:18 Dose: 1 u Lactobacillus Acidophilus (Acidophilus) 1 tablet PO DAILY [facility] Last Admin: 03/26/18 10:07 Dose: Not Given Levothyroxine Sodium (Synthroid) 100 mcg PO DAILY@0600 [facility] Last Admin: 03/27/18 06:19 Dose: Not Given Magnesium Hydroxide (Milk Of Magnesia) 30 ml PO DAILY PRN PRN PRN Reason: Constipation Last Admin: 03/23/18 06:23 Dose: 30 ml Melatonin (Melatonin) 5 mg PO QHS [facility] Last Admin: 03/26/18 23:32 Dose: 5 mg Meloxicam (Mobic) 7.5 mg PO DAILY [facility] Last Admin: 03/26/18 10:14 Dose: 7.5 mg Metformin HCl (Glucophage) 500 mg PO BIDCM [facility] Last Admin: 03/26/18 18:02 Dose: Not Given Morphine Sulfate () 2 - 4 mg IV Q2H PRN PRN PRN Reason: SEVERE PAIN (6-10/10) Morphine Sulfate () 2 - 4 mg IV Q2H PRN PRN PRN Reason: SEVERE PAIN (6-10/10) Nutritional Formula (Maynor - [place] Flavor) 1 packet PO BIDCM [facility] Last Admin: 03/26/18 18:02 Dose: Not Given Nutritional Formula (Lactose Free) (Glucerna Shake) 120 ml PO 4X/DAY [facility] Last Admin: 03/26/18 23:20 Dose: Not Given Nystatin (Mycostatin Powder) 1 applic TOPICAL BID [facility] PRN Reason: Protocol Last Admin: 03/26/18 23:21 Dose: Not Given Ondansetron HCl (Zofran) 4 mg IV Q8H PRN PRN PRN Reason: Nausea Last Admin: 03/22/18 03:50 Dose: 4 mg Ondansetron HCl (Zofran) 8 mg PO TID PRN PRN PRN Reason: NAUSEA Last Admin: 03/26/18 10:18 Dose: 8 mg Oxycodone HCl (Oxyir) 5 mg PO Q4H PRN PRN PRN Reason: Moderate Pain (pain scale 4-5) Last Admin: 03/26/18 10:14 Dose: 5 mg Polyethylene Glycol (Miralax) 17 gm PO DAILY [facility] Last Admin: 03/26/18 10:08 Dose: Not Given Potassium Chloride (K-Dur) 20 meq PO BID [facility] Last Admin: 03/26/18 23:34 Dose: 20 meq Promethazine HCl (Phenergan Tablet) 12.5 mg PO Q4H PRN PRN PRN Reason: NAUSEA Sodium Chloride () 5 - 30 ml IV UD PRN PRN Reason: SALINE FLUSH Last Admin: 03/27/18 06:06 Dose: 30 ml Tizanidine HCl (Zanaflex) 2 mg PO Q8H PRN PRN PRN Reason: MUSCLE SPASMS Last Admin: 03/25/18 15:25 Dose: 2 mg Tolterodine Tartrate (Detrol La) 4 mg PO DAILY [facility] Last Admin: 03/26/18 10:15 Dose: 4 mg Venlafaxine HCl (Effexor) 150 mg PO BID [facility] Last Admin: 03/26/18 23:33 Dose: 150 mg Medical Necessity - Tobacco Use Smoking Status: Never smoker Assessment/Plan All Active Problems Skin necrosis (Acute) Necrotizing soft tissue infection (Acute) Pressure ulcer of left buttock, stage 2 (Acute) Decubitus skin ulcer (Acute) Diabetes mellitus type 2, uncontrolled (Acute) Decubitus ulcer (Acute) Recurrent UTI (urinary tract infection) (Acute) Pulmonary embolism (Acute) Abnormal liver function (Acute) 63 year old F with history of MS complicated with paraplegia, urinary incontinence s/p indwelling Chavarria catheter, nonambulatory, history of sacral decubitus ulcer, following with the wound clinic until last week comes in with worsening decubitus, going for wound debridement by plastic surgeon. 1. Acute on chronic necrotic sacral-coccygeal decubitus ulcer, s/p wound debridement on 03/21/18, cultures are growing enterococcus and Corynebacterium managed on Zosyn, ID following, slight increase in WBC, likely reactive Surgery this afternoon for diverting colostomy and suprapubic catheter Will switch to IV Dilaudid 0.5 mg q4h for now the patient has no longer Dilaudid pump. 2. Leaky chavarria catheter, history of recurrent UTI, s/p indwelling catheter, going for suprapubic catheter today 3. MS with paraplegia, chronic urine incontinence status post indwelling Chavarria catheter 4. Type 2 Diabetes mellitus, BS are fairly controlled, HbA1c is 7.4, off metformin, on insulin sliding scale with Accu-Cheks 5. Hypothyroidism/COPD/depression/history of pulmonary embolism/lumbar spinal stenosis/chronic pain -all complicating care of patient 6. DVT prophylaxis - Lovenox SC. Code Visit Inpatient E&M: 65988 Subs Hosp L2
--- NOTE | 2018-03-27 07:26 | PCM.PN.BLA ---
Progress Note on schedule for SP tube tomorrow. npo for procedure.
--- NOTE | 2018-03-27 07:30 | PCM.PN.BLA ---
Progress Note spoke to patient, was only able to get stent on left. no stent on right side can go home and see CONFIGURATION ANALYST oncology for further care always possible to place R nephrostomy tube. will see whay CONFIGURATION ANALYST onc wants to do?
--- NOTE | 2018-03-27 07:31 | PN_ITS ---
Progress Note spoke to patient, was only able to get stent on left. no stent on right side can go home and see PRIVATE INVESTIGATOR oncology for further care always possible to place R nephrostomy tube. will see whay PRIVATE INVESTIGATOR onc wants to do?
[2018-03-27 07:43] VITALS: BP 131/73; PULSE 80; RESP 18; TEMP 36.7; O2SAT 95
[2018-03-27] MEDS: Nystatin Powder 15gm Bottle 1 APPLIC TOPICAL (07:53)
[2018-03-27] MEDS: Famotidine 20 MG Tablet PO ×2 (07:53→22:16)
[2018-03-27] MEDS: dilTIAZem CD 240 MG Capsule PO (07:54)
[2018-03-27] MEDS: Meloxicam 7.5 MG Tablet PO (07:54)
[2018-03-27] MEDS: Polyethylene Glycol 3350 17 GM PACKET PO (07:56)
[2018-03-27] MEDS: oxyCODONE 5 MG Tablet PO (07:59)
[2018-03-27] MEDS: Tolterodine Tartrate 4 MG CAP.SA PO (08:00)
--- NOTE | 2018-03-27 08:11 | PCM.PN.SRG ---
Patient Problems: Active and Suspected Problems Decubitus ulcer (Acute) Subjective: Patient is doing well this morning. She did have some pain with turning last night. She reports most of the pain is in her sore but she does have a little abdominal pain. She is not having any nausea or vomiting. - Physical Exam Neck: No JVD Lungs: Clear to auscultation, Normal air movement Cardiovascular: Regular rate, Regular Rhythm Abdomen: Soft, Non-Distended, - - Colostomy bag has stool in the ostomy is pink and supple. Neurological: Cranial nerves II-XII grossly intact Vital Signs Temp Pulse Resp BP Pulse Ox 98.0 F 80 18 131/73 H 95 03/27/18 07:43 03/27/18 07:43 03/27/18 07:43 03/27/18 07:43 03/27/18 07:43 Oxygen Flow Rate (L/min) 2 Oxygen Delivery Method Room Air Weight: 219 lb Body Mass Index (BMI) 35.3 Finger Stick Blood Glucose 161 Intake and Output for Last 24 Hours 03/25/18 03/26/18 03/27/18 23:59 23:59 23:59 Intake Total 2905 / 2905 3140 / 3140 464 / 464 Output Total 3025 / 3025 1325 / 1325 750 / 750 Balance -120 / -120 1815 / 1815 -286 / -286 Microbiology Past 72 Hours 03/21/18 17:00 Gram Stain - Final Tissue Ulcer - Sacral Wound Culture - Final Enterococcus faecalis Corynebacterium striatum Anaerobic Culture - Final Bacteroides fragilis 03/21/18 17:00 Gram Stain - Final Bone - Other Wound Culture - Final No growth aerobically. Anaerobic Culture - Final No growth in 5 days. Laboratory Tests Past 24 Hrs 03/27/18 03/27/18 06:10 06:10 WBC 13.6 H RBC 3.54 L Hgb 10.3 L Hct 32.5 L MCV 91.8 MCH 29.1 MCHC 31.7 L RDW 15.0 H RDW Differential 49.0 H Plt Count 331 MPV 7.8 Immature Gran % (Auto) 0.400 Neut % (Auto) 71.0 H Lymph % (Auto) 20.4 [place] % (Auto) 7.4 Eos % (Auto) 0.7 Baso % (Auto) 0.1 Absolute Neuts (auto) 9.6 H Absolute Lymphs (auto) 2.77 Total Counted Not Reportable Sodium 143 Potassium 3.7 Chloride 107 Carbon Dioxide 28.0 Anion Gap 8 BUN 8 Creatinine 0.54 L Estim Creat Clear Calc 99.82 Est GFR (MDRD) Af Amer 147 Est GFR (MDRD) Non-Af 121 BUN/Creatinine Ratio 14.8 Glucose 170 H Calcium 8.2 L POC Glucose 03/27/18 03/26/18 03/26/18 06:17 23:25 18:57 POC Glucose 164 H 100 161 H 03/26/18 11:31 POC Glucose 172 H Medical Necessity - Tobacco Use Smoking Status: Never smoker Assessment/Plan All Active Problems Skin necrosis (Acute) Necrotizing soft tissue infection (Acute) Pressure ulcer of left buttock, stage 2 (Acute) Decubitus skin ulcer (Acute) Diabetes mellitus type 2, uncontrolled (Acute) Decubitus ulcer (Acute) Recurrent UTI (urinary tract infection) (Acute) Pulmonary embolism (Acute) Abnormal liver function (Acute) 63-year-old female status post laparoscopic sigmoid colostomy 1. Patient can have clears and advance as tolerated. Her colostomy seems to be functioning and viable. Rafael Starr MD Pager: [facility] [address] [place] [address], [address] [place] [address] Office:
--- NOTE | 2018-03-27 08:55 | NURSING ---
wound photo: sacrum
[2018-03-27] MEDS: Morphine 4 MG/ML Syringe IV (09:08)
--- NOTE | 2018-03-27 10:16 | CASEMGMT ---
Social Work Note SW placed a call to referral line and left a message for Cara/Luisa to inform them to submit for pre-cert today as pt could be discharged tomorrow. Plan: TCU pending pre-cert Angie Rey MSW, [employer]
--- NOTE | 2018-03-27 10:59 | PCM.PN.ID ---
Patient Problems: Active and Suspected Problems Decubitus ulcer (Acute) Subjective: Feeling ok, some pain s/p surgery. No fever. - Physical Exam General: Alert, Cooperative Lungs: Clear to auscultation, Normal air movement Cardiovascular: Regular rate, Regular Rhythm Abdomen: Soft, Non Tender, Non-Distended Skin: No rashes Vital Signs Temp Pulse Resp BP Pulse Ox 98.0 F 80 18 131/73 H 95 03/27/18 07:43 03/27/18 07:43 03/27/18 07:43 03/27/18 07:43 03/27/18 07:43 Oxygen Flow Rate (L/min) 2 Oxygen Delivery Method Room Air Weight: 99.337 kg Body Mass Index (BMI) 35.3 Finger Stick Blood Glucose 161 Intake and Output for Last 24 Hours 03/25/18 03/26/18 03/27/18 23:59 23:59 23:59 Intake Total 2905 / 2905 3140 / 3140 464 / 464 Output Total 3025 / 3025 1325 / 1325 750 / 750 Balance -120 / -120 1815 / 1815 -286 / -286 Microbiology Past 72 Hours 03/21/18 17:00 Gram Stain - Final Tissue Ulcer - Sacral Wound Culture - Final Enterococcus faecalis Corynebacterium striatum Anaerobic Culture - Final Bacteroides fragilis 03/21/18 17:00 Gram Stain - Final Bone - Other Wound Culture - Final No growth aerobically. Anaerobic Culture - Final No growth in 5 days. Laboratory Tests Past 24 Hrs 03/27/18 03/27/18 06:10 06:10 WBC 13.6 H RBC 3.54 L Hgb 10.3 L Hct 32.5 L MCV 91.8 MCH 29.1 MCHC 31.7 L RDW 15.0 H RDW Differential 49.0 H Plt Count 331 MPV 7.8 Immature Gran % (Auto) 0.400 Neut % (Auto) 71.0 H Lymph % (Auto) 20.4 [place] % (Auto) 7.4 Eos % (Auto) 0.7 Baso % (Auto) 0.1 Absolute Neuts (auto) 9.6 H Absolute Lymphs (auto) 2.77 Total Counted Not Reportable Sodium 143 Potassium 3.7 Chloride 107 Carbon Dioxide 28.0 Anion Gap 8 BUN 8 Creatinine 0.54 L Estim Creat Clear Calc 99.82 Est GFR (MDRD) Af Amer 147 Est GFR (MDRD) Non-Af 121 BUN/Creatinine Ratio 14.8 Glucose 170 H Calcium 8.2 L POC Glucose 03/27/18 03/26/18 03/26/18 06:17 23:25 18:57 POC Glucose 164 H 100 161 H 03/26/18 11:31 POC Glucose 172 H Medical Necessity - Tobacco Use Smoking Status: Never smoker Route of nutrition/ use of supplements: [] Nutritional Intake: [] IV Site: [] Marcus Catheter: [] - Assessment/Plan Antibiotics: [] Assessment/Plan: [] Active and Suspected Problems Pressure ulcer of left buttock, stage 2 (Acute) Decubitus skin ulcer (Acute) Decubitus ulcer (Acute) Suspected infected ulcer - s/p OR for debridement 03/[address] Lynch. Prior wound cx with k.pneumo, burkholderia, e.faecalis, corynebacterium, and anaerobes. Wound cx now with e.faecalis and corynebacterium. Narrow zosyn to unasyn for planned 6 week total course of abx, start date 03/21. Diverting ostomy done 03/26. Picc placed. Will follow
[2018-03-27 11:30] LABS: Bedside Glucose 135 mg/dL (70-110)
[2018-03-27] MEDS: Glucerna Shake 120 ML LIQUID PO ×2 (14:32→16:39)
[2018-03-27 14:37] VITALS: BP 126/69; PULSE 80; RESP 18; TEMP 36.9; O2SAT 97
--- NOTE | 2018-03-27 14:47 | CASEMGMT ---
Social Work Note SW received call from [place] in TCU stating that pre-cert has been obtained and pt is able to discharge tomorrow. Plan: TCU tomorrow. Angie Rey PROTECTIVE OFFICER, [employer]
--- NOTE | 2018-03-27 15:44 | PCM.PN.HOSP ---
Patient Problems: Active and Suspected Problems Decubitus ulcer (Acute) Subjective: Patient seen and examined. Denies fever, chills. Pain was not controlled. Objective: Physical exam: General: Alert, No apparent distress, not pale, not jaundiced HEENT: Atraumatic Oral: Moist Mucosa, No Gingival or Mucosal Lesions/ Ulcerations Neck: No Nodes, Thyroid Normal Size and Texture Lungs: Clear to auscultation, Normal air movement, No rhonchi, No wheeze Cardiovascular: Regular rate, Regular Rhythm, Normal S1, Normal S2, No murmurs Abdomen: Bowel Sounds Present, Soft, Colostomy with stool in colostomy bag, Non-Distended, No Hepato-splenomegaly, Obese Vitals/I&O's: Vital Signs Temp Pulse Resp BP Pulse Ox 98.4 F 80 18 126/69 H 97 03/27/18 14:37 03/27/18 14:37 03/27/18 14:37 03/27/18 14:37 03/27/18 14:37 Oxygen Flow Rate (L/min) 2 Oxygen Delivery Method Room Air Weight: 99.337 kg Body Mass Index (BMI) 35.3 Finger Stick Blood Glucose 161 Intake and Output for Last 24 Hours 03/25/18 03/26/18 03/27/18 23:59 23:59 23:59 Intake Total 2905 / 2905 3140 / 3140 1142 / 1142 Output Total 3025 / 3025 1325 / 1325 1850 / 1850 Balance -120 / -120 1815 / 1815 -708 / -708 Microbiology Past 72 Hours 03/21/18 17:00 Tissue Ulcer - Sacral Gram Stain - Final 03/21/18 17:00 Tissue Ulcer - Sacral Wound Culture - Final Enterococcus faecalis Corynebacterium striatum 03/21/18 17:00 Tissue Ulcer - Sacral Anaerobic Culture - Final Bacteroides fragilis 03/21/18 17:00 Bone - Other Gram Stain - Final 03/21/18 17:00 Bone - Other Wound Culture - Final No growth aerobically. 03/21/18 17:00 Bone - Other Anaerobic Culture - Final No growth in 5 days. Laboratory Results 03/26/18 18:57: POC Glucose 161 H 03/26/18 23:25: POC Glucose 100 03/27/18 06:10: WBC 13.6 H, RBC 3.54 L, Hgb 10.3 L, Hct 32.5 L, MCV 91.8, MCH 29.1, MCHC 31.7 L, RDW 15.0 H, RDW Differential 49.0 H, Plt Count 331, MPV 7.8, Immature Gran % (Auto) 0.400, Neut % (Auto) 71.0 H, Lymph % (Auto) 20.4, [place] % (Auto) 7.4, Eos % (Auto) 0.7, Baso % (Auto) 0.1, Absolute Neuts (auto) 9.6 H, Absolute Lymphs (auto) 2.77, Total Counted Not Reportable 03/27/18 06:10: Sodium 143, Potassium 3.7, Chloride 107, Carbon Dioxide 28.0, Anion Gap 8, BUN 8, Creatinine 0.54 L, Estim Creat Clear Calc 99.82, Est GFR (MDRD) Af Amer 147, Est GFR (MDRD) Non-Af 121, BUN/Creatinine Ratio 14.8, Glucose 170 H, Calcium 8.2 L 03/27/18 06:17: POC Glucose 164 H 03/27/18 11:10: POC Glucose 135 H Current Medications Acetaminophen (Tylenol) 650 mg PO Q6H PRN PRN PRN Reason: Mild Pain (scale 0-3)/T>100.7 Last Admin: 03/26/18 10:14 Dose: 650 mg Al Hydroxide/Mg Hydroxide (Mylanta Ii) 30 ml PO Q6H PRN PRN PRN Reason: Gastric burning Alprazolam (Xanax) 0.5 mg PO Q6H PRN PRN PRN Reason: ANXIETY Last Admin: 03/26/18 10:14 Dose: 0.5 mg Bisacodyl (Dulcolax) 10 mg RECTAL DAILY PRN PRN PRN Reason: Constipation Last Admin: 03/23/18 15:08 Dose: 10 mg Dextrose (D50w Syringe) 0 gm IV X1 PRN; Protocol PRN Reason: Hypoglycemia Diltiazem HCl (Cardizem Cd) 240 mg PO DAILY ERIC Last Admin: 03/27/18 07:54 Dose: 240 mg Docusate Sodium (Colace) 200 mg PO BID PRN PRN PRN Reason: Constipation Last Admin: 03/23/18 04:03 Dose: 200 mg Enoxaparin Sodium (Lovenox) 40 mg SC DAILY@1000 [facility] Last Admin: 03/27/18 07:56 Dose: Not Given Famotidine (Pepcid) 20 mg PO BID [facility] Last Admin: 03/27/18 07:53 Dose: 20 mg Glucagon () 1 mg IM .X1 PRN PRN Reason: Hypoglycemia Hydromorphone HCl (Dilaudid Inj) 1 mg IV Q2H PRN PRN PRN Reason: SEVERE PAIN (6-10/10) Last Admin: 03/27/18 14:32 Dose: 1 mg Ampicillin Sodium/Sulbactam (Sodium 3 gm/ Sodium Chloride) 112 mls @ 150 mls/hr IV Q8 [facility] Last Admin: 03/27/18 14:32 Dose: 150 mls/hr Insulin Human Lispro (Humalog Kwikpen (Bkc)) 0 unit SQ ACHS [facility] PRN Reason: Protocol Last Admin: 03/27/18 11:15 Dose: Not Given Lactobacillus Acidophilus (Acidophilus) 1 tablet PO DAILY [facility] Last Admin: 03/27/18 07:52 Dose: 1 tablet Levothyroxine Sodium (Synthroid) 100 mcg PO DAILY@0600 [facility] Last Admin: 03/27/18 06:19 Dose: Not Given Magnesium Hydroxide (Milk Of Magnesia) 30 ml PO DAILY PRN PRN PRN Reason: Constipation Last Admin: 03/23/18 06:23 Dose: 30 ml Melatonin (Melatonin) 5 mg PO QHS [facility] Last Admin: 03/26/18 23:32 Dose: 5 mg Meloxicam (Mobic) 7.5 mg PO DAILY [facility] Last Admin: 03/27/18 07:54 Dose: 7.5 mg Met[facility] ([facility]) [facility] Last Admin: 03/27/18 07:52 Dose: 500 mg Morphine Sulfate () 2 - 4 mg IV Q2H PRN PRN PRN Reason: SEVERE PAIN (6-10/10) Morphine Sulfate () 2 - 4 mg IV Q2H PRN PRN PRN Reason: SEVERE PAIN (6-10/10) Last Admin: 03/27/18 09:08 Dose: 4 mg Nutritional Formula (Maynor - [place] Flavor) 1 packet PO BIDCM [facility] Last Admin: 03/27/18 07:52 Dose: 1 packet Nutritional Formula (Lactose Free) (Glucerna Shake) 120 ml PO 4X/DAY [facility] Last Admin: 03/27/18 14:32 Dose: 120 ml Nystatin (Mycostatin Powder) 1 applic TOPICAL BID ERIC PRN Reason: Protocol Last Admin: 03/27/18 07:53 Dose: 1 applicatio Ondansetron HCl (Zofran) 4 mg IV Q8H PRN PRN PRN Reason: Nausea Last Admin: 03/22/18 03:50 Dose: 4 mg Ondansetron HCl (Zofran) 8 mg PO TID PRN PRN PRN Reason: NAUSEA Last Admin: 03/26/18 10:18 Dose: 8 mg Oxycodone HCl (Oxyir) 5 mg PO Q4H PRN PRN PRN Reason: Moderate Pain (pain scale 4-5) Last Admin: 03/27/18 07:59 Dose: 5 mg Polyethylene Glycol (Miralax) 17 gm PO DAILY [facility] Last Admin: 03/27/18 07:56 Dose: 17 gm Potassium Chloride (K-Dur) 20 meq PO BID [facility] Last Admin: 03/27/18 07:55 Dose: 20 meq Promethazine HCl (Phenergan Tablet) 12.5 mg PO Q4H PRN PRN PRN Reason: NAUSEA Sodium Chloride () 5 - 30 ml IV UD PRN PRN Reason: SALINE FLUSH Last Admin: 03/27/18 06:06 Dose: 30 ml Tizanidine HCl (Zanaflex) 2 mg PO Q8H PRN PRN PRN Reason: MUSCLE SPASMS Last Admin: 03/25/18 15:25 Dose: 2 mg Tolterodine Tartrate (Detrol La) 4 mg PO DAILY [facility] Last Admin: 03/27/18 08:00 Dose: 4 mg Venlafaxine HCl (Effexor) 150 mg PO BID [facility] Last Admin: 03/27/18 07:53 Dose: 150 mg Medical Necessity - Tobacco Use Smoking Status: Never smoker Assessment/Plan All Active Problems Skin necrosis (Acute) Necrotizing soft tissue infection (Acute) Pressure ulcer of left buttock, stage 2 (Acute) Decubitus skin ulcer (Acute) Diabetes mellitus type 2, uncontrolled (Acute) Decubitus ulcer (Acute) Recurrent UTI (urinary tract infection) (Acute) Pulmonary embolism (Acute) Abnormal liver function (Acute) 63 year old F with history of MS complicated with paraplegia, urinary incontinence s/p indwelling Chavarria catheter, nonambulatory, history of sacral decubitus ulcer, following with the wound clinic until last week comes in with worsening decubitus, going for wound debridement by plastic surgeon. 1. Acute on chronic necrotic sacral-coccygeal decubitus ulcer, s/p wound debridement on 03/21/18, cultures are growing enterococcus and Corynebacterium managed on Unasyn, ID following s/p diverting colostomy to aid with wound healing. Possible suprapubic catheter tomorrow. Pain is controlled on IV Dilaudid 2. Leaky chavarria catheter, history of recurrent UTI, s/p indwelling catheter, possible suprapubic catheter by urology. 3. MS with paraplegia, chronic urine incontinence status post indwelling Chavarria catheter 4. Type 2 Diabetes mellitus, BS are fairly controlled, HbA1c is 7.4, off metformin, on insulin sliding scale with Accu-Cheks 5. Hypothyroidism/COPD/depression/history of pulmonary embolism/lumbar spinal stenosis/chronic pain -all complicating care of patient 6. DVT prophylaxis - Lovenox SC. Code Visit Inpatient E&M: 57476 Subs Hosp L2
[2018-03-27 16:55] LABS: Bedside Glucose 113 mg/dL (70-110)
[2018-03-27 20:37] VITALS: BP 134/69; PULSE 87; RESP 18; TEMP 36.8; O2SAT 94
[2018-03-27] MEDS: MELATONIN 10 MG TABLET 5 MG PO (22:16)
[2018-03-28] VITALS (10 sets, daily range): BP systolic 112–144; BP diastolic 53–87; PULSE 70–82; RESP 16–18; TEMP 36.1–36.7; O2SAT 94–98; BMI 35.3
[2018-03-28 00:21] LABS: Bedside Glucose 101 mg/dL (70-110)
[2018-03-28] MEDS: 0.9% NaCl Peripheral Flush Adult/Peds IV ×3 (01:08→05:19)
[2018-03-28] MEDS: HYDROmorphone 1 MG/ML Syringe IV ×6 (01:09→14:19)
[2018-03-28] MEDS: Levothyroxine 100 MCG Tablet PO (05:19)
[2018-03-28] MEDS: ALPRAZolam 0.5 MG Tablet PO ×2 (05:31→14:21)
[2018-03-28 06:51] LABS: Bedside Glucose 132 mg/dL (70-110)
--- NOTE | 2018-03-28 07:27 | NURSING ---
Report called to Surgery at this time.
--- NOTE | 2018-03-28 07:30 | PCM.PN.SRG ---
Patient Problems: Active and Suspected Problems Decubitus ulcer (Acute) Subjective: Patient is doing well this morning. Her abdominal pain is well controlled. She is tolerating a liquid diet. - Physical Exam General: Alert, Oriented x3, Cooperative Lungs: Normal air movement Cardiovascular: Regular rate, Regular Rhythm Abdomen: Soft, Non Tender, Non-Distended, - - Incisions are clean dry and intact. Stoma is pink and supple with stool and gas in her colostomy bag Vital Signs Temp Pulse Resp BP Pulse Ox 97.9 F 82 16 126/74 H 94 03/28/18 05:24 03/28/18 05:24 03/28/18 05:24 03/28/18 05:24 03/28/18 05:24 Oxygen Flow Rate (L/min) 2 Oxygen Delivery Method Room Air Weight: 219 lb 0.009 oz Body Mass Index (BMI) 35.3 Finger Stick Blood Glucose 161 Intake and Output for Last 24 Hours 03/26/18 03/27/18 03/28/18 23:59 23:59 23:59 Intake Total 3140 / 3140 2232 / 2232 198 / 198 Output Total 1325 / 1325 2700 / 2700 1000 / 1000 Balance 1815 / 1815 -468 / -468 -802 / -802 Microbiology Past 72 Hours 03/21/18 17:00 Gram Stain - Final Tissue Ulcer - Sacral Wound Culture - Final Enterococcus faecalis Corynebacterium striatum Anaerobic Culture - Final Bacteroides fragilis 03/21/18 17:00 Gram Stain - Final Bone - Other Wound Culture - Final No growth aerobically. Anaerobic Culture - Final No growth in 5 days. POC Glucose 03/28/18 03/27/18 03/27/18 06:37 22:14 16:38 POC Glucose 132 H 101 113 H 03/27/18 11:10 POC Glucose 135 H Medical Necessity - Tobacco Use Smoking Status: Never smoker Assessment/Plan All Active Problems Skin necrosis (Acute) Necrotizing soft tissue infection (Acute) Pressure ulcer of left buttock, stage 2 (Acute) Decubitus skin ulcer (Acute) Diabetes mellitus type 2, uncontrolled (Acute) Decubitus ulcer (Acute) Recurrent UTI (urinary tract infection) (Acute) Pulmonary embolism (Acute) Abnormal liver function (Acute) 63-year-old female status post diverting colostomy 1. Patient is tolerating diet and having good stool output. She is going for suprapubic catheter this morning. 2. Okay for regular diet and transfer from my standpoint after surgery today. Dr. Starks will be covering for me this weekend if there are any issues. Rafael Starr MD Pager: [facility] [address] [place] [address], [address] [place] [phone] Office:
--- NOTE | 2018-03-28 07:41 | PCM.PN.HOSP ---
Patient Problems: Active and Suspected Problems Decubitus ulcer (Acute) Objective: Physical exam: General: Alert, No apparent distress, not pale, not jaundiced HEENT: Atraumatic Oral: Moist Mucosa, No Gingival or Mucosal Lesions/ Ulcerations Neck: No Nodes, Thyroid Normal Size and Texture Lungs: Clear to auscultation, Normal air movement, No rhonchi, No wheeze Cardiovascular: Regular rate, Regular Rhythm, Normal S1, Normal S2, No murmurs Abdomen: Bowel Sounds Present, Soft, Colostomy with stool in colostomy bag, Non-Distended, No Hepato-splenomegaly, Obese Vitals/I&O's: Vital Signs Temp Pulse Resp BP Pulse Ox 97.9 F 82 16 126/74 H 94 03/28/18 07:28 03/28/18 07:28 03/28/18 07:28 03/28/18 07:28 03/28/18 07:28 Oxygen Flow Rate (L/min) 2 Oxygen Delivery Method Room Air Weight: 99.337 kg Body Mass Index (BMI) 35.3 Finger Stick Blood Glucose 161 Intake and Output for Last 24 Hours 03/26/18 03/27/18 03/28/18 23:59 23:59 23:59 Intake Total 3140 / 3140 2232 / 2232 198 / 198 Output Total 1325 / 1325 2700 / 2700 1000 / 1000 Balance 1815 / 1815 -468 / -468 -802 / -802 Microbiology Past 72 Hours 03/21/18 17:00 Tissue Ulcer - Sacral Gram Stain - Final 03/21/18 17:00 Tissue Ulcer - Sacral Wound Culture - Final Enterococcus faecalis Corynebacterium striatum 03/21/18 17:00 Tissue Ulcer - Sacral Anaerobic Culture - Final Bacteroides fragilis 03/21/18 17:00 Bone - Other Gram Stain - Final 03/21/18 17:00 Bone - Other Wound Culture - Final No growth aerobically. 03/21/18 17:00 Bone - Other Anaerobic Culture - Final No growth in 5 days. Laboratory Results 03/27/18 11:10: POC Glucose 135 H 03/27/18 16:38: POC Glucose 113 H 03/27/18 22:14: POC Glucose 101 03/28/18 06:37: POC Glucose 132 H Current Medications Acetaminophen (Tylenol) 650 mg PO Q6H PRN PRN PRN Reason: Mild Pain (scale 0-3)/T>100.7 Last Admin: 03/26/18 10:14 Dose: 650 mg Al Hydroxide/Mg Hydroxide (Mylanta Ii) 30 ml PO Q6H PRN PRN PRN Reason: Gastric burning Alprazolam (Xanax) 0.5 mg PO Q6H PRN PRN PRN Reason: ANXIETY Last Admin: 03/28/18 05:31 Dose: 0.5 mg Bisacodyl (Dulcolax) 10 mg RECTAL DAILY PRN PRN PRN Reason: Constipation Last Admin: 03/23/18 15:08 Dose: 10 mg Dextrose (D50w Syringe) 0 gm IV X1 PRN; Protocol PRN Reason: Hypoglycemia Diltiazem HCl (Cardizem Cd) 240 mg PO DAILY [facility] Last Admin: 03/27/18 07:54 Dose: 240 mg Docusate Sodium (Colace) 200 mg PO BID PRN PRN PRN Reason: Constipation Last Admin: 03/23/18 04:03 Dose: 200 mg Enoxaparin Sodium (Lovenox) 40 mg SC DAILY@1000 [facility] Last Admin: 03/28/18 07:30 Dose: Not Given Famotidine (Pepcid) 20 mg PO BID [facility] Last Admin: 03/28/18 07:30 Dose: Not Given Glucagon () 1 mg IM .X1 PRN PRN Reason: Hypoglycemia Hydromorphone HCl (Dilaudid Inj) 1 mg IV Q2H PRN PRN PRN Reason: SEVERE PAIN (6-10/10) Last Admin: 03/28/18 05:19 Dose: 1 mg Ampicillin Sodium/Sulbactam (Sodium 3 gm/ Sodium Chloride) 112 mls @ 150 mls/hr IV Q8 [facility] Last Admin: 03/28/18 05:19 Dose: 150 mls/hr Insulin Human Lispro (Humalog Kwikpen (Bkc)) 0 unit SQ ACHS [facility] PRN Reason: Protocol Last Admin: 03/28/18 06:52 Dose: Not Given Lactobacillus Acidophilus (Acidophilus) 1 tablet PO DAILY [facility] Last Admin: 03/28/18 07:29 Dose: Not Given Levothyroxine Sodium (Synthroid) 100 mcg PO DAILY@0600 [facility] Last Admin: 03/28/18 05:19 Dose: 100 mcg Magnesium Hydroxide (Milk Of Magnesia) 30 ml PO DAILY PRN PRN PRN Reason: Constipation Last Admin: 03/23/18 06:23 Dose: 30 ml Melatonin (Melatonin) 5 mg PO QHS [facility] Last Admin: 03/27/18 22:16 Dose: 5 mg Meloxicam (Mobic) 7.5 mg PO DAILY [facility] Last Admin: 03/27/18 07:54 Dose: 7.5 mg Metformin HCl (Glucophage) 500 mg PO BIDCM [facility] Last Admin: 03/28/18 07:22 Dose: Not Given Morphine Sulfate () 2 - 4 mg IV Q2H PRN PRN PRN Reason: SEVERE PAIN (6-10/10) Morphine Sulfate () 2 - 4 mg IV Q2H PRN PRN PRN Reason: SEVERE PAIN (6-10/10) Last Admin: 03/27/18 09:08 Dose: 4 mg Nutritional Formula ([place] - [place] Flavor) 1 packet PO BIDCM [facility] Last Admin: 03/28/18 07:29 Dose: Not Given Nutritional Formula (Lactose Free) (Glucerna Shake) 120 ml PO 4X/DAY [facility] Last Admin: 03/28/18 07:30 Dose: Not Given Nystatin (Mycostatin Powder) 1 applic TOPICAL BID [facility] PRN Reason: Protocol Last Admin: 03/28/18 07:30 Dose: Not Given Ondansetron HCl (Zofran) 4 mg IV Q8H PRN PRN PRN Reason: Nausea Last Admin: 03/22/18 03:50 Dose: 4 mg Ondansetron HCl (Zofran) 8 mg PO TID PRN PRN PRN Reason: NAUSEA Last Admin: 03/26/18 10:18 Dose: 8 mg Oxycodone HCl (Oxyir) 5 mg PO Q4H PRN PRN PRN Reason: Moderate Pain (pain scale 4-5) Last Admin: 03/27/18 07:59 Dose: 5 mg Polyethylene Glycol (Miralax) 17 gm PO DAILY [facility] Last Admin: 03/28/18 07:30 Dose: Not Given Potassium Chloride (K-Dur) 20 meq PO BID [facility] Last Admin: 03/28/18 07:30 Dose: Not Given Promethazine HCl (Phenergan Tablet) 12.5 mg PO Q4H PRN PRN PRN Reason: NAUSEA Sodium Chloride () 5 - 30 ml IV UD PRN PRN Reason: SALINE FLUSH Last Admin: 03/28/18 05:19 Dose: 10 ml Tizanidine HCl (Zanaflex) 2 mg PO Q8H PRN PRN PRN Reason: MUSCLE SPASMS Last Admin: 03/25/18 15:25 Dose: 2 mg Tolterodine Tartrate (Detrol La) 4 mg PO DAILY [facility] Last Admin: 03/27/18 08:00 Dose: 4 mg Venlafaxine HCl (Effexor) 150 mg PO BID [facility] Last Admin: 03/28/18 07:29 Dose: Not Given Medical Necessity - Tobacco Use Smoking Status: Never smoker Assessment/Plan All Active Problems Skin necrosis (Acute) Necrotizing soft tissue infection (Acute) Pressure ulcer of left buttock, stage 2 (Acute) Decubitus skin ulcer (Acute) Diabetes mellitus type 2, uncontrolled (Acute) Decubitus ulcer (Acute) Recurrent UTI (urinary tract infection) (Acute) Pulmonary embolism (Acute) Abnormal liver function (Acute) 63 year old F with history of MS complicated with paraplegia, urinary incontinence s/p indwelling Chavarria catheter, nonambulatory, history of sacral decubitus ulcer, following with the wound clinic until last week comes in with worsening decubitus, going for wound debridement by plastic surgeon. 1. Acute on chronic necrotic sacral-coccygeal decubitus ulcer, s/p wound debridement on 03/21/18, cultures are growing enterococcus and Corynebacterium managed on Unasyn, ID following s/p diverting colostomy to aid with wound healing. Possible suprapubic catheter tomorrow. Pain is controlled on IV Dilaudid 2. Leaky chavarria catheter, history of recurrent UTI, s/p indwelling catheter, possible suprapubic catheter by urology. 3. MS with paraplegia, chronic urine incontinence status post indwelling Chavarria catheter 4. Type 2 Diabetes mellitus, BS are fairly controlled, HbA1c is 7.4, off metformin, on insulin sliding scale with Accu-Cheks 5. Hypothyroidism/COPD/depression/history of pulmonary embolism/lumbar spinal stenosis/chronic pain -all complicating care of patient 6. DVT prophylaxis - Lovenox SC. Code Visit Inpatient E&M: 96615 Subs Hosp L2
--- NOTE | 2018-03-28 07:56 | NURSING ---
Pt is currently off the unit for surgery. will reassess stoma when patient returns to the unit.
--- NOTE | 2018-03-28 08:54 | PCM.OPRPT ---
Problem List (1) Incontinence of urine in female Status: Chronic Report of Operation Date of Procedure: 03/26/18 Pre-Operative Diagnosis: 1. Sacral ulcer with osteomyelitis Post-Operative Diagnosis: Incontinence and very capacious patulous dilated urethra Surgery/Procedure Performed:: Cystoscopy and placement of suprapubic catheter Description of Surgical Findings:: 63-year-old female who has leakage from around the catheter she is had a chronic catheter comes in today for placement of suprapubic catheter in hopes of a diverting away the urine from her chronic osteomyelitis. 63-year-old female taken back to the operating room after induction of a MAC local she is placed supine on the table in dorsal lithotomy position the lower abdomen and urethra perineum was prepped and draped in usual sterile fashion within the bladder with a 21 Turkish rigid cystourethroscope with a 70? lens her urethra is extremely dilated from a chronic catheter in very patulous and wide open. I then looked up in the dome of the bladder infiltrated the skin with lidocaine above the superior pubic area used a finder needle to find a track to the bladder and then put a suprapubic insertion trocar from the skin into the bladder pulled out the trocar left the sheath in place into the sheath to place a 16 Turkish catheter inflated with 10 cc in the balloon I then secured the catheter with a stitch and then flushed the catheter and then the catheter was left in place. The urethra was left without a Marcus catheter was left to the bladder with a suprapubic catheter hopefully this will work however she does have very patulous wide open urethra as possible the suprapubic may not divert the urine away she may fail this procedure she may need to visit definitive diversion of the urinary system will see what happens patient's anesthetic was reversed and she is taken back to PACU in good condition. Type of Anesthesia:: General Specimen's removed: None Drains: sp tube. - Admit VTE Documentation VTE Present on Admission: No VTE Mechan Device Prophylaxis: SCD's
[2018-03-28] MEDS: dilTIAZem CD 240 MG Capsule PO (09:53)
[2018-03-28] MEDS: Meloxicam 7.5 MG Tablet PO (09:53)
[2018-03-28] MEDS: tiZANidine HCl 2 MG Tablet PO (09:54)
[2018-03-28] MEDS: Tolterodine Tartrate 4 MG CAP.SA PO (11:34)
[2018-03-28] MEDS: Insulin Lispro 100 UNIT/ML INSULN.PEN SQ (11:35)
--- NOTE | 2018-03-28 11:43 | PCM.PN.ID ---
Patient Problems: Active and Suspected Problems Decubitus ulcer (Acute) Objective: Sleepy s/p OR this AM. No fever, mild pain in wound. - Physical Exam General: Alert, Cooperative, No apparent distress Lungs: Clear to auscultation, Normal air movement Cardiovascular: Regular rate, Regular Rhythm Abdomen: Soft, Non Tender, Non-Distended Skin: No rashes Vital Signs Temp Pulse Resp BP Pulse Ox 97.8 F 74 18 128/80 H 97 03/28/18 09:48 03/28/18 09:48 03/28/18 09:48 03/28/18 09:48 03/28/18 09:48 Oxygen Flow Rate (L/min) 2 Oxygen Delivery Method Room Air Weight: 99.337 kg Body Mass Index (BMI) 35.3 Finger Stick Blood Glucose 161 Intake and Output for Last 24 Hours 03/26/18 03/27/18 03/28/18 23:59 23:59 23:59 Intake Total 3140 / 3140 2232 / 2232 3111 / 3111 Output Total 1325 / 1325 2700 / 2700 1000 / 1000 Balance 1815 / 1815 -468 / -468 2111 / 2111 Microbiology Past 72 Hours 03/21/18 17:00 Gram Stain - Final Tissue Ulcer - Sacral Wound Culture - Final Enterococcus faecalis Corynebacterium striatum Anaerobic Culture - Final Bacteroides fragilis 03/21/18 17:00 Gram Stain - Final Bone - Other Wound Culture - Final No growth aerobically. Anaerobic Culture - Final No growth in 5 days. POC Glucose 03/28/18 03/27/18 03/27/18 06:37 22:14 16:38 POC Glucose 132 H 101 113 H Medical Necessity - Tobacco Use Smoking Status: Never smoker Route of nutrition/ use of supplements: [] Nutritional Intake: [] IV Site: [] Marcus Catheter: [] - Assessment/Plan Antibiotics: [] Assessment/Plan: [] Active and Suspected Problems Pressure ulcer of left buttock, stage 2 (Acute) Decubitus skin ulcer (Acute) Decubitus ulcer (Acute) Sacral osteo - s/p OR for debridement 03/[address] Lynch. Prior wound cx with k.pneumo, burkholderia, e.faecalis, corynebacterium, and anaerobes. Wound cx now with e.faecalis and corynebacterium. Narrowed zosyn to unasyn for planned 6 week total course of abx, start date 03/21. Diverting ostomy done 03/26. Picc placed. Suprapubic cath placed 03/28. Weekly bmp, cbc, and esr while on iv abx. Will follow, d/w caseworker
--- NOTE | 2018-03-28 11:54 | NURSING ---
Colostomy appliance with some bloody drainage noted on the inferior edge of the flange. there is a moderate amount of liquid brown stool noted in the appliance. removed ostomy appliance. peristomal skin is intact. stoma is well budded and pink in color. stoma measures approx 2 and is oval in shape. moderate edema noted. cleansed peristomal skin with Dial soap and water. pat dry. applied a 2 piece flat Vado appliance with a small amount of stoma paste. pt tolerated well. see stoma photo.
--- NOTE | 2018-03-28 12:02 | NURSING ---
stoma photo: left lower abdomen
--- NOTE | 2018-03-28 12:04 | CASEMGMT ---
Addendum entered by Angie Rey 03/28/18 12:57: SW received a call from Ashleigh at [facility] Palliative Care services for pt. LINDA called Ashleigh and left her a message informing her that pt will be discharged to TCU today. Original Note: Social Work Note SW attempted to see pt twice to update her that her insurance approved to go to TCU but pt soundly sleeping. Plan: TCU today Angie Rey LONG TERM CARE ADMINISTRATOR, TRAFFIC MAINTENANCE OFFICER
[2018-03-28 12:26] LABS: Bedside Glucose 155 mg/dL (70-110)
--- NOTE | 2018-03-28 13:44 | PCM.TXEXTCAR ---
- Diet 03/27/18 12:07 Diet: Diabetic diet Is pt able to select menu?: Yes - Routine Orders/Code Status Routine Lab Work: CBC - in 3 days, then weekly labs, BMP - in 3 days, then weekly labs, - - ESR weekly whilst on antibiotics - Wound(s) Coccyx Wound Type: Pressure Injury Right Toenail Wound Type: Torn Toenail RLQ Blister Wound Type: Blister sacrum Wound Type: Pressure Injury Dressing Change: KCI wound VAC COLOSTOMY [NEW 03/26/18] Dressing Change: COLOSTOMY APPLIANCE INTACT RT ABD Wound Type: X2 LAP SITES umbilical Wound Type: Puncture Dressing Change: suprapubic insertion site. - Therapies Physical Therapy: Eval and Treat Occupational Therapy: Eval and Treat Speech Therapy: Eval and Treat - Allergies/Procedures Done in Hospital Allergies/Adverse Reactions: Allergies cyclobenzaprine [From Flexeril] Allergy (Verified 03/20/18 16:34) Other gabapentin Adverse Reaction (Verified 03/20/18 16:34) weakness in legs nifedipine [From Procardia] Adverse Reaction (Verified 03/20/18 16:34) weakness in legs pregabalin [From Lyrica] Adverse Reaction (Verified 03/20/18 16:34) weakness in legs Procedures: - - s/p wound debridement s/p diverting colostomy s/p suprapubic catheter issertion - Type of Care/Length of Stay Estimated LOS: Convalescent Care Less Than 30 days Type of Care Needed: Skilled Rehab Potential: Fair Prognosis: Fair - Additional Orders/Day of Discharge Day of Discharge: 03/28/18 - Dietary and Speech Recommendations Dietitian Recommendations/Changes: Rec LIZZY to 2000 calorie controlled when medically able. Will provide ensure pudding/magic cup w/ meals for increased nutrition if consumed. Rec continue Maynor bid to help w/ skin healing - Follow Up Care Primary Care Physician: Sami Centeno,Out of [Primary Care Provider] - Please follow up with your Primary Care Physician in: within 2 weeks of discharge Please Follow Up With: Rafael Starr MD When: in 2 weeks
--- NOTE | 2018-03-28 13:49 | PCM.DC.SUM ---
Discharge Date and Diagnosis - Problem List Patient Problems: Active and Suspected Problems Decubitus ulcer (Acute) Date of Admission: 03/20/18 Date of Discharge: 03/28/18 - Primary Discharge Diagnosis Active and Suspected Problems Infected Decubitus ulcer (Acute) Leaky Marcus catheter, status post suprapubic catheter Hyperglycemia - Secondary Discharge Diagnosis Chronic Problems Incontinence of feces (Chronic) Incontinence of urine in female (Chronic) Osteomyelitis of sacrum (Chronic) Pressure ulcer of sacral region, stage 4 (Chronic) Pressure ulcer of coccygeal region, stage 3 (Chronic) Paraparesis of both lower limbs (Chronic) Chronic ulcer of right great toe with fat layer exposed (Chronic) Macrocytic anemia (Chronic) due to folate deficiency + fatty liver.....? hemolysis, haptoglobin is pending Hypothyroidism (Chronic) Anxiety (Chronic) Morbid obesity with BMI of 40.0-44.9, adult (Chronic) COPD (chronic obstructive pulmonary disease) (Chronic) life long non-smoker Multiple sclerosis (Chronic) Depression (Chronic) Failure to thrive in adult (Chronic) Physical deconditioning (Chronic) Spinal stenosis of lumbar region (Chronic) mild, diagnosed on MRI of the LS spine done 01/01/14 Folate deficiency anemia (Chronic) Fatty infiltration of liver (Chronic) Urine, incontinence, stress female (Chronic) Chronic retention of urine (Chronic) she has MS and also has spinal canal stenosis....has seen neurosurgery and is not a candidate for any surgical intervention. Physical debility (Chronic) she is sedentary lives alone and can no longer get herself to the BR, has lost arm strength....very deconditioned Hospital Course and Treatment Imaging Results: Clinical Impression(s) from Imaging Studies Pelvis CT 03/21/18 09:48 IMPRESSION: Small ulceration along the medial aspect of the left buttock. This abuts the region of the coccyx. No bony abnormality is seen at that site. Electronically Signed: Blas Silverio MD at 12:35 EDT Tel [phone], Service support , Consultations 03/20/18 20:37 Consult: Onc/Wound/rejected items clerk Routine Comment: Urology General surgery Plastic surgery Operations: None Procedures: Wound vac placement, - - Wound debridement, diverting colostomy, suprapubic catheter Summary of Care Provided: The patient is a 63 year old F with past medical history of MS complicated with paraplegia, urine incontinence status post indwelling Marcus catheter, nonambulatory, patient has a sacral decubitus ulcer for which she has been following up with in the wound clinic. Patient has chronic Dilaudid pain pump for chronic pain. She used to be in hospice but has since been following up with the palliative care services. Patient had missed 1 week of follow-up in the wound clinic due to transportation problems. She at baseline has home health that comes 3 times a week and twice on weekends. Patient had presented from the wound care department with worsening wound. Patient underwent wound debridement on 03/21/2018. Hospital medicine, infectious disease were consulted for medical management. Patient had soiling of her wound by her stools and urine. Wound cultures were growing enterococcus, Corynebacterium, Bacteroides. Patient was managed on IV Zosyn and later on transition to IV Unasyn. She had a PICC line placed and will be on antibiotics for 6 weeks. Her IV pain pump was removed on the morning of 03/27/2018. She underwent a diverting colostomy to help with wound healing on 03/27/2018. Subsequently underwent suprapubic catheter placement 03/28/2018. Discharge Diet: Low fat/ Low Cholesterol, 2000 mg Sodium Diet, Carb Control Diet Discharge Activity: Return to Normal Activity Home Medications: Medications to take at Discharge Lactobacillus Acidophilus [Acidophilus] 1 capsule PO DAILY 01/22/18 Diltiazem CD [Cardizem CD] 240 mg PO DAILY 03/20/18 Hydrochlorothiazide [Hctz] 25 mg PO DAILY 03/20/18 Levothyroxine Sodium [Synthroid] 100 mcg PO DAILY 03/20/18 Melatonin 5 mg PO QHS 03/20/18 Meloxicam 7.5 mg PO BID 03/20/18 Metformin HCl [Glucophage] 500 mg PO BID 03/20/18 Nystatin Powder [Mycostatin Powder] 1 applic TOPICAL BID 03/20/18 Ondansetron [Zofran] 8 mg PO TID PRN PRN 03/20/18 Potassium Chloride [Klor-Con M20] 20 meq PO BID 03/20/18 Tizanidine HCl 2 mg PO 4X/DAY PRN PRN 03/20/18 Tolterodine Tartrate [Detrol] 2 mg PO BID 03/20/18 Venlafaxine HCl [Effexor] 150 mg PO BID 03/20/18 proMETHazine tablet [Phenergan tablet] 12.5 mg PO Q4H PRN PRN 03/20/18 ALPRAZolam [Xanax] 0.5 mg PO Q6H PRN PRN #10 tablet 03/28/18 Acetaminophen [Tylenol Tablet] 650 mg PO Q6H PRN PRN tablet 03/28/18 Ampicillin/Sulbactam [Unasyn] 3 gm IV Q8 vial 03/28/18 Bisacodyl [Dulcolax] 10 mg RECTAL DAILY PRN PRN suppos. 03/28/18 Docusate Sodium [Colace] 200 mg PO BID PRN PRN capsule 03/28/18 Enoxaparin [Lovenox] 40 mg SC DAILY@1000 syringe 03/28/18 Famotidine [Pepcid] 20 mg PO BID tablet 03/28/18 HYDROmorphone tablet [Dilaudid] 2 mg PO Q3H PRN PRN 3 Days #20 tab 03/28/18 Nutritional Supplement [Maynor - ORANGE FLAVOR] 1 packet PO BIDCM packet 03/28/18 Following Prescrptions Were Given to Patient: HYDROmorphone tablet [Dilaudid] 2 mg PO Q3H PRN PRN 3 Days #20 tab PRN Reason: Severe Pain (6-10/10) ALPRAZolam [Xanax] 0.5 mg PO Q6H PRN PRN #10 tablet PRN Reason: Anxiety Primary Care Physician: Sami Centeno,Out of [Primary Care Provider] - Please follow up with your Primary Care Physician in: within 2 weeks of discharge Please Follow Up With: Rafael Starr MD When: in 2 weeks Disposition: [facility] facility Minutes spent on discharge:: 45 Patient Condition:: Stable Medical Necessity - Tobacco Use Smoking Status: Never smoker Meaningful Use Info Meaningful Use Diagnoses (Choose all that apply): None applicable Code Visit Inpatient E&M: 66581 Disch Hosp
--- NOTE | 2018-03-28 13:57 | NURSING ---
Receive phone call from Dr. Hartley to assist with finding out who manages patient's SAWMILL TALLY CLERK pump and if they can to TCU. Discussed with patient whom states that she sees Awais Pritchett BUTTER MAKER whom is with [facility]. Discussed with Angie johnson, aware [facility] would not come here and TCU was under the impression patient would not be coming with SAWMILL TALLY CLERK pump, that they would set her up with [facility] at the time of discharge and get to set up with pump then. This information was relayed to Dr. Hartley
--- NOTE | 2018-03-28 14:05 | CHAPLAIN ---
Type of Pastoral Visit ___ Initial Visit _x__ Follow-up Visit ___ On-call Visit ___ General Patient Visit ___ Spiritual Assessment ___ Family Conference ___ Bereavement ___ Rapid Response ___ Code Blue ___ Other (describe below) Pastoral Care Referral From _x__ Patient ___ Family ___ Nurse ___ Physician ___ Patent Clerk ___ Dispatcher Relay ___ Other (describe below) Sacrament/Intervention _x__ Active listening ___ Anointing ___ Voodoo ___ Bereavement ___ Communion ___ Melba exploration ___ ___ Life review _x__ Prayer ___ Reconciliation ___ Sacrament of Sick ___ Supportive presence ___ Wedding ___ Other (describe below) Pastoral Comments patient had third surgery of this week; kept visit brief so pt could rest; met sister of pt; offered prayer for recovery
== END 2018-03-28 15:23 | disposition skilled nursing facility (03) | DRG 579 ==
LOC: ED 18:10 → MS3 18:40
PROVIDERS: Anesthesiology; Surgery; Urology; Admitting Provider Internal Medicine; Emergency Provider Emergency Medicine; Visit Provider Internal Medicine
PROC: 0KBP0ZZ Excision of Left Hip Muscle, Open Approach (ICD-10-PCS; principal; 2018-03-21 09:40)
PROC: 0D1E4Z4 Bypass Large Intestine to Cutaneous, Percutaneous Endoscopic Approach (ICD-10-PCS; CPT 44188; principal; 2018-03-26 12:40)
PROC: 0T9B40Z Drainage of Bladder with Drainage Device, Percutaneous Endoscopic Approach (ICD-10-PCS; CPT 52005; principal; 2018-03-28 10:55)
DX: L89.154 Pressure ulcer of sacral region, stage 4 (principal); G82.20 Paraplegia, unspecified; M46.28 Osteomyelitis of vertebra, sacral and sacrococcygeal region; G35 Multiple sclerosis; B95.2 Enterococcus as the cause of diseases classified elsewhere; N39.3 Stress incontinence (female) (male); R15.9 Full incontinence of feces; Z87.440 Personal history of urinary (tract) infections; M48.061 Spinal stenosis, lumbar region without neurogenic claudication; E11.9 Type 2 diabetes mellitus without complications; Z79.84 Long term (current) use of oral hypoglycemic drugs; E03.9 Hypothyroidism, unspecified; Z86.711 Personal history of pulmonary embolism
CPT/HCPCS: 36415; 36569; 72192; 80048; 80053; 80076; 80202; 82962; 83036; 84134; 84439; 84443; 85025; 85027; 85610; 85652; 85730; 86140; 87070; 87075; 87076; 87077; 87102; 87186; 87205; 87206; 87640; 88304; 88311; 88312; 93005; 97110; 97163; 97166; 97802; 99284; J7030; J7040; A4216; C1760; J0295; J2405

== ENCOUNTER 2018-03-28 15:40 | Inpatient (IN) | payer OTHER, MEDICAID, SELFPAY ==
[2018-03-28 16:08] VITALS: BP 93/62; PULSE 64; RESP 16; TEMP 37; O2SAT 95; BMI 34.0
[2018-03-28 16:50] LABS: Bedside Glucose 123 mg/dL (70-110)
--- NOTE | 2018-03-28 16:52 | PCA ---
Called [facility] and spoke with Juancarlos, updated on patient transferring to TCU on this date. Confirmation number [id number]
--- NOTE | 2018-03-28 16:52 | PCM.HP.STD ---
Problem List (1) Decubitus ulcer, stage 4 with infection Status: Acute (2) Debility Status: Chronic (3) Paraplegia Status: Chronic (4) Diabetes mellitus Status: Chronic (5) Recurrent UTI Status: Chronic (6) Urinary retention Status: Chronic (7) Failure to thrive Status: Chronic (8) Chronic pain Status: Chronic (9) Hypothyroidism Status: Chronic (10) Anxiety Status: Chronic (11) COPD (chronic obstructive pulmonary disease) Status: Chronic Comment: life long non-smoker (12) Multiple sclerosis Status: Chronic (13) Depression Status: Chronic (14) Pulmonary embolism Status: Chronic (15) Spinal stenosis of lumbar region Status: Chronic Comment: mild, diagnosed on MRI of the LS spine done 01/01/14 (16) Fatty infiltration of liver Status: Chronic History of Present Illness Date of Admission: 03/28/18 Chief Complaint: Here for rehabilitation, strengthening, wound care, intravenous antibiotics, prior to disposition determination. The patient is a 63 year old Female with below past medical history presented to [facility] Emergency Department 03/20/2018 with decubitus ulcer. Pressure ulcer x 6 weeks, going to wound center. Unable to go to wound center x 1 week due to lack of transportation. Has Dilaudid pain pump. Sacral pressure ulcer appeared infected. Hemoglobin 11.7, Glucose 164. 03/20/2018 Admit to Hospital. On Cipro for UTI. Deep wound culture sent. 03/21/2018 CT pelvis showed small ulceration left buttock, no bony abnormality. 03/21/2018 EKG Normal Sinus Rhythm, normal EKG. 03/21/2018 Dr. Lynch performed excision infected necrotizing stage IV sacral pressure ulcer, partial ostectomy for osteomyelitis. 03/26/2018 Dr. Starr performed laparoscopic diverting sigmoid colostomy. 03/28/2018 Dr. Szymanski performed cystoscopy and suprapubic catheter placement. She is a graduate of hospice. Wound culture grew enterococcus, corynebacterium, bacteroides. Dr. Chanel recommended IV Zosyn, then IV Unasyn. PICC line inserted for 6 weeks of IV antibiotics. 03/28/2018 Admit to TCU for rehabilitation, strengthening, wound care, intravenous antibiotics, prior to disposition determination. Past Medical History Past Medical History (Chronic Problems): Chronic Problems Debility (Chronic) Paraplegia (Chronic) Diabetes mellitus (Chronic) Recurrent UTI (Chronic) Urinary retention (Chronic) Failure to thrive (Chronic) Chronic pain (Chronic) Incontinence of feces (Chronic) Incontinence of urine in female (Chronic) Osteomyelitis of sacrum (Chronic) Pressure ulcer of sacral region, stage 4 (Chronic) Pressure ulcer of coccygeal region, stage 3 (Chronic) Paraparesis of both lower limbs (Chronic) Chronic ulcer of right great toe with fat layer exposed (Chronic) Macrocytic anemia (Chronic) due to folate deficiency + fatty liver.....? hemolysis, haptoglobin is pending Hypothyroidism (Chronic) Anxiety (Chronic) Morbid obesity with BMI of 40.0-44.9, adult (Chronic) COPD (chronic obstructive pulmonary disease) (Chronic) life long non-smoker Multiple sclerosis (Chronic) Depression (Chronic) Pulmonary embolism (Chronic) Failure to thrive in adult (Chronic) Physical deconditioning (Chronic) Spinal stenosis of lumbar region (Chronic) mild, diagnosed on MRI of the LS spine done 01/01/14 Folate deficiency anemia (Chronic) Fatty infiltration of liver (Chronic) Urine, incontinence, stress female (Chronic) Chronic retention of urine (Chronic) she has MS and also has spinal canal stenosis....has seen neurosurgery and is not a candidate for any surgical intervention. Physical debility (Chronic) she is sedentary lives alone and can no longer get herself to the BR, has lost arm strength....very deconditioned Allergies cyclobenzaprine [From Flexeril] Allergy (Verified 03/20/18 16:34) Other gabapentin Adverse Reaction (Verified 03/20/18 16:34) weakness in legs nifedipine [From Procardia] Adverse Reaction (Verified 03/20/18 16:34) weakness in legs pregabalin [From Lyrica] Adverse Reaction (Verified 03/20/18 16:34) weakness in legs Home Medications: Ambulatory Orders Medication Instructions Recorded Lactobacillus Acidophilus 1 capsule PO DAILY 01/22/18 [Acidophilus] Diltiazem CD [Cardizem CD] 240 mg PO DAILY 03/20/18 Hydrochlorothiazide [Hctz] 25 mg PO DAILY 03/20/18 Levothyroxine Sodium [Synthroid] 100 mcg PO DAILY 03/20/18 Melatonin 5 mg PO QHS 03/20/18 Meloxicam 7.5 mg PO BID 03/20/18 Metformin HCl [Glucophage] 500 mg PO BID 03/20/18 Nystatin Powder [Mycostatin Powder] 1 applic TOPICAL BID 03/20/18 Ondansetron [Zofran] 8 mg PO TID PRN PRN 03/20/18 Potassium Chloride [Klor-Con M20] 20 meq PO BID 03/20/18 Tizanidine HCl 2 mg PO 4X/DAY PRN PRN 03/20/18 Tolterodine Tartrate [Detrol] 2 mg PO BID 03/20/18 Venlafaxine HCl [Effexor] 150 mg PO BID 03/20/18 proMETHazine tablet [Phenergan 12.5 mg PO Q4H PRN PRN 03/20/18 tablet] ALPRAZolam [Xanax] 0.5 mg PO Q6H PRN PRN #10 tablet 03/28/18 Acetaminophen [Tylenol Tablet] 650 mg PO Q6H PRN PRN tablet 03/28/18 Ampicillin/Sulbactam [Unasyn] 3 gm IV Q8 vial 03/28/18 Bisacodyl [Dulcolax] 10 mg RECTAL DAILY PRN PRN suppos. 03/28/18 Docusate Sodium [Colace] 200 mg PO BID PRN PRN capsule 03/28/18 Enoxaparin [Lovenox] 40 mg SC DAILY@1000 syringe 03/28/18 Famotidine [Pepcid] 20 mg PO BID tablet 03/28/18 HYDROmorphone tablet [Dilaudid] 2 mg PO Q3H PRN PRN 3 Days #20 tab 03/28/18 Nutritional Supplement [Maynor - 1 packet PO BIDCM packet 03/28/18 ORANGE FLAVOR] Surgical History: herniorrhaphy - Ventral., - - Tubal ligation, Elective , sacral wound debridement, colostomy, suprapubic catheter. Psychiatric History: No pertinent psych hx ORACLE APPLICATIONS DEVELOPER History: No pertinent ORACLE APPLICATIONS DEVELOPER history Lives: Alone Smoking Status: Never smoker Tobacco Use: Non-smoker Alcohol: None Drugs: None - *Family History Maternal History Items: Cancer - Her mother of lung cancer and was a smoker Paternal History Items: Diabetes, - - Father had posttraumatic stress disorder related from being in the armed forces. He also suffered from alcoholism Review of Systems Constitutional: Denies: Chills, Fever, Weight Change HEENT: Denies: Head Aches, Sinus Congestion, Sinus Drainage Cardiovascular: Denies: Chest Pain, Palpitations Respiratory: Denies: Cough, Shortness of breath at rest, Sputum production Gastrointestinal: Denies: Abdominal Pain, Nausea, Vomiting Genitourinary: Denies: Dysuria Musculoskeletal: Denies: Joint Pain, Joint Tenderness Skin: Denies: Rash, Wounds Neurological: Denies: Numbness, Tingling, Focal weakness Psychiatric: Denies: Anxiety, Depression, Homicidal Ideations, Suicidal Ideations Hematologic/ Lymphatic: Denies: Easy Bruising, Easy Bleeding VTE Information - Inpt Only VTE Present on Admission: No VTE Mechan Device Prophylaxis: Knee High CONSTANCE Hose VTE Pharm Prophylaxis ordered?: Yes Patient Problems: Active and Suspected Problems Decubitus ulcer, stage 4 with infection (Acute) - Physical Exam General: Alert, Oriented x3, Cooperative HEENT: Atraumatic, PERRLA, EOMI, Normocephalic Neck: Supple, No JVD, Negative Carotid Bruits Lungs: Clear to auscultation, Normal air movement Cardiovascular: Regular rate, No murmurs Abdomen: Bowel Sounds Present, Soft, Non Tender, - - Colostomy right of midline, Suprapubic catheter. Extremities: No edema, Capillary Refill Less than 3 Seconds, - - Right upper extremity PICC line. Skin: Ulcer/ Wound - Sacral decubitus ulcer with wound VAC. Musculoskeletal: No Tenderness to Palpation of Joints or Extremities Neurological: Cranial nerves II-XII grossly intact Psych/Mental Status: Normal Affect, Appropriate Vital Signs Temp Pulse Resp BP Pulse Ox 98.6 F 64 16 93/62 95 03/28/18 16:08 03/28/18 16:08 03/28/18 16:08 03/28/18 16:08 03/28/18 16:08 Oxygen Delivery Method Room Air Weight: 95.436 kg Body Mass Index (BMI) 34.0 Finger Stick Blood Glucose 161 POC Glucose 03/28/18 16:47 POC Glucose 123 H Assessment/Plan All Active Problems Decubitus ulcer, stage 4 with infection (Acute) Skin necrosis (Acute) Necrotizing soft tissue infection (Acute) Pressure ulcer of left buttock, stage 2 (Acute) Decubitus skin ulcer (Acute) Diabetes mellitus type 2, uncontrolled (Acute) Decubitus ulcer (Acute) Recurrent UTI (urinary tract infection) (Acute) Abnormal liver function (Acute) 63 year old female with below past medical history hospitalized for infected stage 4 sacral pressure ulcer requiring debridement, wound VAC placement, underwent diverting colostomy, suprapubic catheter, pain pump removal, admitted to TCU for rehabilitation, strengthening, wound care, intravenous antibiotics, prior to disposition determination. Debility - PT/OT. Dysphagia - ST. Pain - Dilaudid 2MG IV Q3H PRN severe pain, Tylenol 1000MG Q8H PRN mild pain, Mobic 7.5MG BID. Bowel - Miralax 17GM daily, Senna/colace 2 tablets BID, Dulcolax 10MG [place] daily PRN. Pneumonia vaccination - Administer Prevnar 13 and/or Pneumovax 23 as necessary. DVT prophylaxis - Lovenox 40MG SC daily. Anxiety - Xanax 0.5MG Q6H PRN. Infected sacral pressure ulcer status post debridement (wound VAC) - Unasyn 3GM IV Q8H, Dr. Chanel following, Maynor 1 packet BID. Hypertension - Diltiazem 240MG daily, HCTZ 25MG daily. GERD - Famotidine 20MG BID. GI prophylaxis - Lactobacillus 1 tablet daily. Hypothyroidism - Levothyroxine 100MCG daily. Insomnia - Melatonin 5MG QHS. Diabetes Mellitus II - Metformin 500MG BID. Tinea Corporis - Nystatin powder BID groin, under breasts. Nausea - Zofran 8MG TID PRN, Promethazine 12.5MG Q4H PRN. Hypokalemia - KCL 20MEQ BID. Muscle spasm - Tizanidine 2MG 4x/day PRN. Overactive bladder status post suprapubic catheter placement - Tolterodine 4MG daily. Depression - Venlafaxine 150MG BID.
--- NOTE | 2018-03-28 17:02 | HP.PCM_ITS ---
Problem List (1) Decubitus ulcer, stage 4 with infection Status: Acute (2) Debility Status: Chronic (3) Paraplegia Status: Chronic (4) Diabetes mellitus Status: Chronic (5) Recurrent UTI Status: Chronic (6) Urinary retention Status: Chronic (7) Failure to thrive Status: Chronic (8) Chronic pain Status: Chronic (9) Hypothyroidism Status: Chronic (10) Anxiety Status: Chronic (11) COPD (chronic obstructive pulmonary disease) Status: Chronic Comment: life long non-smoker (12) Multiple sclerosis Status: Chronic (13) Depression Status: Chronic (14) Pulmonary embolism Status: Chronic (15) Spinal stenosis of lumbar region Status: Chronic Comment: mild, diagnosed on MRI of the LS spine done 01/01/14 (16) Fatty infiltration of liver Status: Chronic History of Present Illness Date of Admission: 03/28/18 Chief Complaint: Here for rehabilitation, strengthening, wound care, intravenous antibiotics, prior to disposition determination. The patient is a 63 year old Female with below past medical history presented to [facility] Emergency Department 03/20/2018 with decubitus ulcer. Pressure ulcer x 6 weeks, going to wound center. Unable to go to wound center x 1 week due to lack of transportation. Has Dilaudid pain pump. Sacral pressure ulcer appeared infected. Hemoglobin 11.7, Glucose 164. 03/20/2018 Admit to Hospital. On Cipro for UTI. Deep wound culture sent. 03/21/2018 CT pelvis showed small ulceration left buttock, no bony abnormality. 03/21/2018 EKG Normal Sinus Rhythm, normal EKG. 03/21/2018 Dr. Lynch performed excision infected necrotizing stage IV sacral pressure ulcer, partial ostectomy for osteomyelitis. 03/26/2018 Dr. Starr performed laparoscopic diverting sigmoid colostomy. 03/28/2018 Dr. Szymanski performed cystoscopy and suprapubic catheter placement. She is a graduate of hospice. Wound culture grew enterococcus, corynebacterium, bacteroides. Dr. Chanel recommended IV Zosyn, then IV Unasyn. PICC line inserted for 6 weeks of IV antibiotics. 03/28/2018 Admit to TCU for rehabilitation, strengthening, wound care, intravenous antibiotics, prior to disposition determination. Past Medical History Past Medical History (Chronic Problems): Chronic Problems Debility (Chronic) Paraplegia (Chronic) Diabetes mellitus (Chronic) Recurrent UTI (Chronic) Urinary retention (Chronic) Failure to thrive (Chronic) Chronic pain (Chronic) Incontinence of feces (Chronic) Incontinence of urine in female (Chronic) Osteomyelitis of sacrum (Chronic) Pressure ulcer of sacral region, stage 4 (Chronic) Pressure ulcer of coccygeal region, stage 3 (Chronic) Paraparesis of both lower limbs (Chronic) Chronic ulcer of right great toe with fat layer exposed (Chronic) Macrocytic anemia (Chronic) due to folate deficiency + fatty liver.....? hemolysis, haptoglobin is pending Hypothyroidism (Chronic) Anxiety (Chronic) Morbid obesity with BMI of 40.0-44.9, adult (Chronic) COPD (chronic obstructive pulmonary disease) (Chronic) life long non-smoker Multiple sclerosis (Chronic) Depression (Chronic) Pulmonary embolism (Chronic) Failure to thrive in adult (Chronic) Physical deconditioning (Chronic) Spinal stenosis of lumbar region (Chronic) mild, diagnosed on MRI of the LS spine done 01/01/14 Folate deficiency anemia (Chronic) Fatty infiltration of liver (Chronic) Urine, incontinence, stress female (Chronic) Chronic retention of urine (Chronic) she has MS and also has spinal canal stenosis....has seen neurosurgery and is not a candidate for any surgical intervention. Physical debility (Chronic) she is sedentary lives alone and can no longer get herself to the BR, has lost arm strength....very deconditioned Allergies cyclobenzaprine [From Flexeril] Allergy (Verified 03/20/18 16:34) Other gabapentin Adverse Reaction (Verified 03/20/18 16:34) weakness in legs nifedipine [From Procardia] Adverse Reaction (Verified 03/20/18 16:34) weakness in legs pregabalin [From Lyrica] Adverse Reaction (Verified 03/20/18 16:34) weakness in legs Home Medications: Ambulatory Orders Medication Instructions Recorded Lactobacillus Acidophilus 1 capsule PO DAILY 01/22/18 [Acidophilus] Diltiazem CD [Cardizem CD] 240 mg PO DAILY 03/20/18 Hydrochlorothiazide [Hctz] 25 mg PO DAILY 03/20/18 Levothyroxine Sodium [Synthroid] 100 mcg PO DAILY 03/20/18 Melatonin 5 mg PO QHS 03/20/18 Meloxicam 7.5 mg PO BID 03/20/18 Metformin HCl [Glucophage] 500 mg PO BID 03/20/18 Nystatin Powder [Mycostatin Powder] 1 applic TOPICAL BID 03/20/18 Ondansetron [Zofran] 8 mg PO TID PRN PRN 03/20/18 Potassium Chloride [Klor-Con M20] 20 meq PO BID 03/20/18 Tizanidine HCl 2 mg PO 4X/DAY PRN PRN 03/20/18 Tolterodine Tartrate [Detrol] 2 mg PO BID 03/20/18 Venlafaxine HCl [Effexor] 150 mg PO BID 03/20/18 proMETHazine tablet [Phenergan 12.5 mg PO Q4H PRN PRN 03/20/18 tablet] ALPRAZolam [Xanax] 0.5 mg PO Q6H PRN PRN #10 tablet 03/28/18 Acetaminophen [Tylenol Tablet] 650 mg PO Q6H PRN PRN tablet 03/28/18 Ampicillin/Sulbactam [Unasyn] 3 gm IV Q8 vial 03/28/18 Bisacodyl [Dulcolax] 10 mg RECTAL DAILY PRN PRN suppos. 03/28/18 Docusate Sodium [Colace] 200 mg PO BID PRN PRN capsule 03/28/18 Enoxaparin [Lovenox] 40 mg SC DAILY@1000 syringe 03/28/18 Famotidine [Pepcid] 20 mg PO BID tablet 03/28/18 HYDROmorphone tablet [Dilaudid] 2 mg PO Q3H PRN PRN 3 Days #20 tab 03/28/18 Nutritional Supplement [Maynor - 1 packet PO BIDCM packet 03/28/18 ORANGE FLAVOR] Surgical History: herniorrhaphy - Ventral., - - Tubal ligation, Elective , sacral wound debridement, colostomy, suprapubic catheter. 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 He also suffered from alcoholism Review of Systems Constitutional: Denies: Chills, Fever, Weight Change HEENT: Denies: Head Aches, Sinus Congestion, Sinus Drainage Cardiovascular: Denies: Chest Pain, Palpitations Respiratory: Denies: Cough, Shortness of breath at rest, Sputum production Gastrointestinal: Denies: Abdominal Pain, Nausea, Vomiting Genitourinary: Denies: Dysuria Musculoskeletal: Denies: Joint Pain, Joint Tenderness Skin: Denies: Rash, Wounds Neurological: Denies: Numbness, Tingling, Focal weakness Psychiatric: Denies: Anxiety, Depression, Homicidal Ideations, Suicidal Ideations Hematologic/ Lymphatic: Denies: Easy Bruising, Easy Bleeding VTE Information - Inpt Only VTE Present on Admission: No VTE Mechan Device Prophylaxis: Knee High CONSTANCE Hose VTE Pharm Prophylaxis ordered?: Yes Patient Problems: Active and Suspected Problems Decubitus ulcer, stage 4 with infection (Acute) - Physical Exam General: Alert, Oriented x3, Cooperative HEENT: Atraumatic, PERRLA, EOMI, Normocephalic Neck: Supple, No JVD, Negative Carotid Bruits Lungs: Clear to auscultation, Normal air movement Cardiovascular: Regular rate, No murmurs Abdomen: Bowel Sounds Present, Soft, Non Tender, - - Colostomy right of midline , Suprapubic catheter. Extremities: No edema, Capillary Refill Less than 3 Seconds, - - Right upper extremity PICC line. Skin: Ulcer/ Wound - Sacral decubitus ulcer with wound VAC. Musculoskeletal: No Tenderness to Palpation of Joints or Extremities Neurological: Cranial nerves II-XII grossly intact Psych/Mental Status: Normal Affect, Appropriate Vital Signs Temp Pulse Resp BP Pulse Ox 98.6 F 64 16 93/62 95 03/28/18 16:08 03/28/18 16:08 03/28/18 16:08 03/28/18 16:08 03/28/18 16:08 Oxygen Delivery Method Room Air Weight: 95.436 kg Body Mass Index (BMI) 34.0 Finger Stick Blood Glucose 161 POC Glucose 03/28/18 16:47 POC Glucose 123 H Assessment/Plan All Active Problems Decubitus ulcer, stage 4 with infection (Acute) Skin necrosis (Acute) Necrotizing soft tissue infection (Acute) Pressure ulcer of left buttock, stage 2 (Acute) Decubitus skin ulcer (Acute) Diabetes mellitus type 2, uncontrolled (Acute) Decubitus ulcer (Acute) Recurrent UTI (urinary tract infection) (Acute) Abnormal liver function (Acute) 63 year old female with below past medical history hospitalized for infected stage 4 sacral pressure ulcer requiring debridement, wound VAC placement, underwent diverting colostomy, suprapubic catheter, pain pump removal, admitted to TCU for rehabilitation, strengthening, wound care, intravenous antibiotics, prior to disposition determination. * Debility - PT/OT. * Dysphagia - ST. * Pain - Dilaudid 2MG IV Q3H PRN severe pain, Tylenol 1000MG Q8H PRN mild pain, Mobic 7.5MG BID. * Bowel - Miralax 17GM daily, Senna/colace 2 tablets BID, Dulcolax 10MG NM daily PRN. * Pneumonia vaccination - Administer Prevnar 13 and/or Pneumovax 23 as necessary. * DVT prophylaxis - Lovenox 40MG SC daily. * Anxiety - Xanax 0.5MG Q6H PRN. * Infected sacral pressure ulcer status post debridement (wound VAC) - Unasyn 3GM IV Q8H, Dr. Chanel following, Maynor 1 packet BID. * Hypertension - Diltiazem 240MG daily, HCTZ 25MG daily. * GERD - Famotidine 20MG BID. * GI prophylaxis - Lactobacillus 1 tablet daily. * Hypothyroidism - Levothyroxine 100MCG daily. * Insomnia - Melatonin 5MG QHS. * Diabetes Mellitus II - Metformin 500MG BID. * Tinea Corporis - Nystatin powder BID groin, under breasts. * Nausea - Zofran 8MG TID PRN, Promethazine 12.5MG Q4H PRN. * Hypokalemia - KCL 20MEQ BID. * Muscle spasm - Tizanidine 2MG 4x/day PRN. * Overactive bladder status post suprapubic catheter placement - Tolterodine 4MG daily. * Depression - Venlafaxine 150MG BID.
[2018-03-28] MEDS: Famotidine 20 MG Tablet PO (17:45)
[2018-03-28] MEDS: Meloxicam 7.5 MG Tablet PO (17:47)
[2018-03-28] MEDS: Senna/Docusate Sodium 1 Tablet 2 TABLET PO (17:51)
[2018-03-28] MEDS: HYDROmorphone 1 MG/ML Syringe IV ×2 (18:12→21:24)
[2018-03-28 20:51] LABS: Bedside Glucose 145 mg/dL (70-110)
[2018-03-28] MEDS: ALPRAZolam 0.5 MG Tablet PO (21:10)
[2018-03-28] MEDS: MELATONIN 10 MG TABLET 5 MG PO (21:11)
[2018-03-28 21:30] VITALS: PULSE 76; O2SAT 97
[2018-03-28] MEDS: 0.9% NaCl PICC Flush IV (22:54)
[2018-03-29] MEDS: HYDROmorphone 1 MG/ML Syringe IV ×3 (04:45→11:54)
[2018-03-29 04:55] LABS: Absolute Neutrophil Count 8.9 X10^3/uL (2.0-7.7); Basophil# 0.06 X10^3/uL; Basophil% 0.4 % (0-1); Eosinophils% 2.9 % (0-5); Hematocrit 34.1 % (37-47); Hemoglobin 10.7 g/dl (12.0-15.0); Lymphocyte % 25.8 % (19-41); Mean Corp Hgb Conc 31.4 g/gl (32-36); Mean Corpuscular Hgb 28.8 pg (27.0-32.0); Mean Corpuscular Volume 91.9 fL (81-99); Mean Platelet Vol. 8.5 fl (6.2-12.0); Monocyte# 0.71 X10^3/uL; Monocyte% 5.2 % (0-10); Neutrophil # 8.87 X10^3/uL (2.7-7.7); Neutrophil % 65.3 % (47-70); Platelet Count 376 K/mm3 (150-450); RBC Distribution Width CV 14.7 % (11.6-14.6); RBC Distribution Width SD 47.7 fl (35.1-43.9); Red Blood Count 3.71 M/mm3 (4.2-5.4); White Blood Count 13.6 K/mm3 (4.4-11.0)
[2018-03-29 05:03] LABS: POSITIVE COUNT NO; POSITIVE DIFFERENTIAL NO; POSITIVE MORPHOLOGY NO
[2018-03-29 05:06] LABS: Bedside Glucose 191 mg/dL (70-110)
[2018-03-29 05:07] LABS: Anion Gap 12 (5-15); BUN 12 mg/dL (7-18); BUN/Creat Ratio 22.8 RATIO (10-20); Calcium,Total 8.8 mg/dL (8.5-10.1); Chloride 107 mmol/L (98-107); Creatinine, Serum 0.53 mg/dL (0.55-1.02); EST Glomerular Filtration Rate 125 mL/min (>60); Est Glom Filt Rate - Afr Amer 151 mL/min (>60); Estimated Creatinine Clearance 101.71 ml/min; Glucose 164 mg/dL (74-106); Potassium 3.5 mmol/L (3.5-5.1); Sodium Level 145 mmol/L (136-145)
[2018-03-29] MEDS: Tolterodine Tartrate 4 MG CAP.SA PO (06:22)
[2018-03-29] MEDS: dilTIAZem CD 240 MG Capsule PO (06:22)
[2018-03-29] MEDS: Meloxicam 7.5 MG Tablet PO ×2 (06:23→16:19)
[2018-03-29] MEDS: Nystatin Powder 15gm Bottle 1 APPLIC TOPICAL ×2 (06:23→16:25)
[2018-03-29] MEDS: Famotidine 20 MG Tablet PO ×2 (06:23→16:19)
[2018-03-29] MEDS: hydroCHLOROthiazide 25 MG Tablet PO (06:23)
[2018-03-29] MEDS: Levothyroxine 100 MCG Tablet PO (06:24)
[2018-03-29] MEDS: 0.9% NaCl PICC Flush IV ×5 (06:31→21:40)
[2018-03-29] MEDS: 0.9% NaCl IVPB Med Flush (250 mL) 15 ML IV (06:31)
[2018-03-29] MEDS: ALPRAZolam 0.5 MG Tablet PO ×2 (06:35→13:00)
[2018-03-29 06:57] LABS: Bedside Glucose 145 mg/dL (70-110)
[2018-03-29] MEDS: Enoxaparin 40 MG/0.4 ML Syringe SC (08:33)
[2018-03-29 10:00] VITALS: PULSE 59; RESP 14; O2SAT 96
[2018-03-29] MEDS: Tuberculin,Purif.prot.deriv. 50 TU/ML Vial 5 ML ID (11:15)
[2018-03-29] MEDS: Iron Polysaccharide Complex 150 MG CAPSULE PO (11:16)
[2018-03-29 11:20] LABS: Bedside Glucose 89 mg/dL (70-110)
--- NOTE | 2018-03-29 11:50 | NURSING ---
Addendum entered by Dorota De Leon 03/29/18 17:46: urine clear yellow, no clots or hematuria noted. Will remove 22 Greek chavarria cath tonight. Pt wants to wait a little longer to be sure. Original Note: Notified urology network relations consultant d/t hematuria/clots. Dr Kelle Malave returned call and wants a 22 croatian chavarria cath inserted for irrigation to remove blood clots. Keep in until chavarria in until hematuria resolved.
--- NOTE | 2018-03-29 11:50 | NURSING ---
Notified urology d/t pt urinating from urethra, clots noted in suprapubic catheter. Wants suprapubic cath irrigated often, notify them if it does not work.
[2018-03-29] MEDS: tiZANidine HCl 2 MG Tablet PO (12:03)
[2018-03-29] MEDS: HYDROmorphone 1 MG/ML Syringe 2 MG IV ×4 (14:30→22:53)
--- NOTE | 2018-03-29 15:13 | NURSING ---
Wound vac changed to sacral wound, one black piece foam used, tracked to lt hip to prevent pressure.
[2018-03-29 15:29] VITALS: BP 107/65; PULSE 61; RESP 18; TEMP 35.7; O2SAT 92
[2018-03-29 16:56] LABS: Bedside Glucose 124 mg/dL (70-110)
[2018-03-29] MEDS: MELATONIN 10 MG TABLET 5 MG PO (20:30)
[2018-03-29 20:51] LABS: Bedside Glucose 98 mg/dL (70-110)
--- NOTE | 2018-03-29 22:49 | NURSING ---
Marcus cath removed per order. 10cc balloon deflated. Pt tolerated well.
[2018-03-30] MEDS: HYDROmorphone 1 MG/ML Syringe 2 MG IV ×8 (02:22→21:14)
[2018-03-30] MEDS: 0.9% NaCl PICC Flush IV ×10 (02:22→21:19)
[2018-03-30] MEDS: ALPRAZolam 0.5 MG Tablet PO ×4 (02:29→21:13)
--- NOTE | 2018-03-30 02:38 | NURSING ---
Pt called out requesting pain meds. This nurse into administer pain meds. Pt stating You know that is an hour and half late? This nurse explained to pt that med is PRN and pt has to ask staff. Pt did not say anything else. As this nurse is giving pain meds through PICC line pt requests a Xanax. This nurse asked if it could wait a little bit d/t pt receiving such strong pain meds. Pt stated I take them together all the time and I need it now!. Pain meds and Xanax were given per pt request. Pt was turned on her Lt side with assistance from CITLALY Alamo. Pt denied further needs and call light was left in reach.
[2018-03-30] MEDS: 0.9% NaCl IVPB Med Flush (250 mL) 15 ML IV (06:18)
[2018-03-30] MEDS: Famotidine 20 MG Tablet PO ×2 (06:25→16:34)
[2018-03-30] MEDS: hydroCHLOROthiazide 25 MG Tablet PO (06:25)
[2018-03-30] MEDS: Levothyroxine 100 MCG Tablet PO (06:25)
[2018-03-30] MEDS: Tolterodine Tartrate 4 MG CAP.SA PO (06:25)
[2018-03-30] MEDS: Meloxicam 7.5 MG Tablet PO ×2 (06:25→16:30)
[2018-03-30] MEDS: Nystatin Powder 15gm Bottle 1 APPLIC TOPICAL ×2 (06:26→16:58)
[2018-03-30] MEDS: dilTIAZem CD 240 MG Capsule PO (06:26)
--- NOTE | 2018-03-30 06:39 | NURSING ---
Code status discussed with pt. Pt AOx3. Pt requesting to be a DNRCC. Pt stated, I am ready to join my . He pasted away from cancer 6 years ago. DNR Identification form signed. Purple bracelet applied
[2018-03-30 06:55] LABS: Bedside Glucose 116 mg/dL (70-110)
[2018-03-30] MEDS: Enoxaparin 40 MG/0.4 ML Syringe SC (08:24)
[2018-03-30] MEDS: Iron Polysaccharide Complex 150 MG CAPSULE PO (08:24)
[2018-03-30 15:11] VITALS: BP 112/77; PULSE 77; RESP 18; TEMP 36.2; O2SAT 97
[2018-03-30] MEDS: tiZANidine HCl 2 MG Tablet PO (18:53)
[2018-03-30] MEDS: MELATONIN 10 MG TABLET 5 MG PO (21:12)
[2018-03-31] MEDS: HYDROmorphone 1 MG/ML Syringe 2 MG IV ×9 (00:09→22:35)
[2018-03-31] MEDS: 0.9% NaCl PICC Flush IV ×9 (00:11→22:35)
[2018-03-31] MEDS: 0.9% NaCl IVPB Med Flush (250 mL) 15 ML IV (06:02)
[2018-03-31] MEDS: dilTIAZem CD 240 MG Capsule PO (06:09)
[2018-03-31] MEDS: Levothyroxine 100 MCG Tablet PO (06:09)
[2018-03-31] MEDS: Famotidine 20 MG Tablet PO ×2 (06:10→17:35)
[2018-03-31] MEDS: hydroCHLOROthiazide 25 MG Tablet PO (06:10)
[2018-03-31] MEDS: Meloxicam 7.5 MG Tablet PO ×2 (06:10→17:34)
[2018-03-31] MEDS: Tolterodine Tartrate 4 MG CAP.SA PO (06:10)
[2018-03-31] MEDS: Nystatin Powder 15gm Bottle 1 APPLIC TOPICAL ×2 (06:11→17:35)
[2018-03-31 06:47] LABS: Bedside Glucose 144 mg/dL (70-110)
[2018-03-31] MEDS: Enoxaparin 40 MG/0.4 ML Syringe SC (08:35)
[2018-03-31] MEDS: ALPRAZolam 0.5 MG Tablet PO ×2 (08:46→21:08)
[2018-03-31] MEDS: Iron Polysaccharide Complex 150 MG CAPSULE PO (10:37)
--- NOTE | 2018-03-31 11:01 | NURSING ---
per Dr. Szymanski, stitch in suprapubic is permanent do not remove.
--- NOTE | 2018-03-31 13:46 | PCM.PN.ID ---
Patient Problems: Active and Suspected Problems Decubitus ulcer, stage 4 with infection (Acute) Subjective: Patient was transferred to the transitional care unit. She is well-known to our service and was followed by my partner for treatment of a complicated wound infection status post surgical debridement with placement of wound VAC. Wound cultures from March 21 reviewed. Patient is currently on Unasyn 3 g IV every 6 hours. Patient appears comfortable in no acute distress no specific complaints. Tolerating Unasyn well. Objective: Oriented ?3 does not appear toxic she has a PICC line in her right arm lungs are clear heart exam S1-S2 abdomen soft nontender. She has a wound VAC in her sacral wound as well as suprapubic Marcus. - Physical Exam Vital Signs Temp Pulse Resp BP Pulse Ox 97.2 F L 77 18 112/77 97 03/30/18 15:11 03/30/18 15:11 03/30/18 15:11 03/30/18 15:11 03/30/18 15:11 Oxygen Delivery Method Room Air Weight: 95.436 kg Body Mass Index (BMI) 34.0 Finger Stick Blood Glucose 161 Intake and Output for Last 24 Hours 03/29/18 03/30/18 03/31/18 23:59 23:59 23:59 Intake Total 420 / 420 540 / 540 360 / 360 Output Total 400 / 400 1025 / 1025 1125 / 1125 Balance -485 / -485 -765 / -765 POC Glucose 03/31/18 06:38 POC Glucose 144 H Medical Necessity - Tobacco Use Smoking Status: Never smoker Tobacco Use: Non-smoker Route of nutrition/ use of supplements: [] Nutritional Intake: [] IV Site: [] Marcus Catheter: [] - Assessment/Plan Antibiotics: [] Assessment/Plan: [] Active and Suspected Problems Decubitus ulcer, stage 4 with infection (Acute) Polymicrobial decubitus wound infection status post surgical debridement. Plan to continue Unasyn through May 01 to complete 6 weeks of antibiotics.
--- NOTE | 2018-03-31 13:57 | CASEMGMT ---
Social Work Assessment completed. Resident PASSPORT case management rn is Samina Zhang through [facility]: [phone]. Resident currently received aides 2-3 times a day depending on the day 7 days a week. Samina reporting to be currently working on getting resident approved for aides 3 times a day daily but that this had not happened yet. Samina reporting that resident receives nursing services through [facility] and has aides through [facility] and [facility]. All agencies are based out of [facility]. Resident pays $1,500/monthly for PASSPORT services due to not qualifying for medicaid. Resident also current with Palliative care services through : [phone]. Ashleigh is resident case management rn through 's. Ashleigh expressing concerns with resident returning to home alone at time of discharge due to resident being bed bound and having limited support within the community. Resident currently reporting to not be interested in transitioning to dedicated intermodal truck driver care and plans to return home alone at time of discharge. Support given. Will continue to follow. Tabitha PIERCE, DIRECTOR OF RESIDENTIAL SERVICES
[2018-03-31] MEDS: tiZANidine HCl 2 MG Tablet PO ×2 (14:55→21:08)
[2018-03-31 15:11] VITALS: BP 121/71; PULSE 82; RESP 16; TEMP 36.2; O2SAT 92
--- NOTE | 2018-03-31 15:18 | NURSING ---
wound photo: sacrum
--- NOTE | 2018-03-31 16:34 | CHAPLAIN ---
Type of Pastoral Visit ___ Initial Visit _x__ Follow-up Visit ___ On-call Visit ___ General Patient Visit ___ Spiritual Assessment ___ Family Conference ___ Bereavement ___ Rapid Response ___ Code Blue ___ Other (describe below) Pastoral Care Referral From _x__ Patient ___ Family ___ Nurse ___ Physician ___ Teacher Kindergarten ___ Nursing Specialist ___ Other (describe below) Sacrament/Intervention _x__ Active listening ___ Anointing ___ Faith ___ Bereavement ___ Communion ___ Melba exploration ___ _x__ Life review _x__ Prayer ___ Reconciliation ___ Sacrament of Sick _x__ Supportive presence ___ Wedding ___ Other (describe below) Pastoral Comments follow up visits after patient was in [facility] previously; further conversation about her life and pets; pt is in upbeat mood today and talkative
[2018-03-31 16:55] VITALS: PULSE 70
[2018-03-31] MEDS: MELATONIN 10 MG TABLET 5 MG PO (20:12)
--- NOTE | 2018-03-31 20:59 | PCM.CONS.GEN ---
Problem List (1) Tinea unguium Status: Chronic (2) Multiple sclerosis Status: Chronic (3) Paraplegia Status: Chronic (4) Xerosis of skin Status: Chronic Reason for Consult Date of Consultation: 03/31/18 Reason for Consultation: long thick toenails that she is unable to trim safely on her own. History of Present Illness: The patient is a 63 year old F with multiple comorbidities including multiple sclerosis, paraplegia, debility, urinary retention, sacral ulcer with infection, hypothyroidism, failure to thrive, anxiety, COPD, depression, history of pulmonary embolism, fatty liver, and spinal stenosis was seen bedside for long thick toenails. She relates she is not able to safely trim these and asked for help today. She is not ambulatory and wears offloading boots. Her friends are bedside. She denies other redness over infections to her feet. She is currently seeing Dr. Manriquez at the wound healing center for her sacral ulcer and Dr. Miguel saw her while in the transitional care unit and extended her IV antibiotics for up to 6 weeks. Past Medical History Past Medical History (Chronic Problems): Chronic Problems Debility (Chronic) Paraplegia (Chronic) Diabetes mellitus (Chronic) Recurrent UTI (Chronic) Urinary retention (Chronic) Failure to thrive (Chronic) Chronic pain (Chronic) Multiple sclerosis (Chronic) Tinea unguium (Chronic) Xerosis of skin (Chronic) Incontinence of feces (Chronic) Incontinence of urine in female (Chronic) Osteomyelitis of sacrum (Chronic) Pressure ulcer of sacral region, stage 4 (Chronic) Pressure ulcer of coccygeal region, stage 3 (Chronic) Paraparesis of both lower limbs (Chronic) Chronic ulcer of right great toe with fat layer exposed (Chronic) Macrocytic anemia (Chronic) due to folate deficiency + fatty liver.....? hemolysis, haptoglobin is pending Hypothyroidism (Chronic) Anxiety (Chronic) Morbid obesity with BMI of 40.0-44.9, adult (Chronic) COPD (chronic obstructive pulmonary disease) (Chronic) life long non-smoker Multiple sclerosis (Chronic) Depression (Chronic) Pulmonary embolism (Chronic) Failure to thrive in adult (Chronic) Physical deconditioning (Chronic) Spinal stenosis of lumbar region (Chronic) mild, diagnosed on MRI of the LS spine done 01/01/14 Folate deficiency anemia (Chronic) Fatty infiltration of liver (Chronic) Urine, incontinence, stress female (Chronic) Chronic retention of urine (Chronic) she has MS and also has spinal canal stenosis....has seen neurosurgery and is not a candidate for any surgical intervention. Physical debility (Chronic) she is sedentary lives alone and can no longer get herself to the BR, has lost arm strength....very deconditioned Allergies cyclobenzaprine [From Flexeril] Allergy (Verified 03/20/18 16:34) Other gabapentin Adverse Reaction (Verified 03/20/18 16:34) weakness in legs nifedipine [From Procardia] Adverse Reaction (Verified 03/20/18 16:34) weakness in legs pregabalin [From Lyrica] Adverse Reaction (Verified 03/20/18 16:34) weakness in legs Home Medications: Ambulatory Orders Medication Instructions Recorded Lactobacillus Acidophilus 1 capsule PO DAILY 01/22/18 [Acidophilus] Diltiazem CD [Cardizem CD] 240 mg PO DAILY 03/20/18 Hydrochlorothiazide [Hctz] 25 mg PO DAILY 03/20/18 Levothyroxine Sodium [Synthroid] 100 mcg PO DAILY 03/20/18 Melatonin 5 mg PO QHS 03/20/18 Meloxicam 7.5 mg PO BID 03/20/18 Metformin HCl [Glucophage] 500 mg PO BID 03/20/18 Nystatin Powder [Mycostatin Powder] 1 applic TOPICAL BID 03/20/18 Ondansetron [Zofran] 8 mg PO TID PRN PRN 03/20/18 Potassium Chloride [Klor-Con M20] 20 meq PO BID 03/20/18 Tizanidine HCl 2 mg PO 4X/DAY PRN PRN 03/20/18 Tolterodine Tartrate [Detrol] 2 mg PO BID 03/20/18 Venlafaxine HCl [Effexor] 150 mg PO BID 03/20/18 proMETHazine tablet [Phenergan 12.5 mg PO Q4H PRN PRN 03/20/18 tablet] ALPRAZolam [Xanax] 0.5 mg PO Q6H PRN PRN #10 tablet 03/28/18 Acetaminophen [Tylenol Tablet] 650 mg PO Q6H PRN PRN tablet 03/28/18 Ampicillin/Sulbactam [Unasyn] 3 gm IV Q8 vial 03/28/18 Bisacodyl [Dulcolax] 10 mg RECTAL DAILY PRN PRN suppos. 03/28/18 Docusate Sodium [Colace] 200 mg PO BID PRN PRN capsule 03/28/18 Enoxaparin [Lovenox] 40 mg SC DAILY@1000 syringe 03/28/18 Famotidine [Pepcid] 20 mg PO BID tablet 03/28/18 HYDROmorphone tablet [Dilaudid] 2 mg PO Q3H PRN PRN 3 Days #20 tab 03/28/18 Nutritional Supplement [Maynor - 1 packet PO BIDCM packet 03/28/18 ORANGE FLAVOR] Surgical History: herniorrhaphy - Ventral., - - Tubal ligation, Elective , sacral wound debridement, colostomy, suprapubic catheter. 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 He also suffered from alcoholism Review of Systems Constitutional: Reports: Weakness. Denies: Chills, Fever Cardiovascular: Denies: Chest Pain Respiratory: Denies: Shortness of Breath Gastrointestinal: Denies: Nausea, Vomiting Musculoskeletal: Denies: Foot Pain, Joint swelling, Joint Tenderness, Leg Pain Skin: Reports: Wounds, - - nail changes Neurological: Reports: Incoordination, Numbness, Tingling Patient Problems: Active and Suspected Problems Decubitus ulcer, stage 4 with infection (Acute) - Physical Exam General: Alert, Oriented x3, Cooperative HEENT: Atraumatic Extremities: No cyanosis, Capillary Refill Less than 3 Seconds, No Calf Tenderness - negative harry and stuart signs bilateral, Edema - mild bilateral lower extremities, Peripheral Pulses Normal - palpable pt and dp pulses bilateral Skin: - - No maceration, infection, skin discontinuity to bilateral lower extremities. The toenails are long, thick, dystrophic with subungual debris and incurvated to medial lateral borders bilateral lower extremities Musculoskeletal: No Tenderness to Palpation of Joints or Extremities, Muscle Wasting - paralysis noted, - - mild arom digits noted Neurological: - - Lack of epicritic sensation light touch bilateral lower extremities Psych/Mental Status: Normal Affect, Appropriate Vital Signs Temp Pulse Resp BP Pulse Ox 97.2 F L 70 16 121/71 H 92 03/31/18 15:11 03/31/18 16:55 03/31/18 15:11 03/31/18 15:11 03/31/18 15:11 Oxygen Delivery Method Room Air Weight: 95.436 kg Body Mass Index (BMI) 34.0 Finger Stick Blood Glucose 161 Intake and Output for Last 24 Hours 03/29/18 03/30/18 03/31/18 23:59 23:59 23:59 Intake Total 420 / 420 540 / 540 480 / 480 Output Total 400 / 400 1025 / 1025 1125 / 1125 Balance / -485 / -485 -645 / -645 POC Glucose 03/31/18 06:38 POC Glucose 144 H Assessment/Plan All Active Problems Decubitus ulcer, stage 4 with infection (Acute) Skin necrosis (Acute) Necrotizing soft tissue infection (Acute) Pressure ulcer of left buttock, stage 2 (Acute) Decubitus skin ulcer (Acute) Diabetes mellitus type 2, uncontrolled (Acute) Decubitus ulcer (Acute) Recurrent UTI (urinary tract infection) (Acute) Abnormal liver function (Acute) onychauxis versus onychomycosis multiple sclerosis other comorbidities I reviewed and discussed her case. It is noted she resides in transitional care unit for other conditions continues on IV antibiotics. I debrided her toenails ?10 without incident with a nail nipper to reduce the nail length and thickness. This was performed to prevent pressure, pain, wound formation, and to reduce fungal potential load. She understands potential workup and intervention is possible for nail fungus and elects to proceed with the palliative care plan at this time. Recommend she follow-up at the foot and ankle center within the next 4 months. She was reassured no lower extremity wounds or infection are noted. I recommend she moisturize her skin daily to maintain proper skin integrity. Medical management DVT prophylaxis per primary team is appreciated. Thank you very much for the consultation. Please not hesitate to call if you have any questions. Yodit Bean DPM, [facility] [phone]
[2018-04-01] MEDS: 0.9% NaCl IVPB Med Flush (250 mL) 15 ML IV (06:32)
[2018-04-01] MEDS: 0.9% NaCl PICC Flush IV ×4 (06:32→20:05)
[2018-04-01] MEDS: Meloxicam 7.5 MG Tablet PO ×2 (06:43→17:52)
[2018-04-01] MEDS: Famotidine 20 MG Tablet PO ×2 (06:43→17:52)
[2018-04-01] MEDS: Levothyroxine 100 MCG Tablet PO (06:43)
[2018-04-01] MEDS: hydroCHLOROthiazide 25 MG Tablet PO (06:43)
[2018-04-01] MEDS: dilTIAZem CD 240 MG Capsule PO (06:44)
[2018-04-01] MEDS: Tolterodine Tartrate 4 MG CAP.SA PO (06:44)
[2018-04-01] MEDS: Ammonium Lactate 225 gm Bottle 1 APPLIC TOPICAL ×2 (06:47→17:57)
[2018-04-01] MEDS: Nystatin Powder 15gm Bottle 1 APPLIC TOPICAL (06:48)
[2018-04-01 06:51] LABS: Bedside Glucose 148 mg/dL (70-110)
[2018-04-01] MEDS: HYDROmorphone 1 MG/ML Syringe 2 MG IV ×7 (07:20→22:57)
[2018-04-01] MEDS: Iron Polysaccharide Complex 150 MG CAPSULE PO (08:52)
[2018-04-01] MEDS: ALPRAZolam 0.5 MG Tablet PO (08:52)
[2018-04-01] MEDS: Enoxaparin 40 MG/0.4 ML Syringe SC (10:43)
--- NOTE | 2018-04-01 14:05 | PCA ---
Patient refused to be turned and repositioned at the 1400
--- NOTE | 2018-04-01 14:09 | NURSING ---
HEALTHCARE ADMINISTRATION INTERN's report no output from colostomy since last evening. Resident has complained of a decreased appetite. Reported only eating oranges and magic cup for breakfast and refused lunch. Glucerna given at lunch. Dr Loco aware and orders to get xray of abdomen at this time.
--- NOTE | 2018-04-01 15:23 | NURSING ---
Per Anna, wound RN she emptied output from colostomy yesterday and there was some in ostomy today that she emptied. Will educate resident on the importance of consuming nutrition for wound healing.
--- NOTE | 2018-04-01 15:37 | NURSING ---
Colostomy with a small amount of liquid brown stool noted. some flatus in appliance. patient states they did an abdominal x-ray today since she has has less output from the colostomy. pt has not been eating much at all. educated patient on the importance of nutrition for wound healing. Pt agreed to take Jose Brunner RN. VAC and colostomy appliance to be changed tomorrow.
[2018-04-01 16:00] VITALS: BP 135/74; PULSE 81; RESP 18; TEMP 36.3; O2SAT 95
[2018-04-01] MEDS: Senna/Docusate Sodium 1 Tablet 2 TABLET PO (17:58)
[2018-04-01] MEDS: MELATONIN 10 MG TABLET 5 MG PO (20:14)
[2018-04-01] MEDS: tiZANidine HCl 2 MG Tablet PO (20:15)
[2018-04-01] MEDS: Electrolyte Solution/Peg's 4000 ML 2000 ML PO (21:56)
[2018-04-02] MEDS: HYDROmorphone 1 MG/ML Syringe 2 MG IV ×9 (02:00→23:17)
[2018-04-02] MEDS: 0.9% NaCl PICC Flush IV ×12 (02:00→23:17)
[2018-04-02] MEDS: 0.9% NaCl IVPB Med Flush (250 mL) 15 ML IV (06:00)
[2018-04-02] MEDS: Tolterodine Tartrate 4 MG CAP.SA PO (06:04)
[2018-04-02] MEDS: Polyethylene Glycol 3350 17 GM PACKET PO (06:04)
[2018-04-02] MEDS: dilTIAZem CD 240 MG Capsule PO (06:04)
[2018-04-02] MEDS: Senna/Docusate Sodium 1 Tablet 2 TABLET PO ×2 (06:04→17:07)
[2018-04-02] MEDS: Meloxicam 7.5 MG Tablet PO ×2 (06:04→17:08)
[2018-04-02] MEDS: Levothyroxine 100 MCG Tablet PO (06:04)
[2018-04-02] MEDS: hydroCHLOROthiazide 25 MG Tablet PO (06:04)
[2018-04-02] MEDS: Famotidine 20 MG Tablet PO ×2 (06:04→17:09)
[2018-04-02] MEDS: Nystatin Powder 15gm Bottle 1 APPLIC TOPICAL ×2 (06:12→17:12)
[2018-04-02] MEDS: Ammonium Lactate 225 gm Bottle 1 APPLIC TOPICAL ×2 (06:13→17:13)
[2018-04-02 07:06] LABS: Bedside Glucose 128 mg/dL (70-110)
[2018-04-02] MEDS: Iron Polysaccharide Complex 150 MG CAPSULE PO (08:28)
[2018-04-02] MEDS: Enoxaparin 40 MG/0.4 ML Syringe SC (10:35)
[2018-04-02] MEDS: Glucerna Shake 120 ML LIQUID PO ×2 (10:47→17:10)
--- NOTE | 2018-04-02 11:14 | CASEMGMT ---
Plan of care meeting held. Resident present as well as resident son. No discharge date set at this time. Resident to continue with further care and treatment on the Transitional Care Unit. Resident plans to discharge to home alone at time of discharge. Resident does have PASSPORT services within the home and has an aide in the morning and evening and sometimes the afternoon. Team is currently not recommending for resident to discharge to home but rather a facility if continued stay would be denied. Resident is not open to transition to a facility at this time. Resident with insurance update due on this day and aware that continued stay approval is not guaranteed. Support given. Will continue to follow. Tabitha PIERCE, INSULATION POWER UNIT TENDER
--- NOTE | 2018-04-02 12:00 | CASEMGMT ---
Insurance Clinical information faxed. Pending continued stay approval at this time. Auth#[id number] Tabitha PIERCE, CLINICAL NUTRITION MANAGER
[2018-04-02 15:55] VITALS: BP 146/89; PULSE 76; RESP 18; TEMP 36.2; O2SAT 97
[2018-04-02] MEDS: MELATONIN 10 MG TABLET 5 MG PO (20:59)
[2018-04-02] MEDS: tiZANidine HCl 2 MG Tablet PO (21:06)
--- NOTE | 2018-04-02 21:50 | PCA ---
Addendum entered by Shawnee Navarrete 04/02/18 22:16: After encouragement from Yesica SOTO., patient did agree for us to provide julio care and change attends. Original Note: Patient is refusing to be repositoned and HS care done at this time . Per patient, she wanted to wait till she had pain meds. I waited 30 minutes after she had pain meds and patient continues to refuse. Patient states I don't care if my bed is wet, I have spent many nights lying in bed just like this. I know it is against your ethics but, i am not going to turn. Same reported to Yesica SOTO
[2018-04-03] MEDS: 0.9% NaCl PICC Flush IV ×11 (03:54→21:46)
[2018-04-03] MEDS: HYDROmorphone 1 MG/ML Syringe 2 MG IV ×8 (03:54→20:59)
--- NOTE | 2018-04-03 03:55 | NURSING ---
Pt's appliance over colostomy leaking; new appliance applied. Pt washed up this morning and upset about colostomy needing changed, stating This is too much! I just want to ! I am ready to be with my .. Pt c/o pain after repositioning in bed and changing bed sheets; PRN Dilaudid given. Much support and 1:1 given at this time. Pt grateful for support. Message left with LINDA Lu.
[2018-04-03] MEDS: dilTIAZem CD 240 MG Capsule PO (06:17)
[2018-04-03] MEDS: Famotidine 20 MG Tablet PO ×2 (06:18→16:49)
[2018-04-03] MEDS: Meloxicam 7.5 MG Tablet PO ×2 (06:18→16:48)
[2018-04-03] MEDS: Nystatin Powder 15gm Bottle 1 APPLIC TOPICAL ×2 (06:18→16:49)
[2018-04-03] MEDS: Ammonium Lactate 225 gm Bottle 1 APPLIC TOPICAL ×2 (06:18→16:50)
[2018-04-03] MEDS: hydroCHLOROthiazide 25 MG Tablet PO (06:18)
[2018-04-03] MEDS: Levothyroxine 100 MCG Tablet PO (06:18)
[2018-04-03] MEDS: Tolterodine Tartrate 4 MG CAP.SA PO (06:54)
[2018-04-03 07:00] LABS: Bedside Glucose 132 mg/dL (70-110)
--- NOTE | 2018-04-03 08:09 | CASEMGMT ---
Insurance Continued stay approved with next update due on 04/09/18. Auth#[id number] Tabitha PIERCE, WELDER FITTER HELPER
[2018-04-03] MEDS: Iron Polysaccharide Complex 150 MG CAPSULE PO (08:20)
[2018-04-03] MEDS: Enoxaparin 40 MG/0.4 ML Syringe SC (08:20)
--- NOTE | 2018-04-03 09:54 | PCM.PN.RX ---
<TatyanakishoreJohn ansariip D - Last Filed: 04/03/18 09:54> Progress Note - Pharmacy Subjective: TCU Admission Objective: Allergies cyclobenzaprine [From Flexeril] Allergy (Verified 03/20/18 16:34) Other gabapentin Adverse Reaction (Verified 03/20/18 16:34) weakness in legs nifedipine [From Procardia] Adverse Reaction (Verified 03/20/18 16:34) weakness in legs pregabalin [From Lyrica] Adverse Reaction (Verified 03/20/18 16:34) weakness in legs Current Medications Generic Name Dose Route Start Last Admin Trade Name Freq PRN Reason Stop Dose Admin Acetaminophen 1,000 mg 03/28/18 17:35 Tylenol PO Q8H PRN MILD PAIN (1-3/10) Alprazolam 0.5 mg 03/28/18 16:32 04/01/18 08:52 Xanax PO 0.5 mg Q6H PRN PRN Administration ANXIETY Bisacodyl 10 mg 03/28/18 16:32 Dulcolax RECTAL DAILY PRN PRN Constipation Diltiazem HCl 240 mg 03/29/18 06:00 04/03/18 06:17 Cardizem Cd PO 240 mg DAILY ERIC Administration Enoxaparin Sodium 40 mg 03/29/18 10:00 04/03/18 08:20 Lovenox SC 40 mg DAILY@1000 ERIC Administration Famotidine 20 mg 03/28/18 18:00 04/03/18 06:18 Pepcid PO 20 mg BID ERIC Administration Heparin Sodium (Beef Lung) 500 unit 03/28/18 21:16 Heparin 500 Unit/5 Ml (100/Ml) IV UD PRN HEPARIN FLUSH Hydrochlorothiazide 25 mg 03/29/18 06:00 04/03/18 06:18 Hctz PO 25 mg DAILY ERIC Administration Hydromorphone HCl 2 mg 03/29/18 13:08 04/03/18 08:26 Dilaudid Inj IV 2 mg Q2H PRN PRN Administration SEVERE PAIN (6-10/10) Ampicillin Sodium/Sulbactam 112 mls @ 150 mls/hr 03/28/18 22:00 04/03/18 06:42 Sodium 3 gm/ Sodium Chloride IV 150 mls/hr Q8H ERIC Administration Sodium Chloride 250 mls @ 15 mls/hr 03/28/18 23:17 04/02/18 06:00 IV 15 mls/hr .[id number] PRN Administration SALINE FLUSH Lactic Acid 1 applic 04/01/18 06:00 04/03/18 06:18 Lac-Hydrin, Amlactin TOPICAL 1 applicatio BID [facility] Administration Protocol Lactobacillus Acidophilus 1 tablet 03/29/18 06:00 04/03/18 06:17 Acidophilus PO 1 tablet DAILY ERIC Administration Levothyroxine Sodium 100 mcg 03/29/18 06:00 04/03/18 06:18 Synthroid PO 100 mcg DAILY@0600 ERIC Administration Melatonin 5 mg 03/28/18 22:00 04/02/18 20:59 Melatonin PO 5 mg QHS ERIC Administration Meloxicam 7.5 mg 03/28/18 18:00 04/03/18 06:18 Mobic PO 7.5 mg BID ERIC Administration Metformin HCl 500 mg 03/28/18 17:00 04/03/18 08:21 Glucophage PO 500 mg BIDCM ERIC Administration Nutritional Formula 1 packet 03/28/18 17:00 04/03/18 08:21 Maynor - Hart Flavor PO 1 packet BIDCM [facility] Administration Nutritional Formula (Lactose Free) 120 ml 04/02/18 12:00 04/03/18 06:17 Glucerna Shake PO Not Given 4X/DAY [facility] Nystatin 1 applic 03/28/18 18:00 04/03/18 06:18 Mycostatin Powder TOPICAL 1 applicatio BID [facility] Administration Protocol Ondansetron HCl 8 mg 03/28/18 16:32 Zofran PO TID PRN PRN NAUSEA Polyethylene Glycol 17 gm 03/29/18 06:00 04/03/18 06:18 Miralax PO Not Given DAILY [facility] Polysaccharide Iron Complex 150 mg 03/30/18 08:00 04/03/18 08:20 Ferrex 150 PO 150 mg DAILYCM [facility] Administration Potassium Chloride 20 meq 03/28/18 18:00 04/03/18 06:18 K-Dur PO 20 meq BID [facility] Administration Promethazine HCl 12.5 mg 03/28/18 16:32 Phenergan Tablet PO Q4H PRN PRN NAUSEA Senna/Docusate Sodium 2 tablet 03/28/18 18:00 04/03/18 06:18 Senokot-S, Jovanna-Colace PO Not Given BID ERIC Sodium Chloride 10 - 20 ml 03/28/18 21:16 04/03/18 08:26 IV 20 ml UD PRN Administration PICC FLUSH Tizanidine HCl 2 mg 03/28/18 16:32 04/02/18 21:06 Zanaflex PO 2 mg 4X/DAY PRN PRN Administration MUSCLE SPASMS Tolterodine Tartrate 4 mg 03/29/18 06:00 04/03/18 06:54 Detrol La PO 4 mg DAILY ERIC Administration Tuberculin PPD 5 tu 04/05/18 10:00 Tubersol, Aplisol, Ppd ID 04/05/18 10:01 X1 ONE Venlafaxine HCl 150 mg 03/28/18 18:00 04/03/18 06:17 Effexor PO 150 mg BID ERIC Administration Problem List Decubitus ulcer, stage 4 with infection (Acute) Debility (Chronic) Paraplegia (Chronic) Diabetes mellitus (Chronic) Recurrent UTI (Chronic) Urinary retention (Chronic) Failure to thrive (Chronic) Chronic pain (Chronic) Multiple sclerosis (Chronic) Tinea unguium (Chronic) Xerosis of skin (Chronic) Vital Signs Temp Pulse Resp BP Pulse Ox 97.1 F L 76 18 146/89 H 97 04/02/18 15:55 04/02/18 15:55 04/02/18 15:55 04/02/18 15:55 04/02/18 15:55 Oxygen Delivery Method Room Air Weight: 117.197 kg Body Mass Index (BMI) 34.0 Finger Stick Blood Glucose 161 Sodium 145 mmol/L (136-145) 03/29/18 04:40 Potassium 3.5 mmol/L (3.5-5.1) 03/29/18 04:40 Chloride 107 mmol/L (98-107) 03/29/18 04:40 Carbon Dioxide 26.0 mmol/L (21.0-32.0) 03/29/18 04:40 Anion Gap 12 (5-15) 03/29/18 04:40 BUN 12 mg/dL (7-18) 03/29/18 04:40 Creatinine 0.53 mg/dL (0.55-1.02) L 03/29/18 04:40 Est GFR (MDRD) Af Amer 151 mL/min (>60) 03/29/18 04:40 Est GFR (MDRD) Non-Af 125 mL/min (>60) 03/29/18 04:40 BUN/Creatinine Ratio 22.8 RATIO (10-20) H 03/29/18 04:40 Glucose 164 mg/dL (74-106) H 03/29/18 04:40 Assessment/Plan: 1) Pain APAP for mild pain, hydromorphone for severe pain, tizanidine for spasm, meloxicam. Continue to monitor daily pain scores, prn medication use. 2) ID Ampicillin/sulbactam q8h. ID following. Continue to monitor s/s infection. 3) HTN Diltiazem, HCTZ. Continue to monitor BP/HR, electrolytes. 4) DM2 Metformin twice daily. Continue to monitor BGT, renal function. 5) Tolterodine daily. Continue to monitor symptoms. 6) Hypothyroidism Levothyroxine daily. Continue to monitor s/s hyper/hypothyroidism. 7) Derm Ammonium lactate, nystatin topically. Continue to monitor clinically. 8) DVT PPx Enoxaparin daily. Continue to monitor s/s bleeding/clot. * 9) GI Famotidine, lactobacillus, ondansetron prn, promethazine prn. Continue to monitor prn medication use, s/s GI distress. * Duplicate instructions for promethazine and ondansetron, both for nausea. Please clarify. Thank you. 10) Nutrition Glucerna, Fe, Maynor, KCl. Continue to monitor electrolytes. 11) Sleep Melatonin at HS. Continue to monitor for insomnia. Psychotropic Medications: 12) Anxiety/Depression Venlafaxine twice daily, alprazolam for anxiety. Continue to monitor prn medication use, for anxiety. Unnecessary Medications: None Bowel Regimen: 13) Senna/s, PEG, prn bisacodyl. Continue to monitor prn medication use, for constipation/diarrhea. Date of Note:: 04/03/18 - Provider Comments Provider responsibility: Provider responsible to enter orders to implement recommendations <Ravi Loco Chi - Last Filed: 04/03/18 18:21> Progress Note - Pharmacy Subjective: [] Objective: Allergies cyclobenzaprine [From Flexeril] Allergy (Verified 03/20/18 16:34) Other gabapentin Adverse Reaction (Verified 03/20/18 16:34) weakness in legs nifedipine [From Procardia] Adverse Reaction (Verified 03/20/18 16:34) weakness in legs pregabalin [From Lyrica] Adverse Reaction (Verified 03/20/18 16:34) weakness in legs Current Medications Generic Name Dose Route Start Last Admin Trade Name Freq PRN Reason Stop Dose Admin Acetaminophen 1,000 mg 04/03/18 09:56 Tylenol PO Q8H PRN PRN MILD PAIN (1-3/10) Alprazolam 0.5 mg 03/28/18 16:32 04/01/18 08:52 Xanax PO 0.5 mg Q6H PRN PRN Administration ANXIETY Bisacodyl 10 mg 03/28/18 16:32 Dulcolax RECTAL DAILY PRN PRN Constipation Diltiazem HCl 240 mg 03/29/18 06:00 04/03/18 06:17 Cardizem Cd PO 240 mg DAILY ERIC Administration Enoxaparin Sodium 40 mg 03/29/18 10:00 04/03/18 08:20 Lovenox SC 40 mg DAILY@1000 ERIC Administration Famotidine 20 mg 03/28/18 18:00 04/03/18 16:49 Pepcid PO 20 mg BID ERIC Administration Heparin Sodium (Beef Lung) 500 unit 03/28/18 21:16 Heparin 500 Unit/5 Ml (100/Ml) IV UD PRN HEPARIN FLUSH Hydrochlorothiazide 25 mg 03/29/18 06:00 04/03/18 06:18 Hctz PO 25 mg DAILY ERIC Administration Hydromorphone HCl 2 mg 03/29/18 13:08 04/03/18 18:07 Dilaudid Inj IV 2 mg Q2H PRN PRN Administration SEVERE PAIN (6-10/10) Ampicillin Sodium/Sulbactam 112 mls @ 150 mls/hr 03/28/18 22:00 04/03/18 12:54 Sodium 3 gm/ Sodium Chloride IV 150 mls/hr Q8H ERIC Administration Sodium Chloride 250 mls @ 15 mls/hr 03/28/18 23:17 04/02/18 06:00 IV 15 mls/hr .[id number] PRN Administration SALINE FLUSH Lactic Acid 1 applic 04/01/18 06:00 04/03/18 16:50 Lac-Hydrin, Amlactin TOPICAL 1 applicatio BID ERIC Administration Protocol Lactobacillus Acidophilus 1 tablet 03/29/18 06:00 04/03/18 06:17 Acidophilus PO 1 tablet DAILY ERIC Administration Levothyroxine Sodium 100 mcg 03/29/18 06:00 04/03/18 06:18 Synthroid PO 100 mcg DAILY@0600 [facility] Administration Melatonin 5 mg 03/28/18 22:00 04/02/18 20:59 Melatonin PO 5 mg QHS [facility] Administration Meloxicam 7.5 mg 03/28/18 18:00 04/03/18 16:48 Mobic PO 7.5 mg BID ERIC Administration Metformin HCl 500 mg 03/28/18 17:00 04/03/18 16:49 Glucophage PO 500 mg BIDCM [facility] Administration Nutritional Formula 1 packet 03/28/18 17:00 04/03/18 16:47 Maynor - Hart Flavor PO 1 packet BIDCM [facility] Administration Nutritional Formula (Lactose Free) 120 ml 04/02/18 12:00 04/03/18 16:46 Glucerna Shake PO 120 ml 4X/DAY ERIC Administration Nystatin 1 applic 03/28/18 18:00 04/03/18 16:49 Mycostatin Powder TOPICAL 1 applicatio BID [facility] Administration Protocol Ondansetron HCl 8 mg 03/28/18 16:32 Zofran PO TID PRN PRN NAUSEA Polyethylene Glycol 17 gm 03/29/18 06:00 04/03/18 06:18 Miralax PO Not Given DAILY [facility] Polysaccharide Iron Complex 150 mg 03/30/18 08:00 04/03/18 08:20 Ferrex 150 PO 150 mg DAILYCM [facility] Administration Potassium Chloride 20 meq 03/28/18 18:00 04/03/18 16:47 K-Dur PO 20 meq BID [facility] Administration Promethazine HCl 12.5 mg 03/28/18 16:32 Phenergan Tablet PO Q4H PRN PRN NAUSEA Senna/Docusate Sodium 2 tablet 03/28/18 18:00 04/03/18 16:48 Senokot-S, Jovanna-Colace PO Not Given BID [facility] Sodium Chloride 10 - 20 ml 03/28/18 21:16 04/03/18 18:08 IV 20 ml UD PRN Administration PICC FLUSH Tizanidine HCl 2 mg 03/28/18 16:32 04/02/18 21:06 Zanaflex PO 2 mg 4X/DAY PRN PRN Administration MUSCLE SPASMS Tolterodine Tartrate 4 mg 03/29/18 06:00 04/03/18 06:54 Detrol La PO 4 mg DAILY ERIC Administration Tuberculin PPD 5 tu 04/05/18 10:00 Tubersol, Aplisol, Ppd ID 04/05/18 10:01 X1 ONE Venlafaxine HCl 150 mg 03/28/18 18:00 04/03/18 16:48 Effexor PO 150 mg BID ERIC Administration Problem List Decubitus ulcer, stage 4 with infection (Acute) Debility (Chronic) Paraplegia (Chronic) Diabetes mellitus (Chronic) Recurrent UTI (Chronic) Urinary retention (Chronic) Failure to thrive (Chronic) Chronic pain (Chronic) Multiple sclerosis (Chronic) Tinea unguium (Chronic) Xerosis of skin (Chronic) Vital Signs Temp Pulse Resp BP Pulse Ox 97.2 F L 74 17 122/76 H 96 04/03/18 16:00 04/03/18 16:00 04/03/18 16:00 04/03/18 16:00 04/03/18 16:00 Oxygen Delivery Method Room Air Weight: 117.197 kg Body Mass Index (BMI) 34.0 Finger Stick Blood Glucose 161 Sodium 145 mmol/L (136-145) 03/29/18 04:40 Potassium 3.5 mmol/L (3.5-5.1) 03/29/18 04:40 Chloride 107 mmol/L (98-107) 03/29/18 04:40 Carbon Dioxide 26.0 mmol/L (21.0-32.0) 03/29/18 04:40 Anion Gap 12 (5-15) 03/29/18 04:40 BUN 12 mg/dL (7-18) 03/29/18 04:40 Creatinine 0.53 mg/dL (0.55-1.02) L 03/29/18 04:40 Est GFR (MDRD) Af Amer 151 mL/min (>60) 03/29/18 04:40 Est GFR (MDRD) Non-Af 125 mL/min (>60) 03/29/18 04:40 BUN/Creatinine Ratio 22.8 RATIO (10-20) H 03/29/18 04:40 Glucose 164 mg/dL (74-106) H 03/29/18 04:40 Assessment/Plan: Psychotropic Medications: Unnecessary Medications: Bowel Regimen: - Provider Comments Provider responsibility: Provider responsible to enter orders to implement recommendations Provider Comments to Recommendations by Pharmacy: Agree
--- NOTE | 2018-04-03 10:02 | PHA.CONS_ITS ---
<TatyanakishoreJohn ansariip D - Last Filed: 04/03/18 09:54> Progress Note - Pharmacy Subjective: TCU Admission Objective: Allergies cyclobenzaprine [From Flexeril] Allergy (Verified 03/20/18 16:34) Other gabapentin Adverse Reaction (Verified 03/20/18 16:34) weakness in legs nifedipine [From Procardia] Adverse Reaction (Verified 03/20/18 16:34) weakness in legs pregabalin [From Lyrica] Adverse Reaction (Verified 03/20/18 16:34) weakness in legs Current Medications Generic Name Dose Route Start Last Admin Trade Name Freq PRN Reason Stop Dose Admin Acetaminophen 1,000 mg 03/28/18 17:35 Tylenol PO Q8H PRN MILD PAIN (1-3/10) Alprazolam 0.5 mg 03/28/18 16:32 04/01/18 08:52 Xanax PO 0.5 mg Q6H PRN PRN Administration ANXIETY Bisacodyl 10 mg 03/28/18 16:32 Dulcolax RECTAL DAILY PRN PRN Constipation Diltiazem HCl 240 mg 03/29/18 06:00 04/03/18 06:17 Cardizem Cd PO 240 mg DAILY ERIC Administration Enoxaparin Sodium 40 mg 03/29/18 10:00 04/03/18 08:20 Lovenox SC 40 mg DAILY@1000 ERIC Administration Famotidine 20 mg 03/28/18 18:00 04/03/18 06:18 Pepcid PO 20 mg BID ERIC Administration Heparin Sodium (Beef Lung) 500 unit 03/28/18 21:16 Heparin 500 Unit/5 Ml (100/Ml) IV UD PRN HEPARIN FLUSH Hydrochlorothiazide 25 mg 03/29/18 06:00 04/03/18 06:18 Hctz PO 25 mg DAILY ERIC Administration Hydromorphone HCl 2 mg 03/29/18 13:08 04/03/18 08:26 Dilaudid Inj IV 2 mg Q2H PRN PRN Administration SEVERE PAIN (6-10/10) Ampicillin Sodium/Sulbactam 112 mls @ 150 mls/hr 03/28/18 22:00 04/03/18 06: 42 Sodium 3 gm/ Sodium Chloride IV 150 mls/hr Q8H ERIC Administration Sodium Chloride 250 mls @ 15 mls/hr 03/28/18 23:17 04/02/18 06:00 IV 15 mls/hr .[id number] PRN Administration SALINE FLUSH Lactic Acid 1 applic 04/01/18 06:00 04/03/18 06:18 Lac-Hydrin, Amlactin TOPICAL 1 applicatio BID [facility] Administration Protocol Lactobacillus Acidophilus 1 tablet 03/29/18 06:00 04/03/18 06:17 Acidophilus PO 1 tablet DAILY ERIC Administration Levothyroxine Sodium 100 mcg 03/29/18 06:00 04/03/18 06:18 Synthroid PO 100 mcg DAILY@0600 ERIC Administration Melatonin 5 mg 03/28/18 22:00 04/02/18 20:59 Melatonin PO 5 mg QHS [facility] Administration Meloxicam 7.5 mg 03/28/18 18:00 04/03/18 06:18 Mobic PO 7.5 mg BID ERIC Administration Metformin HCl 500 mg 03/28/18 17:00 04/03/18 08:21 Glucophage PO 500 mg BIDCM ERIC Administration Nutritional Formula 1 packet 03/28/18 17:00 04/03/18 08:21 Maynor - Fenwick Flavor PO 1 packet BIDCM [facility] Administration Nutritional Formula (Lactose Free) 120 ml 04/02/18 12:00 04/03/18 06:17 Glucerna Shake PO Not Given 4X/DAY [facility] Nystatin 1 applic 03/28/18 18:00 04/03/18 06:18 Mycostatin Powder TOPICAL 1 applicatio BID [facility] Administration Protocol Ondansetron HCl 8 mg 03/28/18 16:32 Zofran PO TID PRN PRN NAUSEA Polyethylene Glycol 17 gm 03/29/18 06:00 04/03/18 06:18 Miralax PO Not Given DAILY [facility] Polysaccharide Iron Complex 150 mg 03/30/18 08:00 04/03/18 08:20 Ferrex 150 PO 150 mg DAILYCM [facility] Administration Potassium Chloride 20 meq 03/28/18 18:00 04/03/18 06:18 K-Dur PO 20 meq BID [facility] Administration Promethazine HCl 12.5 mg 03/28/18 16:32 Phenergan Tablet PO Q4H PRN PRN NAUSEA Senna/Docusate Sodium 2 tablet 03/28/18 18:00 04/03/18 06:18 Senokot-S, Jovanna-Colace PO Not Given BID ERIC Sodium Chloride 10 - 20 ml 03/28/18 21:16 04/03/18 08:26 IV 20 ml UD PRN Administration PICC FLUSH Tizanidine HCl 2 mg 03/28/18 16:32 04/02/18 21:06 Zanaflex PO 2 mg 4X/DAY PRN PRN Administration MUSCLE SPASMS Tolterodine Tartrate 4 mg 03/29/18 06:00 04/03/18 06:54 Detrol La PO 4 mg DAILY ERIC Administration Tuberculin PPD 5 tu 04/05/18 10:00 Tubersol, Aplisol, Ppd ID 04/05/18 10:01 X1 ONE Venlafaxine HCl 150 mg 03/28/18 18:00 04/03/18 06:17 Effexor PO 150 mg BID ERIC Administration Problem List Decubitus ulcer, stage 4 with infection (Acute) Debility (Chronic) Paraplegia (Chronic) Diabetes mellitus (Chronic) Recurrent UTI (Chronic) Urinary retention (Chronic) Failure to thrive (Chronic) Chronic pain (Chronic) Multiple sclerosis (Chronic) Tinea unguium (Chronic) Xerosis of skin (Chronic) Vital Signs Temp Pulse Resp BP Pulse Ox 97.1 F L 76 18 146/89 H 97 04/02/18 15:55 04/02/18 15:55 04/02/18 15:55 04/02/18 15:55 04/02/18 15:55 Oxygen Delivery Method Room Air Weight: 117.197 kg Body Mass Index (BMI) 34.0 Finger Stick Blood Glucose 161 Sodium 145 mmol/L (136-145) 03/29/18 04:40 Potassium 3.5 mmol/L (3.5-5.1) 03/29/18 04:40 Chloride 107 mmol/L (98-107) 03/29/18 04:40 Carbon Dioxide 26.0 mmol/L (21.0-32.0) 03/29/18 04:40 Anion Gap 12 (5-15) 03/29/18 04:40 BUN 12 mg/dL (7-18) 03/29/18 04:40 Creatinine 0.53 mg/dL (0.55-1.02) L 03/29/18 04:40 Est GFR (MDRD) Af Amer 151 mL/min (>60) 03/29/18 04:40 Est GFR (MDRD) Non-Af 125 mL/min (>60) 03/29/18 04:40 BUN/Creatinine Ratio 22.8 RATIO (10-20) H 03/29/18 04:40 Glucose 164 mg/dL (74-106) H 03/29/18 04:40 Assessment/Plan: 1) Pain APAP for mild pain, hydromorphone for severe pain, tizanidine for spasm, meloxicam. Continue to monitor daily pain scores, prn medication use. 2) ID Ampicillin/sulbactam q8h. ID following. Continue to monitor s/s infection. 3) HTN Diltiazem, HCTZ. Continue to monitor BP/HR, electrolytes. 4) DM2 Metformin twice daily. Continue to monitor BGT, renal function. 5) Tolterodine daily. Continue to monitor symptoms. 6) Hypothyroidism Levothyroxine daily. Continue to monitor s/s hyper/hypothyroidism. 7) Derm Ammonium lactate, nystatin topically. Continue to monitor clinically. 8) DVT PPx Enoxaparin daily. Continue to monitor s/s bleeding/clot. * 9) GI Famotidine, lactobacillus, ondansetron prn, promethazine prn. Continue to monitor prn medication use, s/s GI distress. * Duplicate instructions for promethazine and ondansetron, both for nausea . Please clarify. Thank you. 10) Nutrition Glucerna, Fe, Maynor, KCl. Continue to monitor electrolytes. 11) Sleep Melatonin at HS. Continue to monitor for insomnia. Psychotropic Medications: 12) Anxiety/Depression Venlafaxine twice daily, alprazolam for anxiety. Continue to monitor prn medication use, for anxiety. Unnecessary Medications: None Bowel Regimen: 13) Senna/s, PEG, prn bisacodyl. Continue to monitor prn medication use, for constipation/diarrhea. Date of Note:: 04/03/18 - Provider Comments Provider responsibility: Provider responsible to enter orders to implement recommendations <Ravi Loco Chi - Last Filed: 04/03/18 18:21> Progress Note - Pharmacy Subjective: [] Objective: Allergies cyclobenzaprine [From Flexeril] Allergy (Verified 03/20/18 16:34) Other gabapentin Adverse Reaction (Verified 03/20/18 16:34) weakness in legs nifedipine [From Procardia] Adverse Reaction (Verified 03/20/18 16:34) weakness in legs pregabalin [From Lyrica] Adverse Reaction (Verified 03/20/18 16:34) weakness in legs Current Medications Generic Name Dose Route Start Last Admin Trade Name Freq PRN Reason Stop Dose Admin Acetaminophen 1,000 mg 04/03/18 09:56 Tylenol PO Q8H PRN PRN MILD PAIN (1-3/10) Alprazolam 0.5 mg 03/28/18 16:32 04/01/18 08:52 Xanax PO 0.5 mg Q6H PRN PRN Administration ANXIETY Bisacodyl 10 mg 03/28/18 16:32 Dulcolax RECTAL DAILY PRN PRN Constipation Diltiazem HCl 240 mg 03/29/18 06:00 04/03/18 06:17 Cardizem Cd PO 240 mg DAILY ERIC Administration Enoxaparin Sodium 40 mg 03/29/18 10:00 04/03/18 08:20 Lovenox SC 40 mg DAILY@1000 ERIC Administration Famotidine 20 mg 03/28/18 18:00 04/03/18 16:49 Pepcid PO 20 mg BID ERIC Administration Heparin Sodium (Beef Lung) 500 unit 03/28/18 21:16 Heparin 500 Unit/5 Ml (100/Ml) IV UD PRN HEPARIN FLUSH Hydrochlorothiazide 25 mg 03/29/18 06:00 04/03/18 06:18 Hctz PO 25 mg DAILY ERIC Administration Hydromorphone HCl 2 mg 03/29/18 13:08 04/03/18 18:07 Dilaudid Inj IV 2 mg Q2H PRN PRN Administration SEVERE PAIN (6-10/10) Ampicillin Sodium/Sulbactam 112 mls @ 150 mls/hr 03/28/18 22:00 04/03/18 12: 54 Sodium 3 gm/ Sodium Chloride IV 150 mls/hr Q8H ERIC Administration Sodium Chloride 250 mls @ 15 mls/hr 03/28/18 23:17 04/02/18 06:00 IV 15 mls/hr .[id number] PRN Administration SALINE FLUSH Lactic Acid 1 applic 04/01/18 06:00 04/03/18 16:50 Lac-Hydrin, Amlactin TOPICAL 1 applicatio BID ERIC Administration Protocol Lactobacillus Acidophilus 1 tablet 03/29/18 06:00 04/03/18 06:17 Acidophilus PO 1 tablet DAILY ERIC Administration Levothyroxine Sodium 100 mcg 03/29/18 06:00 04/03/18 06:18 Synthroid PO 100 mcg DAILY@0600 [facility] Administration Melatonin 5 mg 03/28/18 22:00 04/02/18 20:59 Melatonin PO 5 mg QHS [facility] Administration Meloxicam 7.5 mg 03/28/18 18:00 04/03/18 16:48 Mobic PO 7.5 mg BID ERIC Administration Metformin HCl 500 mg 03/28/18 17:00 04/03/18 16:49 Glucophage PO 500 mg BIDCM [facility] Administration Nutritional Formula 1 packet 03/28/18 17:00 04/03/18 16:47 Maynor - Fenwick Flavor PO 1 packet BIDCM [facility] Administration Nutritional Formula (Lactose Free) 120 ml 04/02/18 12:00 04/03/18 16:46 Glucerna Shake PO 120 ml 4X/DAY ERIC Administration Nystatin 1 applic 03/28/18 18:00 04/03/18 16:49 Mycostatin Powder TOPICAL 1 applicatio BID [facility] Administration Protocol Ondansetron HCl 8 mg 03/28/18 16:32 Zofran PO TID PRN PRN NAUSEA Polyethylene Glycol 17 gm 03/29/18 06:00 04/03/18 06:18 Miralax PO Not Given DAILY [facility] Polysaccharide Iron Complex 150 mg 03/30/18 08:00 04/03/18 08:20 Ferrex 150 PO 150 mg DAILYCM [facility] Administration Potassium Chloride 20 meq 03/28/18 18:00 04/03/18 16:47 K-Dur PO 20 meq BID [facility] Administration Promethazine HCl 12.5 mg 03/28/18 16:32 Phenergan Tablet PO Q4H PRN PRN NAUSEA Senna/Docusate Sodium 2 tablet 03/28/18 18:00 04/03/18 16:48 Senokot-S, Jovanna-Colace PO Not Given BID [facility] Sodium Chloride 10 - 20 ml 03/28/18 21:16 04/03/18 18:08 IV 20 ml UD PRN Administration PICC FLUSH Tizanidine HCl 2 mg 03/28/18 16:32 04/02/18 21:06 Zanaflex PO 2 mg 4X/DAY PRN PRN Administration MUSCLE SPASMS Tolterodine Tartrate 4 mg 03/29/18 06:00 04/03/18 06:54 Detrol La PO 4 mg DAILY ERIC Administration Tuberculin PPD 5 tu 04/05/18 10:00 Tubersol, Aplisol, Ppd ID 04/05/18 10:01 X1 ONE Venlafaxine HCl 150 mg 03/28/18 18:00 04/03/18 16:48 Effexor PO 150 mg BID ERIC Administration Problem List Decubitus ulcer, stage 4 with infection (Acute) Debility (Chronic) Paraplegia (Chronic) Diabetes mellitus (Chronic) Recurrent UTI (Chronic) Urinary retention (Chronic) Failure to thrive (Chronic) Chronic pain (Chronic) Multiple sclerosis (Chronic) Tinea unguium (Chronic) Xerosis of skin (Chronic) Vital Signs Temp Pulse Resp BP Pulse Ox 97.2 F L 74 17 122/76 H 96 04/03/18 16:00 04/03/18 16:00 04/03/18 16:00 04/03/18 16:00 04/03/18 16:00 Oxygen Delivery Method Room Air Weight: 117.197 kg Body Mass Index (BMI) 34.0 Finger Stick Blood Glucose 161 Sodium 145 mmol/L (136-145) 03/29/18 04:40 Potassium 3.5 mmol/L (3.5-5.1) 03/29/18 04:40 Chloride 107 mmol/L (98-107) 03/29/18 04:40 Carbon Dioxide 26.0 mmol/L (21.0-32.0) 03/29/18 04:40 Anion Gap 12 (5-15) 03/29/18 04:40 BUN 12 mg/dL (7-18) 03/29/18 04:40 Creatinine 0.53 mg/dL (0.55-1.02) L 03/29/18 04:40 Est GFR (MDRD) Af Amer 151 mL/min (>60) 03/29/18 04:40 Est GFR (MDRD) Non-Af 125 mL/min (>60) 03/29/18 04:40 BUN/Creatinine Ratio 22.8 RATIO (10-20) H 03/29/18 04:40 Glucose 164 mg/dL (74-106) H 03/29/18 04:40 Assessment/Plan: Psychotropic Medications: Unnecessary Medications: Bowel Regimen: - Provider Comments Provider responsibility: Provider responsible to enter orders to implement recommendations Provider Comments to Recommendations by Pharmacy: Agree
[2018-04-03] MEDS: Glucerna Shake 120 ML LIQUID PO ×2 (11:01→16:46)
--- NOTE | 2018-04-03 13:37 | MDS.RN ---
Pain interview for TATYANA 04/04/18 completed.
--- NOTE | 2018-04-03 14:19 | NURSING ---
Pt states that my bag exploded like 3 times now. this nurse had changed colostomy appliance yesterday afternoon. pt states she had a leak at 4am this morning and again this afternoon. pt is refusing to eat even after being educated on the importance of nutrition for wound healing. patient states she has been drinking water and some pop. Pt had also refused for the aides to change her wet attends last evening. educated patient that none of this is helping her wound healing. will continue to encourage patient. do not feel patient should be discharged home. may need vermin exterminator mcfp placement.
[2018-04-03 16:00] VITALS: BP 122/76; PULSE 74; RESP 17; TEMP 36.2; O2SAT 96
--- NOTE | 2018-04-03 17:18 | CM.ED ---
Social Work Note Handoff provided by Mustapha Kenyon MSW, regarding referral provided by staff for thoughts of harming self. Introduced self and role at [facility]. completed [place]-Suicide Severity Rating Scale (CSSRS) with pt and concluded that she is not suicidal. She does admit to wishing she were and reunited with her spouse Juan José as she believes in an afterlife due to buddhist beliefs. Denies actually thinking of killing herself or plan/intent. Pt states that she knows, God would not accept me, and I would not risk the possibility of not being with Juan José. Pt reports to have lost her spouse, Juan José, approximately 6 years ago, it will be 7 in August. States that she gained 3 beautiful step children, and 2 grandsons from their marriage. She identifies supports as her sister who lives in [place] and manages her finances, and also her hospice bereavement coordinator, Alban Etienne. She places great emphasis on the importance of and support her adventism has provided. Emotional support provided. Pt thanks SW, and declines needs at this time. Made aware that SW is available if needs arise. Naheed Goldstein, MISSION PLANNER, CASINO MANAGER
[2018-04-03] MEDS: MELATONIN 10 MG TABLET 5 MG PO (21:03)
[2018-04-03] MEDS: tiZANidine HCl 2 MG Tablet PO (21:09)
[2018-04-04] MEDS: HYDROmorphone 1 MG/ML Syringe 2 MG IV ×8 (02:19→22:51)
[2018-04-04] MEDS: 0.9% NaCl PICC Flush IV ×9 (02:21→22:51)
--- NOTE | 2018-04-04 02:26 | NURSING ---
Second shift notified this RN about pt's sacral dressing coming off. Pt refused to have this RN look at bottom. Explained at length to pt the importance of wound not being exposed to help it heal. During 2 o'clock rounds, pt agreeable to having attends changed. While turning pt to side, wound vac noted to have leak in drape. Attempted to secure vac in place by applying new drape. Pt not tolerating procedure well, beginning to cry making statements I just want to ! and I can't stand this much longer!. This RN, Kalee RN and Steffanie BOUCHER repositioned pt after applying a dry attends. Pt refusing to be turned again stating I better not be f*cked with!, after wound vac not sealing and pt refusing any more dressing changes at this time. Pt stating The wound nurse will be in today to change that. PRN Dilaudid given per pt request. Much support and 1:1 given by this RN. Pt left with call light in reach, and no longer crying upon this RN exiting the room. Will continue to monitor.
[2018-04-04] MEDS: Tolterodine Tartrate 4 MG CAP.SA PO (05:50)
[2018-04-04] MEDS: hydroCHLOROthiazide 25 MG Tablet PO (05:50)
[2018-04-04] MEDS: dilTIAZem CD 240 MG Capsule PO (05:50)
[2018-04-04] MEDS: Meloxicam 7.5 MG Tablet PO ×2 (05:51→17:23)
[2018-04-04] MEDS: Nystatin Powder 15gm Bottle 1 APPLIC TOPICAL ×2 (05:51→17:24)
[2018-04-04] MEDS: Famotidine 20 MG Tablet PO ×2 (05:51→17:23)
[2018-04-04] MEDS: Levothyroxine 100 MCG Tablet PO (05:51)
[2018-04-04] MEDS: Ammonium Lactate 225 gm Bottle 1 APPLIC TOPICAL ×2 (05:51→17:30)
[2018-04-04] MEDS: tiZANidine HCl 2 MG Tablet PO ×3 (05:53→20:25)
[2018-04-04 06:31] LABS: Bedside Glucose 171 mg/dL (70-110)
[2018-04-04] MEDS: 0.9% NaCl IVPB Med Flush (250 mL) 15 ML IV (06:32)
--- NOTE | 2018-04-04 08:04 | NURSING ---
Dr. Loco in to see patient, complaining of severe pain and resistive to care. NO per Dr. Loco for dilaudid 4mg IV x1 now. Patient aware.
[2018-04-04] MEDS: HYDROmorphone 1 MG/ML Syringe 4 MG IV (08:17)
[2018-04-04] MEDS: Iron Polysaccharide Complex 150 MG CAPSULE PO (08:36)
[2018-04-04] MEDS: Enoxaparin 40 MG/0.4 ML Syringe SC (10:53)
[2018-04-04] MEDS: Glucerna Shake 120 ML LIQUID PO ×2 (11:14→17:20)
--- NOTE | 2018-04-04 12:04 | CASEMGMT ---
BIMS and pHQ9 interviews completed on this date for MDS assessment. PHQ9 score 1315. BIMS score . SW spoke with pt about depression and pt states that since loss of spouse 6 years ago she has been depressed. Pt does take an antidepressant but has never seen a counselor. SW offered pt a list of area therapists that may be able to help her with depression but pt refused stating she wants to focus on improving her medical health. SW explained that often physical and mental health go hand in hand. Pt expresses understanding but continues to deny resources at this time. Pt does state that she has thoughts of harming herself but has no plan and would not do that. 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 When asked if she has a mode to harm self pt denies. SW will continue to follow for support and d/c planning. KARI Saucedo
--- NOTE | 2018-04-04 12:58 | NURSING ---
Patient having a lot of urinary drainage from the urethra. Dr. Loco updated, reinsert chavarria catheter for urinary leakage.
[2018-04-04 16:00] VITALS: BP 117/63; PULSE 68; RESP 20; TEMP 36.6; O2SAT 97
[2018-04-04] MEDS: Senna/Docusate Sodium 1 Tablet 2 TABLET PO (17:23)
[2018-04-04] MEDS: MELATONIN 10 MG TABLET 5 MG PO (20:25)
[2018-04-05] MEDS: 0.9% NaCl PICC Flush IV ×7 (04:48→18:52)
[2018-04-05] MEDS: HYDROmorphone 1 MG/ML Syringe 2 MG IV ×9 (04:49→23:32)
[2018-04-05] MEDS: 0.9% NaCl IVPB Med Flush (250 mL) 15 ML IV (05:00)
[2018-04-05] MEDS: tiZANidine HCl 2 MG Tablet PO ×3 (05:06→18:59)
[2018-04-05] MEDS: dilTIAZem CD 240 MG Capsule PO (05:06)
[2018-04-05] MEDS: hydroCHLOROthiazide 25 MG Tablet PO (05:06)
[2018-04-05] MEDS: Meloxicam 7.5 MG Tablet PO ×2 (05:06→16:43)
[2018-04-05] MEDS: Levothyroxine 100 MCG Tablet PO (05:07)
[2018-04-05] MEDS: Tolterodine Tartrate 4 MG CAP.SA PO (05:07)
[2018-04-05] MEDS: Famotidine 20 MG Tablet PO ×2 (05:07→16:45)
[2018-04-05] MEDS: Nystatin Powder 15gm Bottle 1 APPLIC TOPICAL ×2 (05:12→16:40)
--- NOTE | 2018-04-05 05:13 | NURSING ---
This nurse into room d/t pt requesting pain medications. Pt stating her colostomy needs assistance and she can not do it. Colostomy leaking around appliance. Explained to pt that the appliance would need changed. Pt is in agreement but states I do not touch that thing and I probably never will. Explained the importance of taking care of it and pt stated I am not touching that nasty thing. Appliance changed by this nurse. Stoma beefy red with loose brown stool in bag. While it was being changed pt was holding the gown up so the site and appliance was not visible to her. Pt stated numerous times she needed her pain meds and for this nurse to hurry up and change appliance because she cant stand it. Pain meds given, blood draw completed and antibiotics infusing. Morning meds were provided. Pt stating the pain medication were not working and she needed something else. This nurse explained they had just been given approx ten minutes before and it will take a little time to kick in. Pt stated They gave me extra pain meds yesterday why cant you give them to me today? This nurse explained that was a x1 order. Offered to reposition pt numerous times throughout the night but pt refused each time. Pt lying flat in bed with call light in reach.
[2018-04-05 05:18] LABS: Absolute Lymphocyte Count 5.06 X10^3/ul (0.83-4.51); Absolute Neutrophil Count 6.5 X10^3/uL (2.0-7.7); Basophil# 0.04 X10^3/uL; Basophil% 0.3 % (0-1); Eosinophil# 0.49 X10^3/uL; Eosinophils% 3.8 % (0-5); Hematocrit 34.7 % (37-47); Hemoglobin 11.2 g/dl (12.0-15.0); Lymphocyte # 5.06 X10^3/ul (4.0); Lymphocyte % 38.8 % (19-41); Mean Corp Hgb Conc 32.3 g/gl (32-36); Mean Corpuscular Hgb 28.9 pg (27.0-32.0); Mean Corpuscular Volume 89.7 fL (81-99); Mean Platelet Vol. 8.6 fl (6.2-12.0); Monocyte# 0.95 X10^3/uL; Monocyte% 7.3 % (0-10); Neutrophil # 6.45 X10^3/uL (2.7-7.7); Neutrophil % 49.3 % (47-70); Platelet Count 438 K/mm3 (150-450); RBC Distribution Width CV 14.4 % (11.6-14.6); RBC Distribution Width SD 46.1 fl (35.1-43.9); Red Blood Count 3.87 M/mm3 (4.2-5.4); White Blood Count 13.1 K/mm3 (4.4-11.0)
[2018-04-05 05:19] LABS: Differential Indicated SCAN CRITERIA MET; POSITIVE COUNT NO; POSITIVE DIFFERENTIAL YES; POSITIVE MORPHOLOGY NO
[2018-04-05 05:20] LABS: Erythrocyte Sedimentation Rate 100 mm/hr (0-30)
[2018-04-05 05:24] LABS: Anion Gap 10 (5-15); BUN 17 mg/dL (7-18); BUN/Creat Ratio 30.3 RATIO (10-20); Calcium,Total 8.9 mg/dL (8.5-10.1); Chloride 102 mmol/L (98-107); Creatinine, Serum 0.56 mg/dL (0.55-1.02); EST Glomerular Filtration Rate 116 mL/min (>60); Est Glom Filt Rate - Afr Amer 140 mL/min (>60); Estimated Creatinine Clearance 96.26 ml/min; Glucose 153 mg/dL (74-106); Potassium 3.7 mmol/L (3.5-5.1); Sodium Level 140 mmol/L (136-145)
[2018-04-05 06:55] LABS: Bedside Glucose 172 mg/dL (70-110)
[2018-04-05] MEDS: Ammonium Lactate 225 gm Bottle 1 APPLIC TOPICAL ×2 (07:55→16:49)
[2018-04-05] MEDS: Iron Polysaccharide Complex 150 MG CAPSULE PO (07:58)
[2018-04-05] MEDS: Glucerna Shake 120 ML LIQUID PO ×2 (10:22→16:36)
[2018-04-05] MEDS: Enoxaparin 40 MG/0.4 ML Syringe SC (10:25)
[2018-04-05] MEDS: Tuberculin,Purif.prot.deriv. 50 TU/ML Vial 5 ML ID (10:25)
[2018-04-05 15:27] VITALS: BP 118/65; PULSE 73; RESP 16; TEMP 36.7; O2SAT 98
[2018-04-05] MEDS: Senna/Docusate Sodium 1 Tablet 2 TABLET PO (16:43)
[2018-04-05] MEDS: MELATONIN 10 MG TABLET 5 MG PO (22:08)
[2018-04-05] MEDS: proMETHazine 25 MG Tablet 12.5 MG PO (22:29)
--- NOTE | 2018-04-06 00:39 | NURSING ---
PATIENT REFUSED HS BATH TONIGHT WHEN OFFERED BY NURSING & AIRCRAFT PARTS ASSEMBLER.
[2018-04-06] MEDS: HYDROmorphone 1 MG/ML Syringe 2 MG IV ×9 (03:30→22:32)
[2018-04-06] MEDS: Levothyroxine 100 MCG Tablet PO (05:37)
[2018-04-06] MEDS: dilTIAZem CD 240 MG Capsule PO (05:37)
[2018-04-06] MEDS: Famotidine 20 MG Tablet PO ×2 (05:39→16:53)
[2018-04-06] MEDS: hydroCHLOROthiazide 25 MG Tablet PO (05:39)
[2018-04-06] MEDS: Meloxicam 7.5 MG Tablet PO ×2 (05:39→16:55)
[2018-04-06] MEDS: Ammonium Lactate 225 gm Bottle 1 APPLIC TOPICAL ×2 (05:41→16:58)
[2018-04-06] MEDS: Tolterodine Tartrate 4 MG CAP.SA PO (06:00)
[2018-04-06] MEDS: Nystatin Powder 15gm Bottle 1 APPLIC TOPICAL ×2 (06:14→16:54)
[2018-04-06] MEDS: Senna/Docusate Sodium 1 Tablet 2 TABLET PO ×2 (06:14→16:55)
[2018-04-06 06:56] LABS: Bedside Glucose 113 mg/dL (70-110)
[2018-04-06] MEDS: Ondansetron 8 MG Tablet PO (06:57)
[2018-04-06] MEDS: 0.9% NaCl PICC Flush IV ×4 (08:22→22:32)
[2018-04-06] MEDS: Iron Polysaccharide Complex 150 MG CAPSULE PO (08:27)
[2018-04-06] MEDS: Glucerna Shake 120 ML LIQUID PO ×2 (10:30→16:53)
[2018-04-06] MEDS: Enoxaparin 40 MG/0.4 ML Syringe SC (10:30)
[2018-04-06] MEDS: ALPRAZolam 0.5 MG Tablet PO (12:36)
[2018-04-06] MEDS: Acetaminophen 500 MG Tablet 1000 MG PO (12:36)
[2018-04-06 15:33] VITALS: BP 139/87; PULSE 84; RESP 20; TEMP 36.6; O2SAT 94
[2018-04-06] MEDS: MELATONIN 10 MG TABLET 5 MG PO (21:32)
[2018-04-07] MEDS: 0.9% NaCl PICC Flush IV ×7 (00:54→22:22)
[2018-04-07] MEDS: HYDROmorphone 1 MG/ML Syringe 2 MG IV ×7 (00:54→22:22)
[2018-04-07] MEDS: 0.9% NaCl IVPB Med Flush (250 mL) 15 ML IV (06:09)
[2018-04-07] MEDS: Nystatin Powder 15gm Bottle 1 APPLIC TOPICAL ×2 (06:17→16:58)
[2018-04-07 06:56] LABS: Bedside Glucose 134 mg/dL (70-110)
[2018-04-07] MEDS: Iron Polysaccharide Complex 150 MG CAPSULE PO (09:00)
[2018-04-07] MEDS: Enoxaparin 40 MG/0.4 ML Syringe SC (09:00)
[2018-04-07] MEDS: Meloxicam 7.5 MG Tablet PO ×2 (09:01→16:57)
[2018-04-07] MEDS: Tolterodine Tartrate 4 MG CAP.SA PO (09:01)
[2018-04-07] MEDS: hydroCHLOROthiazide 25 MG Tablet PO (09:01)
[2018-04-07] MEDS: dilTIAZem CD 240 MG Capsule PO (09:01)
[2018-04-07] MEDS: Levothyroxine 100 MCG Tablet PO (09:02)
[2018-04-07] MEDS: Polyethylene Glycol 3350 17 GM PACKET PO (09:02)
[2018-04-07] MEDS: Senna/Docusate Sodium 1 Tablet 2 TABLET PO ×2 (09:02→16:58)
[2018-04-07] MEDS: Famotidine 20 MG Tablet PO ×2 (09:02→16:58)
[2018-04-07] MEDS: Ammonium Lactate 225 gm Bottle 1 APPLIC TOPICAL ×2 (09:05→16:59)
[2018-04-07] MEDS: Glucerna Shake 120 ML LIQUID PO ×2 (11:02→16:55)
[2018-04-07] MEDS: ALPRAZolam 0.5 MG Tablet PO (11:02)
[2018-04-07 15:10] VITALS: BP 152/88; PULSE 81; RESP 16; TEMP 35.8; O2SAT 96
[2018-04-07] MEDS: HYDROmorphone 1 MG/ML Syringe 4 MG IV (15:33)
--- NOTE | 2018-04-07 17:36 | NURSING ---
Colostomy appliance changed at this time d/t leakage. Stoma beefy red with brown liquid stool in bag. Pt tolerated procedure well, asked several questions, all answered.
[2018-04-07] MEDS: MELATONIN 10 MG TABLET 5 MG PO (20:17)
[2018-04-08] MEDS: 0.9% NaCl PICC Flush IV ×10 (01:35→20:56)
[2018-04-08] MEDS: HYDROmorphone 1 MG/ML Syringe 2 MG IV ×9 (01:46→20:56)
[2018-04-08] MEDS: 0.9% NaCl IVPB Med Flush (250 mL) 15 ML IV (05:11)
[2018-04-08] MEDS: Levothyroxine 100 MCG Tablet PO (05:22)
[2018-04-08] MEDS: Meloxicam 7.5 MG Tablet PO ×2 (05:23→16:52)
[2018-04-08] MEDS: dilTIAZem CD 240 MG Capsule PO (05:23)
[2018-04-08] MEDS: Senna/Docusate Sodium 1 Tablet 2 TABLET PO ×2 (05:23→16:53)
[2018-04-08] MEDS: Tolterodine Tartrate 4 MG CAP.SA PO (05:23)
[2018-04-08] MEDS: Famotidine 20 MG Tablet PO ×2 (05:23→16:53)
[2018-04-08] MEDS: Polyethylene Glycol 3350 17 GM PACKET PO (05:23)
[2018-04-08] MEDS: hydroCHLOROthiazide 25 MG Tablet PO (05:23)
[2018-04-08] MEDS: Nystatin Powder 15gm Bottle 1 APPLIC TOPICAL ×2 (05:24→16:53)
[2018-04-08] MEDS: ALPRAZolam 0.5 MG Tablet PO ×3 (05:25→21:04)
[2018-04-08] MEDS: Ammonium Lactate 225 gm Bottle 1 APPLIC TOPICAL ×2 (05:28→16:54)
[2018-04-08 06:15] LABS: Bedside Glucose 148 mg/dL (70-110)
[2018-04-08] MEDS: Iron Polysaccharide Complex 150 MG CAPSULE PO (07:14)
[2018-04-08] MEDS: Enoxaparin 40 MG/0.4 ML Syringe SC (09:39)
[2018-04-08] MEDS: Glucerna Shake 120 ML LIQUID PO ×2 (11:50→16:47)
[2018-04-08 15:46] VITALS: BP 129/74; PULSE 89; RESP 18; TEMP 36.7; O2SAT 96
[2018-04-08] MEDS: Bisacodyl 5 MG Tablet 10 MG PO (21:04)
[2018-04-08] MEDS: MELATONIN 10 MG TABLET 5 MG PO (21:06)
[2018-04-09] MEDS: HYDROmorphone 1 MG/ML Syringe 2 MG IV ×7 (05:03→23:07)
[2018-04-09] MEDS: 0.9% NaCl PICC Flush IV ×6 (05:03→23:06)
[2018-04-09] MEDS: 0.9% NaCl IVPB Med Flush (250 mL) 15 ML IV ×2 (05:07→20:36)
[2018-04-09] MEDS: Polyethylene Glycol 3350 17 GM PACKET PO (05:10)
[2018-04-09] MEDS: Nystatin Powder 15gm Bottle 1 APPLIC TOPICAL ×2 (05:10→17:55)
[2018-04-09] MEDS: Levothyroxine 100 MCG Tablet PO (05:13)
[2018-04-09] MEDS: Meloxicam 7.5 MG Tablet PO ×2 (05:13→17:50)
[2018-04-09] MEDS: hydroCHLOROthiazide 25 MG Tablet PO (05:13)
[2018-04-09] MEDS: Tolterodine Tartrate 4 MG CAP.SA PO (05:13)
[2018-04-09] MEDS: dilTIAZem CD 240 MG Capsule PO (05:13)
[2018-04-09] MEDS: Bisacodyl 5 MG Tablet 10 MG PO (05:13)
[2018-04-09] MEDS: Famotidine 20 MG Tablet PO ×2 (05:13→17:48)
[2018-04-09] MEDS: Senna/Docusate Sodium 1 Tablet 2 TABLET PO ×2 (05:14→17:51)
[2018-04-09 06:56] LABS: Bedside Glucose 184 mg/dL (70-110)
[2018-04-09] MEDS: Enoxaparin 40 MG/0.4 ML Syringe SC (08:46)
[2018-04-09] MEDS: Iron Polysaccharide Complex 150 MG CAPSULE PO (08:46)
[2018-04-09] MEDS: Ammonium Lactate 225 gm Bottle 1 APPLIC TOPICAL ×2 (08:46→17:55)
--- NOTE | 2018-04-09 11:01 | PCM.PN.ID ---
Patient Problems: Active and Suspected Problems Decubitus ulcer, stage 4 with infection (Acute) Subjective: Feeling ok, mild abd pain and poor appetite. No issues with picc. No fever. - Physical Exam General: Alert, Cooperative, No apparent distress Lungs: Clear to auscultation, Normal air movement Cardiovascular: Regular rate, Regular Rhythm Abdomen: Soft, Non Tender, Non-Distended, - - ostomy and suprapubic in place Skin: No rashes Vital Signs Temp Pulse Resp BP Pulse Ox 98.0 F 89 18 129/74 H 96 04/08/18 15:46 04/08/18 15:46 04/08/18 15:46 04/08/18 15:46 04/08/18 15:46 Oxygen Delivery Method Room Air Weight: 124.511 kg Body Mass Index (BMI) 34.0 Finger Stick Blood Glucose 161 Intake and Output for Last 24 Hours 04/07/18 04/08/18 04/09/18 23:59 23:59 23:59 Intake Total 239 / 239 521 / 521 240 / 240 Output Total 2049 / 2049 1300 / 1300 1350 / 1350 Balance -1811 / -1811 -779 / -779 -1110 / -1110 POC Glucose 04/09/18 06:47 POC Glucose 184 H Medical Necessity - Tobacco Use Smoking Status: Never smoker Tobacco Use: Non-smoker Route of nutrition/ use of supplements: [] Nutritional Intake: [] IV Site: [] Marcus Catheter: [] - Assessment/Plan Antibiotics: [] Assessment/Plan: [] Active and Suspected Problems Decubitus ulcer, stage 4 with infection (Acute) Sacral osteo - s/p debridement 03/[address] Lynch. On unasyn via picc with stop date 05/02/18. Weekly bmp, cbc, and esr. Diverting ostomy and suprapubic cath placed prior to transfer to TCU. ESR elevated, will monitor. Will follow.
[2018-04-09] MEDS: HYDROmorphone 1 MG/ML Syringe 4 MG IV (11:04)
[2018-04-09] MEDS: Electrolyte Solution/Peg's 4000 ML 1000 ML PO (11:05)
--- NOTE | 2018-04-09 12:03 | NURSING ---
wound photo: sacrum
--- NOTE | 2018-04-09 12:10 | NURSING ---
Colostomy appliance is intact with minimal soft green stool noted in appliance. appliance was changed on 04/07/18.
--- NOTE | 2018-04-09 13:28 | CASEMGMT ---
Insurance Clinical information sent. Pending continued stay approval at this time. Auth#[id number] Tabitha PIERCE, MANAGER ADVERTISING
[2018-04-09 16:00] VITALS: BP 150/73; PULSE 91; RESP 18; TEMP 36.8; O2SAT 94
[2018-04-09] MEDS: Glucerna Shake 120 ML LIQUID PO (17:46)
[2018-04-09] MEDS: tiZANidine HCl 2 MG Tablet PO (21:09)
[2018-04-09] MEDS: MELATONIN 10 MG TABLET 5 MG PO (21:09)
[2018-04-10] MEDS: HYDROmorphone 1 MG/ML Syringe 2 MG IV ×9 (01:13→22:29)
[2018-04-10] MEDS: 0.9% NaCl PICC Flush IV ×9 (01:13→21:04)
--- NOTE | 2018-04-10 01:59 | NURSING ---
Pt tearful this evening. Pt informed this nurse her spouse and she has nothing to live for. Pt informed this nurse she is ready to . Pt is embarrassed about her condition and very apologetic for the care she requires. Pt feels her ostomy appliance is gross and has no desire to care for it. Pt is worried about going home and not being able to attend f/u appts d/t condition requiring ambulance services. Much TLC provided. Pain medication provided. Pt laughing prior to nurse exiting room and denied need for further interventions. VM left with SW. Will continue to monitor.
[2018-04-10] MEDS: Nystatin Powder 15gm Bottle 1 APPLIC TOPICAL ×2 (05:46→17:27)
[2018-04-10] MEDS: Tolterodine Tartrate 4 MG CAP.SA PO (05:47)
[2018-04-10] MEDS: Famotidine 20 MG Tablet PO ×2 (05:47→17:27)
[2018-04-10] MEDS: Senna/Docusate Sodium 1 Tablet 2 TABLET PO ×2 (05:47→17:25)
[2018-04-10] MEDS: Polyethylene Glycol 3350 17 GM PACKET PO (05:47)
[2018-04-10] MEDS: Meloxicam 7.5 MG Tablet PO ×2 (05:47→17:26)
[2018-04-10] MEDS: Levothyroxine 100 MCG Tablet PO (05:47)
[2018-04-10] MEDS: hydroCHLOROthiazide 25 MG Tablet PO (05:47)
[2018-04-10] MEDS: dilTIAZem CD 240 MG Capsule PO (05:47)
[2018-04-10] MEDS: Ammonium Lactate 225 gm Bottle 1 APPLIC TOPICAL ×2 (06:00→17:31)
[2018-04-10] MEDS: ALPRAZolam 0.5 MG Tablet PO ×2 (06:48→20:14)
[2018-04-10 06:51] LABS: Bedside Glucose 180 mg/dL (70-110)
[2018-04-10] MEDS: Enoxaparin 40 MG/0.4 ML Syringe SC (08:01)
[2018-04-10] MEDS: Iron Polysaccharide Complex 150 MG CAPSULE PO (08:01)
--- NOTE | 2018-04-10 08:12 | CASEMGMT ---
Insurance Continued stay approved with next update due on 04/16/18. Auth#[id number] Tabitha PIERCE, MACHINE RECORDS UNITS SUPERVISOR
[2018-04-10] MEDS: Glucerna Shake 120 ML LIQUID PO ×2 (10:40→17:21)
--- NOTE | 2018-04-10 11:34 | NURSING ---
Colostomy appliance removed. stoma remains well budded, moist, and pink. peristomal skin is intact. sutures remain. peristomal skin cleansed with warm water. pat dry. applied a new flat 2 piece appliance with stoma paste. pt tolerated well. pt having soft brown/farias unformed stool. will continue to monitor.
--- NOTE | 2018-04-10 14:43 | MDS.RN ---
Information for the mds was obtained from review of the clinical record, interview of resident, staff, and direct observation of resident's care.
[2018-04-10 15:52] VITALS: BP 147/83; PULSE 80; RESP 20; TEMP 36.8; O2SAT 97
--- NOTE | 2018-04-10 16:41 | CASEMGMT ---
Social Work Nursing making referral due to resident being tearful and feeling down. This socially responsible investment adviser meeting with resident in room. Resident presenting at pleasant and smiling towards this socially responsible investment adviser during conversation. Resident reporting to be wondering if resident is done. This socially responsible investment adviser asking resident to define done. Resident reporting to maybe not want any further medical interventions and to maybe not want treatment anymore. This socially responsible investment adviser offering emotional support and exploring resident current feelings/emotions. Resident going over past history and current life style and reporting to not be able to do anything anymore and to be okay with recognizing that this may be it. This socially responsible investment adviser encouraging resident to speak with Dr. Loco in regards to current medical status. Resident planning to speak with Dr. Loco later this evening or tomorrow. Resident is current with palliative care services and is reporting to possibly be open to hospice services but to be unsure. This socially responsible investment adviser reinforcing that it is okay that resident is unsure at this time and that staff/team can continue to work with resident on making decision and that no decision needs to be made right now. Resident insurance is approved until 04/16/18 at this time. Resident voicing understanding and thanking this socially responsible investment adviser. Resident did ask for this socially responsible investment adviser to contact [facility] hospice services (this is who resident is active with for palliative care). Resident also requesting for this socially responsible investment adviser to inquire about resident medicaid status and whether or not a new application would need to be completed for a senior care stay as resident is reporting to not be able to afford a senior care and to not be sure about returning to home alone. This socially responsible investment adviser voicing emotion support. Will continue to follow. Telephone call to [facility] mayra MEDRANO left inquiring in regards to resident medicaid status. Voicefidel[employer] stated that it could take 3-5 days to return the phone call. Attempted to contact [facility] - [phone] in regards to above, currently are closed for the day. Will attempt contact tomorrow. Will continue to follow. Tabitha PIERCE, KEY ACCOUNT EXECUTIVE
--- NOTE | 2018-04-10 18:24 | NURSING ---
unable to get blood return on picc line, Dr Loco notified, new order for cathflo, may repeat again if needed
[2018-04-10] MEDS: MELATONIN 10 MG TABLET 5 MG PO (21:04)
[2018-04-11] MEDS: HYDROmorphone 1 MG/ML Syringe 2 MG IV ×11 (00:33→22:39)
[2018-04-11] MEDS: Alteplase 2 MG/2 ML Vial IV (02:35)
[2018-04-11] MEDS: 0.9% NaCl PICC Flush IV ×10 (02:35→22:39)
[2018-04-11] MEDS: Levothyroxine 100 MCG Tablet PO (05:22)
[2018-04-11] MEDS: Meloxicam 7.5 MG Tablet PO ×2 (05:23→17:27)
[2018-04-11] MEDS: hydroCHLOROthiazide 25 MG Tablet PO (05:23)
[2018-04-11] MEDS: dilTIAZem CD 240 MG Capsule PO (05:24)
[2018-04-11] MEDS: Famotidine 20 MG Tablet PO ×2 (05:24→17:26)
[2018-04-11] MEDS: Senna/Docusate Sodium 1 Tablet 2 TABLET PO ×2 (05:24→17:30)
[2018-04-11] MEDS: Tolterodine Tartrate 4 MG CAP.SA PO (05:24)
[2018-04-11] MEDS: Ammonium Lactate 225 gm Bottle 1 APPLIC TOPICAL ×2 (05:25→17:33)
[2018-04-11] MEDS: Nystatin Powder 15gm Bottle 1 APPLIC TOPICAL ×2 (05:25→17:33)
[2018-04-11] MEDS: Polyethylene Glycol 3350 17 GM PACKET PO (05:25)
[2018-04-11] MEDS: Glucerna Shake 120 ML LIQUID PO ×3 (05:25→17:23)
[2018-04-11 06:56] LABS: Bedside Glucose 139 mg/dL (70-110)
[2018-04-11] MEDS: Iron Polysaccharide Complex 150 MG CAPSULE PO (07:41)
[2018-04-11] MEDS: Enoxaparin 40 MG/0.4 ML Syringe SC (07:42)
[2018-04-11] MEDS: ALPRAZolam 0.5 MG Tablet PO ×2 (08:54→22:46)
--- NOTE | 2018-04-11 09:59 | NURSING ---
pt given extra 2 mg IV dilaudid before wound vac change. Pt resting in bed, therapy getting ready to work her upper body before wound vac change
[2018-04-11 15:38] VITALS: BP 117/69; PULSE 87; RESP 16; TEMP 36.4; O2SAT 97
--- NOTE | 2018-04-11 20:05 | NURSING ---
Duragesic patch remains intact to Right Shoulder.
[2018-04-11] MEDS: MELATONIN 10 MG TABLET 5 MG PO (21:10)
[2018-04-11] MEDS: 0.9% NaCl IVPB Med Flush (250 mL) 15 ML IV (21:12)
[2018-04-12] MEDS: HYDROmorphone 1 MG/ML Syringe 2 MG IV ×9 (00:41→22:28)
[2018-04-12] MEDS: 0.9% NaCl PICC Flush IV ×11 (00:42→22:29)
[2018-04-12] MEDS: Tolterodine Tartrate 4 MG CAP.SA PO (05:54)
[2018-04-12] MEDS: dilTIAZem CD 240 MG Capsule PO (05:54)
[2018-04-12] MEDS: Senna/Docusate Sodium 1 Tablet 2 TABLET PO ×2 (05:55→16:37)
[2018-04-12] MEDS: Famotidine 20 MG Tablet PO ×2 (05:55→16:37)
[2018-04-12] MEDS: Levothyroxine 100 MCG Tablet PO (05:55)
[2018-04-12] MEDS: Nystatin Powder 15gm Bottle 1 APPLIC TOPICAL ×2 (05:55→16:38)
[2018-04-12] MEDS: hydroCHLOROthiazide 25 MG Tablet PO (05:55)
[2018-04-12] MEDS: Meloxicam 7.5 MG Tablet PO ×2 (05:55→16:36)
[2018-04-12] MEDS: Ammonium Lactate 225 gm Bottle 1 APPLIC TOPICAL ×2 (05:56→16:38)
[2018-04-12] MEDS: ALPRAZolam 0.5 MG Tablet PO (06:34)
[2018-04-12 06:56] LABS: Bedside Glucose 163 mg/dL (70-110)
[2018-04-12] MEDS: Enoxaparin 40 MG/0.4 ML Syringe SC (09:22)
[2018-04-12] MEDS: Iron Polysaccharide Complex 150 MG CAPSULE PO (09:22)
[2018-04-12 09:42] LABS: Erythrocyte Sedimentation Rate 90 mm/hr (0-30)
[2018-04-12 09:44] LABS: Absolute Lymphocyte Count 3.81 X10^3/ul (0.83-4.51); Absolute Neutrophil Count 6.6 X10^3/uL (2.0-7.7); Basophil# 0.03 X10^3/uL; Basophil% 0.3 % (0-1); Eosinophil# 0.43 X10^3/uL; Eosinophils% 3.7 % (0-5); Hematocrit 34.9 % (37-47); Hemoglobin 11.2 g/dl (12.0-15.0); Lymphocyte # 3.81 X10^3/ul (4.0); Lymphocyte % 33.1 % (19-41); Mean Corp Hgb Conc 32.1 g/gl (32-36); Mean Corpuscular Hgb 28.8 pg (27.0-32.0); Mean Corpuscular Volume 89.7 fL (81-99); Monocyte# 0.61 X10^3/uL; Monocyte% 5.3 % (0-10); Neutrophil % 57.3 % (47-70); Platelet Count 359 K/mm3 (150-450); RBC Distribution Width CV 14.4 % (11.6-14.6); Red Blood Count 3.89 M/mm3 (4.2-5.4); White Blood Count 11.5 K/mm3 (4.4-11.0)
[2018-04-12 09:46] LABS: POSITIVE COUNT NO; POSITIVE DIFFERENTIAL NO; POSITIVE MORPHOLOGY NO
[2018-04-12 09:59] LABS: Anion Gap 10 (5-15); BUN 19 mg/dL (7-18); BUN/Creat Ratio 27.3 RATIO (10-20); Calcium,Total 9.2 mg/dL (8.5-10.1); Chloride 100 mmol/L (98-107); EST Glomerular Filtration Rate 91 mL/min (>60); Est Glom Filt Rate - Afr Amer 110 mL/min (>60); Estimated Creatinine Clearance 77.01 ml/min; Glucose 197 mg/dL (74-106); Potassium 4.1 mmol/L (3.5-5.1); Sodium Level 139 mmol/L (136-145)
--- NOTE | 2018-04-12 11:44 | NURSING ---
DURAGESIC PATCH IN PLACE TO RIGHT SHOULDER.
[2018-04-12 16:00] VITALS: BP 120/78; PULSE 82; RESP 18; TEMP 36.1; O2SAT 99
[2018-04-12] MEDS: Glucerna Shake 120 ML LIQUID PO (16:35)
[2018-04-12] MEDS: MELATONIN 10 MG TABLET 5 MG PO (20:15)
[2018-04-12] MEDS: tiZANidine HCl 2 MG Tablet PO (20:22)
[2018-04-13] MEDS: 0.9% NaCl PICC Flush IV ×9 (03:17→22:33)
[2018-04-13] MEDS: HYDROmorphone 1 MG/ML Syringe 2 MG IV ×9 (03:17→22:33)
[2018-04-13] MEDS: ALPRAZolam 0.5 MG Tablet PO (04:56)
[2018-04-13] MEDS: dilTIAZem CD 240 MG Capsule PO (04:57)
[2018-04-13] MEDS: Tolterodine Tartrate 4 MG CAP.SA PO (04:57)
[2018-04-13] MEDS: hydroCHLOROthiazide 25 MG Tablet PO (04:58)
[2018-04-13] MEDS: Meloxicam 7.5 MG Tablet PO ×2 (04:58→17:58)
[2018-04-13] MEDS: Nystatin Powder 15gm Bottle 1 APPLIC TOPICAL ×2 (04:58→18:00)
[2018-04-13] MEDS: Famotidine 20 MG Tablet PO ×2 (04:58→17:58)
[2018-04-13] MEDS: Ammonium Lactate 225 gm Bottle 1 APPLIC TOPICAL ×2 (04:58→18:00)
[2018-04-13] MEDS: Senna/Docusate Sodium 1 Tablet 2 TABLET PO ×2 (04:58→17:58)
[2018-04-13] MEDS: Levothyroxine 100 MCG Tablet PO (04:58)
--- NOTE | 2018-04-13 05:46 | NURSING ---
Duragesic patch remains in place to Right Shoulder.
[2018-04-13 07:10] LABS: Bedside Glucose 126 mg/dL (70-110)
[2018-04-13] MEDS: tiZANidine HCl 2 MG Tablet PO ×3 (08:39→20:23)
[2018-04-13] MEDS: Iron Polysaccharide Complex 150 MG CAPSULE PO (08:40)
[2018-04-13] MEDS: Enoxaparin 40 MG/0.4 ML Syringe SC (08:40)
--- NOTE | 2018-04-13 10:49 | NURSING ---
Duragesic patch intact to Right Shoulder.
[2018-04-13] MEDS: Glucerna Shake 120 ML LIQUID PO (11:37)
[2018-04-13 15:49] VITALS: BP 107/68; PULSE 62; RESP 18; TEMP 36.6; O2SAT 99
[2018-04-13 20:20] VITALS: PULSE 73; O2SAT 97
[2018-04-13] MEDS: MELATONIN 10 MG TABLET 5 MG PO (20:24)
[2018-04-14] MEDS: HYDROmorphone 1 MG/ML Syringe 2 MG IV ×10 (01:21→21:53)
[2018-04-14] MEDS: 0.9% NaCl PICC Flush IV ×8 (01:21→21:53)
--- NOTE | 2018-04-14 01:28 | NURSING ---
Duragesic patch intact to Left Shoulder.
[2018-04-14] MEDS: dilTIAZem CD 240 MG Capsule PO (05:49)
[2018-04-14] MEDS: Tolterodine Tartrate 4 MG CAP.SA PO (05:49)
[2018-04-14] MEDS: hydroCHLOROthiazide 25 MG Tablet PO (05:50)
[2018-04-14] MEDS: Glucerna Shake 120 ML LIQUID PO ×4 (05:50→22:01)
[2018-04-14] MEDS: Famotidine 20 MG Tablet PO ×2 (05:51→17:49)
[2018-04-14] MEDS: Ammonium Lactate 225 gm Bottle 1 APPLIC TOPICAL ×2 (05:51→17:52)
[2018-04-14] MEDS: Meloxicam 7.5 MG Tablet PO ×2 (05:51→17:49)
[2018-04-14] MEDS: Nystatin Powder 15gm Bottle 1 APPLIC TOPICAL ×2 (05:51→17:53)
[2018-04-14] MEDS: Senna/Docusate Sodium 1 Tablet 2 TABLET PO ×2 (05:52→17:50)
[2018-04-14] MEDS: Levothyroxine 100 MCG Tablet PO (05:52)
[2018-04-14] MEDS: 0.9% NaCl IVPB Med Flush (250 mL) 15 ML IV (06:01)
[2018-04-14 07:06] LABS: Bedside Glucose 175 mg/dL (70-110)
[2018-04-14] MEDS: ALPRAZolam 0.5 MG Tablet PO (08:34)
[2018-04-14] MEDS: Enoxaparin 40 MG/0.4 ML Syringe SC (08:36)
[2018-04-14] MEDS: Iron Polysaccharide Complex 150 MG CAPSULE PO (08:36)
[2018-04-14] MEDS: fentaNYL 25 MCG Patch TRANSDERM. (10:43)
[2018-04-14] MEDS: tiZANidine HCl 2 MG Tablet PO ×2 (15:23→22:00)
--- NOTE | 2018-04-14 15:25 | NURSING ---
wound photo: sacrum
[2018-04-14 16:00] VITALS: BP 123/75; PULSE 75; RESP 18; TEMP 36.6; O2SAT 99
[2018-04-14] MEDS: MELATONIN 10 MG TABLET 5 MG PO (22:00)
[2018-04-15] MEDS: 0.9% NaCl PICC Flush IV ×11 (00:31→21:54)
[2018-04-15] MEDS: HYDROmorphone 1 MG/ML Syringe 2 MG IV ×9 (00:32→21:52)
--- NOTE | 2018-04-15 01:21 | NURSING ---
Duragesic patch intact to Lt deltoid.
[2018-04-15] MEDS: 0.9% NaCl IVPB Med Flush (250 mL) 15 ML IV (06:03)
[2018-04-15] MEDS: Glucerna Shake 120 ML LIQUID PO ×4 (06:06→21:29)
[2018-04-15] MEDS: Polyethylene Glycol 3350 17 GM PACKET PO (06:07)
[2018-04-15] MEDS: Levothyroxine 100 MCG Tablet PO (06:07)
[2018-04-15] MEDS: Tolterodine Tartrate 4 MG CAP.SA PO (06:07)
[2018-04-15] MEDS: dilTIAZem CD 240 MG Capsule PO (06:07)
[2018-04-15] MEDS: Famotidine 20 MG Tablet PO ×2 (06:07→17:22)
[2018-04-15] MEDS: hydroCHLOROthiazide 25 MG Tablet PO (06:07)
[2018-04-15] MEDS: tiZANidine HCl 2 MG Tablet PO ×4 (06:07→21:30)
[2018-04-15] MEDS: Senna/Docusate Sodium 1 Tablet 2 TABLET PO ×2 (06:07→17:23)
[2018-04-15] MEDS: Meloxicam 7.5 MG Tablet PO ×2 (06:07→17:23)
[2018-04-15] MEDS: Ammonium Lactate 225 gm Bottle 1 APPLIC TOPICAL ×2 (06:12→17:26)
[2018-04-15] MEDS: Nystatin Powder 15gm Bottle 1 APPLIC TOPICAL ×2 (06:12→17:24)
[2018-04-15 06:55] LABS: Bedside Glucose 169 mg/dL (70-110)
[2018-04-15] MEDS: ALPRAZolam 0.5 MG Tablet PO ×2 (07:32→19:52)
[2018-04-15] MEDS: Enoxaparin 40 MG/0.4 ML Syringe SC (08:21)
[2018-04-15] MEDS: Iron Polysaccharide Complex 150 MG CAPSULE PO (08:21)
[2018-04-15 16:00] VITALS: BP 122/68; PULSE 75; RESP 18; TEMP 36.7; O2SAT 97
[2018-04-15] MEDS: MELATONIN 10 MG TABLET 5 MG PO (21:30)
[2018-04-16] MEDS: 0.9% NaCl PICC Flush IV ×8 (00:37→22:52)
[2018-04-16] MEDS: HYDROmorphone 1 MG/ML Syringe 2 MG IV ×8 (00:40→22:52)
[2018-04-16] MEDS: Tolterodine Tartrate 4 MG CAP.SA PO (04:56)
[2018-04-16] MEDS: Polyethylene Glycol 3350 17 GM PACKET PO (04:56)
[2018-04-16] MEDS: Senna/Docusate Sodium 1 Tablet 2 TABLET PO ×2 (04:56→17:07)
[2018-04-16] MEDS: Levothyroxine 100 MCG Tablet PO (04:56)
[2018-04-16] MEDS: Meloxicam 7.5 MG Tablet PO ×2 (04:56→17:07)
[2018-04-16] MEDS: Famotidine 20 MG Tablet PO ×2 (04:56→17:06)
[2018-04-16] MEDS: hydroCHLOROthiazide 25 MG Tablet PO (04:56)
[2018-04-16] MEDS: dilTIAZem CD 240 MG Capsule PO (04:56)
[2018-04-16] MEDS: tiZANidine HCl 2 MG Tablet PO ×4 (04:57→20:48)
[2018-04-16] MEDS: Nystatin Powder 15gm Bottle 1 APPLIC TOPICAL ×2 (05:04→17:09)
[2018-04-16] MEDS: Glucerna Shake 120 ML LIQUID PO ×4 (05:05→20:48)
[2018-04-16] MEDS: 0.9% NaCl IVPB Med Flush (250 mL) 15 ML IV (05:06)
[2018-04-16] MEDS: ALPRAZolam 0.5 MG Tablet PO (05:54)
[2018-04-16] MEDS: Ammonium Lactate 225 gm Bottle 1 APPLIC TOPICAL ×2 (06:05→17:11)
[2018-04-16 07:01] LABS: Bedside Glucose 174 mg/dL (70-110)
[2018-04-16] MEDS: Iron Polysaccharide Complex 150 MG CAPSULE PO (08:16)
[2018-04-16] MEDS: Enoxaparin 40 MG/0.4 ML Syringe SC (08:18)
--- NOTE | 2018-04-16 12:31 | CASEMGMT ---
Insurance Clinical information sent. Pending continued stay approval at this time. Auth#[id number] Tabitha PIERCE, CANINE SERVICE INSTRUCTOR TRAINER
--- NOTE | 2018-04-16 12:35 | PCM.PN.ID ---
Patient Problems: Active and Suspected Problems Decubitus ulcer, stage 4 with infection (Acute) Subjective: Feeling better, no fever, no n/v. - Physical Exam General: Alert, Cooperative, No apparent distress Lungs: Clear to auscultation, Normal air movement Cardiovascular: Regular rate, Regular Rhythm Abdomen: Soft, Non Tender, Non-Distended Skin: No rashes Vital Signs Temp Pulse Resp BP Pulse Ox 98.0 F 75 18 122/68 H 97 04/15/18 16:00 04/15/18 16:00 04/15/18 16:00 04/15/18 16:00 04/15/18 16:00 Oxygen Delivery Method Room Air Weight: 121.653 kg Body Mass Index (BMI) 34.0 Finger Stick Blood Glucose 161 Intake and Output for Last 24 Hours 04/14/18 04/15/18 04/16/18 23:59 23:59 23:59 Intake Total 240 / 240 360 / 360 240 / 240 Output Total 1100 / 1100 2000 / 2000 450 / 450 Balance -860 / -860 -1640 / -1640 -210 / -210 POC Glucose 04/16/18 06:55 POC Glucose 174 H Medical Necessity - Tobacco Use Smoking Status: Never smoker Tobacco Use: Non-smoker Route of nutrition/ use of supplements: [] Nutritional Intake: [] IV Site: [] Marcus Catheter: [] - Assessment/Plan Antibiotics: [] Assessment/Plan: [] Active and Suspected Problems Decubitus ulcer, stage 4 with infection (Acute) Sacral osteo - s/p debridement 03/[address] Lynch. On unasyn via picc with stop date 05/02/18. Weekly bmp, cbc, and esr. Diverting ostomy and suprapubic cath placed prior to transfer to TCU. WBC improved. Will follow.
[2018-04-16] MEDS: HYDROmorphone 1 MG/ML Syringe 4 MG IV (13:21)
[2018-04-16 15:30] VITALS: BP 90/58; PULSE 78; RESP 18; TEMP 36; O2SAT 99
--- NOTE | 2018-04-16 16:33 | CASEMGMT ---
Insurance Continued stay approved with next update due on 04/23/18. Auth#[id number] Tabitha PIERCE, CHINESE LANGUAGE PROFESSOR
[2018-04-16] MEDS: MELATONIN 10 MG TABLET 5 MG PO (20:47)
[2018-04-17] MEDS: HYDROmorphone 1 MG/ML Syringe 2 MG IV ×9 (02:17→22:47)
[2018-04-17] MEDS: 0.9% NaCl PICC Flush IV ×10 (02:17→22:44)
[2018-04-17] MEDS: 0.9% NaCl IVPB Med Flush (250 mL) 15 ML IV ×2 (05:40→21:24)
[2018-04-17] MEDS: ALPRAZolam 0.5 MG Tablet PO ×2 (05:46→15:59)
[2018-04-17] MEDS: Famotidine 20 MG Tablet PO ×2 (05:48→17:57)
[2018-04-17] MEDS: Levothyroxine 100 MCG Tablet PO (05:48)
[2018-04-17] MEDS: dilTIAZem CD 240 MG Capsule PO (05:48)
[2018-04-17] MEDS: hydroCHLOROthiazide 25 MG Tablet PO (05:48)
[2018-04-17] MEDS: Tolterodine Tartrate 4 MG CAP.SA PO (05:48)
[2018-04-17] MEDS: Meloxicam 7.5 MG Tablet PO ×2 (05:49→17:56)
[2018-04-17] MEDS: Senna/Docusate Sodium 1 Tablet 2 TABLET PO ×2 (05:49→17:57)
[2018-04-17] MEDS: tiZANidine HCl 2 MG Tablet PO ×4 (05:49→21:24)
[2018-04-17] MEDS: Polyethylene Glycol 3350 17 GM PACKET PO ×2 (05:50→18:11)
[2018-04-17] MEDS: Nystatin Powder 15gm Bottle 1 APPLIC TOPICAL ×2 (05:50→11:04)
[2018-04-17] MEDS: Ammonium Lactate 225 gm Bottle 1 APPLIC TOPICAL ×2 (05:51→11:09)
[2018-04-17] MEDS: Glucerna Shake 120 ML LIQUID PO ×4 (05:55→21:29)
[2018-04-17 07:01] LABS: Bedside Glucose 171 mg/dL (70-110)
[2018-04-17] MEDS: Enoxaparin 40 MG/0.4 ML Syringe SC (08:09)
[2018-04-17] MEDS: Iron Polysaccharide Complex 150 MG CAPSULE PO (08:09)
[2018-04-17] MEDS: fentaNYL 25 MCG Patch TRANSDERM. (09:37)
--- NOTE | 2018-04-17 13:48 | NURSING ---
Duragesic patch intact to rt shoulder.
[2018-04-17 16:00] VITALS: BP 114/72; PULSE 71; RESP 18; TEMP 35.7; O2SAT 98
--- NOTE | 2018-04-17 16:40 | CASEMGMT ---
Social Work Met with resident in room. Resident unsure about penitentiary placement at this time. Team is recommending for resident to transition to an extended care facility from here at time of discharge as resident has limited support at home. Resident reporting to be concerned about being able to pay bills while in the penitentiary. This public health social worker identifying with resident that resident places paying bills as a higher priority then resident self care and quality of life, resident confirming this and reporting to be very concerned about paying bills. This public health social worker educating resident on concerns and risk of returning to home alone with aides only in the morning and evening. Resident aware to be at risk of further wound infection or wounds developing as well as limited support to assist with pain management, meals, and daily hygiene. Resident unsure and wanting to meet with public health social worker along with resident sister in regards to possible medicaid application. Resident does not currently qualify for medicaid in the community and is reporting to be able to afford penitentiary if resident would not pay bills (bills consist of medical and utilities). Resident reporting that resident sister is currently out of town and will not return until next Saturday. Social work to touch base with resident and resident daughter to set up family meeting to collaborate further on discharge plan. Support given. Will continue to follow. Tabitha PIERCE, MATERIAL DISPATCHER
--- NOTE | 2018-04-17 18:12 | NURSING ---
Duragesic 25mcg patch removed, wasted by flushing down toilet, witnessed by BRITTANY Christine. New 50mcg duragesic patch applied to rt deltoid.
[2018-04-17] MEDS: MELATONIN 10 MG TABLET 5 MG PO (21:24)
[2018-04-17] MEDS: Lactulose 20 GM/30 ML UDC 15 GM PO (21:25)
[2018-04-18] MEDS: 0.9% NaCl PICC Flush IV ×9 (00:55→22:18)
[2018-04-18] MEDS: HYDROmorphone 1 MG/ML Syringe 2 MG IV ×10 (01:00→22:18)
[2018-04-18] MEDS: Glucerna Shake 120 ML LIQUID PO ×3 (04:21→20:57)
[2018-04-18] MEDS: Tolterodine Tartrate 4 MG CAP.SA PO (04:25)
[2018-04-18] MEDS: Levothyroxine 100 MCG Tablet PO (04:25)
[2018-04-18] MEDS: dilTIAZem CD 240 MG Capsule PO (04:25)
[2018-04-18] MEDS: Famotidine 20 MG Tablet PO ×2 (04:25→17:19)
[2018-04-18] MEDS: Senna/Docusate Sodium 1 Tablet 2 TABLET PO ×2 (04:25→17:19)
[2018-04-18] MEDS: Meloxicam 7.5 MG Tablet PO ×2 (04:25→17:19)
[2018-04-18] MEDS: Polyethylene Glycol 3350 17 GM PACKET PO ×2 (04:28→17:20)
[2018-04-18] MEDS: hydroCHLOROthiazide 25 MG Tablet PO (04:28)
[2018-04-18] MEDS: Ammonium Lactate 225 gm Bottle 1 APPLIC TOPICAL ×2 (04:31→17:36)
[2018-04-18] MEDS: Lactulose 20 GM/30 ML UDC 15 GM PO ×2 (04:31→17:20)
[2018-04-18] MEDS: Nystatin Powder 15gm Bottle 1 APPLIC TOPICAL ×2 (04:34→17:37)
[2018-04-18] MEDS: tiZANidine HCl 2 MG Tablet PO ×4 (05:19→20:59)
--- NOTE | 2018-04-18 05:20 | NURSING ---
Duragesic noted to right deltoid
[2018-04-18 06:55] LABS: Bedside Glucose 144 mg/dL (70-110)
[2018-04-18] MEDS: Enoxaparin 40 MG/0.4 ML Syringe SC (09:38)
[2018-04-18] MEDS: Iron Polysaccharide Complex 150 MG CAPSULE PO (09:38)
--- NOTE | 2018-04-18 09:55 | NURSING ---
NO for 2mg IV dilaudid x1 now for wound vac change.
[2018-04-18 16:00] VITALS: BP 139/74; PULSE 80; RESP 20; TEMP 36.8; O2SAT 97
[2018-04-18] MEDS: Ondansetron 8 MG Tablet PO (18:07)
[2018-04-18] MEDS: MELATONIN 10 MG TABLET 5 MG PO (20:59)
[2018-04-18] MEDS: 0.9% NaCl IVPB Med Flush (250 mL) 15 ML IV (21:02)
[2018-04-18] MEDS: ALPRAZolam 0.5 MG Tablet PO (22:18)
[2018-04-19] MEDS: HYDROmorphone 1 MG/ML Syringe 2 MG IV ×10 (00:24→22:24)
[2018-04-19] MEDS: 0.9% NaCl PICC Flush IV ×12 (00:24→22:23)
[2018-04-19] MEDS: dilTIAZem CD 240 MG Capsule PO (06:10)
[2018-04-19] MEDS: Tolterodine Tartrate 4 MG CAP.SA PO (06:10)
[2018-04-19] MEDS: Lactulose 20 GM/30 ML UDC 15 GM PO ×2 (06:10→17:18)
[2018-04-19] MEDS: hydroCHLOROthiazide 25 MG Tablet PO (06:11)
[2018-04-19] MEDS: Ammonium Lactate 225 gm Bottle 1 APPLIC TOPICAL ×2 (06:11→16:04)
[2018-04-19] MEDS: Glucerna Shake 120 ML LIQUID PO ×4 (06:11→21:17)
[2018-04-19] MEDS: Senna/Docusate Sodium 1 Tablet 2 TABLET PO ×2 (06:12→17:19)
[2018-04-19] MEDS: Meloxicam 7.5 MG Tablet PO ×2 (06:12→17:20)
[2018-04-19] MEDS: Levothyroxine 100 MCG Tablet PO (06:12)
[2018-04-19] MEDS: Polyethylene Glycol 3350 17 GM PACKET PO ×2 (06:12→17:17)
[2018-04-19] MEDS: Nystatin Powder 15gm Bottle 1 APPLIC TOPICAL ×2 (06:12→16:04)
[2018-04-19] MEDS: Famotidine 20 MG Tablet PO ×2 (06:12→17:19)
[2018-04-19] MEDS: tiZANidine HCl 2 MG Tablet PO ×4 (06:13→21:16)
[2018-04-19 07:10] LABS: Absolute Lymphocyte Count 4.61 X10^3/ul (0.83-4.51); Absolute Neutrophil Count 5.2 X10^3/uL (2.0-7.7); Basophil# 0.04 X10^3/uL; Basophil% 0.4 % (0-1); Eosinophil# 0.67 X10^3/uL; Eosinophils% 5.9 % (0-5); Hematocrit 34.2 % (37-47); Hemoglobin 10.9 g/dl (12.0-15.0); Lymphocyte # 4.61 X10^3/ul (4.0); Lymphocyte % 40.7 % (19-41); Mean Corp Hgb Conc 31.9 g/gl (32-36); Mean Corpuscular Hgb 28.8 pg (27.0-32.0); Mean Corpuscular Volume 90.2 fL (81-99); Mean Platelet Vol. 9.1 fl (6.2-12.0); Monocyte% 7.1 % (0-10); Neutrophil # 5.19 X10^3/uL (2.7-7.7); Neutrophil % 45.6 % (47-70); Platelet Count 326 K/mm3 (150-450); RBC Distribution Width CV 14.7 % (11.6-14.6); RBC Distribution Width SD 46.8 fl (35.1-43.9); Red Blood Count 3.79 M/mm3 (4.2-5.4); White Blood Count 11.3 K/mm3 (4.4-11.0)
[2018-04-19 07:11] LABS: Bedside Glucose 143 mg/dL (70-110)
[2018-04-19 07:13] LABS: Erythrocyte Sedimentation Rate 61 mm/hr (0-30); POSITIVE COUNT NO; POSITIVE DIFFERENTIAL NO; POSITIVE MORPHOLOGY NO
[2018-04-19 07:26] LABS: Anion Gap 9 (5-15); BUN 26 mg/dL (7-18); BUN/Creat Ratio 40.5 RATIO (10-20); Calcium,Total 8.8 mg/dL (8.5-10.1); Chloride 101 mmol/L (98-107); Creatinine, Serum 0.64 mg/dL (0.55-1.02); EST Glomerular Filtration Rate 99 mL/min (>60); Est Glom Filt Rate - Afr Amer 120 mL/min (>60); Estimated Creatinine Clearance 84.23 ml/min; Glucose 131 mg/dL (74-106); Potassium 3.6 mmol/L (3.5-5.1); Sodium Level 137 mmol/L (136-145)
[2018-04-19] MEDS: ALPRAZolam 0.5 MG Tablet PO (07:27)
[2018-04-19] MEDS: Enoxaparin 40 MG/0.4 ML Syringe SC (08:50)
[2018-04-19] MEDS: Iron Polysaccharide Complex 150 MG CAPSULE PO (08:50)
[2018-04-19 16:00] VITALS: BP 90/57; PULSE 64; RESP 18; TEMP 35.8; O2SAT 96
[2018-04-19] MEDS: 0.9% NaCl IVPB Med Flush (250 mL) 15 ML IV (21:13)
[2018-04-19] MEDS: MELATONIN 10 MG TABLET 5 MG PO (21:16)
[2018-04-20] MEDS: HYDROmorphone 1 MG/ML Syringe 2 MG IV ×11 (00:24→22:49)
[2018-04-20] MEDS: 0.9% NaCl PICC Flush IV ×11 (00:24→22:57)
[2018-04-20] MEDS: dilTIAZem CD 240 MG Capsule PO (06:11)
[2018-04-20] MEDS: hydroCHLOROthiazide 25 MG Tablet PO (06:11)
[2018-04-20] MEDS: tiZANidine HCl 2 MG Tablet PO ×4 (06:11→21:27)
[2018-04-20] MEDS: Levothyroxine 100 MCG Tablet PO (06:11)
[2018-04-20] MEDS: Lactulose 20 GM/30 ML UDC 15 GM PO ×2 (06:11→17:26)
[2018-04-20] MEDS: Famotidine 20 MG Tablet PO ×2 (06:11→17:26)
[2018-04-20] MEDS: Senna/Docusate Sodium 1 Tablet 2 TABLET PO ×2 (06:12→17:26)
[2018-04-20] MEDS: Tolterodine Tartrate 4 MG CAP.SA PO (06:12)
[2018-04-20] MEDS: Meloxicam 7.5 MG Tablet PO ×2 (06:12→17:27)
[2018-04-20] MEDS: Polyethylene Glycol 3350 17 GM PACKET PO ×2 (06:13→17:27)
[2018-04-20] MEDS: Glucerna Shake 120 ML LIQUID PO ×4 (06:17→21:25)
[2018-04-20] MEDS: Nystatin Powder 15gm Bottle 1 APPLIC TOPICAL ×2 (06:18→17:29)
[2018-04-20] MEDS: Ammonium Lactate 225 gm Bottle 1 APPLIC TOPICAL ×2 (06:19→17:28)
[2018-04-20 07:11] LABS: Bedside Glucose 136 mg/dL (70-110)
--- NOTE | 2018-04-20 07:36 | NURSING ---
Colostomy bag leaking around appliance. Old one removed. Stoma beefy red with sutures intact. New appliance applied. Pt tolerated well.
[2018-04-20] MEDS: Enoxaparin 40 MG/0.4 ML Syringe SC (07:50)
[2018-04-20] MEDS: Iron Polysaccharide Complex 150 MG CAPSULE PO (07:51)
[2018-04-20] MEDS: ALPRAZolam 0.5 MG Tablet PO ×2 (08:16→21:42)
--- NOTE | 2018-04-20 12:43 | NURSING ---
no blood return on picc line, new order to use cathflox1, may repeat if needed.
[2018-04-20 16:00] VITALS: BP 124/73; PULSE 71; RESP 18; TEMP 36.3; O2SAT 95
[2018-04-20] MEDS: Alteplase 2 MG/2 ML Vial IV (16:37)
--- NOTE | 2018-04-20 17:38 | NURSING ---
LATE ENTRY - 1630 UNABLE TO OBTAIN BLOOD RETURN FROM RUE PICC LINE. LINE FLUSHED EASILY. CATH MELODIE INSTILLED ORDERED. 1700 - + RESULTS FROM CATH MELODIE. PICC LINE FLUSHED EASILY WITH GOOD BLOOD RETURN.
[2018-04-20] MEDS: 0.9% NaCl IVPB Med Flush (250 mL) 15 ML IV (21:25)
[2018-04-20] MEDS: MELATONIN 10 MG TABLET 5 MG PO (21:27)
--- NOTE | 2018-04-20 21:44 | NURSING ---
Stool leaking out the side of colostomy. Old appliance removed. Stoma beefy red. New appliance changed. Pt refused to look at colostomy and stated 'I do not want anything to do with that.
[2018-04-21] MEDS: 0.9% NaCl PICC Flush IV ×9 (01:13→22:47)
[2018-04-21] MEDS: HYDROmorphone 1 MG/ML Syringe 2 MG IV ×10 (01:17→22:47)
[2018-04-21] MEDS: Levothyroxine 100 MCG Tablet PO (06:39)
[2018-04-21] MEDS: Polyethylene Glycol 3350 17 GM PACKET PO ×2 (06:39→17:59)
[2018-04-21] MEDS: tiZANidine HCl 2 MG Tablet PO ×4 (06:39→21:06)
[2018-04-21] MEDS: Lactulose 20 GM/30 ML UDC 15 GM PO ×2 (06:39→17:59)
[2018-04-21] MEDS: hydroCHLOROthiazide 25 MG Tablet PO (06:39)
[2018-04-21] MEDS: Meloxicam 7.5 MG Tablet PO ×2 (06:39→18:00)
[2018-04-21] MEDS: Famotidine 20 MG Tablet PO ×2 (06:39→18:00)
[2018-04-21] MEDS: dilTIAZem CD 240 MG Capsule PO (06:39)
[2018-04-21] MEDS: Senna/Docusate Sodium 1 Tablet 2 TABLET PO ×2 (06:39→18:01)
[2018-04-21] MEDS: Glucerna Shake 120 ML LIQUID PO ×4 (06:40→21:05)
[2018-04-21] MEDS: Tolterodine Tartrate 4 MG CAP.SA PO (06:40)
[2018-04-21] MEDS: Ammonium Lactate 225 gm Bottle 1 APPLIC TOPICAL ×2 (06:43→15:20)
[2018-04-21] MEDS: Nystatin Powder 15gm Bottle 1 APPLIC TOPICAL ×2 (06:43→15:20)
[2018-04-21 08:16] LABS: Bedside Glucose 153 mg/dL (70-110)
[2018-04-21] MEDS: Iron Polysaccharide Complex 150 MG CAPSULE PO (09:22)
[2018-04-21] MEDS: Enoxaparin 40 MG/0.4 ML Syringe SC (09:22)
[2018-04-21] MEDS: ALPRAZolam 0.5 MG Tablet PO (11:36)
[2018-04-21 15:24] VITALS: BP 106/62; PULSE 72; RESP 16; TEMP 35.9; O2SAT 97
--- NOTE | 2018-04-21 15:55 | NURSING ---
wound photo: sacrum
--- NOTE | 2018-04-21 18:17 | NURSING ---
NO to d/c fentanyl patch and for Hospice consult per patient request.
--- NOTE | 2018-04-21 18:44 | NURSING ---
BRITTANY Zhou from Hospice notified of Hospice consult for patient. Manager Bench will be here tomorrow to see patient.
--- NOTE | 2018-04-21 19:20 | PCM.TCUNOT ---
Subjective: Resident seen in room, lying in bed. She has been requiring extra doses of IV Dilaudid for dressing changes. She feels the addition of Fentanyl patch has not been helpful, despite titration up to 50MCG patch every 72 hours. She is thinking about discharging with hospice once done with short term rehab. She wants to go home, but I let her know she will not be able to care for herself home alone because hospice is not 24/7 at home. Recommend discharging to nursing facility with hospice. Vitals/I&O's: Vital Signs Temp Pulse Resp BP Pulse Ox 96.6 F L 72 16 106/62 97 04/21/18 15:24 04/21/18 15:24 04/21/18 15:24 04/21/18 15:24 04/21/18 15:24 Oxygen Delivery Method Room Air Weight: 121.653 kg Body Mass Index (BMI) 34.0 Finger Stick Blood Glucose 161 Intake and Output for Last 24 Hours 04/19/18 04/20/18 04/21/18 23:59 23:59 23:59 Intake Total 900 / 900 1400 / 1400 800 / 800 Output Total 1800 / 1800 1775 / 1775 2250 / 2250 Balance -900 / -900 -375 / -375 -1450 / -1450 Laboratory Results 04/21/18 06:37: POC Glucose 153 H Past Medical History Past Medical History (Chronic Problems): Chronic Problems Debility (Chronic) Paraplegia (Chronic) Diabetes mellitus (Chronic) Recurrent UTI (Chronic) Urinary retention (Chronic) Failure to thrive (Chronic) Chronic pain (Chronic) Multiple sclerosis (Chronic) Tinea unguium (Chronic) Xerosis of skin (Chronic) Incontinence of feces (Chronic) Incontinence of urine in female (Chronic) Osteomyelitis of sacrum (Chronic) Pressure ulcer of sacral region, stage 4 (Chronic) Pressure ulcer of coccygeal region, stage 3 (Chronic) Paraparesis of both lower limbs (Chronic) Chronic ulcer of right great toe with fat layer exposed (Chronic) Macrocytic anemia (Chronic) due to folate deficiency + fatty liver.....? hemolysis, haptoglobin is pending Hypothyroidism (Chronic) Anxiety (Chronic) Morbid obesity with BMI of 40.0-44.9, adult (Chronic) COPD (chronic obstructive pulmonary disease) (Chronic) life long non-smoker Multiple sclerosis (Chronic) Depression (Chronic) Pulmonary embolism (Chronic) Failure to thrive in adult (Chronic) Physical deconditioning (Chronic) Spinal stenosis of lumbar region (Chronic) mild, diagnosed on MRI of the LS spine done 01/01/14 Folate deficiency anemia (Chronic) Fatty infiltration of liver (Chronic) Urine, incontinence, stress female (Chronic) Chronic retention of urine (Chronic) she has MS and also has spinal canal stenosis....has seen neurosurgery and is not a candidate for any surgical intervention. Physical debility (Chronic) she is sedentary lives alone and can no longer get herself to the BR, has lost arm strength....very deconditioned Allergies cyclobenzaprine [From Flexeril] Allergy (Verified 03/20/18 16:34) Other gabapentin Adverse Reaction (Verified 03/20/18 16:34) weakness in legs nifedipine [From Procardia] Adverse Reaction (Verified 03/20/18 16:34) weakness in legs pregabalin [From Lyrica] Adverse Reaction (Verified 03/20/18 16:34) weakness in legs Home Medications: Ambulatory Orders Medication Instructions Recorded Lactobacillus Acidophilus 1 capsule PO DAILY 01/22/18 [Acidophilus] Diltiazem CD [Cardizem CD] 240 mg PO DAILY 03/20/18 Hydrochlorothiazide [Hctz] 25 mg PO DAILY 03/20/18 Levothyroxine Sodium [Synthroid] 100 mcg PO DAILY 03/20/18 Melatonin 5 mg PO QHS 03/20/18 Meloxicam 7.5 mg PO BID 03/20/18 Metformin HCl [Glucophage] 500 mg PO BID 03/20/18 Nystatin Powder [Mycostatin Powder] 1 applic TOPICAL BID 03/20/18 Ondansetron [Zofran] 8 mg PO TID PRN PRN 03/20/18 Potassium Chloride [Klor-Con M20] 20 meq PO BID 03/20/18 Tizanidine HCl 2 mg PO 4X/DAY PRN PRN 03/20/18 Tolterodine Tartrate [Detrol] 2 mg PO BID 03/20/18 Venlafaxine HCl [Effexor] 150 mg PO BID 03/20/18 proMETHazine tablet [Phenergan 12.5 mg PO Q4H PRN PRN 03/20/18 tablet] ALPRAZolam [Xanax] 0.5 mg PO Q6H PRN PRN #10 tablet 03/28/18 Acetaminophen [Tylenol Tablet] 650 mg PO Q6H PRN PRN tablet 03/28/18 Ampicillin/Sulbactam [Unasyn] 3 gm IV Q8 vial 03/28/18 Bisacodyl [Dulcolax] 10 mg RECTAL DAILY PRN PRN suppos. 03/28/18 Docusate Sodium [Colace] 200 mg PO BID PRN PRN capsule 03/28/18 Enoxaparin [Lovenox] 40 mg SC DAILY@1000 syringe 03/28/18 Famotidine [Pepcid] 20 mg PO BID tablet 03/28/18 HYDROmorphone tablet [Dilaudid] 2 mg PO Q3H PRN PRN 3 Days #20 tab 03/28/18 Nutritional Supplement [Maynor - 1 packet PO BIDCM packet 03/28/18 ORANGE FLAVOR] Surgical History: herniorrhaphy - Ventral., - - Tubal ligation, Elective , sacral wound debridement, colostomy, suprapubic catheter. 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 He also suffered from alcoholism Review of Systems Constitutional: Denies: Chills, Fever, Weight Change HEENT: Denies: Head Aches, Sinus Congestion, Sinus Drainage Cardiovascular: Denies: Chest Pain, Palpitations Respiratory: Denies: Cough, Shortness of breath at rest, Sputum production Gastrointestinal: Denies: Abdominal Pain, Nausea, Vomiting Genitourinary: Denies: Dysuria Musculoskeletal: Reports: Leg Pain, Muscle pain. Denies: Joint Pain, Joint Tenderness Skin: Denies: Rash, Wounds Neurological: Denies: Numbness, Tingling, Focal weakness Psychiatric: Denies: Anxiety, Depression, Homicidal Ideations, Suicidal Ideations Hematologic/ Lymphatic: Denies: Easy Bruising, Easy Bleeding Patient Problems: Active and Suspected Problems Decubitus ulcer, stage 4 with infection (Acute) - Physical Exam General: Alert, Oriented x3, Cooperative HEENT: Atraumatic, PERRLA, EOMI, Normocephalic Neck: Supple, No JVD, Negative Carotid Bruits Lungs: Clear to auscultation, Normal air movement Cardiovascular: Regular rate, No murmurs Abdomen: Bowel Sounds Present, Soft, Non Tender Extremities: No edema, Capillary Refill Less than 3 Seconds Skin: No rashes, No breakdown Musculoskeletal: No Tenderness to Palpation of Joints or Extremities Neurological: Cranial nerves II-XII grossly intact Psych/Mental Status: Normal Affect, Appropriate Vital Signs Temp Pulse Resp BP Pulse Ox 96.6 F L 72 16 106/62 97 04/21/18 15:24 04/21/18 15:24 04/21/18 15:24 04/21/18 15:24 04/21/18 15:24 Oxygen Delivery Method Room Air Weight: 121.653 kg Body Mass Index (BMI) 34.0 Finger Stick Blood Glucose 161 Intake and Output for Last 24 Hours 04/19/18 04/20/18 04/21/18 23:59 23:59 23:59 Intake Total 900 / 900 1400 / 1400 800 / 800 Output Total 1800 / 1800 1775 / 1775 2250 / 2250 Balance -900 / -900 -375 / -375 -1450 / -1450 POC Glucose 04/21/18 06:37 POC Glucose 153 H Assessment/Plan All Active Problems Decubitus ulcer, stage 4 with infection (Acute) Skin necrosis (Acute) Necrotizing soft tissue infection (Acute) Pressure ulcer of left buttock, stage 2 (Acute) Decubitus skin ulcer (Acute) Diabetes mellitus type 2, uncontrolled (Acute) Decubitus ulcer (Acute) Recurrent UTI (urinary tract infection) (Acute) Abnormal liver function (Acute) 63 year old female with below past medical history hospitalized for infected stage 4 sacral pressure ulcer requiring debridement, wound VAC placement, underwent diverting colostomy, suprapubic catheter, pain pump removal, admitted to TCU for rehabilitation, strengthening, wound care, intravenous antibiotics, prior to disposition determination. Debility - PT/OT. Dysphagia - ST. Pain - Dilaudid 2MG IV Q2H PRN severe pain, Extra 2MG IV MWF for dressing changes, Tylenol 1000MG Q8H PRN mild pain, Mobic 7.5MG BID. Fentanyl patches discontinued. Bowel - Miralax 17GM daily, Senna/colace 2 tablets BID, Dulcolax 10MG NE daily PRN. Pneumonia vaccination - Administer Prevnar 13 and/or Pneumovax 23 as necessary. DVT prophylaxis - Lovenox 40MG SC daily. Anxiety - Xanax 0.5MG Q6H PRN. Infected sacral pressure ulcer status post debridement (wound VAC) - Unasyn 3GM IV Q8H, Dr. Chanel following, Maynor 1 packet BID. Hypertension - Diltiazem 240MG daily, HCTZ 25MG daily. GERD - Famotidine 20MG BID. GI prophylaxis - Lactobacillus 1 tablet daily. Hypothyroidism - Levothyroxine 100MCG daily. Insomnia - Melatonin 5MG QHS. Diabetes Mellitus II - Metformin 500MG BID. Tinea Corporis - Nystatin powder BID groin, under breasts. Nausea - Zofran 8MG TID PRN, Promethazine 12.5MG Q4H PRN. Hypokalemia - KCL 20MEQ BID. Muscle spasm - Tizanidine 2MG 4x/day PRN. Overactive bladder status post suprapubic catheter placement - Tolterodine 4MG daily. Depression - Venlafaxine 150MG BID. End of Life Care - Consult hospice to discuss with resident her discharge plans.
--- NOTE | 2018-04-21 19:26 | PN_ITS ---
Subjective: Resident seen in room, lying in bed. She has been requiring extra doses of IV Dilaudid for dressing changes. She feels the addition of Fentanyl patch has not been helpful, despite titration up to 50MCG patch every 72 hours. She is thinking about discharging with hospice once done with short term rehab. She wants to go home, but I let her know she will not be able to care for herself home alone because hospice is not 24/7 at home. Recommend discharging to nursing facility with hospice. Vitals/I&O's: Vital Signs Temp Pulse Resp BP Pulse Ox 96.6 F L 72 16 106/62 97 04/21/18 15:24 04/21/18 15:24 04/21/18 15:24 04/21/18 15:24 04/21/18 15:24 Oxygen Delivery Method Room Air Weight: 121.653 kg Body Mass Index (BMI) 34.0 Finger Stick Blood Glucose 161 Intake and Output for Last 24 Hours 04/19/18 04/20/18 04/21/18 23:59 23:59 23:59 Intake Total 900 / 900 1400 / 1400 800 / 800 Output Total 1800 / 1800 1775 / 1775 2250 / 2250 Balance -900 / -900 -375 / -375 -1450 / -1450 Laboratory Results 04/21/18 06:37: POC Glucose 153 H Past Medical History Past Medical History (Chronic Problems): Chronic Problems Debility (Chronic) Paraplegia (Chronic) Diabetes mellitus (Chronic) Recurrent UTI (Chronic) Urinary retention (Chronic) Failure to thrive (Chronic) Chronic pain (Chronic) Multiple sclerosis (Chronic) Tinea unguium (Chronic) Xerosis of skin (Chronic) Incontinence of feces (Chronic) Incontinence of urine in female (Chronic) Osteomyelitis of sacrum (Chronic) Pressure ulcer of sacral region, stage 4 (Chronic) Pressure ulcer of coccygeal region, stage 3 (Chronic) Paraparesis of both lower limbs (Chronic) Chronic ulcer of right great toe with fat layer exposed (Chronic) Macrocytic anemia (Chronic) due to folate deficiency + fatty liver.....? hemolysis, haptoglobin is pending Hypothyroidism (Chronic) Anxiety (Chronic) Morbid obesity with BMI of 40.0-44.9, adult (Chronic) COPD (chronic obstructive pulmonary disease) (Chronic) life long non-smoker Multiple sclerosis (Chronic) Depression (Chronic) Pulmonary embolism (Chronic) Failure to thrive in adult (Chronic) Physical deconditioning (Chronic) Spinal stenosis of lumbar region (Chronic) mild, diagnosed on MRI of the LS spine done 01/01/14 Folate deficiency anemia (Chronic) Fatty infiltration of liver (Chronic) Urine, incontinence, stress female (Chronic) Chronic retention of urine (Chronic) she has MS and also has spinal canal stenosis....has seen neurosurgery and is not a candidate for any surgical intervention. Physical debility (Chronic) she is sedentary lives alone and can no longer get herself to the BR, has lost arm strength....very deconditioned Allergies cyclobenzaprine [From Flexeril] Allergy (Verified 03/20/18 16:34) Other gabapentin Adverse Reaction (Verified 03/20/18 16:34) weakness in legs nifedipine [From Procardia] Adverse Reaction (Verified 03/20/18 16:34) weakness in legs pregabalin [From Lyrica] Adverse Reaction (Verified 03/20/18 16:34) weakness in legs Home Medications: Ambulatory Orders Medication Instructions Recorded Lactobacillus Acidophilus 1 capsule PO DAILY 01/22/18 [Acidophilus] Diltiazem CD [Cardizem CD] 240 mg PO DAILY 03/20/18 Hydrochlorothiazide [Hctz] 25 mg PO DAILY 03/20/18 Levothyroxine Sodium [Synthroid] 100 mcg PO DAILY 03/20/18 Melatonin 5 mg PO QHS 03/20/18 Meloxicam 7.5 mg PO BID 03/20/18 Metformin HCl [Glucophage] 500 mg PO BID 03/20/18 Nystatin Powder [Mycostatin Powder] 1 applic TOPICAL BID 03/20/18 Ondansetron [Zofran] 8 mg PO TID PRN PRN 03/20/18 Potassium Chloride [Klor-Con M20] 20 meq PO BID 03/20/18 Tizanidine HCl 2 mg PO 4X/DAY PRN PRN 03/20/18 Tolterodine Tartrate [Detrol] 2 mg PO BID 03/20/18 Venlafaxine HCl [Effexor] 150 mg PO BID 03/20/18 proMETHazine tablet [Phenergan 12.5 mg PO Q4H PRN PRN 03/20/18 tablet] ALPRAZolam [Xanax] 0.5 mg PO Q6H PRN PRN #10 tablet 03/28/18 Acetaminophen [Tylenol Tablet] 650 mg PO Q6H PRN PRN tablet 03/28/18 Ampicillin/Sulbactam [Unasyn] 3 gm IV Q8 vial 03/28/18 Bisacodyl [Dulcolax] 10 mg RECTAL DAILY PRN PRN suppos. 03/28/18 Docusate Sodium [Colace] 200 mg PO BID PRN PRN capsule 03/28/18 Enoxaparin [Lovenox] 40 mg SC DAILY@1000 syringe 03/28/18 Famotidine [Pepcid] 20 mg PO BID tablet 03/28/18 HYDROmorphone tablet [Dilaudid] 2 mg PO Q3H PRN PRN 3 Days #20 tab 03/28/18 Nutritional Supplement [Maynor - 1 packet PO BIDCM packet 03/28/18 ORANGE FLAVOR] Surgical History: herniorrhaphy - Ventral., - - Tubal ligation, Elective , sacral wound debridement, colostomy, suprapubic catheter. 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 He also suffered from alcoholism Review of Systems Constitutional: Denies: Chills, Fever, Weight Change HEENT: Denies: Head Aches, Sinus Congestion, Sinus Drainage Cardiovascular: Denies: Chest Pain, Palpitations Respiratory: Denies: Cough, Shortness of breath at rest, Sputum production Gastrointestinal: Denies: Abdominal Pain, Nausea, Vomiting Genitourinary: Denies: Dysuria Musculoskeletal: Reports: Leg Pain, Muscle pain. Denies: Joint Pain, Joint Tenderness Skin: Denies: Rash, Wounds Neurological: Denies: Numbness, Tingling, Focal weakness Psychiatric: Denies: Anxiety, Depression, Homicidal Ideations, Suicidal Ideations Hematologic/ Lymphatic: Denies: Easy Bruising, Easy Bleeding Patient Problems: Active and Suspected Problems Decubitus ulcer, stage 4 with infection (Acute) - Physical Exam General: Alert, Oriented x3, Cooperative HEENT: Atraumatic, PERRLA, EOMI, Normocephalic Neck: Supple, No JVD, Negative Carotid Bruits Lungs: Clear to auscultation, Normal air movement Cardiovascular: Regular rate, No murmurs Abdomen: Bowel Sounds Present, Soft, Non Tender Extremities: No edema, Capillary Refill Less than 3 Seconds Skin: No rashes, No breakdown Musculoskeletal: No Tenderness to Palpation of Joints or Extremities Neurological: Cranial nerves II-XII grossly intact Psych/Mental Status: Normal Affect, Appropriate Vital Signs Temp Pulse Resp BP Pulse Ox 96.6 F L 72 16 106/62 97 04/21/18 15:24 04/21/18 15:24 04/21/18 15:24 04/21/18 15:24 04/21/18 15:24 Oxygen Delivery Method Room Air Weight: 121.653 kg Body Mass Index (BMI) 34.0 Finger Stick Blood Glucose 161 Intake and Output for Last 24 Hours 04/19/18 04/20/18 04/21/18 23:59 23:59 23:59 Intake Total 900 / 900 1400 / 1400 800 / 800 Output Total 1800 / 1800 1775 / 1775 2250 / 2250 Balance -900 / -900 -375 / -375 -1450 / -1450 POC Glucose 04/21/18 06:37 POC Glucose 153 H Assessment/Plan All Active Problems Decubitus ulcer, stage 4 with infection (Acute) Skin necrosis (Acute) Necrotizing soft tissue infection (Acute) Pressure ulcer of left buttock, stage 2 (Acute) Decubitus skin ulcer (Acute) Diabetes mellitus type 2, uncontrolled (Acute) Decubitus ulcer (Acute) Recurrent UTI (urinary tract infection) (Acute) Abnormal liver function (Acute) 63 year old female with below past medical history hospitalized for infected stage 4 sacral pressure ulcer requiring debridement, wound VAC placement, underwent diverting colostomy, suprapubic catheter, pain pump removal, admitted to TCU for rehabilitation, strengthening, wound care, intravenous antibiotics, prior to disposition determination. * Debility - PT/OT. * Dysphagia - ST. * Pain - Dilaudid 2MG IV Q2H PRN severe pain, Extra 2MG IV MWF for dressing changes, Tylenol 1000MG Q8H PRN mild pain, Mobic 7.5MG BID. Fentanyl patches discontinued. * Bowel - Miralax 17GM daily, Senna/colace 2 tablets BID, Dulcolax 10MG GA daily PRN. * Pneumonia vaccination - Administer Prevnar 13 and/or Pneumovax 23 as necessary. * DVT prophylaxis - Lovenox 40MG SC daily. * Anxiety - Xanax 0.5MG Q6H PRN. * Infected sacral pressure ulcer status post debridement (wound VAC) - Unasyn 3GM IV Q8H, Dr. Chanel following, Maynor 1 packet BID. * Hypertension - Diltiazem 240MG daily, HCTZ 25MG daily. * GERD - Famotidine 20MG BID. * GI prophylaxis - Lactobacillus 1 tablet daily. * Hypothyroidism - Levothyroxine 100MCG daily. * Insomnia - Melatonin 5MG QHS. * Diabetes Mellitus II - Metformin 500MG BID. * Tinea Corporis - Nystatin powder BID groin, under breasts. * Nausea - Zofran 8MG TID PRN, Promethazine 12.5MG Q4H PRN. * Hypokalemia - KCL 20MEQ BID. * Muscle spasm - Tizanidine 2MG 4x/day PRN. * Overactive bladder status post suprapubic catheter placement - Tolterodine 4MG daily. * Depression - Venlafaxine 150MG BID. * End of Life Care - Consult hospice to discuss with resident her discharge plans.
[2018-04-21] MEDS: 0.9% NaCl IVPB Med Flush (250 mL) 15 ML IV (21:05)
[2018-04-21] MEDS: MELATONIN 10 MG TABLET 5 MG PO (21:06)
[2018-04-21 21:13] VITALS: O2SAT 98
[2018-04-22] MEDS: 0.9% NaCl PICC Flush IV ×10 (01:20→22:23)
[2018-04-22] MEDS: HYDROmorphone 1 MG/ML Syringe 2 MG IV ×9 (01:20→22:23)
[2018-04-22] MEDS: Glucerna Shake 120 ML LIQUID PO ×4 (06:43→21:26)
[2018-04-22] MEDS: Lactulose 20 GM/30 ML UDC 15 GM PO ×2 (06:44→16:59)
[2018-04-22] MEDS: Levothyroxine 100 MCG Tablet PO (06:44)
[2018-04-22] MEDS: Meloxicam 7.5 MG Tablet PO ×2 (06:45→17:01)
[2018-04-22] MEDS: dilTIAZem CD 240 MG Capsule PO (06:45)
[2018-04-22] MEDS: Tolterodine Tartrate 4 MG CAP.SA PO (06:45)
[2018-04-22] MEDS: tiZANidine HCl 2 MG Tablet PO ×4 (06:45→21:21)
[2018-04-22] MEDS: Senna/Docusate Sodium 1 Tablet 2 TABLET PO ×2 (06:46→17:01)
[2018-04-22] MEDS: Polyethylene Glycol 3350 17 GM PACKET PO ×2 (06:46→17:01)
[2018-04-22] MEDS: Famotidine 20 MG Tablet PO ×2 (06:46→17:01)
[2018-04-22] MEDS: hydroCHLOROthiazide 25 MG Tablet PO (06:46)
[2018-04-22] MEDS: Ammonium Lactate 225 gm Bottle 1 APPLIC TOPICAL ×2 (06:55→17:02)
[2018-04-22] MEDS: Nystatin Powder 15gm Bottle 1 APPLIC TOPICAL ×2 (06:56→17:02)
[2018-04-22 07:01] LABS: Bedside Glucose 148 mg/dL (70-110)
[2018-04-22] MEDS: Enoxaparin 40 MG/0.4 ML Syringe SC (09:11)
[2018-04-22] MEDS: Iron Polysaccharide Complex 150 MG CAPSULE PO (09:12)
[2018-04-22] MEDS: ALPRAZolam 0.5 MG Tablet PO ×2 (09:17→21:23)
--- NOTE | 2018-04-22 11:18 | PCM.PN.ID ---
Patient Problems: Active and Suspected Problems Decubitus ulcer, stage 4 with infection (Acute) Subjective: Some pain in sacrum. No fever, no n/v. - Physical Exam General: Alert, Cooperative Lungs: Clear to auscultation, Normal air movement Cardiovascular: Regular rate, Regular Rhythm Abdomen: Soft, Non Tender, Non-Distended Skin: No rashes - wound vac in place Vital Signs Temp Pulse Resp BP Pulse Ox 96.6 F L 72 16 106/62 98 04/21/18 15:24 04/21/18 15:24 04/21/18 15:24 04/21/18 15:24 04/21/18 21:13 Oxygen Delivery Method Room Air Weight: 121.653 kg Body Mass Index (BMI) 34.0 Finger Stick Blood Glucose 161 Intake and Output for Last 24 Hours 04/20/18 04/21/18 04/22/18 23:59 23:59 23:59 Intake Total 1400 / 1400 1040 / 1040 240 / 240 Output Total 1775 / 1775 3250 / 3250 1820 / 1820 Balance -375 / -375 -2210 / -2210 -1580 / -1580 POC Glucose 04/22/18 06:40 POC Glucose 148 H Medical Necessity - Tobacco Use Smoking Status: Never smoker Tobacco Use: Non-smoker Route of nutrition/ use of supplements: [] Nutritional Intake: [] IV Site: [] Marcus Catheter: [] - Assessment/Plan Antibiotics: [] Assessment/Plan: [] Active and Suspected Problems Decubitus ulcer, stage 4 with infection (Acute) Sacral osteo - s/p debridement 03/[address] Lynch. On unasyn via picc with stop date 05/02/18. Weekly bmp, cbc, and esr. Diverting ostomy and suprapubic cath placed prior to transfer to TCU. WBC improved. ESR improving. Will follow.
[2018-04-22] MEDS: 0.9% NaCl IVPB Med Flush (250 mL) 15 ML IV (13:13)
--- NOTE | 2018-04-22 15:38 | CASEMGMT ---
Social Work SW received information that pt has spoken with physician and would like hospice referral. SW met with pt in room to discuss pt wishes regarding hospice. Pt stating that she has spoke with Dr. Looc and feels that she is ready for hospice at this time. Pt previously has used a hospice out of [facility] but would like to use [facility] at this time. Extensive conversation about discharge destination. Pt stating that she knows that assisted placement would be best for her due to declining medical condition, but due to financial concerns she feels she should return home with home aids (2 hours in am and 1 hour in pm). SW spoke with pt about financial concerns and encouraged pt to consider options concerning home expenses. Also discussed concerns about caring for self for 21 hours a day when no one is present to assist her. Referral made to [facility] who will contact pt directly to set up an appointment to speak to her about their program. SW will continue to follow to assist in d/c planning. KARI Saucedo
[2018-04-22 16:00] VITALS: BP 99/70; PULSE 72; RESP 18; TEMP 36.9
[2018-04-22 20:00] VITALS: PULSE 73; O2SAT 98
[2018-04-22] MEDS: MELATONIN 10 MG TABLET 5 MG PO (21:21)
[2018-04-23] MEDS: 0.9% NaCl PICC Flush IV ×10 (00:42→21:38)
[2018-04-23] MEDS: HYDROmorphone 1 MG/ML Syringe 2 MG IV ×10 (00:42→22:36)
--- NOTE | 2018-04-23 04:58 | NURSING ---
Stool noted to be leaking from side of Ricardo wafer. New appliance placed at this time.
[2018-04-23] MEDS: ALPRAZolam 0.5 MG Tablet PO (05:25)
[2018-04-23] MEDS: Polyethylene Glycol 3350 17 GM PACKET PO ×2 (05:27→17:53)
[2018-04-23] MEDS: Lactulose 20 GM/30 ML UDC 15 GM PO ×2 (05:35→17:53)
[2018-04-23] MEDS: Glucerna Shake 120 ML LIQUID PO ×4 (05:35→21:37)
[2018-04-23] MEDS: Tolterodine Tartrate 4 MG CAP.SA PO (05:35)
[2018-04-23] MEDS: dilTIAZem CD 240 MG Capsule PO (05:35)
[2018-04-23] MEDS: Ammonium Lactate 225 gm Bottle 1 APPLIC TOPICAL ×2 (05:36→13:55)
[2018-04-23] MEDS: Meloxicam 7.5 MG Tablet PO ×2 (05:36→17:53)
[2018-04-23] MEDS: Nystatin Powder 15gm Bottle 1 APPLIC TOPICAL ×2 (05:36→13:55)
[2018-04-23] MEDS: hydroCHLOROthiazide 25 MG Tablet PO (05:36)
[2018-04-23] MEDS: Senna/Docusate Sodium 1 Tablet 2 TABLET PO ×2 (05:37→17:54)
[2018-04-23] MEDS: Levothyroxine 100 MCG Tablet PO (05:37)
[2018-04-23] MEDS: Famotidine 20 MG Tablet PO ×2 (05:37→18:05)
[2018-04-23] MEDS: tiZANidine HCl 2 MG Tablet PO ×3 (05:37→21:30)
[2018-04-23 07:21] LABS: Bedside Glucose 199 mg/dL (70-110)
[2018-04-23] MEDS: Iron Polysaccharide Complex 150 MG CAPSULE PO (08:26)
[2018-04-23] MEDS: Enoxaparin 40 MG/0.4 ML Syringe SC (08:27)
--- NOTE | 2018-04-23 13:27 | CASEMGMT ---
Social Work LINDA spoke with pt in room. Pt meet with [facility] hospice veterans service representative this morning. Pt states that after talking to hospice she had made decision on discharge plan. Pt would like to remain in TCU for rehab at this time. At the time of discharge from TCU, pt plans to go to the inpatient hospice unit for further care. Pt clearly stating that she is understanding of her life situation and does not want to continue pursuing aggressive treatment after this round of treatment is over. LINDA spoke with Hazel from [facility] and she confirms that this d/c plan is appropriate and pt can be taken to inpt unit after treatment ends in TCU for pain management. With pt permission, phone call to [facility] palliative care to inform of pt treatment plan and that pt will not be with them any longer. LINDA will continue to follow for support and d/c planning. KARI Saucedo
[2018-04-23 16:00] VITALS: BP 95/60; PULSE 71; RESP 20; TEMP 36.3; O2SAT 95
[2018-04-23] MEDS: 0.9% NaCl IVPB Med Flush (250 mL) 15 ML IV (21:28)
[2018-04-23] MEDS: MELATONIN 10 MG TABLET 5 MG PO (21:34)
[2018-04-24] MEDS: 0.9% NaCl PICC Flush IV ×9 (01:05→22:52)
[2018-04-24] MEDS: HYDROmorphone 1 MG/ML Syringe 2 MG IV ×9 (01:05→22:52)
[2018-04-24] MEDS: ALPRAZolam 0.5 MG Tablet PO ×2 (06:33→21:38)
[2018-04-24] MEDS: Tolterodine Tartrate 4 MG CAP.SA PO (06:36)
[2018-04-24] MEDS: Senna/Docusate Sodium 1 Tablet 2 TABLET PO ×2 (06:36→17:56)
[2018-04-24] MEDS: Lactulose 20 GM/30 ML UDC 15 GM PO ×2 (06:36→17:56)
[2018-04-24] MEDS: Famotidine 20 MG Tablet PO ×2 (06:37→17:57)
[2018-04-24] MEDS: Levothyroxine 100 MCG Tablet PO (06:37)
[2018-04-24] MEDS: Polyethylene Glycol 3350 17 GM PACKET PO ×2 (06:38→17:58)
[2018-04-24] MEDS: Meloxicam 7.5 MG Tablet PO ×2 (06:38→17:57)
[2018-04-24] MEDS: Glucerna Shake 120 ML LIQUID PO ×4 (06:39→21:40)
[2018-04-24] MEDS: hydroCHLOROthiazide 25 MG Tablet PO (06:39)
[2018-04-24] MEDS: dilTIAZem CD 240 MG Capsule PO (06:40)
[2018-04-24] MEDS: tiZANidine HCl 2 MG Tablet PO ×4 (06:41→21:39)
[2018-04-24] MEDS: Nystatin Powder 15gm Bottle 1 APPLIC TOPICAL ×2 (06:47→13:42)
[2018-04-24] MEDS: Ammonium Lactate 225 gm Bottle 1 APPLIC TOPICAL ×2 (06:48→13:42)
[2018-04-24 07:06] LABS: Bedside Glucose 196 mg/dL (70-110)
[2018-04-24] MEDS: Iron Polysaccharide Complex 150 MG CAPSULE PO (08:11)
[2018-04-24] MEDS: Enoxaparin 40 MG/0.4 ML Syringe SC (08:11)
--- NOTE | 2018-04-24 15:28 | CASEMGMT ---
Insurance Continued stay approved with update due 04/28 Auth # [id number] KARI Saucedo
[2018-04-24 16:00] VITALS: BP 116/77; PULSE 74; RESP 20; TEMP 35.6; O2SAT 95
[2018-04-24] MEDS: 0.9% NaCl IVPB Med Flush (250 mL) 15 ML IV (21:41)
[2018-04-24] MEDS: MELATONIN 10 MG TABLET 5 MG PO (22:56)
[2018-04-25] MEDS: HYDROmorphone 1 MG/ML Syringe 2 MG IV ×12 (00:49→22:16)
[2018-04-25] MEDS: 0.9% NaCl PICC Flush IV ×9 (00:49→22:16)
--- NOTE | 2018-04-25 04:11 | NURSING ---
Colostomy bag off and stool under appliance. Old applicance removed and new one applied. Stoma beefy red. Pt tolerated well.
[2018-04-25] MEDS: Glucerna Shake 120 ML LIQUID PO ×4 (06:24→21:07)
[2018-04-25] MEDS: Lactulose 20 GM/30 ML UDC 15 GM PO ×2 (06:25→17:57)
[2018-04-25] MEDS: Polyethylene Glycol 3350 17 GM PACKET PO ×2 (06:26→17:57)
[2018-04-25] MEDS: tiZANidine HCl 2 MG Tablet PO ×4 (06:27→21:12)
[2018-04-25] MEDS: hydroCHLOROthiazide 25 MG Tablet PO (06:27)
[2018-04-25] MEDS: Famotidine 20 MG Tablet PO ×2 (06:28→17:56)
[2018-04-25] MEDS: Senna/Docusate Sodium 1 Tablet 2 TABLET PO ×2 (06:28→17:57)
[2018-04-25] MEDS: Meloxicam 7.5 MG Tablet PO ×2 (06:28→17:56)
[2018-04-25] MEDS: Levothyroxine 100 MCG Tablet PO (06:28)
[2018-04-25] MEDS: Tolterodine Tartrate 4 MG CAP.SA PO (06:28)
[2018-04-25] MEDS: dilTIAZem CD 240 MG Capsule PO (06:28)
[2018-04-25] MEDS: Ammonium Lactate 225 gm Bottle 1 APPLIC TOPICAL ×2 (06:35→18:06)
[2018-04-25] MEDS: Nystatin Powder 15gm Bottle 1 APPLIC TOPICAL ×2 (06:36→18:07)
[2018-04-25 07:10] LABS: Bedside Glucose 161 mg/dL (70-110)
[2018-04-25 08:51] VITALS: BP 117/71; PULSE 71; RESP 18
[2018-04-25] MEDS: Iron Polysaccharide Complex 150 MG CAPSULE PO (08:59)
[2018-04-25] MEDS: Enoxaparin 40 MG/0.4 ML Syringe SC (08:59)
[2018-04-25] MEDS: ALPRAZolam 0.5 MG Tablet PO ×2 (09:04→21:11)
--- NOTE | 2018-04-25 10:38 | NURSING ---
Colostomy appliance intact. appliance had been changed early this am d/t the bag coming off. there is currently a small amount of thick brown stool in the appliance.
--- NOTE | 2018-04-25 14:39 | NURSING ---
Colostomy appliance changed due to leaking. Resident cleaned and bedding changed. While moving resident in bed. Wound vac dressing comes off. Resident tearful and requesting extra dilaudid be given before dressing is changed. Dr Loco aware and order received.
[2018-04-25 15:18] VITALS: BP 120/59; PULSE 74; RESP 16; TEMP 36.2; O2SAT 96
[2018-04-25 20:05] VITALS: RESP 18
[2018-04-25] MEDS: MELATONIN 10 MG TABLET 5 MG PO (21:12)
[2018-04-25] MEDS: 0.9% NaCl IVPB Med Flush (250 mL) 15 ML IV (21:15)
[2018-04-26] MEDS: HYDROmorphone 1 MG/ML Syringe 2 MG IV ×9 (00:19→21:45)
[2018-04-26] MEDS: 0.9% NaCl PICC Flush IV ×10 (00:19→22:00)
[2018-04-26 03:53] LABS: Erythrocyte Sedimentation Rate 69 mm/hr (0-30)
[2018-04-26 03:55] LABS: Absolute Lymphocyte Count 4.85 X10^3/ul (0.83-4.51); Absolute Neutrophil Count 6.6 X10^3/uL (2.0-7.7); Basophil# 0.03 X10^3/uL; Basophil% 0.2 % (0-1); Eosinophil# 1.06 X10^3/uL; Hemoglobin 10.3 g/dl (12.0-15.0); Lymphocyte # 4.85 X10^3/ul (4.0); Lymphocyte % 36.5 % (19-41); Mean Corp Hgb Conc 31.2 g/gl (32-36); Mean Corpuscular Hgb 27.6 pg (27.0-32.0); Mean Corpuscular Volume 88.5 fL (81-99); Mean Platelet Vol. 8.9 fl (6.2-12.0); Monocyte# 0.73 X10^3/uL; Monocyte% 5.5 % (0-10); Neutrophil % 49.6 % (47-70); Platelet Count 314 K/mm3 (150-450); RBC Distribution Width SD 48.3 fl (35.1-43.9); Red Blood Count 3.73 M/mm3 (4.2-5.4); White Blood Count 13.3 K/mm3 (4.4-11.0)
[2018-04-26 03:56] LABS: POSITIVE COUNT NO; POSITIVE DIFFERENTIAL NO; POSITIVE MORPHOLOGY NO
[2018-04-26 04:04] LABS: Anion Gap 9 (5-15); BUN 24 mg/dL (7-18); BUN/Creat Ratio 38.6 RATIO (10-20); Calcium,Total 9.1 mg/dL (8.5-10.1); Chloride 98 mmol/L (98-107); Creatinine, Serum 0.62 mg/dL (0.55-1.02); EST Glomerular Filtration Rate 103 mL/min (>60); Est Glom Filt Rate - Afr Amer 125 mL/min (>60); Estimated Creatinine Clearance 86.94 ml/min; Glucose 189 mg/dL (74-106); Sodium Level 137 mmol/L (136-145)
[2018-04-26] MEDS: dilTIAZem CD 240 MG Capsule PO (06:31)
[2018-04-26] MEDS: Tolterodine Tartrate 4 MG CAP.SA PO (06:32)
[2018-04-26] MEDS: Lactulose 20 GM/30 ML UDC 15 GM PO ×2 (06:32→16:29)
[2018-04-26] MEDS: hydroCHLOROthiazide 25 MG Tablet PO (06:32)
[2018-04-26] MEDS: Glucerna Shake 120 ML LIQUID PO ×4 (06:32→21:57)
[2018-04-26] MEDS: Ammonium Lactate 225 gm Bottle 1 APPLIC TOPICAL ×2 (06:32→16:43)
[2018-04-26] MEDS: Levothyroxine 100 MCG Tablet PO (06:33)
[2018-04-26] MEDS: Polyethylene Glycol 3350 17 GM PACKET PO ×2 (06:33→16:32)
[2018-04-26] MEDS: tiZANidine HCl 2 MG Tablet PO ×4 (06:33→21:57)
[2018-04-26] MEDS: Meloxicam 7.5 MG Tablet PO ×2 (06:33→16:31)
[2018-04-26] MEDS: Famotidine 20 MG Tablet PO ×2 (06:33→16:31)
[2018-04-26] MEDS: Nystatin Powder 15gm Bottle 1 APPLIC TOPICAL ×2 (06:33→16:32)
[2018-04-26] MEDS: Senna/Docusate Sodium 1 Tablet 2 TABLET PO ×2 (06:33→16:31)
[2018-04-26 06:41] LABS: Bedside Glucose 159 mg/dL (70-110)
[2018-04-26] MEDS: ALPRAZolam 0.5 MG Tablet PO ×2 (09:46→21:57)
[2018-04-26] MEDS: Iron Polysaccharide Complex 150 MG CAPSULE PO (10:42)
[2018-04-26] MEDS: Enoxaparin 40 MG/0.4 ML Syringe SC (10:42)
[2018-04-26 15:15] VITALS: BP 101/67; PULSE 72; RESP 18; TEMP 36.5; O2SAT 93
--- NOTE | 2018-04-26 15:37 | NURSING ---
Dr. Loco reviewed AM labs, NNO
--- NOTE | 2018-04-26 21:35 | NURSING ---
At 2099 colostomy apparatus noted to be off. Patient's colostomy full of stool and gas. Stool oozying around wafer. This nurse released gas from colostomy at 1930. At this time there was no stool noted in bag. When apparatus noted to be off there was 150 cc of stool noted in bag. Patient's apparatus and colostomy bag changed at this time.
[2018-04-26] MEDS: MELATONIN 10 MG TABLET 5 MG PO (21:58)
[2018-04-27] MEDS: 0.9% NaCl PICC Flush IV ×4 (00:22→21:08)
[2018-04-27] MEDS: HYDROmorphone 1 MG/ML Syringe 2 MG IV ×9 (00:22→22:02)
[2018-04-27] MEDS: Lactulose 20 GM/30 ML UDC 15 GM PO ×2 (06:50→16:48)
[2018-04-27] MEDS: Polyethylene Glycol 3350 17 GM PACKET PO ×2 (06:51→16:48)
[2018-04-27] MEDS: Senna/Docusate Sodium 1 Tablet 2 TABLET PO ×2 (06:52→16:47)
[2018-04-27] MEDS: dilTIAZem CD 240 MG Capsule PO (06:52)
[2018-04-27] MEDS: tiZANidine HCl 2 MG Tablet PO ×4 (06:52→22:03)
[2018-04-27] MEDS: Meloxicam 7.5 MG Tablet PO ×2 (06:52→16:47)
[2018-04-27] MEDS: Levothyroxine 100 MCG Tablet PO (06:52)
[2018-04-27] MEDS: Tolterodine Tartrate 4 MG CAP.SA PO (06:53)
[2018-04-27] MEDS: Famotidine 20 MG Tablet PO ×2 (06:53→16:48)
[2018-04-27] MEDS: hydroCHLOROthiazide 25 MG Tablet PO (06:53)
[2018-04-27] MEDS: ALPRAZolam 0.5 MG Tablet PO ×3 (06:55→22:02)
[2018-04-27] MEDS: Glucerna Shake 120 ML LIQUID PO ×4 (06:57→21:05)
[2018-04-27] MEDS: Nystatin Powder 15gm Bottle 1 APPLIC TOPICAL ×2 (06:58→18:11)
[2018-04-27] MEDS: Ammonium Lactate 225 gm Bottle 1 APPLIC TOPICAL ×2 (06:59→16:50)
[2018-04-27 08:05] LABS: Bedside Glucose 246 mg/dL (70-110)
[2018-04-27] MEDS: Iron Polysaccharide Complex 150 MG CAPSULE PO (09:19)
[2018-04-27] MEDS: Enoxaparin 40 MG/0.4 ML Syringe SC (09:20)
[2018-04-27] MEDS: Ondansetron 8 MG Tablet PO (09:24)
[2018-04-27 15:16] VITALS: BP 99/64; PULSE 87; RESP 18; TEMP 35.6; O2SAT 93
[2018-04-27] MEDS: 0.9% NaCl IVPB Med Flush (250 mL) 15 ML IV (21:01)
[2018-04-27] MEDS: MELATONIN 10 MG TABLET 5 MG PO (22:03)
[2018-04-28] MEDS: HYDROmorphone 1 MG/ML Syringe 2 MG IV ×12 (00:33→23:53)
[2018-04-28] MEDS: 0.9% NaCl PICC Flush IV ×9 (00:33→23:53)
[2018-04-28] MEDS: ALPRAZolam 0.5 MG Tablet PO ×2 (05:50→17:11)
[2018-04-28] MEDS: Glucerna Shake 120 ML LIQUID PO ×4 (05:50→21:30)
[2018-04-28] MEDS: Lactulose 20 GM/30 ML UDC 15 GM PO ×2 (05:53→17:15)
[2018-04-28] MEDS: Senna/Docusate Sodium 1 Tablet 2 TABLET PO ×2 (05:56→17:17)
[2018-04-28] MEDS: Meloxicam 7.5 MG Tablet PO ×2 (05:56→17:17)
[2018-04-28] MEDS: Famotidine 20 MG Tablet PO ×2 (05:56→17:17)
[2018-04-28] MEDS: Tolterodine Tartrate 4 MG CAP.SA PO (05:56)
[2018-04-28] MEDS: tiZANidine HCl 2 MG Tablet PO ×4 (05:56→21:31)
[2018-04-28] MEDS: Levothyroxine 100 MCG Tablet PO (05:56)
[2018-04-28] MEDS: dilTIAZem CD 240 MG Capsule PO (05:57)
[2018-04-28] MEDS: Polyethylene Glycol 3350 17 GM PACKET PO ×2 (05:58→17:16)
[2018-04-28] MEDS: hydroCHLOROthiazide 25 MG Tablet PO (05:59)
[2018-04-28] MEDS: Nystatin Powder 15gm Bottle 1 APPLIC TOPICAL ×2 (06:01→14:48)
[2018-04-28] MEDS: Ammonium Lactate 225 gm Bottle 1 APPLIC TOPICAL ×2 (06:02→14:48)
[2018-04-28 06:40] LABS: Bedside Glucose 144 mg/dL (70-110)
[2018-04-28] MEDS: Enoxaparin 40 MG/0.4 ML Syringe SC (08:26)
[2018-04-28] MEDS: Iron Polysaccharide Complex 150 MG CAPSULE PO (08:26)
--- NOTE | 2018-04-28 08:35 | NURSING ---
Addendum entered by Dorota De Leon 04/28/18 14:30: Pt continues to refuse to touch or even look at colostomy bag. So if it fills with air she does not even call waits until someone walks in room then does speak about it. Original Note: colostomy bag changed d/t leaking around seal, was not attached to wafer this AM. Stool thick/brown but soft.
--- NOTE | 2018-04-28 13:00 | CASEMGMT ---
Insurance Clinical update submitted through O website. Will await continued stay determination. Auth # [id number] KARI Saucedo
--- NOTE | 2018-04-28 13:11 | PCM.PN.ID ---
Patient Problems: Active and Suspected Problems Decubitus ulcer, stage 4 with infection (Acute) Subjective: Still some abd pain. No fever, no issues with picc. - Physical Exam General: Alert, Cooperative, No apparent distress Lungs: Clear to auscultation, Normal air movement Cardiovascular: Regular rate, Regular Rhythm Abdomen: Soft, Non Tender, Non-Distended Skin: No rashes, Ulcer/ Wound - wound vac in place Vital Signs Temp Pulse Resp BP Pulse Ox 96.0 F L 87 18 99/64 93 04/27/18 15:16 04/27/18 15:16 04/27/18 15:16 04/27/18 15:16 04/27/18 15:16 Oxygen Delivery Method Room Air Weight: 121.656 kg Body Mass Index (BMI) 34.0 Finger Stick Blood Glucose 161 Intake and Output for Last 24 Hours 04/26/18 04/27/18 04/28/18 23:59 23:59 23:59 Intake Total 2145 / 2145 718 / 718 600 / 600 Output Total 3150 / 3150 1450 / 1450 1075 / 1075 Balance -1005 / -1005 -732 / -732 -475 / -475 POC Glucose 04/28/18 06:23 POC Glucose 144 H Medical Necessity - Tobacco Use Smoking Status: Never smoker Tobacco Use: Non-smoker Route of nutrition/ use of supplements: [] Nutritional Intake: [] IV Site: [] Marcus Catheter: [] - Assessment/Plan Antibiotics: [] Assessment/Plan: [] Active and Suspected Problems Decubitus ulcer, stage 4 with infection (Acute) Sacral osteo - s/p debridement 03/[address] Lynch. On unasyn via picc with stop date 05/02/18. Weekly bmp, cbc, and esr. Diverting ostomy and suprapubic cath placed prior to transfer to TCU. WBC improved. ESR stable since last check. If wound is improving, she should not need additional po abx. Will follow.
--- NOTE | 2018-04-28 13:56 | PCA ---
Patient stated she was getting discharged in a couple days. I asked if she was excited. Patient stated she was scared and nervous, that she was going home alone with people checking on her every now and then. I made the remark that i overheard that. She stated she was not sure if she was going to be able to do her Colostomy and if it blows then she will wait for her help and make them do it. Patient stated her sister bought little trash bags to cover the Colostomy until they can fix it. Patient stated she hated doing that to them but she was no idea how to take care of the Colostomy
--- NOTE | 2018-04-28 14:28 | NURSING ---
wound photo: sacrum
[2018-04-28 15:47] VITALS: BP 95/53; PULSE 71; RESP 20; TEMP 36.7; O2SAT 92
--- NOTE | 2018-04-28 16:33 | CASEMGMT ---
Insurance/Social Work Continued stay denied. LCD 04/28/18 with d/c 04/29/18. Auth # [id number] Met with pt in room and informed of insurance decision. Pt tearful and disappointed that she cannot stay until IV ATB is finished. SW offered emotional support. SW inquired about previous plan to d/c to in hospice. Pt states that she continues to want this to be the plan. Pt denies need for SW to call sister, and that she will call her. Phone call to Hazel at [facility] hospice and informed of pt d/c tomorrow. SW to followup. KARI Burnette
--- NOTE | 2018-04-28 20:31 | PCM.DC ---
- Discharge Diagnoses Current Active Problems: Current Active and Chronic Problems Decubitus ulcer, stage 4 with infection (Acute) Debility (Chronic) Paraplegia (Chronic) Diabetes mellitus (Chronic) Recurrent UTI (Chronic) Urinary retention (Chronic) Failure to thrive (Chronic) Chronic pain (Chronic) Multiple sclerosis (Chronic) Tinea unguium (Chronic) Xerosis of skin (Chronic) You will use the following diet at home:: No restrictions, Regular Your food should be the consistency of: Regular Your liquids should be the consistency of: Regular/Thin Weight Bearing Status: No weight bearing Call your doctor if you observe: Fever of 101 or Higher, Inability to urinate, Inability to have a bowel movement, Shortness of breath, Chest pain, Uncontrolled pain Allergies/Adverse Reactions: Allergies cyclobenzaprine [From Flexeril] Allergy (Verified 03/20/18 16:34) Other gabapentin Adverse Reaction (Verified 03/20/18 16:34) weakness in legs nifedipine [From Procardia] Adverse Reaction (Verified 03/20/18 16:34) weakness in legs pregabalin [From Lyrica] Adverse Reaction (Verified 03/20/18 16:34) weakness in legs Medications to take at Discharge Lactobacillus Acidophilus [Acidophilus] 1 capsule PO DAILY 01/22/18 Diltiazem CD [Cardizem CD] 240 mg PO DAILY 03/20/18 Hydrochlorothiazide [Hctz] 25 mg PO DAILY 03/20/18 Levothyroxine Sodium [Synthroid] 100 mcg PO DAILY 03/20/18 Melatonin 5 mg PO QHS 03/20/18 Meloxicam 7.5 mg PO BID 03/20/18 Metformin HCl [Glucophage] 500 mg PO BID 03/20/18 Nystatin Powder [Mycostatin Powder] 1 applic TOPICAL BID 03/20/18 Ondansetron [Zofran] 8 mg PO TID PRN PRN 03/20/18 Potassium Chloride [Klor-Con M20] 20 meq PO BID 03/20/18 Tizanidine HCl 2 mg PO 4X/DAY PRN PRN 03/20/18 Tolterodine Tartrate [Detrol] 2 mg PO BID 03/20/18 Venlafaxine HCl [Effexor] 150 mg PO BID 03/20/18 proMETHazine tablet [Phenergan tablet] 12.5 mg PO Q4H PRN PRN 03/20/18 ALPRAZolam [Xanax] 0.5 mg PO Q6H PRN PRN #10 tablet 03/28/18 Enoxaparin [Lovenox] 40 mg SC DAILY@1000 syringe 03/28/18 Famotidine [Pepcid] 20 mg PO BID tablet 03/28/18 Nutritional Supplement [Maynor - ORANGE FLAVOR] 1 packet PO BIDCM packet 03/28/18 0.9% Saline Lock 10 - 20 ml IV UD PRN syringe 04/28/18 Acetaminophen [Tylenol] 1,000 mg PO Q8H PRN PRN tablet 04/28/18 Ampicillin/Sulbactam [Unasyn] 3 gm IV Q8H 3 Days vial 04/28/18 Bisacodyl [Dulcolax] 10 mg PO DAILY PRN PRN tablet 04/28/18 Glucerna Shake 120 ml PO 4X/DAY liquid 04/28/18 HYDROmorphone Inj [Dilaudid Inj] 2 mg IV MoWeFr@1030 syringe 04/28/18 HYDROmorphone Inj [Dilaudid Inj] 2 mg IV Q2H PRN PRN syringe 04/28/18 Heparin Sodium,Porcine/Pf [Heparin 500 Unit/5 ml (100/ml)] 500 unit IV UD PRN syringe 04/28/18 Iron Polysaccharide Complex [Ferrex 150] 150 mg PO DAILYCM capsule 04/28/18 Lactulose [Chronulac] 15 gm PO BID udc 04/28/18 Polyethylene Glycol 3350 [Miralax] 17 gm PO BID packet 04/28/18 Senna/Docusate Sodium [Senokot-S] 2 tablet PO BID tablet 04/28/18 Primary Care Physician: [facility] Doctor,Out of [Primary Care Provider] - Please follow up with your Primary Care Physician in: 1 week. Test Results: Test results from this visit will be discussed in further detail at your follow-up appointment, if applicable. Please Follow Up With: Leonel Szymanski MD When: in 6 weeks Please Follow Up With: Dr Alexander Please Follow Up With: Dr Alexander Proposed Discharge Date: 04/29/18
--- NOTE | 2018-04-28 20:33 | PCM.DC.SUM ---
Discharge Date and Diagnosis - Problem List Patient Problems: Active and Suspected Problems Decubitus ulcer, stage 4 with infection (Acute) Date of Admission: 03/28/18 Date of Discharge: 04/29/18 - Primary Discharge Diagnosis Active and Suspected Problems Decubitus ulcer, stage 4 with infection (Acute) - Secondary Discharge Diagnosis Chronic Problems Debility (Chronic) Paraplegia (Chronic) Diabetes mellitus (Chronic) Recurrent UTI (Chronic) Urinary retention (Chronic) Failure to thrive (Chronic) Chronic pain (Chronic) Multiple sclerosis (Chronic) Tinea unguium (Chronic) Xerosis of skin (Chronic) Incontinence of feces (Chronic) Incontinence of urine in female (Chronic) Osteomyelitis of sacrum (Chronic) Pressure ulcer of sacral region, stage 4 (Chronic) Pressure ulcer of coccygeal region, stage 3 (Chronic) Paraparesis of both lower limbs (Chronic) Chronic ulcer of right great toe with fat layer exposed (Chronic) Macrocytic anemia (Chronic) due to folate deficiency + fatty liver.....? hemolysis, haptoglobin is pending Hypothyroidism (Chronic) Anxiety (Chronic) Morbid obesity with BMI of 40.0-44.9, adult (Chronic) COPD (chronic obstructive pulmonary disease) (Chronic) life long non-smoker Multiple sclerosis (Chronic) Depression (Chronic) Pulmonary embolism (Chronic) Failure to thrive in adult (Chronic) Physical deconditioning (Chronic) Spinal stenosis of lumbar region (Chronic) mild, diagnosed on MRI of the LS spine done 01/01/14 Folate deficiency anemia (Chronic) Fatty infiltration of liver (Chronic) Urine, incontinence, stress female (Chronic) Chronic retention of urine (Chronic) she has MS and also has spinal canal stenosis....has seen neurosurgery and is not a candidate for any surgical intervention. Physical debility (Chronic) she is sedentary lives alone and can no longer get herself to the BR, has lost arm strength....very deconditioned Hospital Course and Treatment Imaging Results: 03/28/18 16:24 Diet: Calorie Controlled Food consistency:: Regular Liquid Consistency:: Regular/Thin Is pt able to select menu?: Yes Diet Comments: please send magic pudding cup with all meals How many daily calories?: 2000 calorie Clinical Impression(s) from Imaging Studies KUB X-Ray 04/01/18 14:11 IMPRESSION: Moderate amount of fecal material is seen throughout the colon. Electronically Signed: Blas Silverio MD at 15:08 EDT Tel [phone], Service support , Labs (Last 48 Hours) 04/27/18 04/28/18 08:00 06:23 POC Glucose 246 H 144 H Consultations 03/28/18 Consult: Onc/Wound/chemical radiation technician Routine Comment: Reason for Consult:: decubitus and wound vac and new colostomy Operations: None Procedures: None Summary of Care Provided: The patient is a 63 year old Female with below past medical history hospitalized for infected stage 4 sacral pressure ulcer requiring debridement, wound VAC placement, underwent diverting colostomy, suprapubic catheter, pain pump removal, admitted to TCU for rehabilitation, strengthening, wound care, intravenous antibiotics, prior to disposition determination. Discharge to inpatient hospice for uncontrolled pain, end of life care. Discharge Diet: No Restrictions Weight Bearing Status: No weight bearing Call your doctor if you observe: Fever of 101 or Higher, Inability to urinate, Inability to have a bowel movement, Shortness of breath, Chest pain, Uncontrolled pain Home Medications: Medications to take at Discharge Lactobacillus Acidophilus [Acidophilus] 1 capsule PO DAILY 01/22/18 Diltiazem CD [Cardizem CD] 240 mg PO DAILY 03/20/18 Hydrochlorothiazide [Hctz] 25 mg PO DAILY 03/20/18 Levothyroxine Sodium [Synthroid] 100 mcg PO DAILY 03/20/18 Melatonin 5 mg PO QHS 03/20/18 Meloxicam 7.5 mg PO BID 03/20/18 Metformin HCl [Glucophage] 500 mg PO BID 03/20/18 Nystatin Powder [Mycostatin Powder] 1 applic TOPICAL BID 03/20/18 Ondansetron [Zofran] 8 mg PO TID PRN PRN 03/20/18 Potassium Chloride [Klor-Con M20] 20 meq PO BID 03/20/18 Tizanidine HCl 2 mg PO 4X/DAY PRN PRN 03/20/18 Tolterodine Tartrate [Detrol] 2 mg PO BID 03/20/18 Venlafaxine HCl [Effexor] 150 mg PO BID 03/20/18 proMETHazine tablet [Phenergan tablet] 12.5 mg PO Q4H PRN PRN 03/20/18 ALPRAZolam [Xanax] 0.5 mg PO Q6H PRN PRN #10 tablet 03/28/18 Enoxaparin [Lovenox] 40 mg SC DAILY@1000 syringe 03/28/18 Famotidine [Pepcid] 20 mg PO BID tablet 03/28/18 Nutritional Supplement [Maynor - ORANGE FLAVOR] 1 packet PO BIDCM packet 03/28/18 0.9% Saline Lock 10 - 20 ml IV UD PRN syringe 04/28/18 Acetaminophen [Tylenol] 1,000 mg PO Q8H PRN PRN tablet 04/28/18 Ampicillin/Sulbactam [Unasyn] 3 gm IV Q8H 3 Days vial 04/28/18 Bisacodyl [Dulcolax] 10 mg PO DAILY PRN PRN tablet 04/28/18 Glucerna Shake 120 ml PO 4X/DAY liquid 04/28/18 HYDROmorphone Inj [Dilaudid Inj] 2 mg IV MoWeFr@1030 syringe 04/28/18 HYDROmorphone Inj [Dilaudid Inj] 2 mg IV Q2H PRN PRN syringe 04/28/18 Heparin Sodium,Porcine/Pf [Heparin 500 Unit/5 ml (100/ml)] 500 unit IV UD PRN syringe 04/28/18 Iron Polysaccharide Complex [Ferrex 150] 150 mg PO DAILYCM capsule 04/28/18 Lactulose [Chronulac] 15 gm PO BID udc 04/28/18 Polyethylene Glycol 3350 [Miralax] 17 gm PO BID packet 04/28/18 Senna/Docusate Sodium [Senokot-S] 2 tablet PO BID tablet 04/28/18 Primary Care Physician: [facility] Doctor,Out of [Primary Care Provider] - Please follow up with your Primary Care Physician in: 1 week. Please Follow Up With: Leonel Szymanski MD When: in 6 weeks Please Follow Up With: Dr Alexander Please Follow Up With: Dr Alexander Disposition: Hospice Medical Facility Minutes spent on discharge:: 30 Patient Condition:: Poor Medical Necessity - Tobacco Use Smoking Status: Never smoker Tobacco Use: Non-smoker Meaningful Use Info Meaningful Use Diagnoses (Choose all that apply): None applicable
[2018-04-28] MEDS: MELATONIN 10 MG TABLET 5 MG PO (21:30)
[2018-04-28] MEDS: 0.9% NaCl IVPB Med Flush (250 mL) 15 ML IV (21:36)
[2018-04-29] MEDS: HYDROmorphone 1 MG/ML Syringe 2 MG IV ×5 (02:16→11:54)
[2018-04-29] MEDS: 0.9% NaCl PICC Flush IV ×5 (02:16→11:54)
[2018-04-29] MEDS: Glucerna Shake 120 ML LIQUID PO ×2 (04:47→10:40)
[2018-04-29] MEDS: Lactulose 20 GM/30 ML UDC 15 GM PO (04:48)
[2018-04-29] MEDS: dilTIAZem CD 240 MG Capsule PO (04:48)
[2018-04-29] MEDS: Tolterodine Tartrate 4 MG CAP.SA PO (04:49)
[2018-04-29] MEDS: Ammonium Lactate 225 gm Bottle 1 APPLIC TOPICAL (04:50)
[2018-04-29] MEDS: hydroCHLOROthiazide 25 MG Tablet PO (04:50)
[2018-04-29] MEDS: Meloxicam 7.5 MG Tablet PO (04:51)
[2018-04-29] MEDS: Nystatin Powder 15gm Bottle 1 APPLIC TOPICAL (04:51)
[2018-04-29] MEDS: Polyethylene Glycol 3350 17 GM PACKET PO (04:51)
[2018-04-29] MEDS: Levothyroxine 100 MCG Tablet PO (04:52)
[2018-04-29] MEDS: Famotidine 20 MG Tablet PO (04:52)
[2018-04-29] MEDS: Senna/Docusate Sodium 1 Tablet 2 TABLET PO (04:52)
[2018-04-29] MEDS: tiZANidine HCl 2 MG Tablet PO ×2 (04:53→10:39)
[2018-04-29] MEDS: ALPRAZolam 0.5 MG Tablet PO ×2 (05:24→11:54)
[2018-04-29 07:06] LABS: Bedside Glucose 181 mg/dL (70-110)
[2018-04-29] MEDS: Enoxaparin 40 MG/0.4 ML Syringe SC (08:21)
[2018-04-29] MEDS: Iron Polysaccharide Complex 150 MG CAPSULE PO (08:21)
--- NOTE | 2018-04-29 09:56 | CASEMGMT ---
Addendum entered by Tabitha Kenyon 04/29/18 10:14: Notified [facility] ([facility]), Samina of resident discharge on this day to [facility]. Original Note: Social Work Telephone call to [facility], Hazel. Hazel reporting to be able to accept resident on this day. Hazel planning to set up transportation for 12:00noon. Hazel reporting to already have all needed discharge information. Spoke with resident in room. Resident agreeable to discharge plan and time. Hazel faxing transportation form confirming transportation time of 12:00pm. Staff aware of resident discharge on this day. Proposed discharge date: 04/29/18 PLAN: Discharge to [facility]. Tabitha PIERCE, LACQUER MAKER
--- NOTE | 2018-04-29 10:17 | CASEMGMT ---
Brief interview for mental status (BIMS) and resident mood interview interview (PHQ-9) completed on this day. BIMS score 15/15. PHQ-9 score 12/29.
[2018-04-29 11:10] VITALS: BP 129/69; PULSE 79; RESP 18; TEMP 36.8; O2SAT 95
--- NOTE | 2018-04-29 11:15 | NURSING ---
removed the colostomy appliance. there was a moderate amount of thick brown stool noted in the appliance. some stool noted under the flange. peristomal skin is intact. sutures still in place. stoma sits slightly above skin level. stoma is pink and moist. cleansed with warm water and pat dry. applied a new 2 piece convex [place] appliance with a small amount of stoma paste. pt tolerated well.
--- NOTE | 2018-04-29 11:20 | NURSING ---
Report called to Antonina at Hospice, Pt transport set up for noon
--- NOTE | 2018-04-30 16:55 | CASEMGMT ---
Insurance Notified insurance of resident discharge on 04/29/18 to inpatient hospice setting. Auth#[id number] Tabitha PIERCE, TRUCK DRIVER HEAVY
== END 2018-04-29 12:30 | disposition hospice, inpatient (51) | DRG 949 ==
PROVIDERS: Admitting Provider Family Medicine Geriatric Medicine; Visit Provider Family Medicine Geriatric Medicine
DX: Z48.817 Encounter for surgical aftercare following surgery on the skin and subcutaneous tissue (principal); L89.154 Pressure ulcer of sacral region, stage 4; G82.20 Paraplegia, unspecified; E11.52 Type 2 diabetes mellitus with diabetic peripheral angiopathy with gangrene; I96 Gangrene, not elsewhere classified; Z68.41 Body mass index [BMI] 40.0-44.9, adult; M46.28 Osteomyelitis of vertebra, sacral and sacrococcygeal region; E11.622 Type 2 diabetes mellitus with other skin ulcer; N32.81 Overactive bladder; F32.9 Major depressive disorder, single episode, unspecified; E03.9 Hypothyroidism, unspecified; K21.9 Gastro-esophageal reflux disease without esophagitis; I10 Essential (primary) hypertension; B35.4 Tinea corporis; E87.6 Hypokalemia; L08.9 Local infection of the skin and subcutaneous tissue, unspecified; F41.9 Anxiety disorder, unspecified; E11.65 Type 2 diabetes mellitus with hyperglycemia; J44.9 Chronic obstructive pulmonary disease, unspecified; G35 Multiple sclerosis; Z86.711 Personal history of pulmonary embolism; L89.322 Pressure ulcer of left buttock, stage 2; Z23 Encounter for immunization; D52.9 Folate deficiency anemia, unspecified; N39.3 Stress incontinence (female) (male); E66.01 Morbid (severe) obesity due to excess calories; Z71.3 Dietary counseling and surveillance; R15.9 Full incontinence of feces; R62.7 Adult failure to thrive; G89.29 Other chronic pain; M48.061 Spinal stenosis, lumbar region without neurogenic claudication; Z93.3 Colostomy status; B35.1 Tinea unguium; L85.3 Xerosis cutis; E11.69 Type 2 diabetes mellitus with other specified complication
CPT/HCPCS: 74018; 80048; 82962; 85025; 85652; 92610; 97110; 97162; 97167; 97530; 97535; 97802; J2997; J7050; 90670; A4216; J0295; J2405